=== PATIENT | female | born 1940 | race Caucasian/White ===

== ENCOUNTER 2016-11-04 14:47 | Inpatient (IN) | payer MEDICARE, OTHER ==
--- NOTE | 2016-11-04 15:13 | ER Document Report ---
ED Medical Screen (RME) - General Stated Complaint: WEAKNESS Time seen by provider: 15:08 Notes: 76-year-old female with chronic kidney disease, stage IV, COPD, left ventricular dysfunction, encephalopathy, hydrocephalic's, started being more weak to the point where she could not walk, sit up or heat last week. She has hospice at home. She refuses dialysis. She has an indwelling Moura catheter. Hands are extra swollen today initially the left. She has DO NOT RESUSCITATE orders but the daughter did not bring them they are at home on the wall. Dr. Anderson her PCP wants her evaluated in the emergency room because she has had such a drastic downturn and physicality, inability to do things. Her daughter is her caregiver and is unsure how to take care of her at home at this point. No fever I have greeted and performed a rapid initial assessment of this patient. A comprehensive ED assessment, evaluation of the patient, analysis of test results , and completion of the medical decision making process will be contacted by additional ED providers. TRAVEL OUTSIDE OF THE [place] IN LAST 30 DAYS: No - Related Data Allergies/Adverse Reactions: No Known Allergies Allergy (Verified 08/09/15 12:15) Past Medical History - Past Medical History Cardiac Medical History: Reports: Hx Hypercholesterolemia Pulmonary Medical History: Reports: Hx COPD Psychiatric Medical History: Reports: Hx Depression Past Surgical History: Reports: Hx Urinary Tract Surgery Physical Exam - Vital signs Vitals: Temp Pulse Resp BP Pulse Ox 97.8 F 95 22 H 104/57 L 96 11/04/16 15:04 11/04/16 15:04 11/04/16 15:04 11/04/16 15:04 11/04/16 15:04 Course - Vital Signs Vital signs: Temp Pulse Resp BP Pulse Ox 97.8 F 95 22 H 104/57 L 96 11/04/16 15:04 11/04/16 15:04 11/04/16 15:04 11/04/16 15:04 11/04/16 15:04
[2016-11-04 15:50] LABS: ABSOLUTE BASOPHILS # (AUTO) 0.1 10^3/uL (0.0-0.2); ABSOLUTE EOSINOPHILS # (AUTO) 0.4 10^3/uL (0.0-0.6); ABSOLUTE LYMPHOCYTES (AUTO) 1.5 10^3/uL (0.5-4.7); ABSOLUTE MONOCYTES (AUTO) 1.1 10^3/uL (0.1-1.4); ABSOLUTE NEUT (AUTO) 7.2 10^3/uL (1.7-8.2); BASOPHILS % (AUTO) 1.1 % (0-2); EOSINOPHILS % (AUTO) 3.8 % (0-6); HEMATOCRIT 31.8 % (36.0-47.0); HEMOGLOBIN 10.1 g/dL (12.0-15.5); HGB HCT DIFFERENCE -1.5; LYMPHOCYTES % (AUTO) 14.4 % (13-45); MEAN CORPUSCULAR HEMOGLOBIN 25.2 pg (27.0-33.4); MEAN CORPUSCULAR HGB CONC 31.9 g/dL (32.0-36.0); MEAN CORPUSCULAR VOLUME 79 fl (80-97); RED BLOOD COUNT 4.03 10^6/uL (3.72-5.28); RED CELL DISTRIBUTION WIDTH 15.7 % (11.5-14.0); SEGMENTED NEUTROPHILS % (AUTO) 69.7 % (42-78); WHITE BLOOD COUNT 10.3 10^3/uL (4.0-10.5)
[2016-11-04 16:10] LABS: ALANINE AMINOTRANSFERASE 27 U/L (9-52); ALBUMIN 3.6 g/dL (3.5-5.0); ALKALINE PHOSPHATASE 82 U/L (38-126); ANION GAP 14 (5-19); ASPARTATE AMINO TRANSFERASE 39 U/L (14-36); BILIRUBIN,TOTAL 0.6 mg/dL (0.2-1.3); BLOOD UREA NITROGEN 38 mg/dL (7-20); CALCIUM 9.3 mg/dL (8.4-10.2); CARBON DIOXIDE 24 mmol/L (22-30); CHLORIDE 98 mmol/L (98-107); CREATINE KINASE 1123 U/L (30-135); CREATININE RESULT 2.78 mg/dL (0.52-1.25); GLUCOSE 125 mg/dL (75-110); LIPASE 101.6 U/L (23-300); POTASSIUM 3.7 mmol/L (3.6-5.0); SODIUM 135.6 mmol/L (137-145); TOTAL PROTEIN 7.4 g/dL (6.3-8.2)
[2016-11-04 16:20] LABS: CREATINE KINASE MB 6.6 ng/mL (<4.55)
--- NOTE | 2016-11-04 16:22 | ER Document Report ---
ED General - General Chief Complaint: Weakness Stated Complaint: WEAKNESS Notes: Patient is being evaluated for progressive weakness over the last 9-10 days. Patient has a history of renal failure but is refused to go on dialysis. She is supposed to be under hospice care at this time, but the daughter says that hospice, as well as her primary care physician, advised her to be brought to the emergency department for assessment. Patient also has a history of COPD. She is not experiencing any significant shortness of breath or chest congestion or cough. Daughter says that the patient was her usual self about 10 days ago, but the next day she seemed to lose strength quickly and was unable to walk, even with assistance. Daughter says she is only eating about half of what she normally eats. Has been drinking fluids. They noted today that both of her hands were swollen, the left more so than the right. Patient has an indwelling Moura catheter that's been in for a couple of years. Other significant medical history is that of encephalopathy and hydrocephalus. Hypothyroid. Distant stroke. High cholesterol. Patient reportedly is a DO NOT RESUSCITATE, but we do not have those orders with us. Family did not bring these papers with them. TRAVEL OUTSIDE OF THE [place] IN LAST 30 DAYS: No - Related Data Allergies/Adverse Reactions: No Known Allergies Allergy (Verified 11/04/16 15:13) Past Medical History - Social History Smoking Status: Former Smoker Chew tobacco use (# tins/day): No Frequency of alcohol use: None Drug Abuse: None Family History: Reviewed & Not Pertinent Patient has suicidal ideation: No Patient has homicidal ideation: No - Past Medical History Cardiac Medical History: Reports: Hx Hypercholesterolemia Pulmonary Medical History: Reports: Hx COPD Neurological Medical History: Reports: Other - History of encephalopathy. History of hydrocephalus. Endocrine Medical History: Reports: Hx Hypothyroidism Psychiatric Medical History: Reports: Hx Depression Past Surgical History: Reports: Hx Urinary Tract Surgery Review of Systems - Review of Systems Notes: REVIEW OF SYSTEMS: CONSTITUTIONAL : Denies fever. Has generalized weakness. EENT: Denies eye, ear, nose or mouth or throat pain or other symptoms. CARDIOVASCULAR: Denies chest pain. RESPIRATORY: Denies cough, chest congestion, or shortness of breath. GASTROINTESTINAL: Denies abdominal pain or nausea, vomiting, or diarrhea. GENITOURINARY: Denies difficulty or painful urinating, urinary frequency, blood in urine. Has an indwelling Moura. MUSCULOSKELETAL: Denies back or neck pain. Denies joint pain or swelling. Swelling of both hands today, left worse than right. SKIN: Denies rash or skin lesions. NEUROLOGICAL: Denies LOC or altered mental status. Occasional confusion. Denies headache. Denies sensory loss or motor deficits. PSYCHIATRIC: Denies anxiety or stress. Denies depression. ALL OTHER SYSTEMS REVIEWED AND NEGATIVE. Physical Exam - Vital signs Vitals: Temp Pulse Resp BP Pulse Ox 97.8 F 95 22 H 104/57 L 96 11/04/16 15:04 11/04/16 15:04 11/04/16 15:04 11/04/16 15:04 11/04/16 15:04 Interpretation: Normal - Notes Notes: PHYSICAL EXAMINATION: GENERAL: Well-appearing, in no acute distress. HEAD: Atraumatic, normocephalic. EYES: Pupils equal round and reactive to light, extraocular movements intact. No scleral icterus. ENT: oropharynx clear without exudates. Moist mucous membranes. NECK: Normal range of motion, supple. LUNGS: Breath sounds clear and equal bilaterally. HEART: Regular rate and rhythm grade 3/6 systolic murmur. ABDOMEN: Soft, nontender. No guarding or rebound. BACK: No tenderness throughout entire back. EXTREMITIES: Normal range of motion without pain. Both hands are slightly swollen with some erythema, and family says the swelling has subsided somewhat from earlier today. NEUROLOGICAL: Normal speech, unable to walk. Limited examination because of patient's inability to cooperate. Awake, alert, and oriented x3. PSYCH: Normal mood, normal affect. SKIN: Warm, dry, no rashes. Course - Re-evaluation Re-evalutation: 11/04/16 17:[address] Oro, hospitalist communications superintendent, who will admit the patient - Vital Signs Vital signs: Temp Pulse Resp BP Pulse Ox 97.7 F 74 15 110/61 98 11/04/16 18:49 11/04/16 18:49 11/04/16 18:49 11/04/16 18:49 11/04/16 18:49 11/04/16 17:26 - Laboratory Result Diagrams: 11/04/16 15:15 11/04/16 15:15 Laboratory results interpreted by me: 11/04/16 11/04/16 11/04/16 15:15 15:15 15:15 Hgb 10.1 L Hct 31.8 L MCV 79 L MCH 25.2 L MCHC 31.9 L RDW 15.7 H Sodium 135.6 L BUN 38 H Creatinine 2.78 H Est GFR ( Amer) 20 L Est GFR (Non-Af Amer) 17 L Glucose 125 H AST 39 H Creatine Kinase 1123 H CK-MB (CK-2) 6.60 H TSH Urine Blood Urine Nitrite Ur Leukocyte Esterase 11/04/16 11/04/16 15:15 15:58 Hgb Hct MCV MCH MCHC RDW Sodium BUN Creatinine Est GFR ( Amer) Est GFR (Non-Af Amer) Glucose AST Creatine Kinase CK-MB (CK-2) TSH 7.71 H Urine Blood MODERATE H Urine Nitrite POSITIVE H Ur Leukocyte Esterase LARGE H 11/04/16 17:19 11/04/16 17:19 Labs look like a urinary tract infection. 11/04/16 17:27 - Diagnostic Test Radiology results interpreted by me: 11/04/16 17:25 Chest x-ray shows no acute changes. Normal size heart. No pneumonia. - EKG Interpretation by Wy EKG shows normal: Sinus rhythm Rate: Normal Rhythm: NSR - At 86 Voltage: Consistant with LVH Additional EKG results interpreted by in: 11/04/16 16:44 EKG without any acute changes. Discharge - Discharge Clinical Impression: Urinary tract infection, Renal insufficiency Condition: Fair Disposition: ADMITTED INPATIENT Admitting Provider: Hospitalist Unit Admitted: Medical Floor
[2016-11-04 16:28] LABS: TROPONIN I 0.272 ng/mL
[2016-11-04 16:46] LABS: APPEARANCE,URINE SLIGHTLY-CLOUDY; BILIRUBIN,URINE NEGATIVE (NEGATIVE); GLUCOSE, URINE NEGATIVE (NEGATIVE); KETONES,URINE NEGATIVE (NEGATIVE); LEUKOCYTE ESTERASE,URINE LARGE (NEGATIVE); NITRITE,URINE POSITIVE (NEGATIVE); PROTEIN,URINE NEGATIVE (NEGATIVE); URINE SPECIFIC GRAVITY 1.005; UROBILINOGEN,URINE NEGATIVE mg/dL (<2.0)
[2016-11-04 16:55] LABS: URINE BARBITURATES SCREEN NEGATIVE; URINE METHADONE SCREEN NEGATIVE; URINE OPIATES LOW NEGATIVE; URINE PHENCYCLIDINE SCREEN NEGATIVE
[2016-11-04 17:28] LABS: THYROID STIMULATING HORMONE 7.71 uIU/mL (0.47-4.68)
[2016-11-04] MEDS ORDERED: CEFTRIAXONE 1 GM/D5W RTU 50 ML IV ONE (17:32)
[2016-11-04] MEDS ORDERED: NORMAL SALINE 1000 ML 1,000 ML IV PRN (18:04)
[2016-11-04] MEDS ORDERED: IPRATROPIUM/ALBUTEROL 0.5-2.5 MG/3 ML AMPUL NEB PRN (18:04)
[2016-11-04] MEDS ORDERED: ACETAMINOPHEN 325 MG TABLET PO PRN (18:11)
--- NOTE | 2016-11-04 18:39 | PDOC H&P ---
History of Present Illness Admission Date/PCP: 11/04/16 18:05 TREVON ANDERSON Patient complains of: Weakness History of Present Illness: PADMINI MISHRA is a 76 year old female patient of Dr. Anderson PCP and Dr. velarde urology presents from home to the emergency department with 10 day history of progressive weakness, flank pain and worsening back pain, change in the character color and content of her urine with an indwelling Moura catheter. She denies fevers chills, chest pain, palpitations, shortness of breath, dizziness, numbness tingling, hematuria, melena, hematochezia, syncope or presyncope. She has a chronically fractured left humerus that occurred in 2013 and is dislocated permanently but notes the arm seems more swollen and erythematous over the last week or so. 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 She is usually maintained on Cipro suppressive therapy but ran out 10 days ago, ironically at the same time her symptoms began. The patient is enrolled in hospice and carries a community DO NOT RESUSCITATE but has suddenly become bedbound over the course of the last 10 days, previously walking with a walker and the family can no longer take care of her at home without additional assistance. They are requesting evaluation for correct causes in the hopes that she can return to independent living at home perhaps after a short course of rehabilitation at [facility]. Evaluation in the emergency department shows urinary tract infection with her signs and symptoms point toward a probable pyelonephritis and we were asked to admit the patient for IV antibiotics and further treatment. Past Medical History Cardiac Medical History: Reports: Hyperlipidema Pulmonary Medical History: Reports: Chronic Obstructive Pulmonary Disease (COPD) Neurological Medical History: Reports: Other - History of encephalopathy. History of hydrocephalus. Endocrine Medical History: Reports: Hypothyroidism Psychiatric Medical History: Reports: Depression Hematology: Reports: Anemia Social History Information Source: Patient Lives with: Family Smoking Status: Former Smoker Frequency of Alcohol Use: None Hx Recreational Drug Use: No Hx Prescription Drug Abuse: No - Advance Directive Resuscitation Status: Do Not Resuscitate Family History Family History: Reviewed & Not Pertinent Parental Family History Reviewed: Yes Children Family History Reviewed: Yes Sibling(s) Family History Reviewed.: Yes Medication/Allergy Home Medications: Atorvastatin Calcium 20 mg PO 08/05/15 Cholecalciferol (Vitamin D3) [Vitamin D3] 2,000 unit PO DAILY 08/05/15 Cyclobenzaprine HCl [Flexeril 5 mg Tablet] 10 mg PO QID 08/05/15 Folic Acid 1 mg PO DAILY 08/05/15 Hydroxyzine HCl 50 mg PO 08/05/15 Pantoprazole Sodium [Protonix] 40 mg PO 08/05/15 Promethazine HCl 25 mg PO 08/05/15 Sodium Bicarbonate [Sodium Bicarbonate 650 mg Tablet] 650 mg PO 08/05/15 Albuterol Sulfate [Ventolin HFA MDI 18 GM] 2 puff PO Q4 PRN 08/06/15 Cetirizine HCl [All Day Allergy] 10 mg PO DAILY 08/06/15 Duloxetine HCl [Cymbalta] 60 mg PO DAILY 08/06/15 Esomeprazole Magnesium [Nexium] 40 mg PO ACBRKFST 08/06/15 Gabapentin [Neurontin 300 mg Capsule] 300 mg PO QHS 08/06/15 Hydroxyzine HCl [Atarax 25 mg Tablet] 25 mg PO QHS 08/06/15 Levothyroxine Sodium [Synthroid] 100 mcg PO ACBRKFST 08/06/15 Lorazepam [Ativan 0.5 mg Tablet] 0.5 mg PO TID 08/06/15 Omeprazole 20 mg PO ACBRKFST 08/06/15 Oxycodone HCl/Acetaminophen [Percocet 5-325 mg Tablet] 2 tab PO Q4 PRN 08/06/15 Sennosides [Senna] 8.6 mg PO QHS 08/06/15 Tramadol HCl [Ultram 50 mg Tablet] 50 mg PO Q4HP PRN 08/06/15 Zolpidem Tartrate [Ambien 5 mg Tablet] 5 mg PO QHS 08/06/15 Ciprofloxacin HCl [Cipro] 250 mg PO BID #10 tablet 08/07/15 Allergies/Adverse Reactions: No Known Allergies Allergy (Verified 11/04/16 15:13) Review of Systems Constitutional: PRESENT: chills. ABSENT: fever(s), headache(s), weight gain, weight loss Eyes: ABSENT: visual disturbances Ears: ABSENT: hearing changes Cardiovascular: PRESENT: edema. ABSENT: chest pain, dyspnea on exertion, orthropnea, palpitations Respiratory: ABSENT: cough, hemoptysis Gastrointestinal: ABSENT: abdominal pain, constipation, diarrhea, hematemesis, hematochezia, nausea, vomiting Genitourinary: PRESENT: dysuria, other. ABSENT: hematuria Musculoskeletal: PRESENT: joint swelling - Worsening swelling of the left upper extremity Integumentary: ABSENT: rash, wounds Neurological: ABSENT: abnormal gait, abnormal speech, confusion, dizziness, focal weakness, syncope Psychiatric: ABSENT: anxiety, depression Endocrine: ABSENT: cold intolerance, heat intolerance, polydipsia, polyuria Hematologic/Lymphatic: ABSENT: easy bleeding, easy bruising Physical Exam Vital Signs: Temp Pulse Resp BP Pulse Ox 97.8 F 95 22 H 104/57 L 96 11/04/16 15:04 11/04/16 15:04 11/04/16 15:04 11/04/16 15:04 11/04/16 15:04 PHYSICAL EXAM GENERAL: NAD; small stature, well nourished; no obese; alert and oriented to person, place, time, situation HEENT: normocephalic, atraumatic; EOMI, PERRLA, no conjunctival injection, no scleral icterus; oral mucosa dry, normal dentition; neck supple, no LAD, normal ROM RESPIRATORY: no accessory muscle use, no increased WOB, good air entry bilaterally; no wheezes, rales, rhonchi; no inspiratory crackles CARDIO: no JVD; RRR; no systolic murmur; no tachycardia VASCULAR: no carotid bruit; no abdominal bruit; bilateral feet cool to the touch; 2+ radial, 2+ DP pulse on the right, 1+ on the left; normal capillary refill GI: soft; nondistended; normal bowel sounds; no hepato spleno megaly; no rebound, rigidity, guarding; nontender NEURO: normal patella reflexes; normal sensation; normal motor function; no gait abnls; no dysarthria; no nystagmus; tongue protrudes midline; MSK: 4/5 strength; normal ROM hips; left upper extremity has a step-off deformity and a 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 and extensive ecchymosis that appears to be several days old encompassing the entire left upper arm EXTREMITIES: no calf tender; no palpable cords in calf; no clubbing, cyanosis , pedal edema PSYCH: normal affect, normal mood SKIN: warm otherwise; moist; no petechiae; no telengectasias; no jaundice; no rash Results Impressions: Chest X-Ray 11/04/16 15:15 IMPRESSION: Stable, chronic changes. Assessment & Plan - Diagnosis (1) Pyelonephritis due to Escherichia coli Is this a current diagnosis for this admission?: YesPlan: Admit to medical floor for empiric IV Rocephin and IV fluids. She has a history of Escherichia coli in her urine that was pansensitive in 2014. She has an indwelling Moura catheter with a history of bladder insufficiency and hydroureter and is at risk for pyelonephritis. We'll check a noncontrasted CT scan of the abdomen and pelvis to evaluate further. (2) UTI (urinary tract infection) Qualifiers: Urinary tract infection type: catheter-associated UTI Indwelling urinary catheter type: indwelling urethral catheter Encounter type: subsequent encounter Qualified Code(s): T83.511D - Infection and inflammatory reaction due to indwelling urethral catheter, subsequent encounter ; N39.0 - Urinary tract infection, site not specified Is this a current diagnosis for this admission?: YesPlan: Complex urinary tract infection due to chronic indwelling Moura catheter with a history of pansensitive Escherichia coli. Start empiric Rocephin, treated as above. (3) Chronic kidney disease, stage IV (severe) Is this a current diagnosis for this admission?: YesPlan: IV fluids and monitor renal function. (4) Closed left humeral fracture Qualifiers: Encounter type: sequela Humerus Location: proximal Fracture morphology: unspecified fracture morphology Qualified Code(s): S42.202S - Unspecified fracture of upper end of left humerus, sequela Is this a current diagnosis for this admission?: YesPlan: Given the degree of edema and ecchymosis concerning for possible DVT. Will check Doppler ultrasound as patient can tolerate. (5) Gait instability Is this a current diagnosis for this admission?: YesPlan: Start physical therapy. (6) Peripheral arterial disease Is this a current diagnosis for this admission?: YesPlan: Given the cool extremities and diminished pulse on the left, we'll check arterial Dopplers of bilateral lower extremities. Possibly accounting for her loss of ambulatory function. We'll check thoracic and lumbar spine films as well. (7) Anemia of chronic disease Is this a current diagnosis for this admission?: YesPlan: Hemoglobin is stable. No evidence of acute blood loss. We'll continue to trend her H&H. (8) COPD (chronic obstructive pulmonary disease) Qualifiers: COPD type: chronic bronchitis Is this a current diagnosis for this admission?: YesPlan: Quiescent (9) Normal pressure hydrocephalus Is this a current diagnosis for this admission?: YesPlan: Chronic. And possibly progressive accounting for many of her symptoms. If she doesn't improve with treatment of the underlying infection will move toward an MRI of the brain to better characterize. (10) Hypothyroidism Is this a current diagnosis for this admission?: YesPlan: Stable. Continue home regimen (11) CVA (cerebral vascular accident) Is this a current diagnosis for this admission?: YesPlan: Prior CVA with history of difficulty swallowing, now complaining of drooling will ask speech therapy to evaluate. Placed on a dysphagia diet. (12) Scoliosis Is this a current diagnosis for this admission?: YesPlan: Check plain films of the back. - Time Time Spent: Greater than 70 Minutes - Inpatient Certification Based on my medical assessment, after consideration of the patient's comorbidities, presenting symptoms, or acuity I expect that the services needed warrant INPATIENT care.: Yes I certify that my determination is in accordance with my understanding of Medicare's requirements for reasonable and necessary INPATIENT services [42 CFR 412.3e].: Yes Medical Necessity: Failure to Improve With Outpatient Therapy, Need For IV Fluids, Need for IV Antibiotics
[2016-11-04 19:03] LABS: PROTHROMBIN TIME 12.6 SEC (11.4-15.4)
[2016-11-04 19:19] LABS: MAGNESIUM 2.1 mg/dL (1.6-2.3); PHOSPHORUS 4.3 mg/dL (2.5-4.5)
--- NOTE | 2016-11-04 20:04 | EKG REPORT ---
SEVERITY:- ABNORMAL ECG - SINUS RHYTHM ATRIAL PREMATURE COMPLEX PROBABLE LVH WITH SECONDARY REPOL ABNRM : Confirmed by: Lynn Green MD 04-Nov-2016 20:04:07
[2016-11-04] MEDS ORDERED: CEFTRIAXONE 1 GM/D5W RTU 1 GM/50 ML RTUPB IV ONE (21:00)
[2016-11-04] MEDS: HEPARIN SOD (PORCINE) 5,000 UNIT/ML 1 ML SYRINGE SUBCUT SCH (21:19)
[2016-11-04] MEDS: FAMOTIDINE 20 MG TABLET PO SCH (21:19)
[2016-11-05] MEDS: HEPARIN SOD (PORCINE) 5,000 UNIT/ML 1 ML SYRINGE SUBCUT SCH ×3 (05:49→21:33)
[2016-11-05 06:34] LABS: ABSOLUTE BASOPHILS # (AUTO) 0.1 10^3/uL (0.0-0.2); ABSOLUTE EOSINOPHILS # (AUTO) 0.8 10^3/uL (0.0-0.6); ABSOLUTE LYMPHOCYTES (AUTO) 1.2 10^3/uL (0.5-4.7); ABSOLUTE MONOCYTES (AUTO) 0.9 10^3/uL (0.1-1.4); ABSOLUTE NEUT (AUTO) 4.9 10^3/uL (1.7-8.2); BASOPHILS % (AUTO) 1.6 % (0-2); EOSINOPHILS % (AUTO) 10.4 % (0-6); HEMOGLOBIN 8.9 g/dL (12.0-15.5); HGB HCT DIFFERENCE -1.3; LYMPHOCYTES % (AUTO) 14.7 % (13-45); MEAN CORPUSCULAR HEMOGLOBIN 25.3 pg (27.0-33.4); MEAN CORPUSCULAR HGB CONC 31.9 g/dL (32.0-36.0); MEAN CORPUSCULAR VOLUME 79 fl (80-97); MONOCYTES % (AUTO) 11.5 % (3-13); RED BLOOD COUNT 3.53 10^6/uL (3.72-5.28); RED CELL DISTRIBUTION WIDTH 15.9 % (11.5-14.0); SEGMENTED NEUTROPHILS % (AUTO) 61.8 % (42-78)
[2016-11-05 06:53] LABS: ALANINE AMINOTRANSFERASE 25 U/L (9-52); ALBUMIN 3.1 g/dL (3.5-5.0); ALKALINE PHOSPHATASE 75 U/L (38-126); ANION GAP 11 (5-19); ASPARTATE AMINO TRANSFERASE 35 U/L (14-36); BILIRUBIN,TOTAL 0.5 mg/dL (0.2-1.3); BLOOD UREA NITROGEN 39 mg/dL (7-20); CALCIUM 8.5 mg/dL (8.4-10.2); CARBON DIOXIDE 27 mmol/L (22-30); CHLORIDE 100 mmol/L (98-107); CREATINE KINASE 689 U/L (30-135); CREATININE RESULT 2.68 mg/dL (0.52-1.25); GLUCOSE 101 mg/dL (75-110); PHOSPHORUS 4.7 mg/dL (2.5-4.5); POTASSIUM 4.2 mmol/L (3.6-5.0); SODIUM 137.9 mmol/L (137-145); TOTAL PROTEIN 6.6 g/dL (6.3-8.2)
--- NOTE | 2016-11-05 07:32 | Progress Note ---
Provider Note Provider Note: 11/04/2016, 10:53 PM: I discussed the CT of the abdomen and pelvis results with the interpreting radiologist, Dr. Patten, related to the findings of a "tiny bubble" in the left kidney. He stated this was not consistent with emphysematous pyelonephritis.
[2016-11-05] MEDS ORDERED: LACTULOSE SYRUP 20 GM/30 ML UDCUP PO PRN (10:03)
[2016-11-05] MEDS: OXYCODONE HCL IR 5 MG TABLET PO PRN (10:16)
[2016-11-05] MEDS: FAMOTIDINE 20 MG TABLET PO SCH ×2 (10:16→21:33)
--- NOTE | 2016-11-05 11:38 | PDOC PROGRESS REPORT ---
Subjective Progress Note for:: 11/05/16 Subjective:: Hospital summary: PADMINI MISHRA is a 76 year old female patient of Dr. Anderson PCP and Dr. velarde urology presents from home to the emergency department with 10 day history of progressive weakness, flank pain and worsening back pain , change in the character color and content of her urine with an indwelling Moura catheter. She denies fevers chills, chest pain, palpitations, shortness of breath, dizziness, numbness tingling, hematuria, melena, hematochezia, syncope or presyncope. She has a chronically fractured left humerus that occurred in 2013 and is dislocated permanently but notes the arm seems more swollen and erythematous over the last week or so. 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 She is usually maintained on Cipro suppressive therapy but ran out 10 days ago, ironically at the same time her symptoms began. The patient is enrolled in hospice and carries a community DO NOT RESUSCITATE but has suddenly become bedbound over the course of the last 10 days, previously walking with a walker and the family can no longer take care of her at home without additional assistance. They are requesting evaluation for correct causes in the hopes that she can return to independent living at home perhaps after a short course of rehabilitation at [facility]. Evaluation in the emergency department shows urinary tract infection with her signs and symptoms point toward a probable pyelonephritis and we were asked to admit the patient for IV antibiotics and further treatment. CT scan of the abdomen and pelvis in fact showed evidence of pyelonephritis on the left. This morning, 11/05/2016, she is improved and began working with physical therapy taking 2 steps with moderate assist. She denies fevers chills, chest pain and palpitations, abdominal pain or nausea and vomiting, no diarrhea, no shortness of breath. ROS: per HPI plus a total of 10 systems reviewed, pertinent positives and negatives noted above, remaining systems negative. Physical Exam Vital Signs: Temp Pulse Resp BP Pulse Ox 97.5 F 88 18 106/41 L 98 11/05/16 08:27 11/05/16 08:27 11/05/16 08:27 11/05/16 08:27 11/05/16 08:27 Intake & Output 0111/05/16 11/06/16 06:59 06:59 06:59 Intake Total 1400 Output Total 1620 Balance -220 Weight 50.2 kg EXAM GENERAL: NAD; small stature, well nourished; no obese; alert and oriented to person, place, time, situation HEENT: normocephalic, atraumatic; no conjunctival injection, no scleral icterus ; oral mucosa dry; RESPIRATORY: no accessory muscle use, no increased WOB, good air entry bilaterally; no wheezes, rales, rhonchi; no inspiratory crackles CARDIO: no JVD; RRR; no tachycardia GI: soft; nondistended; normal bowel sounds; no hepato spleno megaly; no rebound, rigidity, guarding; nontender VASCULAR: no carotid bruit; no abdominal bruit; no pallor; 2+ radial, 2+ on the right DP pulse but only 1+ on the left; normal capillary refill EXTREMITIES: no calf tender; no palpable cords in calf; no clubbing, cyanosis , pedal edema PSYCH: normal affect, normal mood 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 but feet and ankles remain very cool to the touch; moist ; no petechiae; no telengectasias; no jaundice; no rash MSK:MSK: 4/5 strength; normal ROM hips; left upper extremity has a step-off deformity and a 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 and extensive ecchymosis that appears to be several days old encompassing the entire left upper arm Results Laboratory Results: 11/05/16 06:15 11/05/16 06:15 11/04/16 11/05/16 11/05/16 18:40 06:15 06:15 WBC 8.0 RBC 3.53 L Hgb 8.9 L Hct 28.0 L MCV 79 L MCH 25.3 L MCHC 31.9 L RDW 15.9 H Plt Count 263 Seg Neutrophils % 61.8 Lymphocytes % 14.7 Monocytes % 11.5 Eosinophils % 10.4 H Basophils % 1.6 Absolute Neutrophils 4.9 Absolute Lymphocytes 1.2 Absolute Monocytes 0.9 Absolute Eosinophils 0.8 H Absolute Basophils 0.1 Sodium 137.9 Potassium 4.2 Chloride 100 Carbon Dioxide 27 Anion Gap 11 BUN 39 H Creatinine 2.68 H Est GFR ( Amer) 21 L Est GFR (Non-Af Amer) 17 L Glucose 101 Calcium 8.5 Phosphorus 4.3 4.7 H Magnesium 2.1 2.0 Total Bilirubin 0.5 AST 35 ALT 25 Alkaline Phosphatase 75 Total Protein 6.6 Albumin 3.1 L Vitamin B12 448.0 11/04/16 11/05/16 18:40 06:15 Creatine Kinase 689 H NT-Pro-B Natriuret Pep 27982 H Impressions: Abdomen/Pelvis CT 11/04/16 00:00 IMPRESSION: Inflammation and tiny left intrarenal gas bubble consistent with clinical history. No organized gas fluid collection. Lumbar Spine X-Ray 11/04/16 00:00 IMPRESSION: 1. Suspected occult left sacral fracture. Clinical correlation is needed. This could be confirmed with noncontrast MRI of the sacrum. 2. Chronic compression fractures L2 and L3. Thoracic Spine X-Ray 11/04/16 00:00 IMPRESSION: Compression fractures T6 and T7 most likely chronic. Chest X-Ray 11/04/16 15:15 IMPRESSION: Stable, chronic changes. Assessment & Plan - Diagnosis (1) Pyelonephritis due to Escherichia coli Is this a current diagnosis for this admission?: YesPlan: Admit to medical floor for empiric IV Rocephin and IV fluids. She has a history of Escherichia coli in her urine that was pansensitive in 2014. She has an indwelling Moura catheter with a history of bladder insufficiency and hydroureter and is at risk for pyelonephritis. Continue empiric Rocephin while we await final culture results (2) UTI (urinary tract infection) Qualifiers: Urinary tract infection type: catheter-associated UTI Indwelling urinary catheter type: indwelling urethral catheter Encounter type: subsequent encounter Qualified Code(s): T83.511D - Infection and inflammatory reaction due to indwelling urethral catheter, subsequent encounter ; N39.0 - Urinary tract infection, site not specified Is this a current diagnosis for this admission?: YesPlan: Complex urinary tract infection due to chronic indwelling Moura catheter with a history of pansensitive Escherichia coli. Start empiric Rocephin, treated as above. (3) Chronic kidney disease, stage IV (severe) Is this a current diagnosis for this admission?: YesPlan: Stable renal function. IV fluids and monitor renal function. (4) Closed left humeral fracture Qualifiers: Encounter type: sequela Humerus Location: proximal Fracture morphology: unspecified fracture morphology Qualified Code(s): S42.202S - Unspecified fracture of upper end of left humerus, sequela Is this a current diagnosis for this admission?: YesPlan: Given the degree of edema and ecchymosis concerning for possible DVT. Will check Doppler ultrasound as patient can tolerate. (5) Gait instability Is this a current diagnosis for this admission?: YesPlan: Continue physical therapy. (6) Peripheral arterial disease Is this a current diagnosis for this admission?: YesPlan: Given the cool extremities and diminished pulse on the left, we'll check arterial Dopplers of bilateral lower extremities. Possibly accounting for her loss of ambulatory function. (7) Anemia of chronic disease Is this a current diagnosis for this admission?: YesPlan: Hemoglobin dropped due to dilutional effect of the IV fluids. No evidence of acute blood loss. We'll continue to trend her H&H. (8) COPD (chronic obstructive pulmonary disease) Qualifiers: COPD type: chronic bronchitis Is this a current diagnosis for this admission?: YesPlan: Quiescent. No evidence for bronchospasm on today's exam. (9) Normal pressure hydrocephalus Is this a current diagnosis for this admission?: YesPlan: Chronic. And possibly progressive accounting for many of her symptoms. If she doesn't improve with treatment of the underlying infection will move toward an MRI of the brain to better characterize. (10) Hypothyroidism Is this a current diagnosis for this admission?: YesPlan: Stable. Continue home regimen (11) CVA (cerebral vascular accident) Is this a current diagnosis for this admission?: YesPlan: Prior CVA with history of difficulty swallowing, now complaining of drooling will ask speech therapy to evaluate. Placed on a dysphagia diet. (12) Scoliosis Is this a current diagnosis for this admission?: YesPlan: thoracic and lumbar spine films showed T6, T7, L2, L3 compression fractures of undetermined age, scoliosis, lordosis and extensive arthritic changes. - Time Time Spent with patient: 35 or more minutes - Plan Summary Plan Summary: Already showing signs of improvement so we'll continue current care while we await the results of the above ordered tests, some of which are not available until Sunday.
[2016-11-05] MEDS: CEFTRIAXONE 1 GM/D5W RTU 50 ML IV SCH (17:54)
[2016-11-05] MEDS: SENNOSIDES/DOCUSATE 8.6-50 MG 1 EACH TABLET PO SCH (17:54)
[2016-11-05] MEDS: LORAZEPAM 0.5 MG TABLET PO PRN (21:33)
[2016-11-06] MEDS: OXYCODONE HCL IR 5 MG TABLET PO PRN ×2 (05:35→20:51)
[2016-11-06] MEDS: HEPARIN SOD (PORCINE) 5,000 UNIT/ML 1 ML SYRINGE SUBCUT SCH ×3 (05:35→22:05)
[2016-11-06 06:34] LABS: ABSOLUTE BASOPHILS # (AUTO) 0.1 10^3/uL (0.0-0.2); ABSOLUTE EOSINOPHILS # (AUTO) 0.6 10^3/uL (0.0-0.6); ABSOLUTE MONOCYTES (AUTO) 0.8 10^3/uL (0.1-1.4); ABSOLUTE NEUT (AUTO) 5.3 10^3/uL (1.7-8.2); BASOPHILS % (AUTO) 1.1 % (0-2); EOSINOPHILS % (AUTO) 7.2 % (0-6); HEMATOCRIT 25.8 % (36.0-47.0); HGB HCT DIFFERENCE -1.8; LYMPHOCYTES % (AUTO) 12.8 % (13-45); MEAN CORPUSCULAR HEMOGLOBIN 24.7 pg (27.0-33.4); MEAN CORPUSCULAR VOLUME 80 fl (80-97); MONOCYTES % (AUTO) 10.4 % (3-13); RED BLOOD COUNT 3.25 10^6/uL (3.72-5.28); RED CELL DISTRIBUTION WIDTH 15.7 % (11.5-14.0); SEGMENTED NEUTROPHILS % (AUTO) 68.5 % (42-78); WHITE BLOOD COUNT 7.8 10^3/uL (4.0-10.5)
[2016-11-06 06:41] LABS: ANION GAP 12 (5-19); BLOOD UREA NITROGEN 34 mg/dL (7-20); CALCIUM 8.5 mg/dL (8.4-10.2); CARBON DIOXIDE 25 mmol/L (22-30); CHLORIDE 103 mmol/L (98-107); CREATINE KINASE 623 U/L (30-135); CREATININE RESULT 2.51 mg/dL (0.52-1.25); GLUCOSE 96 mg/dL (75-110); POTASSIUM 4.3 mmol/L (3.6-5.0); SODIUM 139.9 mmol/L (137-145)
[2016-11-06] MEDS ORDERED: MORPHINE SULFATE 10 MG/ML INJ IV PRN (09:27)
[2016-11-06] MEDS: FAMOTIDINE 20 MG TABLET PO SCH ×2 (11:27→22:05)
[2016-11-06] MEDS: SENNOSIDES/DOCUSATE 8.6-50 MG 1 EACH TABLET PO SCH ×2 (11:27→17:45)
--- NOTE | 2016-11-06 15:52 | XCELERA REPORT ---
[address] [address] Lower Extremity Arterial Evaluation Name: PADMINI MISHRA Age: 76 yrs Gender: Female : 1940 Patient Status: Inpatient Patient Location: 5\S\534\S\A Study Date: 11/06/2016 10:09 AM Procedure: A color flow and duplex scan of the lower extremity arteries was performed bilaterally with velocity and waveform anaylsis. 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 Biphaisc, otherwise normal to the infrageniculate vessels. The ankle-brachial index was not done. 0-19 % stenosis is noted at the Femoral artery. Left Side Arterial Evaluation Normal velocity, waveform and triphasic flow are present, in the Common Femoral artery. Biphaisc, otherwise normal to the infrageniculate vessels. The ankle-brachial index was not done. 0-19 % stenosis is noted at the Femoral artery. Interpretation Summary Mild hemodynamically significant lesions in the bilateral lower extremities, on duplex imaging, at rest. : GARY ROMAN > Sreekanth Hart
--- NOTE | 2016-11-06 15:53 | XCELERA REPORT ---
[address] [address] Upper Extremity Venous Evaluation Name: PADMINI MISHRA Age: 76 yrs Gender: Female : 1940 Patient Status: Inpatient Patient Location: 5\S\534\S\A Study Date: 11/06/2016 09:36 AM Procedure: Unilateral duplex scan of the left upper extremity veins was performed, including responses to compression and other maneuvers. Reason For Study: left upper ext, possible DVT Ordering Physician: GARY ROMAN Performed By: Luna Medrano Left Sided Venous Evaluation Normal vessel filling wall to wall, compression and augmentation as well as Colour flow down to the forearm veins. Interpretation Summary Normal compression, patency, spontaneous and phasic flow of the left upper extremity veins. : GARY ROMAN > Sreekanth Hart
[2016-11-06] MEDS: CEFTRIAXONE 1 GM/D5W RTU 50 ML IV SCH (17:44)
--- NOTE | 2016-11-06 18:03 | XCELERA REPORT ---
[address] [address] Transthoracic Echocardiogram Report Name: PADMINI MISHRA Age: 76 yrs Gender: Female : 1940 Patient Status: Inpatient Patient Location: 5\S\534\S\A Study Date: 11/06/2016 09:47 AM Height: 62 in Weight: 113 lb BSA: 1.5 m2 Procedure: A complete two-dimensional transthoracic echocardiogram was performed (2D, M-mode, spectral and color flow Doppler). The study was technically difficult with many images being suboptimal in quality. Reason For Study: weakness Ordering Physician: GARY ROMAN Performed By: Luna Medrano Interpretation Summary The study was technically difficult with many images being suboptimal in quality. The left ventricular ejection fraction is normal. Doppler measurements suggest pseudonormalized left ventricular relaxation, which is associated with grade II/IV or mild to moderate diastolic dysfunction There is borderline concentric left ventricular hypertrophy. The left ventricle is grossly normal size. The right ventricular systolic function is normal. The left atrium is moderately dilated. The right atrium is normal in size There is mild mitral stenosis There is a moderate to severe amount of mitral regurgitation There is systolic anterior motion of the mitral valve. There is mild LVOT obstruction. There is mild to moderate aortic stenosis There is a trace amount of aortic regurgitation There is a mild amount of tricuspid regurgitation There is moderate pulmonary hypertension by echo Right ventricular systolic pressure is estimated to be elevated at 50- 60mmHg. Minimal pericardial effusion. MMode/2D Measurements \T\ Calculations RVDd: 2.1 cm LVIDd: 3.8 cm FS: 39.8 % Ao root diam: IVSd: 0.86 cm LVIDs: 2.3 cm EDV(Teich): 2.6 cm LVPWd: 0.75 cm 60.0 ml Ao root area: ESV(Teich): 17.3 ml 5.4 cm2 EF(Teich): LA dimension: 71.2 % 4.7 cm LVOT diam: 2.2 cm LA A2Cs: LA A4Cs: LA length: 6.0 cm LVOT area: 3.9 cm2 21.7 cm2 25.2 cm2 LA Vol Index (BP): LA Volume: 77.9 ml 51.9 ml/m2 Doppler Measurements \T\ Calculations MV E max janie: MV V2 max: MV P1/2t max janie: Ao V2 max: 223.0 cm/sec 278.7 cm/sec 252.2 cm/sec 332.5 cm/sec MV A max janie: MV max PG: MV P1/2t: 47.1 msec Ao max P.1 cm/sec 31.1 mmHg MVA(P1/2t): 4.7 cm2 44.2 mmHg MV E/A: 0.94 MV V2 mean: MV dec slope: Ao V2 mean: 201.1 cm/sec 188.8 cm/sec MV mean P cm/sec2 Ao mean P.2 mmHg MV dec time: 17.9 mmHg MV V2 VTI: 0.10 sec Ao V2 VTI: 55.6 cm 50.8 cm MVA(VTI): 2.1 cm2 TAMARA(I,D): 2.3 cm2 TAMARA(V,D): 2.7 cm2 LV V1 max PG: SV(LVOT): PA V2 max: TR max janie: 21.2 mmHg 116.9 ml 86.9 cm/sec 345.8 cm/sec LV V1 mean PG: PA max P.0 mmHg TR max P.1 mmHg 47.8 mmHg LV V1 max: 230.1 cm/sec LV V1 mean: 157.6 cm/sec LV V1 VTI: 30.0 cm LV dP/dt: 3029 mmHg/s Left Ventricle The left ventricle is grossly normal size. There is borderline concentric left ventricular hypertrophy. The left ventricular ejection fraction is normal. Doppler measurements suggest pseudonormalized left ventricular relaxation, which is associated with grade II/IV or mild to moderate diastolic dysfunction. Wall motion cannot be accurately commented on, but no definite regional wall motion abnormalities noted. Right Ventricle The right ventricle is grossly normal size. There is normal right ventricular wall thickness. The right ventricular systolic function is normal. Atria The right atrium is normal in size. The left atrium is moderately dilated. Interarterial septum not well visualized and not well dopplered. Cannot comment on ASD/PFO presence. Mitral Valve There is moderate mitral annular calcification. There is systolic anterior motion of the mitral valve. There is mild mitral stenosis. There is a moderate to severe amount of mitral regurgitation. Aortic Valve The aortic valve is mildly calcified. There is mild to moderate aortic stenosis. There is mild LVOT obstruction. There is a trace amount of aortic regurgitation. Tricuspid Valve The tricuspid valve is not well visualized secondary to technical limitations. There is no tricuspid stenosis. There is a mild amount of tricuspid regurgitation. There is moderate pulmonary hypertension by echo. Right ventricular systolic pressure is estimated to be elevated at 50- 60mmHg. Pulmonic Valve The pulmonic valve is not well visualized. Great Vessels The aortic root is not well visualized. The inferior vena cava was not well visualized. Effusions Minimal pericardial effusion. : GARY ROMAN > Onel Lennon
--- NOTE | 2016-11-06 19:08 | PDOC PROGRESS REPORT ---
Subjective Progress Note for:: 11/06/16 Subjective:: Hospital summary: PADMINI MISHRA is a 76 year old female patient of Dr. Anderson PCP and Dr. velarde urology presents from home to the emergency department with 10 day history of progressive weakness, flank pain and worsening back pain , change in the character color and content of her urine with an indwelling Moura catheter. She denies fevers chills, chest pain, palpitations, shortness of breath, dizziness, numbness tingling, hematuria, melena, hematochezia, syncope or presyncope. She has a chronically fractured left humerus that occurred in 2013 and is dislocated permanently but notes the arm seems more swollen and erythematous over the last week or so. 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 She is usually maintained on Cipro suppressive therapy but ran out 10 days ago, ironically at the same time her symptoms began. The patient is enrolled in hospice and carries a community DO NOT RESUSCITATE but has suddenly become bedbound over the course of the last 10 days, previously walking with a walker and the family can no longer take care of her at home without additional assistance. They are requesting evaluation for correct causes in the hopes that she can return to independent living at home perhaps after a short course of rehabilitation at [facility]. Evaluation in the emergency department shows urinary tract infection with her signs and symptoms point toward a probable pyelonephritis and we were asked to admit the patient for IV antibiotics and further treatment. CT scan of the abdomen and pelvis in fact showed evidence of pyelonephritis on the left. Imaging of the thoracic and lumbar spine showed indeterminate age compression fractures likely contributing some of her immobility. Her urine culture is still pending one out of 2 blood cultures turned up positive for possible bacteremia and repeat cultures are also pending. wafer line worker is indicated at [facility] made a bed offer when she is ready for discharge. ROS: per HPI plus a total of 10 systems reviewed, pertinent positives and negatives noted above, remaining systems negative. Physical Exam Vital Signs: Temp Pulse Resp BP Pulse Ox 98.2 F 91 16 140/58 H 96 11/06/16 15:35 11/06/16 15:35 11/06/16 15:35 11/06/16 15:35 11/06/16 15:35 Intake & Output 11/05/16 11/06/16 11/07/16 06:59 06:59 06:59 Intake Total 1400 2195 1290 Output Total 1620 3600 1200 Balance -220 -1405 90 Weight 50.2 kg 50.2 kg EXAM GENERAL: NAD; small stature, well nourished; no obese; alert and oriented to person and place, but not time or situation, ironically she does remember me. HEENT: normocephalic, atraumatic; no conjunctival injection, no scleral icterus ; oral mucosa dry; RESPIRATORY: no accessory muscle use, no increased WOB, good air entry bilaterally; no wheezes, rales, rhonchi; no inspiratory crackles CARDIO: no JVD; RRR; no tachycardia GI: soft; nondistended; normal bowel sounds; no hepato spleno megaly; no rebound, rigidity, guarding; nontender VASCULAR: no carotid bruit; no abdominal bruit; no pallor; 2+ radial, 2+ on the right DP pulse but only 1+ on the left; normal capillary refill EXTREMITIES: no calf tender; no palpable cords in calf; no clubbing, cyanosis , pedal edema PSYCH: normal affect, normal mood SKIN: legal coordinator general but feet and ankles remain very cool to the touch; moist ; no petechiae; no telengectasias; no jaundice; no rash MSK:MSK: 4/5 strength; normal ROM hips; left upper extremity has a step-off deformity and a 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 and extensive ecchymosis that appears to be several days old encompassing the entire left upper arm Results Laboratory Results: 11/06/16 05:49 11/06/16 05:49 11/06/16 11/06/16 05:49 05:49 WBC 7.8 RBC 3.25 L Hgb 8.0 L Hct 25.8 L MCV 80 MCH 24.7 L MCHC 31.0 L RDW 15.7 H Plt Count 249 Seg Neutrophils % 68.5 Lymphocytes % 12.8 L Monocytes % 10.4 Eosinophils % 7.2 H Basophils % 1.1 Absolute Neutrophils 5.3 Absolute Lymphocytes 1.0 Absolute Monocytes 0.8 Absolute Eosinophils 0.6 Absolute Basophils 0.1 Sodium 139.9 Potassium 4.3 Chloride 103 Carbon Dioxide 25 Anion Gap 12 BUN 34 H Creatinine 2.51 H Est GFR ( Amer) 23 L Est GFR (Non-Af Amer) 19 L Glucose 96 Calcium 8.5 Magnesium 2.0 11/04/16 11/05/16 11/06/16 18:40 06:15 05:49 Creatine Kinase 689 H 623 H NT-Pro-B Natriuret Pep [id number] H Impressions: Abdomen/Pelvis CT 11/04/16 00:00 IMPRESSION: Inflammation and tiny left intrarenal gas bubble consistent with clinical history. No organized gas fluid collection. Lumbar Spine X-Ray 11/04/16 00:00 IMPRESSION: 1. Suspected occult left sacral fracture. Clinical correlation is needed. This could be confirmed with noncontrast MRI of the sacrum. 2. Chronic compression fractures L2 and L3. Thoracic Spine X-Ray 11/04/16 00:00 IMPRESSION: Compression fractures T6 and T7 most likely chronic. Chest X-Ray 11/04/16 15:15 IMPRESSION: Stable, chronic changes. Assessment & Plan - Diagnosis (1) Pyelonephritis due to Escherichia coli Is this a current diagnosis for this admission?: YesPlan: Final culture still pending. Admit to medical floor for empiric IV Rocephin and IV fluids. She has a history of Escherichia coli in her urine that was pansensitive in 2014. She has an indwelling Moura catheter with a history of bladder insufficiency and hydroureter and is at risk for pyelonephritis. Continue empiric Rocephin while we await final culture results and will need a prolonged course due to the need for the indwelling Moura catheter. (2) UTI (urinary tract infection) Qualifiers: Urinary tract infection type: catheter-associated UTI Indwelling urinary catheter type: indwelling urethral catheter Encounter type: subsequent encounter Qualified Code(s): T83.511D - Infection and inflammatory reaction due to indwelling urethral catheter, subsequent encounter ; N39.0 - Urinary tract infection, site not specified Is this a current diagnosis for this admission?: YesPlan: Complex urinary tract infection due to chronic indwelling Moura catheter with a history of pansensitive Escherichia coli. Start empiric Rocephin, treated as above. (3) Chronic kidney disease, stage IV (severe) Is this a current diagnosis for this admission?: YesPlan: Stable renal function. IV fluids and monitor renal function. (4) Closed left humeral fracture Qualifiers: Encounter type: sequela Humerus Location: proximal Fracture morphology: unspecified fracture morphology Qualified Code(s): S42.202S - Unspecified fracture of upper end of left humerus, sequela Is this a current diagnosis for this admission?: YesPlan: Given the degree of edema and ecchymosis concerning for possible DVT. Will check Doppler ultrasound as patient can tolerate. (5) Gait instability Is this a current diagnosis for this admission?: YesPlan: Multifactorial. Continue physical therapy and family has [facility] placement [facility], [facility]. (6) Peripheral arterial disease Is this a current diagnosis for this admission?: YesPlan: Given the cool extremities and diminished pulse on the left, follow-up check arterial Dopplers of bilateral lower extremities. Possibly accounting for her loss of ambulatory function. It's unlikely that the family would want to pursue invasive or aggressive interventions but they are looking for answers as to her decline so that they can plan appropriately for continued treatment. (7) Anemia of chronic disease Is this a current diagnosis for this admission?: YesPlan: Hemoglobin dropped due to dilutional effect of the IV fluids. No evidence of acute blood loss. We'll continue to trend her H&H. (8) COPD (chronic obstructive pulmonary disease) Qualifiers: COPD type: chronic bronchitis Is this a current diagnosis for this admission?: YesPlan: Quiescent. No evidence for bronchospasm on today's exam. (9) Normal pressure hydrocephalus Is this a current diagnosis for this admission?: YesPlan: Chronic. And possibly progressive accounting for many of her symptoms. (10) Hypothyroidism Is this a current diagnosis for this admission?: YesPlan: Stable. Continue home regimen (11) CVA (cerebral vascular accident) Is this a current diagnosis for this admission?: YesPlan: Prior CVA with history of difficulty swallowing, now complaining of drooling will ask speech therapy to evaluate. Placed on a dysphagia diet. (12) Scoliosis Is this a current diagnosis for this admission?: YesPlan: thoracic and lumbar spine films showed T6, T7, L2, L3 compression fractures of undetermined age, scoliosis, lordosis and extensive arthritic changes. - Time Time Spent with patient: 25-34 minutes Anticipated discharge: SNF Within: within 24 hours - Plan Summary Plan Summary: It looks like the only correctable cause for her progressive weakness is the pyelonephritis, we are still awaiting final urine culture results to decide on type and course of antibiotics. The family remains interested in continuing hospice therapy but due to her gait abnormality requesting placement [facility].
[2016-11-06] MEDS: LORAZEPAM 0.5 MG TABLET PO PRN (20:50)
[2016-11-07] MEDS: LORAZEPAM 0.5 MG TABLET PO PRN (05:53)
[2016-11-07] MEDS: OXYCODONE HCL IR 5 MG TABLET PO PRN (05:53)
[2016-11-07] MEDS: HEPARIN SOD (PORCINE) 5,000 UNIT/ML 1 ML SYRINGE SUBCUT SCH ×3 (05:53→21:19)
[2016-11-07 06:59] LABS: ABSOLUTE BASOPHILS # (AUTO) 0.1 10^3/uL (0.0-0.2); ABSOLUTE EOSINOPHILS # (AUTO) 0.7 10^3/uL (0.0-0.6); ABSOLUTE LYMPHOCYTES (AUTO) 1.1 10^3/uL (0.5-4.7); ABSOLUTE MONOCYTES (AUTO) 0.8 10^3/uL (0.1-1.4); ABSOLUTE NEUT (AUTO) 5.6 10^3/uL (1.7-8.2); BASOPHILS % (AUTO) 1.2 % (0-2); HEMATOCRIT 25.1 % (36.0-47.0); HEMOGLOBIN 8.1 g/dL (12.0-15.5); HGB HCT DIFFERENCE -0.8; LYMPHOCYTES % (AUTO) 13.6 % (13-45); MEAN CORPUSCULAR HEMOGLOBIN 25.2 pg (27.0-33.4); MEAN CORPUSCULAR HGB CONC 32.2 g/dL (32.0-36.0); MEAN CORPUSCULAR VOLUME 79 fl (80-97); MONOCYTES % (AUTO) 9.9 % (3-13); RED CELL DISTRIBUTION WIDTH 15.4 % (11.5-14.0); SEGMENTED NEUTROPHILS % (AUTO) 67.3 % (42-78); WHITE BLOOD COUNT 8.4 10^3/uL (4.0-10.5)
[2016-11-07 07:20] LABS: ANION GAP 10 (5-19); BLOOD UREA NITROGEN 26 mg/dL (7-20); CALCIUM 8.9 mg/dL (8.4-10.2); CARBON DIOXIDE 25 mmol/L (22-30); CHLORIDE 104 mmol/L (98-107); CREATININE RESULT 2.27 mg/dL (0.52-1.25); GLUCOSE 94 mg/dL (75-110); POTASSIUM 3.9 mmol/L (3.6-5.0); SODIUM 139.3 mmol/L (137-145)
[2016-11-07] MEDS: FAMOTIDINE 20 MG TABLET PO SCH ×2 (09:59→21:20)
[2016-11-07] MEDS: SENNOSIDES/DOCUSATE 8.6-50 MG 1 EACH TABLET PO SCH ×2 (09:59→17:48)
[2016-11-07] MEDS: CEFTRIAXONE 1 GM/D5W RTU 50 ML IV SCH (17:48)
--- NOTE | 2016-11-07 19:48 | PDOC PROGRESS REPORT ---
Subjective Progress Note for:: 11/07/16 Subjective:: Patient quite confused and no family present at bedside during examination. Patient complains of shoulder pain. Patient denies chest pain, shortness of breath, abdominal pain, nausea, vomiting, fevers, chills, diarrhea, constipation , headache, new onset weakness. Physical Exam Vital Signs: Temp Pulse Resp BP Pulse Ox 98.1 F 84 17 130/55 H 97 11/06/16 20:19 11/06/16 20:19 11/06/16 20:19 11/06/16 20:19 11/06/16 20:19 Intake & Output 11/06/16 11/07/16 11/08/16 06:59 06:59 06:59 Intake Total 2195 1410 Output Total 3600 2500 Balance -1405 -1090 Weight 50.2 kg 48.3 kg Exam: General: Awake alert and oriented x1, no acute respiratory distress HEENT: AT/NC, PERRL, EOMI, oropharynx is moist, pink, no scleral icterus, no conjunctival injection Neck: No JVD, trachea midline Chest: Clear to auscultation bilaterally, no wheezes rhonchi or rales CV: Regular rate and rhythm, normal S1 and S2, no murmur, rub, or gallop Abdomen: Soft, nontender to palpation, nondistended, active bowel sounds; no rebound, rigidity, or guarding Extremities: No cyanosis, clubbing or edema; deformity of left upper extremity with ecchymosis Neuro: Cranial nerves II through XII are grossly intact without focal deficits; awake alert and oriented x1 Psych: Normal mood and affect Results Laboratory Results: 11/07/16 06:25 11/07/16 06:25 11/07/16 11/07/16 06:25 06:25 WBC 8.4 RBC 3.20 L Hgb 8.1 L Hct 25.1 L MCV 79 L MCH 25.2 L MCHC 32.2 RDW 15.4 H Plt Count 268 Seg Neutrophils % 67.3 Lymphocytes % 13.6 Monocytes % 9.9 Eosinophils % 8.0 H Basophils % 1.2 Absolute Neutrophils 5.6 Absolute Lymphocytes 1.1 Absolute Monocytes 0.8 Absolute Eosinophils 0.7 H Absolute Basophils 0.1 Sodium 139.3 Potassium 3.9 Chloride 104 Carbon Dioxide 25 Anion Gap 10 BUN 26 H Creatinine 2.27 H Est GFR ( Amer) 25 L Est GFR (Non-Af Amer) 21 L Glucose 94 Calcium 8.9 11/04/16 11/05/16 11/06/16 18:40 06:15 05:49 Creatine Kinase 689 H 623 H NT-Pro-B Natriuret Pep 16170 H Impressions: Abdomen/Pelvis CT 11/04/16 00:00 IMPRESSION: Inflammation and tiny left intrarenal gas bubble consistent with clinical history. No organized gas fluid collection. Lumbar Spine X-Ray 11/04/16 00:00 IMPRESSION: 1. Suspected occult left sacral fracture. Clinical correlation is needed. This could be confirmed with noncontrast MRI of the sacrum. 2. Chronic compression fractures L2 and L3. Thoracic Spine X-Ray 11/04/16 00:00 IMPRESSION: Compression fractures T6 and T7 most likely chronic. Chest X-Ray 11/04/16 15:15 IMPRESSION: Stable, chronic changes. Assessment & Plan - Diagnosis (1) Pyelonephritis due to Escherichia coli Is this a current diagnosis for this admission?: YesPlan: Patient currently with pyelonephritis secondary to pansensitive Escherichia coli. On day #3 of Rocephin. Continue IV antibiotics. Patient previously on hospice at home. Will attempt to place patient in care facility or in a hospice prior to discharge. (2) COPD (chronic obstructive pulmonary disease) Qualifiers: COPD type: chronic bronchitis Chronic bronchitis type: unspecified Qualified Code(s): J42 - Unspecified chronic bronchitis Is this a current diagnosis for this admission?: YesPlan: Continue when necessary nebulized treatments (3) Chronic kidney disease, stage IV (severe) Is this a current diagnosis for this admission?: Yes (4) Closed left humeral fracture Qualifiers: Encounter type: sequela Humerus Location: proximal Fracture morphology: unspecified fracture morphology Qualified Code(s): S42.202S - Unspecified fracture of upper end of left humerus, sequela Is this a current diagnosis for this admission?: Yes (5) Gait instability Is this a current diagnosis for this admission?: YesPlan: Patient will need at minimum rehabilitation if not placement or hospice (6) Hypothyroidism Is this a current diagnosis for this admission?: Yes (7) Normal pressure hydrocephalus Is this a current diagnosis for this admission?: Yes (8) Peripheral arterial disease Is this a current diagnosis for this admission?: Yes (9) Scoliosis Qualifiers: Scoliosis type: unspecified scoliosis Spinal region: unspecified Qualified Code(s): M41.9 - Scoliosis, unspecified Is this a current diagnosis for this admission?: YesPlan: Continue pain medication when necessary (10) Iron deficiency anemia Qualifiers: Iron deficiency anemia type: chronic blood loss Qualified Code(s): D50.0 - Iron deficiency anemia secondary to blood loss (chronic) Is this a current diagnosis for this admission?: YesPlan: Continue iron twice a day (11) Anemia of chronic disease Is this a current diagnosis for this admission?: Yes - Time Time Spent with patient: 25-34 minutes Medications reviewed and adjusted accordingly: Yes Anticipated discharge: Acute Rehab, Hospice
--- NOTE | 2016-11-07 19:52 | Progress Note ---
Provider Note Provider Note: 11/07/2016 at 1951 No family patient present at patient bedside today. Attempted to reach listed family. Left HIPPA compliant message.
[2016-11-07] MEDS: TRAMADOL HCL 50 MG TABLET PO PRN (20:22)
[2016-11-07] MEDS: GABAPENTIN 300 MG CAPSULE PO SCH (21:19)
[2016-11-07] MEDS: ATORVASTATIN CALCIUM 20 MG TABLET PO SCH (21:19)
[2016-11-07] MEDS: TRAZODONE HCL 50 MG TABLET PO SCH (21:20)
[2016-11-07] MEDS: DIAZEPAM 5 MG TABLET PO SCH (21:20)
[2016-11-07] MEDS ORDERED: SENNOSIDES/DOCUSATE 8.6-50 MG 1 EACH TABLET PO SCH (22:00)
[2016-11-07] MEDS ORDERED: (PENDING PHARMACY ID) (Sennosides [Senna] 2 TAB) PO SCH (22:00)
[2016-11-08] MEDS: HEPARIN SOD (PORCINE) 5,000 UNIT/ML 1 ML SYRINGE SUBCUT SCH ×3 (05:56→21:40)
[2016-11-08] MEDS ORDERED: HYDROXYZINE PAMOATE 50 MG CAPSULE PO PRN (08:32)
[2016-11-08] MEDS ORDERED: LEVOTHYROXINE SODIUM 0.1 MG TABLET PO SCH (10:00)
[2016-11-08] MEDS ORDERED: LEVOTHYROXINE SODIUM 0.1 MG TABLET PO ONE (10:45)
[2016-11-08] MEDS: LANSOPRAZOLE 30 MG TAB.RAP.DR PO SCH (10:49)
[2016-11-08] MEDS: HALOPERIDOL 2 MG TABLET PO SCH ×2 (10:50→17:02)
[2016-11-08] MEDS: FAMOTIDINE 20 MG TABLET PO SCH ×2 (10:50→21:40)
[2016-11-08] MEDS: DULOXETINE HCL 30 MG CAPSULE.DR PO SCH (10:50)
[2016-11-08] MEDS: CETIRIZINE 10 MG TABLET PO SCH (10:51)
[2016-11-08] MEDS: SENNOSIDES/DOCUSATE 8.6-50 MG 1 EACH TABLET PO SCH ×2 (10:51→17:02)
[2016-11-08] MEDS ORDERED: PHARMACY COMMUNICATION ORDER MC NR (14:15)
[2016-11-08] MEDS ORDERED: AMOXICILLIN TR/POT CLAVULANATE 500-125 MG TAB PO ONE (15:00)
[2016-11-08 15:06] LABS: ANION GAP 11 (5-19); BLOOD UREA NITROGEN 25 mg/dL (7-20); CALCIUM 9.1 mg/dL (8.4-10.2); CARBON DIOXIDE 24 mmol/L (22-30); CHLORIDE 104 mmol/L (98-107); CREATININE RESULT 2.34 mg/dL (0.52-1.25); GLUCOSE 126 mg/dL (75-110); POTASSIUM 4.2 mmol/L (3.6-5.0); SODIUM 139.2 mmol/L (137-145)
[2016-11-08] MEDS: OXYCODONE HCL IR 5 MG TABLET PO PRN (17:03)
[2016-11-08] MEDS: ONDANSETRON HCL INJ/PF 4 MG/2 ML SDV IV PRN (18:47)
[2016-11-08] MEDS: TRAMADOL HCL 50 MG TABLET PO PRN (18:47)
--- NOTE | 2016-11-08 18:59 | PDOC PROGRESS REPORT ---
Subjective Progress Note for:: 11/08/16 Subjective:: Patient reports she's feeling better. She reports her pain is well-controlled. Patient has been able to get out of bed to chair with 1 person assist. Patient denies chest pain, shortness of breath, abdominal pain, nausea, vomiting , fevers, chills, diarrhea, headache, new onset weakness. Patient reports that she hasn't had a good bowel movement in a couple of days but is having small bowel movements. Physical Exam Vital Signs: Temp Pulse Resp BP Pulse Ox 98.5 F 103 H 16 132/57 H 98 11/08/16 15:07 11/08/16 15:07 11/08/16 15:07 11/08/16 15:07 11/08/16 15:07 Intake & Output 11/07/16 11/08/16 11/09/16 06:59 06:59 06:59 Intake Total 1410 360 650 Output Total 2500 1250 700 Balance -1090 -890 -50 Weight 48.3 kg 49.2 kg Exam: General: Awake alert and oriented x2, no acute respiratory distress HEENT: AT/NC, PERRL, EOMI, mild exophthalmus, oropharynx is moist, pink, no scleral icterus, no conjunctival injection Neck: No JVD, trachea midline Chest: Clear to auscultation bilaterally, no wheezes rhonchi or rales CV: Regular rate and rhythm, normal S1 and S2, no murmur, rub, or gallop Abdomen: Soft, nontender to palpation, nondistended, active bowel sounds; no rebound, rigidity, or guarding Extremities: No cyanosis, clubbing or edema; deformity of left upper extremity with ecchymosis Neuro: Cranial nerves II through XII are grossly intact without focal deficits; awake alert and oriented x2 Psych: Normal mood and affect Results Laboratory Results: 11/07/16 06:25 11/08/16 14:30 11/08/16 14:30 Sodium 139.2 Potassium 4.2 Chloride 104 Carbon Dioxide 24 Anion Gap 11 BUN 25 H Creatinine 2.34 H Est GFR ( Amer) 25 L Est GFR (Non-Af Amer) 20 L Glucose 126 H Calcium 9.1 11/04/16 11/05/16 11/06/16 18:40 06:15 05:49 Creatine Kinase 689 H 623 H NT-Pro-B Natriuret Pep 61548 H Impressions: Abdomen/Pelvis CT 11/04/16 00:00 IMPRESSION: Inflammation and tiny left intrarenal gas bubble consistent with clinical history. No organized gas fluid collection. Lumbar Spine X-Ray 11/04/16 00:00 IMPRESSION: 1. Suspected occult left sacral fracture. Clinical correlation is needed. This could be confirmed with noncontrast MRI of the sacrum. 2. Chronic compression fractures L2 and L3. Thoracic Spine X-Ray 11/04/16 00:00 IMPRESSION: Compression fractures T6 and T7 most likely chronic. Chest X-Ray 11/04/16 15:15 IMPRESSION: Stable, chronic changes. Assessment & Plan - Diagnosis (1) Pyelonephritis, acute Is this a current diagnosis for this admission?: YesPlan: Patient was found on presentation to clinically have palliative nephritis due to back pain. Currently patient is not having any back pain, but grew out achromobacter xlosoxidans which is sensitive to Augmentin. Will place patient on Augmentin. Will discuss with ID. (2) COPD (chronic obstructive pulmonary disease) Qualifiers: COPD type: chronic bronchitis Chronic bronchitis type: unspecified Qualified Code(s): J42 - Unspecified chronic bronchitis Is this a current diagnosis for this admission?: YesPlan: Continue when necessary nebulized treatments. Patient has been is advised to stop smoking. (3) Chronic kidney disease, stage IV (severe) Is this a current diagnosis for this admission?: YesPlan: Agents daughter reports today in my discussion with her that her mother does not want hemodialysis. Due to patient's underlying renal disease we are unable to treat her NPH. (4) Closed left humeral fracture Qualifiers: Encounter type: sequela Humerus Location: proximal Fracture morphology: unspecified fracture morphology Qualified Code(s): S42.202S - Unspecified fracture of upper end of left humerus, sequela Is this a current diagnosis for this admission?: YesPlan: Return mother reports that this is quite old. Physical therapy reports that she has some mild contracture associated with it with difficulty with movement, but is able to bear some weight on it. I have advised him to please work with this as able. (5) Gait instability Is this a current diagnosis for this admission?: YesPlan: Continue physical therapy. Patient will need minimum inpatient rehabilitation Patient's gait is unlikely return to normal due to her long-standing NPH which is been untreated for more than 3 years. Patient additionally has a leg length discrepancy. Patient currently is able to transfer to chair with a 1 person assist. And was able to sit up in bed by herself today. I have advised patient to utilize her rehabilitation time as appropriately as possible and she seems enthusiastic to do so. (6) Hypothyroidism Is this a current diagnosis for this admission?: YesPlan: Continue Synthroid. Patient has mild exophthalmos her TSH was 7.71 and free T4 was 1.6. No changes at this time. Thyroid studies Will need to be repeated in 4-6 weeks. (7) Normal pressure hydrocephalus Is this a current diagnosis for this admission?: YesPlan: Per patient's daughter, patient declined surgical intervention for this approximately 3 years ago. Due to patient's renal failure, unable to treat medically with Diamox. Patient's daughter does not wish for surgical intervention at this time. Have discussed hospice appropriateness with daughter again. (8) Peripheral arterial disease Is this a current diagnosis for this admission?: Yes (9) Scoliosis Qualifiers: Scoliosis type: unspecified scoliosis Spinal region: unspecified Qualified Code(s): M41.9 - Scoliosis, unspecified Is this a current diagnosis for this admission?: Yes (10) Iron deficiency anemia Qualifiers: Iron deficiency anemia type: chronic blood loss Qualified Code(s): D50.0 - Iron deficiency anemia secondary to blood loss (chronic) Is this a current diagnosis for this admission?: Yes (11) Anemia of chronic disease Is this a current diagnosis for this admission?: Yes - Time Time Spent with patient: 35 or more minutes Medications reviewed and adjusted accordingly: Yes Anticipated discharge: Acute Rehab
[2016-11-08] MEDS: AMOXICILLIN TR/POT CLAVULANATE 500-125 MG TAB PO SCH (21:40)
[2016-11-08] MEDS: TRAZODONE HCL 50 MG TABLET PO SCH (21:40)
[2016-11-08] MEDS: GABAPENTIN 300 MG CAPSULE PO SCH (21:40)
[2016-11-08] MEDS: ATORVASTATIN CALCIUM 20 MG TABLET PO SCH (21:40)
[2016-11-08] MEDS: DIAZEPAM 5 MG TABLET PO SCH (21:40)
[2016-11-09 00:22] VITALS: BP 111/49
[2016-11-09] MEDS: HEPARIN SOD (PORCINE) 5,000 UNIT/ML 1 ML SYRINGE SUBCUT SCH (06:17)
[2016-11-09] MEDS: AMOXICILLIN TR/POT CLAVULANATE 500-125 MG TAB PO SCH (06:17)
[2016-11-09] MEDS ORDERED: LEVOTHYROXINE SODIUM 0.1 MG TABLET PO SCH (08:00)
[2016-11-09] MEDS: CETIRIZINE 10 MG TABLET PO SCH (09:44)
[2016-11-09] MEDS: FAMOTIDINE 20 MG TABLET PO SCH (09:44)
[2016-11-09] MEDS: DULOXETINE HCL 30 MG CAPSULE.DR PO SCH (09:44)
[2016-11-09] MEDS: SENNOSIDES/DOCUSATE 8.6-50 MG 1 EACH TABLET PO SCH (09:45)
[2016-11-09] MEDS: LANSOPRAZOLE 30 MG TAB.RAP.DR PO SCH (09:45)
[2016-11-09] MEDS: HALOPERIDOL 2 MG TABLET PO SCH (09:45)
--- NOTE | 2016-11-09 10:33 | PDOC DISCHARGE SUMMARY ---
General - Admit/Disc Date/PCP Admission Date/Primary Care Provider: 11/04/16 18:04 TREVON ANDERSON Discharge Date: 11/09/16 - Discharge Diagnosis (1) Pyelonephritis, acute Is this a current diagnosis for this admission?: YesSummary: Patient was found on presentation to clinically have palliative nephritis due to back pain. Currently patient is not having any back pain, but grew out achromobacter xlosoxidans which is sensitive to Augmentin. Will place patient on Augmentin for 10 days due to catheter related infection. (2) COPD (chronic obstructive pulmonary disease) Is this a current diagnosis for this admission?: Yes (3) Chronic kidney disease, stage IV (severe) Is this a current diagnosis for this admission?: YesSummary: Daughter reports her mother does not want hemodialysis. Due to patient's underlying renal disease we are unable to treat her NPH. (4) Closed left humeral fracture Is this a current diagnosis for this admission?: Yes (5) Gait instability Is this a current diagnosis for this admission?: Yes (6) Hypothyroidism Is this a current diagnosis for this admission?: Yes (7) Normal pressure hydrocephalus Is this a current diagnosis for this admission?: YesSummary: Per patient's daughter, patient declined surgical intervention for this approximately 3 years ago. Due to patient's renal failure, unable to treat medically with Diamox. Patient's daughter does not wish for surgical intervention at this time. (8) Peripheral arterial disease Is this a current diagnosis for this admission?: Yes (9) Scoliosis Is this a current diagnosis for this admission?: Yes (10) Iron deficiency anemia Is this a current diagnosis for this admission?: Yes (11) Anemia of chronic disease Is this a current diagnosis for this admission?: Yes - Additional Information Resuscitation Status: Do Not Resuscitate Discharge Diet: Regular Discharge Activity: Activity As Tolerated, Slowly Increase Activity Home Medications: Atorvastatin Calcium [Lipitor 20 mg Tablet] 20 mg PO QHS 11/06/16 Cetirizine HCl [Zyrtec 10 mg Tablet] 10 mg PO DAILY 11/06/16 Gabapentin [Neurontin 300 mg Capsule] 300 mg PO QHS 11/06/16 Hydroxyzine HCl [Atarax 50 mg Tablet] 50 mg PO TID PRN 11/06/16 Levothyroxine Sodium [Synthroid] 100 mg PO DAILY 11/06/16 Pantoprazole Sodium [Protonix] 40 mg PO DAILY 11/06/16 Trazodone HCl [Desyrel 50 mg Tablet] 50 mg PO QHS 11/06/16 Amox Tr/Potassium Clavulanate [Augmentin "500" Tablet] 1 tab PO Q12 #20 tablet 11/09/16 Diazepam [Valium 5 mg Tablet] 5 mg PO QHS #14 tablet 11/09/16 Duloxetine HCl [Cymbalta] 60 mg PO DAILY #30 capsule. 11/09/16 Famotidine [Pepcid 20 mg Tablet] 20 mg PO Q12 tablet 11/09/16 Haloperidol [Haldol 2 mg Tablet] 2 mg PO BID #60 tablet 11/09/16 Lorazepam [Ativan 0.5 mg Tablet] 0.5 mg PO Q6HP PRN #10 tablet 11/09/16 Lorazepam [Ativan 0.5 mg Tablet] 0.5 mg PO TID PRN #30 tablet 11/09/16 Sennosides/Docusate 8.6-50 mg [Senna Plus Tablet] 2 each PO BID tablet Tramadol HCl [Ultram 50 mg Tablet] 50 mg PO QID #40 tablet 11/09/16 History of Present Illness History of Present Illness: PADMINI MISHRA is a 76 year old femalepatient of Dr. Anderson PCP and Dr. velarde urology presents from home to the emergency department with 10 day history of progressive weakness, flank pain and worsening back pain, change in the character color and content of her urine with an indwelling Moura catheter. She denies fevers chills, chest pain, palpitations, shortness of breath, dizziness, numbness tingling, hematuria, melena, hematochezia, syncope or presyncope. She has a chronically fractured left humerus that occurred in 2013 and is dislocated permanently but notes the arm seems more swollen and erythematous over the last week or so. 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 She is usually maintained on Cipro suppressive therapy but ran out 10 days ago, ironically at the same time her symptoms began. The patient is enrolled in hospice and carries a community DO NOT RESUSCITATE but has suddenly become bedbound over the course of the last 10 days, previously walking with a walker and the family can no longer take care of her at home without additional assistance. They are requesting evaluation for correct causes in the hopes that she can return to independent living at home perhaps after a short course of rehabilitation at [facility]. Evaluation in the emergency department shows urinary tract infection with her signs and symptoms point toward a probable pyelonephritis and we were asked to admit the patient for IV antibiotics and further treatment. Hospital Course Hospital Course: Patient was initially treated on Rocephin with some improvement, but culture revealed achromobacter xlosoxidans, which was sensitive to Augmentin. Patient was seen by physical therapy patient was able to sit in chair 3 times a day and take some small shuffling steps with walker. Due to patient's gait instability and generalized debility and desire to not be on hospice any longer patient should go to rehabilitation in order to recover some strength and attempts to be able to return to her home environment. Patient will need to follow with her urologist. She will need to have her Moura catheter changed every month and as needed. Encourage oral intake of food. Patient is stable for discharge to rehabilitation today. Physical Exam Vital Signs: Temp Pulse Resp BP Pulse Ox 97.5 F 74 11 L 111/49 L 96 11/08/16 23:19 11/08/16 23:19 11/08/16 23:19 11/08/16 23:19 11/08/16 23:19 Intake & Output 11/08/16 11/09/16 11/10/16 06:59 06:59 06:59 Intake Total 360 885 Output Total 1250 1100 Balance -890 -215 Weight 49.2 kg 49.2 kg Exam: General: Awake alert and oriented x2, no acute respiratory distress HEENT: AT/NC, PERRL, EOMI, mild exophthalmus, oropharynx is moist, pink, no scleral icterus, no conjunctival injection Neck: No JVD, trachea midline Chest: Clear to auscultation bilaterally, no wheezes rhonchi or rales CV: Regular rate and rhythm, normal S1 and S2, no murmur, rub, or gallop Abdomen: Soft, nontender to palpation, nondistended, active bowel sounds; no rebound, rigidity, or guarding Extremities: No cyanosis, clubbing or edema; deformity of left upper extremity with ecchymosis Neuro: Cranial nerves II through XII are grossly intact without focal deficits; awake alert and oriented x2 Psych: Normal mood and affect Results Laboratory Results: 11/07/16 06:25 11/08/16 14:30 11/08/16 14:30 Sodium 139.2 Potassium 4.2 Chloride 104 Carbon Dioxide 24 Anion Gap 11 BUN 25 H Creatinine 2.34 H Est GFR ( Amer) 25 L Est GFR (Non-Af Amer) 20 L Glucose 126 H Calcium 9.1 11/04/16 11/05/16 11/06/16 18:40 06:15 05:49 Creatine Kinase 689 H 623 H NT-Pro-B Natriuret Pep 65282 H Impressions: Abdomen/Pelvis CT 11/04/16 00:00 IMPRESSION: Inflammation and tiny left intrarenal gas bubble consistent with clinical history. No organized gas fluid collection. Lumbar Spine X-Ray 11/04/16 00:00 IMPRESSION: 1. Suspected occult left sacral fracture. Clinical correlation is needed. This could be confirmed with noncontrast MRI of the sacrum. 2. Chronic compression fractures L2 and L3. Thoracic Spine X-Ray 11/04/16 00:00 IMPRESSION: Compression fractures T6 and T7 most likely chronic. Chest X-Ray 11/04/16 15:15 IMPRESSION: Stable, chronic changes. Qualifiers PATEINT BEING DISCHARGED WITH ANY OF THE FOLLOWING DIAGNOSIS?: No Plan Time Spent: Greater than 30 Minutes
[2016-11-09] MEDS: ONDANSETRON HCL INJ/PF 4 MG/2 ML SDV IV PRN (12:30)
== END 2016-11-09 14:45 | DRG 949 ==
LOC: ER 14:47 → EH 18:04 → UNDOADMIN 18:05 → EH 18:05 → 5 19:24
PROVIDERS: ADMIT Internal Medicine; ATTEND Internal Medicine
DX: T83.511D Infection and inflammatory reaction due to indwelling urethral catheter, subsequent encounter (principal); G93.40 Encephalopathy, unspecified; N10 Acute pyelonephritis; N18.4 Chronic kidney disease, stage 4 (severe); G91.2 (Idiopathic) normal pressure hydrocephalus; Z66 Do not resuscitate; J44.9 Chronic obstructive pulmonary disease, unspecified; E78.5 Hyperlipidemia, unspecified; E03.9 Hypothyroidism, unspecified; D63.8 Anemia in other chronic diseases classified elsewhere; D50.0 Iron deficiency anemia secondary to blood loss (chronic); I73.9 Peripheral vascular disease, unspecified; R13.10 Dysphagia, unspecified; N13.70 Vesicoureteral-reflux, unspecified; B96.20 Unspecified Escherichia coli [E. coli] as the cause of diseases classified elsewhere; M84.422S Pathological fracture, left humerus, sequela; M48.54XD Collapsed vertebra, not elsewhere classified, thoracic region, subsequent encounter for fracture with routine healing; M41.9 Scoliosis, unspecified; R26.9 Unspecified abnormalities of gait and mobility; F32.9 Major depressive disorder, single episode, unspecified; Z87.891 Personal history of nicotine dependence
CPT/HCPCS: 36415; 71010; 72070; 72110; 74176; 80048; 80053; 80307; 81001; 82550; 82553; 82607; 83036; 83690; 83735; 83880; 84100; 84439; 84443; 84484; 85025; 85610; 85730; 87040; 87077; 87086; 87088; 87186; 93005; 93010; 93306; 93925; 93971; 99285; G8978-GP; G8979-GP; G8996-GN; G8997-GN; G8998-GN; J0696; J1644; J2405; J3490; J7030

== ENCOUNTER 2016-12-06 18:50 | Inpatient (IN) | payer MEDICARE, OTHER ==
[2016-12-06] MEDS ORDERED: NORMAL SALINE 1000 ML 2,000 ML IV ONE (20:13)
[2016-12-06] MEDS ORDERED: CEFEPIME 2 GM/D5W RTU 50 ML IV ONE (20:14)
--- NOTE | 2016-12-06 20:32 | ER Document Report ---
ED General - General Chief Complaint: Fever Stated Complaint: WEAKNESS Cannot obtain history due to: Dementia, Unstable vital signs Notes: Patient is a 76-year-old patient with past history of prior CVA, CK D stage IV, anemia, dementia, currently resides in a nursing facility who presents with fever to 104 rectal changes prior to arrival. Staff apparently to the temperatures patient was acting more confused than her baseline. At time of arrival, patient herself is unable to provide any meaningful history. EMS states only that they found patient be febrile and somewhat confused. TRAVEL OUTSIDE OF THE [place] IN LAST 30 DAYS: No - Related Data Allergies/Adverse Reactions: No Known Allergies Allergy (Verified 11/04/16 15:13) Past Medical History - General Information source: Patient, Emergency Med Personnel - Social History Smoking Status: Never Smoker Frequency of alcohol use: None Drug Abuse: None Lives with: [facility] Family History: Reviewed & Not Pertinent - Past Medical History Cardiac Medical History: Reports: Hx Hypercholesterolemia Pulmonary Medical History: Reports: Hx COPD Endocrine Medical History: Reports: Hx Hypothyroidism Renal/ Medical History: Denies: Hx Peritoneal Dialysis Psychiatric Medical History: Reports: Hx Depression Past Surgical History: Reports: Hx Urinary Tract Surgery - Immunizations Hx Diphtheria, Pertussis, Tetanus Vaccination: Yes Review of Systems - Review of Systems Notes: Constitutional: Positive for fever. HENT: Negative for sore throat. Eyes: Negative for visual changes. Cardiovascular: Negative for chest pain. Respiratory: Negative for shortness of breath. Gastrointestinal: Negative for abdominal pain, vomiting or diarrhea. Genitourinary: Positive for bilateral flank pain Musculoskeletal: Negative for back pain. Skin: Negative for rash. Neurological: Negative for headaches, weakness or numbness. 10 point ROS negative except as marked above and in HPI. Physical Exam - Vital signs Vitals: Resp Pulse Ox 20 84 L 12/06/16 18:59 12/06/16 18:59 Interpretation: Tachycardic, Tachypneic, Febrile Notes: PHYSICAL EXAMINATION: GENERAL: Critically ill in appearance, appears confused HEAD: Atraumatic, normocephalic. EYES: Pupils equal round and reactive to light, extraocular movements intact, sclera anicteric, conjunctiva are normal. ENT: nares patent, oropharynx clear without exudates. dry mucous membranes. NECK: Normal range of motion, supple without lymphadenopathy LUNGS: Breath sounds clear to auscultation bilaterally and equal. No wheezes rales or rhonchi. HEART: Regular tachycardia without murmurs ABDOMEN: Soft, nontender, normoactive bowel sounds. No guarding, no rebound. No masses appreciated. EXTREMITIES: no pitting or edema. No cyanosis. NEUROLOGICAL: Right sided facial droop. Moves all extremities spontaneously and on command. PSYCH: Oriented to person. SKIN: Warm, Dry, normal turgor, no rashes or lesions noted. Course - Re-evaluation Re-evalutation: 12/06/16 20:30 Patient presents with severe sepsis in the setting of hypotension, tachycardia, fever rectally to 104 Fahrenheit, and she is lethargic at arrival. She is protecting her airway and will tell me her name but is otherwise altered. It is unclear if this is her baseline. She has an indwelling urinary line and is unclear when this was last changed. However, there is no urine in the bag concerning for lack of urine output in the setting of sepsis. Immediately upon my assessment, patient was started on 2 L of IV fluid, stat portable chest x- ray has been obtained. A Moura catheter will be changed out for appropriate urine sample. Cefepime and vancomycin will be started empirically. Patient's EKG shows ST depressions in the 3 through C6 slightly worse than her baseline which regularly shows these ST depressions. Do not suspect ACS as patient is here with fever, tachycardia, and a urinary source. Although troponin assay could be obtained, I believe will likely be elevated secondary to demand mediated ischemia rather than a true MA. 12/06/16 21:52 Reassessment shows blood pressure has responded to IV fluids and is now normalized. Her lactate is 1.7. Moderate leukocytosis. Anemia baseline. Her chronic kidney function appears slightly worse today than baseline. Awaiting urinalysis. Chest x-ray is clear 12/06/16 22:38 Patient's blood pressure has again declined into the 80s on 60s. A third liter has been started. Patient continues to have minimal to no urine output. I have discussed the patient's care with the patient's daughter who is her power of sports attorney and point of contact. She confirms the patient is a DO NOT RESUSCITATE and DO NOT INTUBATE. She states that she would leave it up to the providers whether or not a central line would be in the long-term interest of the patient. I have informed her that should patient's blood pressures continued to climb can try peripheral pressors given her wishes for minimally invasive care at this time. She is agreeable to this. Likewise, we have discussed EKG changes and clarified that even should patient be having a myocardial infarction aggressive cardiac interventions would not be acceptable to the patient. 12/06/16 23:45 Patient's map remains around 65 at this time. Manual BP just done shows 100/55. Will continue to hold off on norepi at this time. I have discussed with who has agreed to admission at this time. 0050- patient's blood pressure has again down trended now into the 60s systolic. Norepinephrine has been started with improvement of patient's blood pressure. - Vital Signs Vital signs: Temp Pulse Resp BP Pulse Ox 17 84/53 L 96 12/06/16 22:30 12/06/16 22:30 12/06/16 22:30 - Laboratory Result Diagrams: 12/06/16 19:15 12/06/16 19:15 Laboratory results interpreted by me: 12/06/16 12/06/16 12/06/16 19:15 19:15 21:15 WBC 12.4 H RBC 3.48 L Hgb 8.6 L Hct 27.5 L MCV 79 L MCH 24.6 L MCHC 31.2 L RDW 17.7 H Seg Neuts % (Manual) 90 H Band Neutrophils % 6 H Lymphocytes % (Manual) 1 L Monocytes % (Manual) 2 L Abs Neuts (Manual) 11.9 H Abs Lymphs (Manual) 0.1 L VBG pH 7.26 L VBG HCO3 16.6 L Carbon Dioxide 19 L BUN 29 H Creatinine 2.58 H Est GFR ( Amer) 22 L Est GFR (Non-Af Amer) 18 L Ur Leukocyte Esterase 12/06/16 22:29 WBC RBC Hgb Hct MCV MCH MCHC RDW Seg Neuts % (Manual) Band Neutrophils % Lymphocytes % (Manual) Monocytes % (Manual) Abs Neuts (Manual) Abs Lymphs (Manual) VBG pH VBG HCO3 Carbon Dioxide BUN Creatinine Est GFR ( Amer) Est GFR (Non-Af Amer) Ur Leukocyte Esterase LARGE H - Diagnostic Test Radiology reviewed: Image reviewed, Reports reviewed Radiology results interpreted by me: 12/06/16 22:40 Chest x-ray: No acute infiltrate - EKG Interpretation by Me Additional EKG results interpreted by me: 12/06/16 23:49 ST depressions in V36 suggestive of likely demand mediated ischemia although patient does see depressions at baseline in these leads. Rate tachycardic at 126. Critical Care Note - Critical Care Note Total time excluding time spent on procedures (mins): 40 Comments: Critical care time spent obtaining history from patient or surrogate, discussions with consultants, development of treatment plan with patient or surrogate, evaluation of patient's response to treatment, examination of patient , ordering and performing treatments and interventions, ordering and review of laboratory studies, re-evaluation of patient's condition, ordering and review of radiographic studies and review of old charts Discharge - Discharge Clinical Impression: Septic shock, Pyelonephritis, acute, Chronic kidney disease, stage IV (severe) Condition: Critical Disposition: ADMITTED INPATIENT Admitting Provider: Traceyist [facility] Admitted: ICU
[2016-12-06 21:02] LABS: HEMATOCRIT 27.5 % (36.0-47.0); HEMOGLOBIN 8.6 g/dL (12.0-15.5); HGB HCT DIFFERENCE -1.7; MEAN CORPUSCULAR HEMOGLOBIN 24.6 pg (27.0-33.4); MEAN CORPUSCULAR HGB CONC 31.2 g/dL (32.0-36.0); MEAN CORPUSCULAR VOLUME 79 fl (80-97); RED BLOOD COUNT 3.48 10^6/uL (3.72-5.28); RED CELL DISTRIBUTION WIDTH 17.7 % (11.5-14.0); WHITE BLOOD COUNT 12.4 10^3/uL (4.0-10.5)
[2016-12-06 21:12] LABS: ANION GAP 12 (5-19); BLOOD UREA NITROGEN 29 mg/dL (7-20); CALCIUM 8.4 mg/dL (8.4-10.2); CARBON DIOXIDE 19 mmol/L (22-30); CHLORIDE 107 mmol/L (98-107); CREATININE RESULT 2.58 mg/dL (0.52-1.25); GLUCOSE 102 mg/dL (75-110); POTASSIUM 4.3 mmol/L (3.6-5.0)
[2016-12-06 21:24] LABS: BAND NEUTROPHILS % (MANUAL) 6 % (3-5); BASOPHILS % (MANUAL) 0 % (0-2); EOSINOPHILS % (MANUAL) 1 % (0-6); LYMPHOCYTES % (MANUAL) 1 % (13-45); TOTAL CELLS COUNTED 100
[2016-12-06 21:24] LABS: VENOUS BLOOD BASE EXCESS -9.6 mmol/L; VENOUS BLOOD HCO3 16.6 mmol/L (20-32); VENOUS BLOOD PCO2 37.6 mmHg (35-63); VENOUS BLOOD PH 7.26 (7.30-7.42)
[2016-12-06 21:26] LABS: ANISOCYTOSIS 1+; HYPOCHROMASIA 1+; MICROCYTOSIS SLIGHT; OVALOCYTES 1+; POIKILOCYTOSIS SLIGHT; POLYCHROMASIA SLIGHT
[2016-12-06] MEDS ORDERED: VANCOMYCIN HCL INJ 1000 MG VIAL IV ONE (22:27)
[2016-12-06] MEDS ORDERED: NORMAL SALINE 1000 ML 1,000 ML IV ONE (22:27)
[2016-12-06 22:59] LABS: APPEARANCE,URINE SLIGHTLY-CLOUDY; BILIRUBIN,URINE NEGATIVE (NEGATIVE); GLUCOSE, URINE NEGATIVE (NEGATIVE); KETONES,URINE NEGATIVE (NEGATIVE); URINE SPECIFIC GRAVITY 1.015
[2016-12-06 23:00] LABS: LEUKOCYTE ESTERASE,URINE LARGE (NEGATIVE); NITRITE,URINE NEGATIVE (NEGATIVE); PROTEIN,URINE NEGATIVE (NEGATIVE); UROBILINOGEN,URINE NEGATIVE mg/dL (<2.0)
[2016-12-06 23:02] LABS: RBC,URINE 50-100 /HPF; WBC,URINE 20-30 /HPF
[2016-12-06 23:04] LABS: BACTERIA,URINE 2+ /HPF
[2016-12-06] MEDS ORDERED: DEXTROSE 5%-WATER 250 ML with NOREPINEPHRINE BITARTRATE 4 MG IV PRN ×2 (23:41)
[2016-12-06] MEDS ORDERED: FENTANYL CITRATE INJ/PF 100 MCG/2 ML AMPUL IV ONE (23:56)
[2016-12-07] MEDS ORDERED: NOREPINEPHRINE BITARTRATE INJ/PF 4 MG/4 ML SDV IV ONE (00:20)
[2016-12-07] MEDS ORDERED: ACETAMINOPHEN 650 MG SUPP.RECT PR PRN (00:37)
[2016-12-07] MEDS ORDERED: ONDANSETRON HCL INJ/PF 4 MG/2 ML SDV IV PRN (00:37)
[2016-12-07] MEDS ORDERED: NORMAL SALINE 1000 ML 1,000 ML IV SCH (00:45)
[2016-12-07] MEDS ORDERED: IPRATROPIUM/ALBUTEROL 0.5-2.5 MG/3 ML AMPUL NEB ONE (01:37)
[2016-12-07] MEDS ORDERED: VANCOMYCIN HCL 0 MG in DEXTROSE 5%-WATER 250 ML IV NR (01:45)
--- NOTE | 2016-12-07 02:07 | PDOC H&P ---
History of Present Illness Admission Date/PCP: CAROLE CUADRA Patient complains of: Altered mental status History of Present Illness: PADMINI MISHRA is a 76 year old female who is a patient of Dr. Anderson and Dr. Lara urologist, who has a history of chronic indwelling Moura catheter secondary to uterine prolapse, recurrent UTI and pyelonephritis November 2016 cultures grew achromobacter sensitive to Augmentin, patient was discharged and subsequently done well until approximately 3 days ago with poor appetite and excessive sleep until today to be febrile with a temperature of 104 and altered mental status. In the emergency room she's found to be hypotensive tachycardic with leukocytosis she receives 4 L of normal saline for which her blood pressure is responsive and referred to the hospitalist for admission. Patient' s CODE STATUS is verified to be DO NOT RESUSCITATE and formally on hospice. Past medical history also includes COPD stage IV chronic kidney disease, chronic left humeral fracture, gait instability, hypothyroidism, normal pressure hydrocephalus, peripheral artery disease, scoliosis, chronic anemia and dementia requiring Valium, Ativan and Haldol on a scheduled basis. Past Medical History Cardiac Medical History: Reports: Hyperlipidema Pulmonary Medical History: Reports: Chronic Obstructive Pulmonary Disease (COPD) Endocrine Medical History: Reports: Hypothyroidism Psychiatric Medical History: Reports: Dementia, Depression Hematology: Reports: Anemia Social History Information Source: [facility], [facility] Records Lives with: [facility] Smoking Status: Never Smoker Frequency of Alcohol Use: None Hx Recreational Drug Use: No Hx Prescription Drug Abuse: No - Advance Directive Resuscitation Status: Do Not Resuscitate Family History Family History: Reviewed & Not Pertinent, Other Parental Family History Reviewed: Yes - unobtainable Children Family History Reviewed: Yes Sibling(s) Family History Reviewed.: Yes Medication/Allergy Home Medications: Atorvastatin Calcium [Lipitor 20 mg Tablet] 20 mg PO QHS 11/06/16 Cetirizine HCl [Zyrtec 10 mg Tablet] 10 mg PO DAILY 11/06/16 Gabapentin [Neurontin 300 mg Capsule] 300 mg PO QHS 11/06/16 Hydroxyzine HCl [Atarax 50 mg Tablet] 50 mg PO TID PRN 11/06/16 Levothyroxine Sodium [Synthroid] 100 mg PO DAILY 11/06/16 Pantoprazole Sodium [Protonix] 40 mg PO DAILY 11/06/16 Trazodone HCl [Desyrel 50 mg Tablet] 50 mg PO QHS 11/06/16 Amox Tr/Potassium Clavulanate [Augmentin "500" Tablet] 1 tab PO Q12 #20 tablet 11/09/16 Diazepam [Valium 5 mg Tablet] 5 mg PO QHS #14 tablet 11/09/16 Duloxetine HCl [Cymbalta] 60 mg PO DAILY #30 capsule. 11/09/16 Famotidine [Pepcid 20 mg Tablet] 20 mg PO Q12 tablet 11/09/16 Haloperidol [Haldol 2 mg Tablet] 2 mg PO BID #60 tablet 11/09/16 Lorazepam [Ativan 0.5 mg Tablet] 0.5 mg PO Q6HP PRN #10 tablet 11/09/16 Lorazepam [Ativan 0.5 mg Tablet] 0.5 mg PO TID PRN #30 tablet 11/09/16 Sennosides/Docusate 8.6-50 mg [Senna Plus Tablet] 2 each PO BID tablet Tramadol HCl [Ultram 50 mg Tablet] 50 mg PO QID #40 tablet 11/09/16 Allergies/Adverse Reactions: No Known Allergies Allergy (Verified 11/04/16 15:13) Review of Systems ROS unobtainable: Due to mental status Physical Exam Vital Signs: Temp Pulse Resp BP Pulse Ox 17 84/53 L 96 12/06/16 22:30 12/06/16 22:30 12/06/16 22:30 Intake & Output 12/05/16 12/06/16 12/07/16 11:59 11:59 11:59 Intake Total 4000 Balance 4000 Weight 50 kg General appearance: PRESENT: disheveled, mild distress, obese Head exam: PRESENT: atraumatic, normocephalic Eye exam: PRESENT: conjunctiva pink, EOMI, PERRLA. ABSENT: scleral icterus Ear exam: PRESENT: normal external ear exam Mouth exam: PRESENT: dry mucosa Neck exam: ABSENT: carotid bruit, JVD, lymphadenopathy, thyromegaly Respiratory exam: PRESENT: accessory muscle use, clear to auscultation gertrude, decreased breath sounds, tachypnea. ABSENT: rales, rhonchi, wheezes Cardiovascular exam: PRESENT: RRR. ABSENT: diastolic murmur, rubs, systolic murmur Pulses: PRESENT: normal dorsalis pedis pul Vascular exam: PRESENT: normal capillary refill GI/Abdominal exam: PRESENT: normal bowel sounds, soft. ABSENT: distended, guarding, mass, organolmegaly, rebound, tenderness Rectal exam: PRESENT: deferred Extremities exam: PRESENT: full ROM. ABSENT: calf tenderness, clubbing, pedal edema Neurological exam: PRESENT: altered, CN II-XII grossly intact. ABSENT: motor sensory deficit Skin exam: PRESENT: dry, intact, warm. ABSENT: cyanosis, rash Results Laboratory Results: 12/06/16 19:15 12/06/16 19:15 12/06/16 12/06/16 12/06/16 19:15 19:15 19:15 WBC 12.4 H RBC 3.48 L Hgb 8.6 L Hct 27.5 L MCV 79 L MCH 24.6 L MCHC 31.2 L RDW 17.7 H Plt Count 167 Seg Neutrophils % Not Reportable Lymphocytes % Not Reportable Monocytes % Not Reportable Eosinophils % Not Reportable Basophils % Not Reportable Absolute Neutrophils Not Reportable Absolute Lymphocytes Not Reportable Absolute Monocytes Not Reportable Absolute Eosinophils Not Reportable Absolute Basophils Not Reportable VBG pH VBG pCO2 VBG HCO3 VBG Base Excess Sodium 138.0 Potassium 4.3 Chloride 107 Carbon Dioxide 19 L Anion Gap 12 BUN 29 H Creatinine 2.58 H Est GFR ( Amer) 22 L Est GFR (Non-Af Amer) 18 L Glucose 102 Lactic Acid 1.7 Calcium 8.4 Urine Color Urine Appearance Urine pH Ur Specific [place] Urine Protein Urine Glucose (UA) Urine Ketones Urine Blood Urine Nitrite Ur Leukocyte Esterase Urine WBC (Auto) Urine RBC (Auto) Ur Squamous Epith Cells 12/06/16 12/06/16 12/06/16 20:50 21:15 22:29 WBC RBC Hgb Hct MCV MCH MCHC RDW Plt Count Seg Neutrophils % Lymphocytes % Monocytes % Eosinophils % Basophils % Absolute Neutrophils Absolute Lymphocytes Absolute Monocytes Absolute Eosinophils Absolute Basophils VBG pH 7.26 L VBG pCO2 37.6 VBG HCO3 16.6 L VBG Base Excess -9.6 Sodium Potassium Chloride Carbon Dioxide Anion Gap BUN Creatinine Est GFR ( Amer) Est GFR (Non-Af Amer) Glucose Lactic Acid Calcium Urine Color Cancelled YELLOW Urine Appearance Cancelled SLIGHTLY-CLOUDY Urine pH Cancelled 5.0 Ur Specific [place] Cancelled 1.015 Urine Protein Cancelled NEGATIVE Urine Glucose (UA) Cancelled NEGATIVE Urine Ketones Cancelled NEGATIVE Urine Blood Cancelled NEGATIVE Urine Nitrite Cancelled NEGATIVE Ur Leukocyte Esterase Cancelled LARGE H Urine WBC (Auto) Cancelled Urine RBC (Auto) Cancelled Ur Squamous Epith Cells MODERATE Impressions: Chest X-Ray 12/06/16 20:13 IMPRESSION: No acute finding. Assessment & Plan - Diagnosis (1) Pyelonephritis, acute Is this a current diagnosis for this admission?: YesPlan: Recurrent UTI and pyelonephritis secondary to chronic urinary incontinence and uterine prolapse. She is receiving an IV fluid challenge, I'll reevaluate recent microbiology and consideration of antibiotic options she is currently on vancomycin and cefepime awaiting repeat blood culture and CBC (2) Chronic kidney disease, stage IV (severe) Is this a current diagnosis for this admission?: YesPlan: Chronic kidney disease exacerbated by hypotension and sepsis I'll avoid nephrotoxic meds and doses and reevaluate chemistry (3) Septic shock Is this a current diagnosis for this admission?: YesPlan: Secondary to #1 (4) Anemia of chronic disease Is this a current diagnosis for this admission?: YesPlan: Secondary to chronic kidney disease and recurrent infection I'll evaluate anemia workup and consider transfusion when necessary (5) COPD (chronic obstructive pulmonary disease) Qualifiers: COPD type: chronic bronchitis Chronic bronchitis type: unspecified Qualified Code(s): J42 - Unspecified chronic bronchitis Is this a current diagnosis for this admission?: YesPlan: Resume scheduled albuterol Atrovent encourage incentive spirometry - Time Time Spent: 50 to 70 Minutes
[2016-12-07 02:08] LABS: CREATINE KINASE MB 3.32 ng/mL (<4.55)
[2016-12-07 02:34] LABS: TROPONIN I 0.097 ng/mL
[2016-12-07] MEDS: HEPARIN SOD (PORCINE) 5,000 UNIT/ML 1 ML SYRINGE SUBCUT SCH ×3 (06:00→22:41)
[2016-12-07] MEDS ORDERED: LORAZEPAM 0.5 MG TABLET PO PRN ×2 (07:59→13:01)
[2016-12-07 08:07] LABS: HEMATOCRIT 24.6 % (36.0-47.0); HGB HCT DIFFERENCE -1.2; MEAN CORPUSCULAR HEMOGLOBIN 25.3 pg (27.0-33.4); MEAN CORPUSCULAR HGB CONC 31.7 g/dL (32.0-36.0); MEAN CORPUSCULAR VOLUME 80 fl (80-97); RED BLOOD COUNT 3.08 10^6/uL (3.72-5.28); RED CELL DISTRIBUTION WIDTH 17.4 % (11.5-14.0); WHITE BLOOD COUNT 24.5 10^3/uL (4.0-10.5)
[2016-12-07 08:20] LABS: ALANINE AMINOTRANSFERASE 18 U/L (9-52); ALBUMIN 3.3 g/dL (3.5-5.0); ALKALINE PHOSPHATASE 73 U/L (38-126); ANION GAP 11 (5-19); ASPARTATE AMINO TRANSFERASE 22 U/L (14-36); BILIRUBIN,TOTAL 0.5 mg/dL (0.2-1.3); BLOOD UREA NITROGEN 27 mg/dL (7-20); CALCIUM 7.8 mg/dL (8.4-10.2); CARBON DIOXIDE 17 mmol/L (22-30); CHLORIDE 112 mmol/L (98-107); CREATINE KINASE 186 U/L (30-135); CREATININE RESULT 2.47 mg/dL (0.52-1.25); GLUCOSE 101 mg/dL (75-110); POTASSIUM 4.3 mmol/L (3.6-5.0); SODIUM 140.2 mmol/L (137-145); TOTAL PROTEIN 6.4 g/dL (6.3-8.2)
[2016-12-07 08:26] LABS: BAND NEUTROPHILS % (MANUAL) 5 % (3-5); BASOPHILS % (MANUAL) 0 % (0-2); EOSINOPHILS % (MANUAL) 0 % (0-6); LYMPHOCYTES % (MANUAL) 7 % (13-45); TOTAL CELLS COUNTED 100
--- NOTE | 2016-12-07 08:27 | EKG REPORT ---
SEVERITY:- ABNORMAL ECG - SINUS TACHYCARDIA REPOL ABNRM SUGGESTS ISCHEMIA, DIFFUSE LEADS NEED TO R/O L MAIN DISEASE. : Confirmed by: Mingo Enrique MD 07-Dec-2016 08:27:21
[2016-12-07 08:28] LABS: TOXIC GRANULATION SLIGHT
[2016-12-07 08:29] LABS: ANISOCYTOSIS 1+; HEMOGLOBIN 7.8 g/dL (12.0-15.5); HYPOCHROMASIA SLIGHT; MICROCYTOSIS SLIGHT; OVALOCYTES 1+; POIKILOCYTOSIS 1+
[2016-12-07 08:35] LABS: CREATINE KINASE MB 8.48 ng/mL (<4.55)
[2016-12-07 08:44] LABS: TROPONIN I 1.56 ng/mL
[2016-12-07] MEDS ORDERED: HYDROXYZINE PAMOATE 50 MG CAPSULE PO PRN (08:46)
[2016-12-07] MEDS: IPRATROPIUM/ALBUTEROL 0.5-2.5 MG/3 ML AMPUL NEB PRN ×2 (09:03→12:01)
[2016-12-07] MEDS ORDERED: FAMOTIDINE 20 MG TABLET PO SCH (10:00)
[2016-12-07] MEDS ORDERED: LEVOTHYROXINE SODIUM 0.1 MG TABLET PO ONE (10:00)
[2016-12-07] MEDS ORDERED: CEFEPIME HCL 2 GM in DEXTROSE 5%-WATER 50 ML IV SCH (10:00)
[2016-12-07] MEDS ORDERED: CEFEPIME 1 GM/D5W RTU 50 ML IV SCH (10:00)
[2016-12-07] MEDS ORDERED: DULOXETINE HCL 30 MG CAPSULE.DR PO SCH (10:00)
[2016-12-07] MEDS: HALOPERIDOL 2 MG TABLET PO SCH ×2 (10:06→17:25)
[2016-12-07] MEDS: CETIRIZINE 10 MG TABLET PO SCH (10:06)
--- NOTE | 2016-12-07 10:11 | Physician Advisory Note ---
Physician Advisor ProgressNote .: Pursuant to the plan for [facility], I have reviewed the medical record for this patient. Physician Advisor Statement: Please document 1. "sepsis, present on admission, due to gram negative pyelonephritis, with septic shock". [& specify which GNR when known.] Apparently, in cases of septic shock, the coders still have to have dx of "sepsis" documented front & center as well, regardless of how obvious this seems to clinicians. We certainly don't want to have be interrupted with a query after the fact for that.... Thanks! CK
[2016-12-07] MEDS: PIPERACILLIN SODIUM/TAZOBACTAM 2.25 GM in NORMAL SALINE 50 ML IV SCH ×2 (11:30→17:23)
[2016-12-07] MEDS ORDERED: IPRATROPIUM/ALBUTEROL 0.5-2.5 MG/3 ML AMPUL NEB PRN (12:28)
[2016-12-07] MEDS ORDERED: MORPHINE SULFATE 10 MG/ML INJ IV ONE (13:00)
[2016-12-07] MEDS: IPRATROPIUM/ALBUTEROL 0.5-2.5 MG/3 ML AMPUL NEB SCH ×2 (14:01→20:24)
[2016-12-07 14:40] LABS: CREATINE KINASE MB 10.7 ng/mL (<4.55)
[2016-12-07] MEDS: NORMAL SALINE 1000 ML 1,000 ML IV SCH (14:40)
[2016-12-07] MEDS: LORAZEPAM INJ 2 MG/1 ML VIAL IV PRN (14:43)
[2016-12-07 14:51] LABS: TROPONIN I 1.72 ng/mL
--- NOTE | 2016-12-07 15:38 | PDOC PROGRESS REPORT ---
Subjective Progress Note for:: 12/07/16 Subjective:: Patient seen on morning rounds. She is laying presently on stretcher in the emergency department. She sees complaining of mild epigastric discomfort. She denies nausea, vomiting or diarrhea. She has periods of confusion and agitation , followed by periods of where she is oriented. Presently knows she is in the hospital, and the name of the hospital. She denies any cough, shortness breath or chest pain. She states she has chronic pain in her left upper arm from humeral fracture. She denies any other complaints at the present time.Blood pressure is presently improving after fluid resuscitation. She is off levophed drip. Physical Exam Vital Signs: Temp Pulse Resp BP Pulse Ox 98.1 F 96 20 115/54 L 96 12/07/16 10:50 12/07/16 10:50 12/07/16 10:50 12/07/16 10:50 12/07/16 10:50 Intake & Output 12/06/16 12/07/16 12/08/16 06:59 06:59 06:59 Intake Total 4000 Balance 4000 Weight 57 kg General appearance: PRESENT: no acute distress, thin, well-developed, well- nourished Head exam: PRESENT: atraumatic, normocephalic Eye exam: PRESENT: conjunctival injection Ear exam: PRESENT: normal external ear exam Mouth exam: PRESENT: moist, tongue midline Neck exam: ABSENT: carotid bruit, JVD, lymphadenopathy, thyromegaly Respiratory exam: PRESENT: clear to auscultation gertrude. ABSENT: rales, rhonchi, wheezes Cardiovascular exam: PRESENT: RRR. ABSENT: diastolic murmur, rubs, systolic murmur Pulses: PRESENT: normal dorsalis pedis pul Vascular exam: PRESENT: normal capillary refill GI/Abdominal exam: PRESENT: normal bowel sounds, soft. ABSENT: distended, guarding, mass, organolmegaly, rebound, tenderness Rectal exam: PRESENT: deferred Extremities exam: PRESENT: full ROM. ABSENT: calf tenderness, clubbing, pedal edema Musculoskeletal exam: PRESENT: tenderness Neurological exam: PRESENT: alert, awake, oriented to person, oriented to place , oriented to time, oriented to situation, CN II-XII grossly intact. ABSENT: motor sensory deficit Psychiatric exam: PRESENT: appropriate affect, normal mood. ABSENT: homicidal ideation, suicidal ideation Skin exam: PRESENT: dry, intact, warm. ABSENT: cyanosis, rash Results Laboratory Results: 12/07/16 07:40 12/07/16 07:40 12/07/16 12/07/16 07:40 07:40 WBC 24.5 H RBC 3.08 L Hgb 7.8 L Hct 24.6 L MCV 80 MCH 25.3 L MCHC 31.7 L RDW 17.4 H Plt Count 176 Seg Neutrophils % Not Reportable Lymphocytes % Not Reportable Monocytes % Not Reportable Eosinophils % Not Reportable Basophils % Not Reportable Absolute Neutrophils Not Reportable Absolute Lymphocytes Not Reportable Absolute Monocytes Not Reportable Absolute Eosinophils Not Reportable Absolute Basophils Not Reportable Sodium 140.2 Potassium 4.3 Chloride 112 H Carbon Dioxide 17 L Anion Gap 11 BUN 27 H Creatinine 2.47 H Est GFR ( Amer) 23 L Est GFR (Non-Af Amer) 19 L Glucose 101 Calcium 7.8 L Total Bilirubin 0.5 AST 22 ALT 18 Alkaline Phosphatase 73 Total Protein 6.4 Albumin 3.3 L 12/07/16 12/07/16 12/07/16 01:22 01:22 07:40 Creatine Kinase 120 186 H CK-MB (CK-2) 3.32 Troponin I 0.097 12/07/16 07:40 Creatine Kinase CK-MB (CK-2) 8.48 H Troponin I 1.560 Impressions: Chest X-Ray 12/06/16 20:13 IMPRESSION: No acute finding. Assessment & Plan - Diagnosis (1) Sepsis Is this a current diagnosis for this admission?: YesPlan: Patient presented with fever of 104, tachycardia with HR 120-130's, blood pressure of 70-80 systolic, and leucocytosis. She has a history of recurrent UTIs and bacteremia, secondary to urinary retention. She has a long history of chronic indwelling catheter that has been removed recently. Patient was started on broad spectrum antibiotics after blood cultures x 2 were drawn (2) Pyelonephritis, acute Is this a current diagnosis for this admission?: YesPlan: Patient with positive urinalysi, culture pending left flank pain, fever, leucocytosis (3) Septic shock Is this a current diagnosis for this admission?: YesPlan: Blood pressure now normotensive after agrressive fluid resuscitation. (4) Chronic kidney disease, stage IV (severe) Is this a current diagnosis for this admission?: YesPlan: Avoid nephrotoxic dosages and drugs (5) Anemia of chronic disease Is this a current diagnosis for this admission?: YesPlan: Will continue to monitor (6) COPD (chronic obstructive pulmonary disease) Qualifiers: COPD type: chronic bronchitis Chronic bronchitis type: unspecified Qualified Code(s): J42 - Unspecified chronic bronchitis Is this a current diagnosis for this admission?: YesPlan: On home oxygen (7) Troponin level elevated Is this a current diagnosis for this admission?: YesPlan: Secondary to sepsis. Family not interested in aggressive interventions (8) Hypothyroidism Qualifiers: Hypothyroidism type: acquired Qualified Code(s): E03.9 - Hypothyroidism, unspecified Is this a current diagnosis for this admission?: YesPlan: Continue synthroid - Time Time Spent with patient: 25-34 minutes Critical Time spent with patient: 25-34 minutes Medications reviewed and adjusted accordingly: Yes Anticipated discharge: SNF
[2016-12-07] MEDS ORDERED: FUROSEMIDE INJ/PF 40 MG/4 ML SDV ONE (16:20)
[2016-12-07] MEDS ORDERED: FUROSEMIDE INJ/PF 40 MG/4 ML SDV IV ONE (17:00)
[2016-12-07] MEDS ORDERED: CEFEPIME 2 GM/D5W RTU 2 GM/50 ML RTUPB IV SCH (18:00)
[2016-12-07] MEDS ORDERED: GUAIFENESIN 600 MG TABLET.SA PO SCH (18:00)
[2016-12-07] MEDS: BUDESONIDE NEB 0.5 MG/2 ML AMPUL NEB SCH (20:24)
[2016-12-07] MEDS ORDERED: GABAPENTIN 300 MG CAPSULE PO SCH (22:00)
[2016-12-07] MEDS: FAMOTIDINE 20 MG TABLET PO SCH (22:41)
[2016-12-07] MEDS: GUAIFENESIN 600 MG TABLET.SA PO SCH (22:41)
[2016-12-07] MEDS: GABAPENTIN 300 MG CAPSULE PO SCH (22:41)
[2016-12-07] MEDS: TRAZODONE HCL 50 MG TABLET PO SCH (22:41)
[2016-12-07] MEDS: ATORVASTATIN CALCIUM 20 MG TABLET PO SCH (22:41)
[2016-12-08] MEDS: NORMAL SALINE 1000 ML 1,000 ML IV SCH ×2 (02:41→22:05)
[2016-12-08] MEDS: PIPERACILLIN SODIUM/TAZOBACTAM 2.25 GM in NORMAL SALINE 50 ML IV SCH ×3 (02:42→18:37)
[2016-12-08] MEDS: LEVOTHYROXINE SODIUM 0.1 MG TABLET PO SCH (05:59)
[2016-12-08] MEDS: HEPARIN SOD (PORCINE) 5,000 UNIT/ML 1 ML SYRINGE SUBCUT SCH ×3 (06:00→21:37)
[2016-12-08 06:38] LABS: ABSOLUTE BASOPHILS # (AUTO) 0.1 10^3/uL (0.0-0.2); ABSOLUTE EOSINOPHILS # (AUTO) 0.3 10^3/uL (0.0-0.6); ABSOLUTE NEUT (AUTO) 13.2 10^3/uL (1.7-8.2); BASOPHILS % (AUTO) 0.4 % (0-2); EOSINOPHILS % (AUTO) 1.8 % (0-6); HEMATOCRIT 23.2 % (36.0-47.0); HGB HCT DIFFERENCE -1.6; LYMPHOCYTES % (AUTO) 6.7 % (13-45); MEAN CORPUSCULAR HEMOGLOBIN 24.6 pg (27.0-33.4); MEAN CORPUSCULAR HGB CONC 31.3 g/dL (32.0-36.0); MEAN CORPUSCULAR VOLUME 79 fl (80-97); MONOCYTES % (AUTO) 6.4 % (3-13); RED BLOOD COUNT 2.94 10^6/uL (3.72-5.28); RED CELL DISTRIBUTION WIDTH 17.9 % (11.5-14.0); SEGMENTED NEUTROPHILS % (AUTO) 84.7 % (42-78); WHITE BLOOD COUNT 15.5 10^3/uL (4.0-10.5)
[2016-12-08 06:48] LABS: HEMOGLOBIN 7.2 g/dL (12.0-15.5)
[2016-12-08 06:54] LABS: ALANINE AMINOTRANSFERASE 16 U/L (9-52); ALBUMIN 3.2 g/dL (3.5-5.0); ALKALINE PHOSPHATASE 71 U/L (38-126); ANION GAP 12 (5-19); ASPARTATE AMINO TRANSFERASE 23 U/L (14-36); BILIRUBIN,TOTAL 0.6 mg/dL (0.2-1.3); BLOOD UREA NITROGEN 32 mg/dL (7-20); CALCIUM 8.4 mg/dL (8.4-10.2); CARBON DIOXIDE 19 mmol/L (22-30); CHLORIDE 112 mmol/L (98-107); CREATININE RESULT 2.71 mg/dL (0.52-1.25); GLUCOSE 88 mg/dL (75-110); POTASSIUM 3.9 mmol/L (3.6-5.0); SODIUM 142.5 mmol/L (137-145); TOTAL PROTEIN 6.6 g/dL (6.3-8.2)
[2016-12-08] MEDS: IPRATROPIUM/ALBUTEROL 0.5-2.5 MG/3 ML AMPUL NEB SCH ×3 (07:51→20:39)
[2016-12-08] MEDS: BUDESONIDE NEB 0.5 MG/2 ML AMPUL NEB SCH ×2 (07:51→20:39)
[2016-12-08] MEDS ORDERED: NORMAL SALINE 250 ML IV PRN ×2 (07:57)
[2016-12-08] MEDS ORDERED: FUROSEMIDE INJ/PF 40 MG/4 ML SDV IV PRN (07:57)
[2016-12-08] MEDS: FAMOTIDINE 20 MG TABLET PO SCH ×2 (10:02→21:37)
[2016-12-08] MEDS: GUAIFENESIN 600 MG TABLET.SA PO SCH ×2 (10:02→21:37)
[2016-12-08] MEDS: CETIRIZINE 10 MG TABLET PO SCH (10:02)
[2016-12-08] MEDS: FLUTICASONE NASAL SPRAY 50 MCG/SPRY 120 SPRAY/16 GM NAREB SCH (10:03)
[2016-12-08] MEDS: HALOPERIDOL 2 MG TABLET PO SCH ×3 (10:03→21:37)
--- NOTE | 2016-12-08 12:01 | PDOC PROGRESS REPORT ---
Subjective Progress Note for:: 12/08/16 Subjective:: Patient seen on morning rounds. She she is resting quietly in bed on BiPAP. She does not arouse to tactile stimuli or verbal stimuli present time. Nursing states she had a fairly quiet night overnight she was on and off BiPAP at her request. Tachycardia has resolved. She is no longer having any respiratory distress. Review of systems cannot be done due to patient's mentation. Physical Exam Vital Signs: Temp Pulse Resp BP Pulse Ox 98.4 F 76 14 94/42 L 100 12/08/16 07:48 12/08/16 07:51 12/08/16 07:51 12/08/16 07:48 12/08/16 07:48 Intake & Output 12/07/16 12/08/16 12/09/16 06:59 06:59 06:59 Intake Total 4000 2915 Balance 4000 2915 Weight 55.8 kg General appearance: PRESENT: no acute distress, thin - on BIPAP, well-developed , well-nourished Head exam: PRESENT: atraumatic, normocephalic Eye exam: PRESENT: conjunctiva pink, EOMI, PERRLA. ABSENT: scleral icterus Ear exam: PRESENT: normal external ear exam Mouth exam: PRESENT: moist, tongue midline Neck exam: ABSENT: carotid bruit, JVD, lymphadenopathy, thyromegaly Respiratory exam: PRESENT: clear to auscultation gertrude, decreased breath sounds, symmetrical, unlabored Cardiovascular exam: PRESENT: RRR. ABSENT: diastolic murmur, rubs, systolic murmur Pulses: PRESENT: normal dorsalis pedis pul Vascular exam: PRESENT: normal capillary refill GI/Abdominal exam: PRESENT: normal bowel sounds, soft. ABSENT: distended, guarding, mass, organolmegaly, rebound, tenderness Rectal exam: PRESENT: deferred Extremities exam: PRESENT: full ROM. ABSENT: calf tenderness, clubbing, pedal edema Neurological exam: PRESENT: alert, awake, oriented to person, oriented to place , oriented to time, oriented to situation, CN II-XII grossly intact. ABSENT: motor sensory deficit Psychiatric exam: PRESENT: appropriate affect, normal mood. ABSENT: homicidal ideation, suicidal ideation Skin exam: PRESENT: dry, intact, warm. ABSENT: cyanosis, rash Results Laboratory Results: 12/08/16 05:32 12/08/16 05:32 12/08/16 12/08/16 12/08/16 05:32 05:32 08:26 WBC 15.5 H RBC 2.94 L Hgb 7.2 L Hct 23.2 L MCV 79 L MCH 24.6 L MCHC 31.3 L RDW 17.9 H Plt Count 156 Seg Neutrophils % 84.7 H Lymphocytes % 6.7 L Monocytes % 6.4 Eosinophils % 1.8 Basophils % 0.4 Absolute Neutrophils 13.2 H Absolute Lymphocytes 1.0 Absolute Monocytes 1.0 Absolute Eosinophils 0.3 Absolute Basophils 0.1 Sodium 142.5 Potassium 3.9 Chloride 112 H Carbon Dioxide 19 L Anion Gap 12 BUN 32 H Creatinine 2.71 H Est GFR ( Amer) 21 L Est GFR (Non-Af Amer) 17 L Glucose 88 Calcium 8.4 Total Bilirubin 0.6 AST 23 ALT 16 Alkaline Phosphatase 71 Total Protein 6.6 Albumin 3.2 L Blood Type A POSITIVE Antibody Screen NEGATIVE 12/07/16 12/07/16 12/07/16 01:22 01:22 07:40 Creatine Kinase 120 186 H CK-MB (CK-2) 3.32 Troponin I 0.097 12/07/16 12/07/16 12/07/16 07:40 13:36 13:36 Creatine Kinase 181 H CK-MB (CK-2) 8.48 H 10.70 H Troponin I 1.560 1.720 12/08/16 05:32 Creatine Kinase CK-MB (CK-2) Troponin I 1.220 Impressions: Chest X-Ray 12/06/16 20:13 IMPRESSION: No acute finding. Assessment & Plan - Diagnosis (1) Sepsis Qualifiers: Sepsis type: sepsis due to unspecified organism Qualified Code(s): A41.9 - Sepsis, unspecified organism Is this a current diagnosis for this admission?: YesPlan: Patient has had no further tachycardia, fever or hypotension overnight. Her leucocytosis is improving. Blood culture and urine culture are positive for gram negative rods.Will continue current antibiotics awaiting sensitivity. Decrease IV fluid (2) Pyelonephritis, acute Is this a current diagnosis for this admission?: YesPlan: Patient with positive urinalysis, culture pending left flank pain, fever, leucocytosis. Continue antibiotics. Flank pain and fever have resolved. (3) Septic shock Is this a current diagnosis for this admission?: YesPlan: Blood pressure now normotensive with no further tachycardia after agrressive fluid resuscitation. (4) Chronic kidney disease, stage IV (severe) Is this a current diagnosis for this admission?: YesPlan: Avoid nephrotoxic dosages and drugs. Slight bump in creatinine (5) Anemia of chronic disease Is this a current diagnosis for this admission?: YesPlan: Hgb 7.2 today, will transfuse one unit PRBCs' (6) COPD (chronic obstructive pulmonary disease) Qualifiers: COPD type: chronic bronchitis Chronic bronchitis type: unspecified Qualified Code(s): J42 - Unspecified chronic bronchitis Is this a current diagnosis for this admission?: YesPlan: Continue nebulizer treatments BIPAP prn. She does wear oxygen continuously (7) Troponin level elevated Is this a current diagnosis for this admission?: YesPlan: Secondary to sepsis. Family not interested in aggressive interventions (8) Hypothyroidism Qualifiers: Hypothyroidism type: acquired Qualified Code(s): E03.9 - Hypothyroidism, unspecified Is this a current diagnosis for this admission?: YesPlan: Continue synthroid (9) Counseling regarding goals of care Is this a current diagnosis for this admission?: YesPlan: Daughter Clare, is her MPOA. She has been updated on patient's status - Time Time Spent with patient: 25-34 minutes Critical Time spent with patient: 15-24 minutes Medications reviewed and adjusted accordingly: Yes
[2016-12-08] MEDS: LORAZEPAM INJ 2 MG/1 ML VIAL IV PRN ×2 (12:07→17:14)
[2016-12-08] MEDS ORDERED: DIGOXIN INJ 0.5 MG/2 ML AMPULE IV ONE (13:00)
[2016-12-08] MEDS ORDERED: NORTRIPTYLINE HCL 25 MG CAPSULE PO PRN (16:45)
[2016-12-08] MEDS ORDERED: LORAZEPAM INJ 2 MG/1 ML VIAL IV ONE (16:59)
[2016-12-08 19:13] LABS: ABSOLUTE EOSINOPHILS # (AUTO) 0.5 10^3/uL (0.0-0.6); ABSOLUTE LYMPHOCYTES (AUTO) 1.1 10^3/uL (0.5-4.7); ABSOLUTE NEUT (AUTO) 12.4 10^3/uL (1.7-8.2); BASOPHILS % (AUTO) 0.3 % (0-2); EOSINOPHILS % (AUTO) 3.7 % (0-6); HEMATOCRIT 27.7 % (36.0-47.0); HEMOGLOBIN 8.9 g/dL (12.0-15.5); MEAN CORPUSCULAR HEMOGLOBIN 25.7 pg (27.0-33.4); MEAN CORPUSCULAR VOLUME 80 fl (80-97); MONOCYTES % (AUTO) 6.5 % (3-13); RED BLOOD COUNT 3.45 10^6/uL (3.72-5.28); RED CELL DISTRIBUTION WIDTH 18.3 % (11.5-14.0); SEGMENTED NEUTROPHILS % (AUTO) 82.5 % (42-78)
[2016-12-08] MEDS: TRAZODONE HCL 50 MG TABLET PO SCH (21:37)
[2016-12-08] MEDS: GABAPENTIN 300 MG CAPSULE PO SCH (21:37)
[2016-12-08] MEDS: ATORVASTATIN CALCIUM 20 MG TABLET PO SCH (21:37)
[2016-12-08] MEDS ORDERED: VANCOMYCIN HCL 750 MG in DEXTROSE 5%-WATER 250 ML IV SCH (22:00)
[2016-12-09] MEDS: LORAZEPAM INJ 2 MG/1 ML VIAL IV PRN (02:04)
[2016-12-09] MEDS: PIPERACILLIN SODIUM/TAZOBACTAM 2.25 GM in NORMAL SALINE 50 ML IV SCH ×3 (02:05→17:31)
[2016-12-09] MEDS: HEPARIN SOD (PORCINE) 5,000 UNIT/ML 1 ML SYRINGE SUBCUT SCH ×3 (05:45→22:14)
[2016-12-09] MEDS: LEVOTHYROXINE SODIUM 0.1 MG TABLET PO SCH (05:45)
[2016-12-09 08:15] LABS: ABSOLUTE EOSINOPHILS # (AUTO) 0.4 10^3/uL (0.0-0.6); ABSOLUTE MONOCYTES (AUTO) 0.9 10^3/uL (0.1-1.4); ABSOLUTE NEUT (AUTO) 8.9 10^3/uL (1.7-8.2); BASOPHILS % (AUTO) 0.3 % (0-2); HEMATOCRIT 27.2 % (36.0-47.0); HEMOGLOBIN 8.8 g/dL (12.0-15.5); HGB HCT DIFFERENCE -0.8; LYMPHOCYTES % (AUTO) 8.6 % (13-45); MEAN CORPUSCULAR HEMOGLOBIN 25.6 pg (27.0-33.4); MEAN CORPUSCULAR HGB CONC 32.4 g/dL (32.0-36.0); MEAN CORPUSCULAR VOLUME 79 fl (80-97); MONOCYTES % (AUTO) 7.7 % (3-13); RED BLOOD COUNT 3.44 10^6/uL (3.72-5.28); SEGMENTED NEUTROPHILS % (AUTO) 79.4 % (42-78); WHITE BLOOD COUNT 11.1 10^3/uL (4.0-10.5)
[2016-12-09] MEDS: BUDESONIDE NEB 0.5 MG/2 ML AMPUL NEB SCH ×2 (09:18→20:01)
[2016-12-09] MEDS: IPRATROPIUM/ALBUTEROL 0.5-2.5 MG/3 ML AMPUL NEB SCH ×3 (09:19→20:01)
[2016-12-09] MEDS: NORMAL SALINE 1000 ML 1,000 ML IV SCH (09:21)
[2016-12-09] MEDS: GUAIFENESIN 600 MG TABLET.SA PO SCH ×2 (09:25→22:14)
[2016-12-09] MEDS: HALOPERIDOL 2 MG TABLET PO SCH ×2 (09:25→22:13)
[2016-12-09] MEDS: CETIRIZINE 10 MG TABLET PO SCH (09:25)
[2016-12-09] MEDS: FLUTICASONE NASAL SPRAY 50 MCG/SPRY 120 SPRAY/16 GM NAREB SCH (09:25)
[2016-12-09] MEDS: FAMOTIDINE 20 MG TABLET PO SCH ×2 (09:25→22:14)
[2016-12-09] MEDS: METOPROLOL TARTRATE 25 MG TABLET PO SCH (09:26)
[2016-12-09] MEDS: MORPHINE SULFATE 10 MG/ML INJ IV PRN (18:58)
[2016-12-09] MEDS: GABAPENTIN 300 MG CAPSULE PO SCH (22:13)
[2016-12-09] MEDS: TRAZODONE HCL 50 MG TABLET PO SCH (22:14)
[2016-12-09] MEDS: ATORVASTATIN CALCIUM 20 MG TABLET PO SCH (22:14)
[2016-12-10] MEDS: PIPERACILLIN SODIUM/TAZOBACTAM 2.25 GM in NORMAL SALINE 50 ML IV SCH (01:52)
[2016-12-10] MEDS: NORMAL SALINE 1000 ML 1,000 ML IV SCH (01:53)
[2016-12-10 04:42] LABS: ABSOLUTE BASOPHILS # (AUTO) 0.1 10^3/uL (0.0-0.2); ABSOLUTE EOSINOPHILS # (AUTO) 0.6 10^3/uL (0.0-0.6); ABSOLUTE LYMPHOCYTES (AUTO) 1.4 10^3/uL (0.5-4.7); ABSOLUTE MONOCYTES (AUTO) 0.8 10^3/uL (0.1-1.4); BASOPHILS % (AUTO) 0.8 % (0-2); EOSINOPHILS % (AUTO) 8.2 % (0-6); HEMATOCRIT 27.7 % (36.0-47.0); HGB HCT DIFFERENCE -0.7; LYMPHOCYTES % (AUTO) 17.7 % (13-45); MEAN CORPUSCULAR HEMOGLOBIN 26.1 pg (27.0-33.4); MEAN CORPUSCULAR HGB CONC 32.5 g/dL (32.0-36.0); MEAN CORPUSCULAR VOLUME 80 fl (80-97); MONOCYTES % (AUTO) 9.8 % (3-13); RED BLOOD COUNT 3.45 10^6/uL (3.72-5.28); RED CELL DISTRIBUTION WIDTH 18.4 % (11.5-14.0); SEGMENTED NEUTROPHILS % (AUTO) 63.5 % (42-78); WHITE BLOOD COUNT 7.9 10^3/uL (4.0-10.5)
[2016-12-10 05:00] LABS: ANION GAP 15 (5-19); BLOOD UREA NITROGEN 29 mg/dL (7-20); CALCIUM 8.6 mg/dL (8.4-10.2); CARBON DIOXIDE 20 mmol/L (22-30); CHLORIDE 112 mmol/L (98-107); CREATININE RESULT 2.54 mg/dL (0.52-1.25); GLUCOSE 94 mg/dL (75-110); MAGNESIUM 1.8 mg/dL (1.6-2.3); POTASSIUM 4.2 mmol/L (3.6-5.0)
[2016-12-10] MEDS: LEVOTHYROXINE SODIUM 0.1 MG TABLET PO SCH (05:55)
[2016-12-10] MEDS: HEPARIN SOD (PORCINE) 5,000 UNIT/ML 1 ML SYRINGE SUBCUT SCH ×3 (05:55→21:36)
[2016-12-10] MEDS ORDERED: ERTAPENEM SODIUM INJ 1 GM VIAL IV ONE (08:26)
[2016-12-10] MEDS: IPRATROPIUM/ALBUTEROL 0.5-2.5 MG/3 ML AMPUL NEB SCH ×3 (09:02→19:48)
[2016-12-10] MEDS: BUDESONIDE NEB 0.5 MG/2 ML AMPUL NEB SCH ×2 (09:03→19:48)
--- NOTE | 2016-12-10 09:27 | PDOC PROGRESS REPORT ---
Subjective Progress Note for:: 12/09/16 Subjective:: Patient seen on morning rounds. She is resting in bed. She is presently on nasal cannula and saturating well. She has intermittent periods of confusion, agitation and then reorients. Nursing states she had a fairly quiet night overnight she was on and off BiPAP at her request. Tachycardia has resolved. She is no longer having any respiratory distress. Review of systems cannot be done due to patient's mentation. Physical Exam Vital Signs: Temp Pulse Resp BP Pulse Ox 97.5 F 96 18 143/83 H 96 12/09/16 07:38 12/09/16 09:21 12/09/16 09:21 12/09/16 07:38 12/09/16 09:21 Intake & Output 12/08/16 12/09/16 12/10/16 06:59 06:59 06:59 Intake Total 2915 2520 Balance 2915 2520 Weight 55.8 kg 55.9 kg General appearance: PRESENT: no acute distress, thin, well-developed, well- nourished Head exam: PRESENT: atraumatic, normocephalic Eye exam: PRESENT: conjunctiva pink, EOMI, PERRLA. ABSENT: scleral icterus Ear exam: PRESENT: normal external ear exam Mouth exam: PRESENT: moist, tongue midline Neck exam: ABSENT: carotid bruit, JVD, lymphadenopathy, thyromegaly Respiratory exam: PRESENT: clear to auscultation gertrude, decreased breath sounds, symmetrical. ABSENT: rales, rhonchi, wheezes Cardiovascular exam: PRESENT: RRR. ABSENT: diastolic murmur, rubs, systolic murmur Vascular exam: PRESENT: normal capillary refill GI/Abdominal exam: PRESENT: normal bowel sounds, soft. ABSENT: distended, guarding, mass, organolmegaly, rebound, tenderness Rectal exam: PRESENT: deferred Extremities exam: PRESENT: full ROM. ABSENT: calf tenderness, clubbing, pedal edema Neurological exam: PRESENT: alert, awake, oriented to person, oriented to place , oriented to time, oriented to situation, CN II-XII grossly intact. ABSENT: motor sensory deficit Psychiatric exam: PRESENT: appropriate affect, normal mood. ABSENT: homicidal ideation, suicidal ideation Skin exam: PRESENT: dry, intact, warm. ABSENT: cyanosis, rash Results Laboratory Results: 12/09/16 08:07 12/08/16 05:32 12/08/16 12/08/16 12/09/16 08:26 18:45 08:07 WBC 15.0 H 11.1 H RBC 3.45 L 3.44 L Hgb 8.9 L 8.8 L Hct 27.7 L 27.2 L MCV 80 79 L MCH 25.7 L 25.6 L MCHC 32.0 32.4 RDW 18.3 H 18.0 H Plt Count 159 184 Seg Neutrophils % 82.5 H 79.4 H Lymphocytes % 7.0 L 8.6 L Monocytes % 6.5 7.7 Eosinophils % 3.7 4.0 Basophils % 0.3 0.3 Absolute Neutrophils 12.4 H 8.9 H Absolute Lymphocytes 1.1 1.0 Absolute Monocytes 1.0 0.9 Absolute Eosinophils 0.5 0.4 Absolute Basophils 0.0 0.0 Blood Type A POSITIVE Antibody Screen NEGATIVE 12/07/16 12/07/16 12/07/16 01:22 01:22 07:40 Creatine Kinase 120 186 H CK-MB (CK-2) 3.32 Troponin I 0.097 12/07/16 12/07/16 12/07/16 07:40 13:36 13:36 Creatine Kinase 181 H CK-MB (CK-2) 8.48 H 10.70 H Troponin I 1.560 1.720 12/08/16 05:32 Creatine Kinase CK-MB (CK-2) Troponin I 1.220 Impressions: Chest X-Ray 12/06/16 20:13 IMPRESSION: No acute finding. Assessment & Plan - Diagnosis (1) Sepsis Qualifiers: Sepsis type: sepsis due to unspecified organism Qualified Code(s): A41.9 - Sepsis, unspecified organism Is this a current diagnosis for this admission?: YesPlan: Patient has had no further tachycardia, fever or hypotension overnight. Her leucocytosis is improving. Blood culture and urine culture are positive for gram negative rods.Will continue current antibiotics awaiting sensitivity. Decrease IV fluid (2) Pyelonephritis, acute Is this a current diagnosis for this admission?: YesPlan: Patient with positive urinalysis, culture pending left flank pain, fever, leucocytosis. Continue antibiotics. Flank pain and fever have resolved. (3) Septic shock Is this a current diagnosis for this admission?: YesPlan: Blood pressure now normotensive with no further tachycardia after agrressive fluid resuscitation. (4) Chronic kidney disease, stage IV (severe) Is this a current diagnosis for this admission?: YesPlan: Avoid nephrotoxic dosages and drugs. Slight bump in creatinine (5) Anemia of chronic disease Is this a current diagnosis for this admission?: YesPlan: Hgb 8.9 today. No overt bleeding. Will continue to monitor (6) COPD (chronic obstructive pulmonary disease) Qualifiers: COPD type: chronic bronchitis Chronic bronchitis type: unspecified Qualified Code(s): J42 - Unspecified chronic bronchitis Is this a current diagnosis for this admission?: YesPlan: Continue nebulizer treatments BIPAP prn. She does wear oxygen continuously (7) Troponin level elevated Is this a current diagnosis for this admission?: YesPlan: Secondary to sepsis. Family not interested in aggressive interventions (8) Hypothyroidism Qualifiers: Hypothyroidism type: acquired Qualified Code(s): E03.9 - Hypothyroidism, unspecified Is this a current diagnosis for this admission?: YesPlan: Continue synthroid (9) Counseling regarding goals of care Is this a current diagnosis for this admission?: YesPlan: Daughter Claer, is her MPOA. She has been updated on patient's status - Time Time Spent with patient: 25-34 minutes Critical Time spent with patient: 15-24 minutes Medications reviewed and adjusted accordingly: Yes - Inpatient Certification Based on my medical assessment, after consideration of the patient's comorbidities, presenting symptoms, or acuity I expect that the services needed warrant INPATIENT care.: Yes
--- NOTE | 2016-12-10 09:42 | PDOC PROGRESS REPORT ---
Subjective Progress Note for:: 12/10/16 Subjective:: Patient seen on morning rounds. She is resting in bed. She is presently on nasal cannula and saturating well. She has intermittent periods of confusion, agitation and then reorients. Nursing states she had a fairly quiet night overnight. Tachycardia has resolved. She is no longer having any respiratory distress. She is awake and alert this morning. She denies any shortness of breath, dyspnea or cough. Physical Exam Vital Signs: Temp Pulse Resp BP Pulse Ox 97.5 F 80 18 164/87 H 96 12/10/16 08:38 12/10/16 09:08 12/10/16 09:08 12/10/16 08:38 12/10/16 09:08 Intake & Output 12/09/16 12/10/16 12/11/16 06:59 06:59 06:59 Intake Total 2520 2190 Output Total 0 Balance 2520 2190 Weight 55.9 kg 58.3 kg General appearance: PRESENT: no acute distress, thin, well-developed, well- nourished Head exam: PRESENT: atraumatic, normocephalic Eye exam: PRESENT: conjunctiva pink, EOMI, PERRLA. ABSENT: scleral icterus Ear exam: PRESENT: normal external ear exam Mouth exam: PRESENT: moist, tongue midline Neck exam: ABSENT: carotid bruit, JVD, lymphadenopathy, thyromegaly Respiratory exam: PRESENT: clear to auscultation gertrude. ABSENT: rales, rhonchi, wheezes Cardiovascular exam: PRESENT: RRR. ABSENT: diastolic murmur, rubs, systolic murmur Pulses: PRESENT: normal dorsalis pedis pul Vascular exam: PRESENT: normal capillary refill GI/Abdominal exam: PRESENT: normal bowel sounds, soft. ABSENT: distended, guarding, mass, organolmegaly, rebound, tenderness Rectal exam: PRESENT: deferred Extremities exam: PRESENT: full ROM. ABSENT: calf tenderness, clubbing, pedal edema Neurological exam: PRESENT: alert, awake, oriented to person, oriented to place , oriented to situation, CN II-XII grossly intact. ABSENT: motor sensory deficit Psychiatric exam: PRESENT: appropriate affect, normal mood. ABSENT: homicidal ideation, suicidal ideation Skin exam: PRESENT: dry, intact, warm. ABSENT: cyanosis, rash Results Laboratory Results: 12/10/16 04:10 12/10/16 04:10 12/10/16 12/10/16 04:10 04:10 WBC 7.9 RBC 3.45 L Hgb 9.0 L Hct 27.7 L MCV 80 MCH 26.1 L MCHC 32.5 RDW 18.4 H Plt Count 222 Seg Neutrophils % 63.5 Lymphocytes % 17.7 Monocytes % 9.8 Eosinophils % 8.2 H Basophils % 0.8 Absolute Neutrophils 5.0 Absolute Lymphocytes 1.4 Absolute Monocytes 0.8 Absolute Eosinophils 0.6 Absolute Basophils 0.1 Sodium 147.0 H Potassium 4.2 Chloride 112 H Carbon Dioxide 20 L Anion Gap 15 BUN 29 H Creatinine 2.54 H Est GFR ( Amer) 22 L Est GFR (Non-Af Amer) 18 L Glucose 94 Calcium 8.6 Magnesium 1.8 12/07/16 12/07/16 12/07/16 01:22 01:22 07:40 Creatine Kinase 120 186 H CK-MB (CK-2) 3.32 Troponin I 0.097 12/07/16 12/07/16 12/07/16 07:40 13:36 13:36 Creatine Kinase 181 H CK-MB (CK-2) 8.48 H 10.70 H Troponin I 1.560 1.720 12/08/16 05:32 Creatine Kinase CK-MB (CK-2) Troponin I 1.220 Impressions: Chest X-Ray 12/06/16 20:13 IMPRESSION: No acute finding. Assessment & Plan - Diagnosis (1) Sepsis Qualifiers: Sepsis type: sepsis due to unspecified organism Qualified Code(s): A41.9 - Sepsis, unspecified organism Is this a current diagnosis for this admission?: YesPlan: Resolved. Patient has had no further tachycardia, fever or hypotension overnight. Her leucocytosis has resolved/ Blood culture and urine culture are positive for ESBL. Will switch antibiotic to Invanz. Decrease IV fluid (2) Pyelonephritis, acute Is this a current diagnosis for this admission?: YesPlan: Patient with positive urinalysis, culture shows ESBL. Her left flank pain, fever , leucocytosis has resolved. Continue antibiotics (3) Septic shock Is this a current diagnosis for this admission?: YesPlan: Blood pressure now normotensive with no further tachycardia after agrressive fluid resuscitation. (4) Chronic kidney disease, stage IV (severe) Is this a current diagnosis for this admission?: YesPlan: Avoid nephrotoxic dosages and drugs. Creatinine back to baseline (5) Anemia of chronic disease Is this a current diagnosis for this admission?: YesPlan: Hgb 9.0 today. No overt bleeding. Will continue to monitor (6) COPD (chronic obstructive pulmonary disease) Qualifiers: COPD type: chronic bronchitis Chronic bronchitis type: unspecified Qualified Code(s): J42 - Unspecified chronic bronchitis Is this a current diagnosis for this admission?: YesPlan: Continue nebulizer treatments BIPAP prn. She does wear oxygen continuously (7) Troponin level elevated Is this a current diagnosis for this admission?: YesPlan: Secondary to sepsis. Family not interested in aggressive interventions (8) Hypothyroidism Qualifiers: Hypothyroidism type: acquired Qualified Code(s): E03.9 - Hypothyroidism, unspecified Is this a current diagnosis for this admission?: YesPlan: Continue synthroid (9) Counseling regarding goals of care Is this a current diagnosis for this admission?: YesPlan: Daughter Clare, is her MPOA. She has been updated on patient's status - Time Time Spent with patient: 25-34 minutes Critical Time spent with patient: 15-24 minutes Anticipated discharge: SNF - Inpatient Certification Based on my medical assessment, after consideration of the patient's comorbidities, presenting symptoms, or acuity I expect that the services needed warrant INPATIENT care.: Yes I certify that my determination is in accordance with my understanding of Medicare's requirements for reasonable and necessary INPATIENT services [42 CFR 412.3e].: Yes
[2016-12-10] MEDS: ERTAPENEM SODIUM 0.5 GM in NORMAL SALINE 50 ML IV SCH (10:07)
[2016-12-10] MEDS: METOPROLOL TARTRATE 25 MG TABLET PO SCH (10:09)
[2016-12-10] MEDS: GUAIFENESIN 600 MG TABLET.SA PO SCH ×2 (10:10→21:36)
[2016-12-10] MEDS: HALOPERIDOL 2 MG TABLET PO SCH ×2 (10:10→21:36)
[2016-12-10] MEDS: FAMOTIDINE 20 MG TABLET PO SCH ×2 (10:10→21:37)
[2016-12-10] MEDS: FLUTICASONE NASAL SPRAY 50 MCG/SPRY 120 SPRAY/16 GM NAREB SCH (10:10)
[2016-12-10] MEDS: CETIRIZINE 10 MG TABLET PO SCH (10:10)
[2016-12-10] MEDS: 1/2 NORMAL SALINE 1,000 ML IV PRN (10:11)
[2016-12-10] MEDS: MORPHINE SULFATE 10 MG/ML INJ IV PRN (16:27)
[2016-12-10] MEDS: LORAZEPAM INJ 2 MG/1 ML VIAL IV PRN (19:43)
[2016-12-10] MEDS: TRAZODONE HCL 50 MG TABLET PO SCH (21:36)
[2016-12-10] MEDS: ATORVASTATIN CALCIUM 20 MG TABLET PO SCH (21:36)
[2016-12-10] MEDS: GABAPENTIN 300 MG CAPSULE PO SCH (21:36)
[2016-12-11] MEDS: HEPARIN SOD (PORCINE) 5,000 UNIT/ML 1 ML SYRINGE SUBCUT SCH ×3 (05:17→23:21)
[2016-12-11] MEDS: LEVOTHYROXINE SODIUM 0.1 MG TABLET PO SCH (05:18)
[2016-12-11] MEDS: IPRATROPIUM/ALBUTEROL 0.5-2.5 MG/3 ML AMPUL NEB SCH ×3 (08:44→20:26)
[2016-12-11] MEDS: BUDESONIDE NEB 0.5 MG/2 ML AMPUL NEB SCH ×2 (08:45→20:27)
[2016-12-11] MEDS: HALOPERIDOL 2 MG TABLET PO SCH ×2 (09:04→23:20)
[2016-12-11] MEDS: METOPROLOL TARTRATE 25 MG TABLET PO SCH (09:05)
[2016-12-11] MEDS: FAMOTIDINE 20 MG TABLET PO SCH ×2 (09:05→23:20)
[2016-12-11] MEDS: GUAIFENESIN 600 MG TABLET.SA PO SCH ×2 (09:05→23:19)
[2016-12-11] MEDS: CETIRIZINE 10 MG TABLET PO SCH (09:05)
[2016-12-11] MEDS: FLUTICASONE NASAL SPRAY 50 MCG/SPRY 120 SPRAY/16 GM NAREB SCH (09:06)
[2016-12-11] MEDS: ERTAPENEM SODIUM 0.5 GM in NORMAL SALINE 50 ML IV SCH (09:10)
[2016-12-11] MEDS: 1/2 NORMAL SALINE 1,000 ML IV PRN (09:10)
--- NOTE | 2016-12-11 09:14 | PDOC PROGRESS REPORT ---
Subjective Progress Note for:: 12/11/16 Subjective:: Patient seen on morning rounds. She is resting in bed eating breakfast . She is presently alert and oriented. She is presently on nasal cannula and saturating well. She has intermittent periods of confusion, agitation and then reorients. Nursing states she had a fairly quiet night overnight. Tachycardia has resolved. She is no longer having any respiratory distress. She denies any shortness of breath, dyspnea or cough. Physical Exam Vital Signs: Temp Pulse Resp BP Pulse Ox 97.5 F 83 16 146/65 H 100 12/11/16 07:54 12/11/16 07:54 12/11/16 07:54 12/11/16 07:54 12/11/16 07:54 Intake & Output 12/10/16 12/11/16 12/12/16 06:59 06:59 06:59 Intake Total 2190 3640 Output Total 0 Balance 2190 3640 Weight 58.3 kg 57.5 kg General appearance: PRESENT: no acute distress, thin, well-developed, well- nourished Head exam: PRESENT: atraumatic, normocephalic Eye exam: PRESENT: conjunctiva pink, EOMI, PERRLA. ABSENT: scleral icterus Ear exam: PRESENT: normal external ear exam Neck exam: ABSENT: carotid bruit, JVD, lymphadenopathy, thyromegaly Respiratory exam: PRESENT: clear to auscultation gertrude. ABSENT: rales, rhonchi, wheezes Cardiovascular exam: PRESENT: RRR. ABSENT: diastolic murmur, rubs, systolic murmur Pulses: PRESENT: normal dorsalis pedis pul Vascular exam: PRESENT: normal capillary refill GI/Abdominal exam: PRESENT: normal bowel sounds, soft. ABSENT: distended, guarding, mass, organolmegaly, rebound, tenderness Rectal exam: PRESENT: deferred Extremities exam: PRESENT: full ROM. ABSENT: calf tenderness, clubbing, pedal edema Neurological exam: PRESENT: alert, awake, oriented to person, oriented to place , oriented to time, oriented to situation, CN II-XII grossly intact. ABSENT: motor sensory deficit Skin exam: PRESENT: dry, intact, warm. ABSENT: cyanosis, rash Results Laboratory Results: 12/10/16 04:10 12/10/16 04:10 12/07/16 12/07/16 12/07/16 01:22 01:22 07:40 Creatine Kinase 120 186 H CK-MB (CK-2) 3.32 Troponin I 0.097 12/07/16 12/07/16 12/07/16 07:40 13:36 13:36 Creatine Kinase 181 H CK-MB (CK-2) 8.48 H 10.70 H Troponin I 1.560 1.720 12/08/16 05:32 Creatine Kinase CK-MB (CK-2) Troponin I 1.220 Impressions: Chest X-Ray 12/06/16 20:13 IMPRESSION: No acute finding. Assessment & Plan - Diagnosis (1) Sepsis Qualifiers: Sepsis type: sepsis due to unspecified organism Qualified Code(s): A41.9 - Sepsis, unspecified organism Is this a current diagnosis for this admission?: YesPlan: Resolved. Patient has had no further tachycardia, fever or hypotension overnight. Her leucocytosis has resolved/ Blood culture and urine culture are positive for ESBL. Will switch antibiotic to Invanz. Decrease IV fluid (2) Pyelonephritis, acute Is this a current diagnosis for this admission?: YesPlan: Patient with positive urinalysis, culture shows ESBL. Her left flank pain, fever , leucocytosis has resolved. Continue antibiotics (3) Septic shock Is this a current diagnosis for this admission?: YesPlan: Blood pressure now normotensive with no further tachycardia after agrressive fluid resuscitation. (4) Chronic kidney disease, stage IV (severe) Is this a current diagnosis for this admission?: YesPlan: Avoid nephrotoxic dosages and drugs. Creatinine back to baseline (5) Anemia of chronic disease Is this a current diagnosis for this admission?: YesPlan: Hgb 9.0 today. No overt bleeding. Will continue to monitor (6) COPD (chronic obstructive pulmonary disease) Qualifiers: COPD type: chronic bronchitis Chronic bronchitis type: unspecified Qualified Code(s): J42 - Unspecified chronic bronchitis Is this a current diagnosis for this admission?: YesPlan: Continue nebulizer treatments BIPAP prn. She does wear oxygen continuously (7) Troponin level elevated Is this a current diagnosis for this admission?: YesPlan: Secondary to sepsis. Family not interested in aggressive interventions (8) Hypothyroidism Qualifiers: Hypothyroidism type: acquired Qualified Code(s): E03.9 - Hypothyroidism, unspecified Is this a current diagnosis for this admission?: YesPlan: Continue synthroid (9) Counseling regarding goals of care Is this a current diagnosis for this admission?: YesPlan: Daughter Clare, is her MPOA. She has been updated on patient's status - Time Time Spent with patient: 25-34 minutes Critical Time spent with patient: 15-24 minutes Medications reviewed and adjusted accordingly: Yes Anticipated discharge: Home
[2016-12-11] MEDS: MORPHINE SULFATE 10 MG/ML INJ IV PRN ×2 (13:19→18:16)
[2016-12-11] MEDS: TRAZODONE HCL 50 MG TABLET PO SCH (23:20)
[2016-12-11] MEDS: ATORVASTATIN CALCIUM 20 MG TABLET PO SCH (23:20)
[2016-12-11] MEDS: GABAPENTIN 300 MG CAPSULE PO SCH (23:20)
[2016-12-12] MEDS: MORPHINE SULFATE 10 MG/ML INJ IV PRN ×2 (01:31→10:17)
[2016-12-12] MEDS: LORAZEPAM INJ 2 MG/1 ML VIAL IV PRN (03:01)
[2016-12-12] MEDS: 1/2 NORMAL SALINE 1,000 ML IV PRN ×2 (06:52→18:09)
[2016-12-12] MEDS: LEVOTHYROXINE SODIUM 0.1 MG TABLET PO SCH (06:52)
[2016-12-12] MEDS: HEPARIN SOD (PORCINE) 5,000 UNIT/ML 1 ML SYRINGE SUBCUT SCH ×3 (06:53→22:03)
[2016-12-12] MEDS: IPRATROPIUM/ALBUTEROL 0.5-2.5 MG/3 ML AMPUL NEB SCH ×3 (08:26→20:18)
[2016-12-12] MEDS: BUDESONIDE NEB 0.5 MG/2 ML AMPUL NEB SCH ×2 (08:26→20:18)
[2016-12-12] MEDS: GUAIFENESIN 600 MG TABLET.SA PO SCH ×2 (10:01→22:03)
[2016-12-12] MEDS: FAMOTIDINE 20 MG TABLET PO SCH ×2 (10:02→22:02)
[2016-12-12] MEDS: METOPROLOL TARTRATE 25 MG TABLET PO SCH (10:02)
[2016-12-12] MEDS: CETIRIZINE 10 MG TABLET PO SCH (10:02)
[2016-12-12] MEDS: HALOPERIDOL 2 MG TABLET PO SCH ×2 (10:12→22:09)
[2016-12-12] MEDS: FLUTICASONE NASAL SPRAY 50 MCG/SPRY 120 SPRAY/16 GM NAREB SCH (10:13)
[2016-12-12] MEDS: ERTAPENEM SODIUM 0.5 GM in NORMAL SALINE 50 ML IV SCH (10:17)
--- NOTE | 2016-12-12 14:40 | PDOC PROGRESS REPORT ---
Subjective Progress Note for:: 12/12/16 Subjective:: The patient was seen earlier today on rounds. The patient denies any nausea, vomiting, diarrhea, shortness of breath, dizziness, chest pain, heart palpitations, fevers, or chills. The patient has remained afebrile. Blood pressures have been in a good range. When prompted the patient voices no other concerns at this time. Review of systems: The rest of the review of systems is negative. Physical Exam Vital Signs: Temp Pulse Resp BP Pulse Ox 98.1 F 78 22 H 148/82 H 98 12/12/16 11:29 12/12/16 11:29 12/12/16 11:29 12/12/16 11:29 12/12/16 11:29 Intake & Output 12/10/16 12/11/16 12/12/16 23:59 23:59 23:59 Intake Total 3282 3546 1807 Balance 3282 3546 1807 Weight 58.3 kg 57.5 kg 58.2 kg General appearance: PRESENT: no acute distress, cooperative, thin, well- developed Head exam: PRESENT: atraumatic, normocephalic Eye exam: PRESENT: conjunctiva pink, EOMI, PERRLA. ABSENT: scleral icterus Ear exam: PRESENT: normal external ear exam Mouth exam: PRESENT: moist, tongue midline Neck exam: ABSENT: carotid bruit, JVD, lymphadenopathy, thyromegaly Respiratory exam: PRESENT: clear to auscultation gertrude. ABSENT: rales, rhonchi, wheezes Cardiovascular exam: PRESENT: RRR. ABSENT: diastolic murmur, rubs, systolic murmur Pulses: PRESENT: normal dorsalis pedis pul Vascular exam: PRESENT: normal capillary refill GI/Abdominal exam: PRESENT: normal bowel sounds, soft. ABSENT: distended, guarding, mass, organolmegaly, rebound, tenderness Rectal exam: PRESENT: deferred Extremities exam: PRESENT: full ROM. ABSENT: calf tenderness, clubbing, pedal edema Neurological exam: PRESENT: alert, awake, oriented to person, oriented to place , oriented to time, oriented to situation, CN II-XII grossly intact, other - Just a little delayed. ABSENT: motor sensory deficit Psychiatric exam: PRESENT: appropriate affect, normal mood. ABSENT: homicidal ideation, suicidal ideation Skin exam: PRESENT: dry, intact, warm. ABSENT: cyanosis, rash Results Laboratory Results: 12/10/16 04:10 12/10/16 04:10 12/07/16 12/07/16 12/07/16 01:22 01:22 07:40 Creatine Kinase 120 186 H CK-MB (CK-2) 3.32 Troponin I 0.097 12/07/16 12/07/16 12/07/16 07:40 13:36 13:36 Creatine Kinase 181 H CK-MB (CK-2) 8.48 H 10.70 H Troponin I 1.560 1.720 12/08/16 05:32 Creatine Kinase CK-MB (CK-2) Troponin I 1.220 Impressions: Chest X-Ray 12/06/16 20:13 IMPRESSION: No acute finding. Assessment & Plan - Diagnosis (1) Infection due to ESBL-producing Escherichia coli Is this a current diagnosis for this admission?: YesPlan: This is sensitive to ertapenem (2) Pyelonephritis, acute Is this a current diagnosis for this admission?: YesPlan: Will continue IV antibiotic coverage. Will repeat urine culture and follow. (3) Septic shock Is this a current diagnosis for this admission?: Yes (4) Chronic kidney disease, stage IV (severe) Is this a current diagnosis for this admission?: Yes (5) Troponin level elevated Is this a current diagnosis for this admission?: Yes (6) Anemia of chronic disease Is this a current diagnosis for this admission?: Yes (7) COPD (chronic obstructive pulmonary disease) Qualifiers: COPD type: chronic bronchitis Chronic bronchitis type: unspecified Qualified Code(s): J42 - Unspecified chronic bronchitis Is this a current diagnosis for this admission?: Yes (8) Hypothyroidism Qualifiers: Hypothyroidism type: acquired Qualified Code(s): E03.9 - Hypothyroidism, unspecified Is this a current diagnosis for this admission?: Yes (9) Normal pressure hydrocephalus Is this a current diagnosis for this admission?: Yes (10) Peripheral arterial disease Is this a current diagnosis for this admission?: Yes (11) Scoliosis Qualifiers: Scoliosis type: unspecified scoliosis Spinal region: unspecified Qualified Code(s): M41.9 - Scoliosis, unspecified Is this a current diagnosis for this admission?: Yes - Time Time Spent with patient: 25-34 minutes Medications reviewed and adjusted accordingly: Yes Anticipated discharge: SNF Within: within 24 hours
[2016-12-12] MEDS: TRAMADOL HCL 50 MG TABLET PO PRN ×2 (16:11→22:11)
[2016-12-12] MEDS: SENNOSIDES/DOCUSATE 8.6-50 MG 1 EACH TABLET PO SCH (17:40)
[2016-12-12] MEDS ORDERED: ATORVASTATIN CALCIUM 20 MG TABLET PO SCH (22:00)
[2016-12-12] MEDS ORDERED: TRAZODONE HCL 50 MG TABLET PO SCH (22:00)
[2016-12-12] MEDS: GABAPENTIN 300 MG CAPSULE PO SCH (22:03)
[2016-12-13] MEDS: HEPARIN SOD (PORCINE) 5,000 UNIT/ML 1 ML SYRINGE SUBCUT SCH ×2 (05:52→15:03)
[2016-12-13] MEDS: 1/2 NORMAL SALINE 1,000 ML IV PRN (05:53)
[2016-12-13] MEDS: BUDESONIDE NEB 0.5 MG/2 ML AMPUL NEB SCH (08:00)
[2016-12-13] MEDS: IPRATROPIUM/ALBUTEROL 0.5-2.5 MG/3 ML AMPUL NEB SCH (08:00)
[2016-12-13] MEDS: GUAIFENESIN 600 MG TABLET.SA PO SCH (09:35)
[2016-12-13] MEDS: TRAMADOL HCL 50 MG TABLET PO PRN ×2 (09:36→19:47)
[2016-12-13] MEDS: HALOPERIDOL 2 MG TABLET PO SCH (09:37)
[2016-12-13] MEDS: METOPROLOL TARTRATE 25 MG TABLET PO SCH (09:37)
[2016-12-13] MEDS: SENNOSIDES/DOCUSATE 8.6-50 MG 1 EACH TABLET PO SCH ×2 (09:37→17:16)
[2016-12-13] MEDS: ERTAPENEM SODIUM 0.5 GM in NORMAL SALINE 50 ML IV SCH (09:38)
[2016-12-13] MEDS: FLUTICASONE NASAL SPRAY 50 MCG/SPRY 120 SPRAY/16 GM NAREB SCH (09:38)
[2016-12-13] MEDS: FAMOTIDINE 20 MG TABLET PO SCH (09:46)
[2016-12-13] MEDS ORDERED: DULOXETINE HCL 30 MG CAPSULE.DR PO SCH (10:00)
[2016-12-13] MEDS ORDERED: LEVOTHYROXINE SODIUM 0.1 MG TABLET PO SCH (10:00)
[2016-12-13] MEDS ORDERED: LANSOPRAZOLE 30 MG TAB.RAP.DR PO SCH (10:00)
[2016-12-13] MEDS ORDERED: CETIRIZINE 10 MG TABLET PO SCH ×2 (10:00)
[2016-12-13 11:47] LABS: ABSOLUTE BASOPHILS # (AUTO) 0.1 10^3/uL (0.0-0.2); ABSOLUTE EOSINOPHILS # (AUTO) 0.9 10^3/uL (0.0-0.6); ABSOLUTE LYMPHOCYTES (AUTO) 1.4 10^3/uL (0.5-4.7); ABSOLUTE MONOCYTES (AUTO) 0.8 10^3/uL (0.1-1.4); ABSOLUTE NEUT (AUTO) 6.2 10^3/uL (1.7-8.2); BASOPHILS % (AUTO) 0.7 % (0-2); EOSINOPHILS % (AUTO) 9.2 % (0-6); HEMATOCRIT 31.7 % (36.0-47.0); HEMOGLOBIN 10.3 g/dL (12.0-15.5); HGB HCT DIFFERENCE -0.8; LYMPHOCYTES % (AUTO) 14.8 % (13-45); MEAN CORPUSCULAR HEMOGLOBIN 25.9 pg (27.0-33.4); MEAN CORPUSCULAR HGB CONC 32.5 g/dL (32.0-36.0); MEAN CORPUSCULAR VOLUME 80 fl (80-97); MONOCYTES % (AUTO) 8.7 % (3-13); RED BLOOD COUNT 3.97 10^6/uL (3.72-5.28); RED CELL DISTRIBUTION WIDTH 18.6 % (11.5-14.0); SEGMENTED NEUTROPHILS % (AUTO) 66.6 % (42-78); WHITE BLOOD COUNT 9.3 10^3/uL (4.0-10.5)
[2016-12-13 11:51] LABS: PROTHROMBIN TIME 12.4 SEC (11.4-15.4)
[2016-12-13 12:10] LABS: ANION GAP 11 (5-19); BLOOD UREA NITROGEN 20 mg/dL (7-20); CALCIUM 9.1 mg/dL (8.4-10.2); CARBON DIOXIDE 25 mmol/L (22-30); CHLORIDE 106 mmol/L (98-107); CREATININE RESULT 2.11 mg/dL (0.52-1.25); GLUCOSE 143 mg/dL (75-110); POTASSIUM 3.9 mmol/L (3.6-5.0); SODIUM 142.2 mmol/L (137-145)
[2016-12-13] MEDS ORDERED: PHENAZOPYRIDINE HCL 100 MG TABLET PO SCH (14:00)
--- NOTE | 2016-12-13 14:47 | PDOC TRANSFER SUMMARY ---
General - Admit/Disc Date/PCP Admission Date/Primary Care Provider: 12/07/16 00:37 CAROLE CUADRA Discharge Date: 12/13/16 - Discharge Diagnosis (1) Infection due to ESBL-producing Escherichia coli Is this a current diagnosis for this admission?: Yes (2) Pyelonephritis, acute Is this a current diagnosis for this admission?: Yes (3) Septic shock Is this a current diagnosis for this admission?: Yes (4) Chronic kidney disease, stage IV (severe) Is this a current diagnosis for this admission?: Yes (5) Troponin level elevated Is this a current diagnosis for this admission?: Yes (6) Anemia of chronic disease Is this a current diagnosis for this admission?: Yes (7) COPD (chronic obstructive pulmonary disease) Is this a current diagnosis for this admission?: Yes (8) Hypothyroidism Is this a current diagnosis for this admission?: Yes (9) Normal pressure hydrocephalus Is this a current diagnosis for this admission?: Yes (10) Peripheral arterial disease Is this a current diagnosis for this admission?: Yes (11) Scoliosis Is this a current diagnosis for this admission?: Yes - Additional Information Resuscitation Status: Do Not Resuscitate Discharge Diet: As Tolerated Discharge Activity: Slowly Increase Activity Home Medications: Atorvastatin Calcium [Lipitor 20 mg Tablet] 20 mg PO QHS 12/07/16 Cetirizine HCl [Zyrtec 10 mg Tablet] 1 tab PO DAILY 12/07/16 Duloxetine HCl [Cymbalta] 60 mg PO DAILY 12/07/16 Famotidine [Pepcid 20 mg Tablet] 20 mg PO Q12 12/07/16 Fluticasone Propionate [Flonase Nasal Howell 50 Mcg/Howell 16 gm] 2 spray NAREB DAILY 12/07/16 Gabapentin [Neurontin 300 mg Capsule] 300 mg PO QHS 12/07/16 Guaifenesin [Mucinex Sr 600 mg Tablet.sa] 600 mg PO BID 12/07/16 Haloperidol [Haldol 2 mg Tablet] 2 mg PO Q12 12/07/16 Hydroxyzine HCl [Atarax 50 mg Tablet] 50 mg PO TIDP PRN 12/07/16 Levothyroxine Sodium [Synthroid] 100 mcg PO DAILY 12/07/16 Omeprazole Magnesium [Prilosec Otc] 20 mg PO DAILY 12/07/16 Sennosides/Docusate 8.6-50 mg [Senna Plus Tablet] 2 tab PO BID 12/07/16 Trazodone HCl [Desyrel 50 mg Tablet] 50 mg PO QHS 12/07/16 Ertapenem Sodium [Invanz Inj 1 gm Vial] 0.5 gm IV DAILY #10 vial 12/13/16 Metoprolol Tartrate [Lopressor 25 mg Tablet] 25 mg PO DAILY #60 tablet 12/13/16 Phenazopyridine HCl [Pyridium 100 mg Tablet] 100 mg PO Q8HP PRN #0 tablet Tramadol HCl [Ultram 50 mg Tablet] 50 mg PO QIDP PRN #10 tablet 12/13/16 History of Present Illness Admission Date/PCP: 12/07/16 00:37 CAROLE CUADRA Patient complains of: Altered mental status History of Present Illness: PADMINI MISHRA is a 76 year old female who is a patient of Dr. Anderson and Dr. Lara urologist, who has a history of chronic indwelling Moura catheter secondary to uterine prolapse, recurrent UTI and pyelonephritis November 2016 cultures grew achromobacter sensitive to Augmentin, patient was discharged and subsequently done well until approximately 3 days ago with poor appetite and excessive sleep until today to be febrile with a temperature of 104 and altered mental status. In the emergency room she's found to be hypotensive tachycardic with leukocytosis she receives 4 L of normal saline for which her blood pressure is responsive and referred to the hospitalist for admission. Patient' s CODE STATUS is verified to be DO NOT RESUSCITATE and formally on hospice. Past medical history also includes COPD stage IV chronic kidney disease, chronic left humeral fracture, gait instability, hypothyroidism, normal pressure hydrocephalus, peripheral artery disease, scoliosis, chronic anemia and dementia requiring Valium, Ativan and Haldol on a scheduled basis. Hospital Course Hospital Course: The patient was admitted to [facility]. Urine analysis and culture was obtained. The patient was noted to be septic however with hydration and antibiotics the patient symptoms improved and the patient is now at baseline. The patient was hydrated and her creatinine did return to baseline. The patient had findings suggestive of a urinary tract infection. Patient was started on broad-spectrum antibiotic coverage however Patient's urine culture revealed ESBL Escherichia coli which was sensitive to ertapenem and the patient received 4 days of appropriate antibiotic coverage. Patient did have a set of blood cultures that were positive for ESBL as well. With pharmacy consultation will continue ertapenem for a total of 14 days. PICC line was placed for this. Repeat blood cultures were negative. The patient's symptoms completely resolved. The patient still notes intermittent urethral pain has been started on Pyridium. The patient's mentation did improve with holding her benzodiazepines. These can be reevaluated upon discharge about resuming but the patient has not received any since admission. Physical Exam Vital Signs: Temp Pulse Resp BP Pulse Ox 98.3 F 69 18 131/70 H 98 12/13/16 13:09 12/13/16 13:09 12/13/16 13:09 12/13/16 13:09 12/13/16 13:09 Intake & Output 12/11/16 12/12/16 12/13/16 23:59 23:59 23:59 Intake Total 3546 3382 1458 Balance 3546 3382 1458 Weight 57.5 kg 58.2 kg General appearance: PRESENT: no acute distress, cooperative, thin, well- developed Head exam: PRESENT: atraumatic, normocephalic Eye exam: PRESENT: conjunctiva pink, EOMI, PERRLA. ABSENT: scleral icterus Ear exam: PRESENT: normal external ear exam Mouth exam: PRESENT: moist, tongue midline Neck exam: ABSENT: carotid bruit, JVD, lymphadenopathy, thyromegaly Respiratory exam: PRESENT: clear to auscultation gertrude. ABSENT: rales, rhonchi, wheezes Cardiovascular exam: PRESENT: RRR. ABSENT: diastolic murmur, rubs, systolic murmur Pulses: PRESENT: normal dorsalis pedis pul Vascular exam: PRESENT: normal capillary refill GI/Abdominal exam: PRESENT: normal bowel sounds, soft. ABSENT: distended, guarding, mass, organolmegaly, rebound, tenderness Rectal exam: PRESENT: deferred Extremities exam: PRESENT: full ROM. ABSENT: calf tenderness, clubbing, pedal edema Neurological exam: PRESENT: alert, awake, oriented to person, oriented to place , oriented to time, oriented to situation, CN II-XII grossly intact, other - Just a little delayed. ABSENT: motor sensory deficit Psychiatric exam: PRESENT: appropriate affect, normal mood. ABSENT: homicidal ideation, suicidal ideation Skin exam: PRESENT: dry, intact, warm. ABSENT: cyanosis, rash Results Laboratory Results: Labs- Last Values WBC 9.3 10^3/uL (4.0-10.5) 12/13/16 11:29 RBC 3.97 10^6/uL (3.72-5.28) 12/13/16 11:29 Hgb 10.3 g/dL (12.0-15.5) L 12/13/16 11:29 Hct 31.7 % (36.0-47.0) L 12/13/16 11:29 MCV 80 fl (80-97) 12/13/16 11:29 MCH 25.9 pg (27.0-33.4) L 12/13/16 11:29 MCHC 32.5 g/dL (32.0-36.0) 12/13/16 11:29 RDW 18.6 % (11.5-14.0) H 12/13/16 11:29 Plt Count 326 10^3/uL (150-450) 12/13/16 11:29 Total Counted 100 12/07/16 07:40 Seg Neutrophils % 66.6 % (42-78) 12/13/16 11:29 Seg Neuts % (Manual) 86 % (42-78) H 12/07/16 07:40 Band Neutrophils % 5 % (3-5) 12/07/16 07:40 Lymphocytes % 14.8 % (13-45) 12/13/16 11:29 Lymphocytes % (Manual) 7 % (13-45) L 12/07/16 07:40 Monocytes % 8.7 % (3-13) 12/13/16 11:29 Monocytes % (Manual) 2 % (3-13) L 12/07/16 07:40 Eosinophils % 9.2 % (0-6) H 12/13/16 11:29 Eosinophils % (Manual) 0 % (0-6) 12/07/16 07:40 Basophils % 0.7 % (0-2) 12/13/16 11:29 Basophils % (Manual) 0 % (0-2) 12/07/16 07:40 Absolute Neutrophils 6.2 10^3/uL (1.7-8.2) 12/13/16 11:29 Abs Neuts (Manual) 22.3 10^3/uL (1.7-8.2) H 12/07/16 07:40 Absolute Lymphocytes 1.4 10^3/uL (0.5-4.7) 12/13/16 11:29 Abs Lymphs (Manual) 1.7 10^3/uL (0.5-4.7) 12/07/16 07:40 Absolute Monocytes 0.8 10^3/uL (0.1-1.4) 12/13/16 11:29 Abs Monocytes (Manual) 0.5 10^3/uL (0.1-1.4) 12/07/16 07:40 Absolute Eosinophils 0.9 10^3/uL (0.0-0.6) H 12/13/16 11:29 Absolute Eos (Manual) 0.0 10^3/uL (0.0-0.6) 12/07/16 07:40 Absolute Basophils 0.1 10^3/uL (0.0-0.2) 12/13/16 11:29 Abs Basophils (Manual) 0.0 10^3/uL (0.0-0.2) 12/07/16 07:40 Toxic Granulation SLIGHT 12/07/16 07:40 Large Platelets PRESENT 12/06/16 19:15 Platelet Comment ADEQUATE 12/07/16 07:40 Polychromasia SLIGHT 12/06/16 19:15 Hypochromasia SLIGHT 12/07/16 07:40 Poikilocytosis 1+ 12/07/16 07:40 Anisocytosis 1+ 12/07/16 07:40 Microcytosis SLIGHT 12/07/16 07:40 Ovalocytes 1+ 12/07/16 07:40 PT 12.4 SEC (11.4-15.4) 12/13/16 11:29 INR 0.90 12/13/16 11:29 VBG pH 7.26 (7.30-7.42) L 12/06/16 21:15 VBG pCO2 37.6 mmHg (35-63) 12/06/16 21:15 VBG HCO3 16.6 mmol/L (20-32) L 12/06/16 21:15 VBG Base Excess -9.6 mmol/L 12/06/16 21:15 Sodium 142.2 mmol/L (137-145) 12/13/16 11:29 Potassium 3.9 mmol/L (3.6-5.0) 12/13/16 11:29 Chloride 106 mmol/L (98-107) 12/13/16 11:29 Carbon Dioxide 25 mmol/L (22-30) 12/13/16 11:29 Anion Gap 11 (5-19) 12/13/16 11:29 BUN 20 mg/dL (7-20) 12/13/16 11:29 Creatinine 2.11 mg/dL (0.52-1.25) H 12/13/16 11:29 Est GFR ( Amer) 28 (>60) L 12/13/16 11:29 Est GFR (Non-Af Amer) 23 (>60) L 12/13/16 11:29 Glucose 143 mg/dL (75-110) H 12/13/16 11:29 Lactic Acid 1.7 mmol/L (0.7-2.1) 12/06/16 19:15 Calcium 9.1 mg/dL (8.4-10.2) 12/13/16 11:29 Magnesium 1.8 mg/dL (1.6-2.3) 12/10/16 04:10 Total Bilirubin 0.6 mg/dL (0.2-1.3) 12/08/16 05:32 Direct Bilirubin 0.0 mg/dL (0.0-0.3) 12/08/16 05:32 AST 23 U/L (14-36) 12/08/16 05:32 ALT 16 U/L (9-52) 12/08/16 05:32 Alkaline Phosphatase 71 U/L (38-126) 12/08/16 05:32 Creatine Kinase 181 U/L (30-135) H 12/07/16 13:36 CK-MB (CK-2) 10.70 ng/mL (<4.55) H 12/07/16 13:36 Troponin I 1.220 ng/mL 12/08/16 05:32 Total Protein 6.6 g/dL (6.3-8.2) 12/08/16 05:32 Albumin 3.2 g/dL (3.5-5.0) L 12/08/16 05:32 Urine Color YELLOW 12/06/16 22:29 Urine Appearance SLIGHTLY-CLOUDY 12/06/16 22:29 Urine pH 5.0 (5.0-9.0) 12/06/16 22:29 Ur Specific Mccleary 1.015 12/06/16 22:29 Urine Protein NEGATIVE mg/dL (NEGATIVE) 12/06/16 22:29 Urine Glucose (UA) NEGATIVE mg/dL (NEGATIVE) 12/06/16 22:29 Urine Ketones NEGATIVE mg/dL (NEGATIVE) 12/06/16 22:29 Urine Blood NEGATIVE (NEGATIVE) 12/06/16 22:29 Urine Nitrite NEGATIVE (NEGATIVE) 12/06/16 22:29 Urine Bilirubin NEGATIVE (NEGATIVE) 12/06/16 22:29 Urine Urobilinogen NEGATIVE mg/dL (<2.0) 12/06/16 22:29 Ur Leukocyte Esterase LARGE (NEGATIVE) H 12/06/16 22:29 Urine WBC (Auto) Cancelled 12/06/16 20:50 Urine RBC (Auto) Cancelled 12/06/16 20:50 U Hyaline Cast (Auto) Cancelled 12/06/16 20:50 Urine Bacteria (Auto) Cancelled 12/06/16 20:50 Urine RBC 50-100 /HPF 12/06/16 22:29 Urine Red Cell Clumps Cancelled 12/06/16 20:50 Urine WBC 20-30 /HPF 12/06/16 22:29 Urine WBC Clumps Cancelled 12/06/16 20:50 Ur Squamous Epith Cells MODERATE /HPF 12/06/16 22:29 Squamous Epi Cells Auto Cancelled 12/06/16 20:50 U Non-Squamous Epis Auto Cancelled 12/06/16 20:50 Calcium Carbonate Cryst Cancelled 12/06/16 20:50 Calcium Phosphate Cryst Cancelled 12/06/16 20:50 Calcium Oxalate Cr Auto Cancelled 12/06/16 20:50 Leucine Crystals Cancelled 12/06/16 20:50 Cystine Crystals Cancelled 12/06/16 20:50 Uric Acid Cryst (Auto) Cancelled 12/06/16 20:50 Triple Phos Cryst (Auto) Cancelled 12/06/16 20:50 Tyrosine Crystals Cancelled 12/06/16 20:50 Amorphous Sediment 2+ 12/06/16 22:29 Amorphous Sediment Auto Cancelled 12/06/16 20:50 Urine Bacteria 2+ /HPF 12/06/16 22:29 Cellular Casts Cancelled 12/06/16 20:50 Epithelial Casts (Auto) Cancelled 12/06/16 20:50 Fatty Casts Cancelled 12/06/16 20:50 Granular Casts (Auto) Cancelled 12/06/16 20:50 Waxy Casts (Auto) Cancelled 12/06/16 20:50 Broad Casts Cancelled 12/06/16 20:50 RBC Casts (Auto) Cancelled 12/06/16 20:50 WBC Casts (Auto) Cancelled 12/06/16 20:50 Urine Mucus TRACE 12/06/16 22:29 Urine Mucus (Auto) Cancelled 12/06/16 20:50 U Trichomonas (Auto) Cancelled 12/06/16 20:50 Ur Yeast w Hyphae Cancelled 12/06/16 20:50 Urine Yeast (Budding) Cancelled 12/06/16 20:50 Urine Ascorbic Acid NEGATIVE (NEGATIVE) 12/06/16 22:29 Blood Type A POSITIVE 12/08/16 08:26 Antibody Screen NEGATIVE 12/08/16 08:26 Crossmatch See Detail 12/08/16 08:26 12/12/16 12:47 Blood Culture - Preliminary Blood NO GROWTH IN 24 HOURS 12/12/16 11:45 Blood Culture - Preliminary Blood NO GROWTH IN 24 HOURS 12/06/16 22:40 Blood Culture - Final Blood NO GROWTH IN 5 DAYS 12/06/16 20:50 Urine Culture - Final Moura Catheter Klebsiella Pneumoniae-Esbl 12/06/16 19:15 Blood Culture - Final Blood Klebsiella Pneumoniae-Esbl Impressions: Chest X-Ray 12/06/16 20:13 IMPRESSION: No acute finding. Transfer Plan - Disposition Transfer Plan: The patient will return to rehabilitation. - Time Spent with Patient Time spent with patient: Greater than 30 Minutes Qualifiers PATEINT BEING DISCHARGED WITH ANY OF THE FOLLOWING DIAGNOSIS?: No
[2016-12-13] MEDS ORDERED: NORMAL SALINE 10 ML SDV (AFTER EACH USE) IV PRN (15:11)
[2016-12-13 15:20] VITALS: BP 150/91
[2016-12-13] MEDS ORDERED: NORMAL SALINE 10 ML SDV (SCHEDULED) IV SCH (22:00)
== END 2016-12-13 22:11 | DRG 871 ==
LOC: ER 18:50 → EH 12-07 00:37 → UNDOADMIN 12-07 01:06 → 3S 12-07 10:49
PROVIDERS: ADMIT Internal Medicine; ATTEND Internal Medicine
PROC: 02HV33Z Insertion of Infusion Device into Superior Vena Cava, Percutaneous Approach (ICD-10-PCS; principal; 2016-12-13)
PROC: B518ZZA Fluoroscopy of Superior Vena Cava, Guidance (ICD-10-PCS; 2016-12-13)
PROC: B548ZZA Ultrasonography of Superior Vena Cava, Guidance (ICD-10-PCS; 2016-12-13)
DX: A41.9 Sepsis, unspecified organism (principal); R65.21 Severe sepsis with septic shock; N18.4 Chronic kidney disease, stage 4 (severe); N10 Acute pyelonephritis; G91.2 (Idiopathic) normal pressure hydrocephalus; D63.1 Anemia in chronic kidney disease; B96.20 Unspecified Escherichia coli [E. coli] as the cause of diseases classified elsewhere; J44.9 Chronic obstructive pulmonary disease, unspecified; E03.9 Hypothyroidism, unspecified; M41.9 Scoliosis, unspecified; I73.9 Peripheral vascular disease, unspecified; F03.90 Unspecified dementia, unspecified severity, without behavioral disturbance, psychotic disturbance, mood disturbance, and anxiety; R26.9 Unspecified abnormalities of gait and mobility; E78.5 Hyperlipidemia, unspecified; F32.9 Major depressive disorder, single episode, unspecified; E78.00 Pure hypercholesterolemia, unspecified; R29.810 Facial weakness; Z66 Do not resuscitate; Z79.899 Other long term (current) drug therapy; Z86.73 Personal history of transient ischemic attack (TIA), and cerebral infarction without residual deficits
CPT/HCPCS: 36415; 36430; 36569; 71010; 76937; 77001; 80048; 80053; 81001; 82550; 82553; 82803; 83605; 83735; 84484; 85025; 85610; 86850; 86900; 86901; 86920; 87040; 87077; 87086; 87088; 87186; 93005; 93010; 94640; 94660; C1769; J0692; J1160; J1335; J1642; J1644; J1940; J2060; J2270; J2405; J2543; J3010; J3370; J3490; J7030; J7620; P9016

== ENCOUNTER 2017-02-26 12:47 | Emergency (ER) | payer MEDICARE, OTHER ==
[2017-02-26] MEDS ORDERED: HALOPERIDOL 2 MG TABLET PO ONE (13:15)
[2017-02-26] MEDS ORDERED: HYDROCODONE/ACETAMINOPHEN 5-325 MG TABLET PO ONE (13:15)
--- NOTE | 2017-02-26 13:26 | ER Document Report ---
ED Extremity Problem, Upper - General Mode of Arrival: Medic Information source: Patient TRAVEL OUTSIDE OF THE [place] IN LAST 30 DAYS: No - HPI Patient complains to provider of: Pain, Left, Shoulder Onset: This morning Recent injury: No Where: Group Home Associated symptoms: None <RENAN DRISCOLL - Last Filed: 02/26/17 13:18> <PAULINE GILBERT - Last Filed: 02/26/17 15:20> - General Chief Complaint: Shoulder Injury Stated Complaint: SHOULDER INJURY Time Seen by Provider: 02/26/17 12:50 Notes: Patient is a 76-year-old female, with extensive medical history including Dementia, NPH, COPD, and stroke, [facility] concerned of acute left shoulder pain onset this morning after bathing. Patient states that she was "participating in drying off, " then she sat down and plugged in her repairer hairspring. At that moment, patient heard a pop. Moments later the pain began and has been excrutiating ever since. Patient denies any recent falls, but states that she did significantly injur her left shoulder a couple of years ago. According to the patient, the surgeon said the damage was too extensive to perform surgery. (RENAN DRISCOLL) This 76-year-old female patient comes emergency room complaining of severe pain in her left upper arm near the shoulder. Splint today she participated in helping to dry herself off after her shower. She states she uses the arm much more today than she normally does. Known to be missing about a third of the proximal humerus secondary to old fracture and bone resorption. No particular injury. Patient does moan and groan and yell out frequently about her discomfort. She is easily distracted and talks at length in great detail about all the events before during and after the onset of her pain. (PAULINE GILBERT) - Related Data Allergies/Adverse Reactions: No Known Allergies Allergy (Verified 02/26/17 13:02) Past Medical History - General Information source: Patient - Social History Smoking Status: Former Smoker Family History: Reviewed & Not Pertinent, Other - Past Medical History Cardiac Medical History: Reports: Hx Coronary Artery Disease, Hx Hypercholesterolemia Pulmonary Medical History: Reports: Hx COPD Neurological Medical History: Reports: Hx Cerebrovascular Accident, Other - Normal pressure hydrocephalus Endocrine Medical History: Reports: Hx Hypothyroidism Renal/ Medical History: Reports: Hx End Stage Renal Disease GI Medical History: Reports: Hx Gastroesophageal Reflux Disease Psychiatric Medical History: Reports: Hx Dementia, Hx Depression Past Surgical History: Reports: Hx Urinary Tract Surgery - Immunizations Hx Diphtheria, Pertussis, Tetanus Vaccination: Yes <RENAN DRISCOLL - Last Filed: 02/26/17 13:18> Review of Systems - Review of Systems Constitutional: No symptoms reported EENT: No symptoms reported Cardiovascular: No symptoms reported Respiratory: No symptoms reported Gastrointestinal: No symptoms reported Genitourinary: No symptoms reported Female Genitourinary: No symptoms reported Musculoskeletal: See HPI, Other - Left shoulder pain Skin: No symptoms reported Hematologic/Lymphatic: No symptoms reported Neurological/Psychological: No symptoms reported -: Yes All other systems reviewed and negative <RENAN DRISCOLL - Last Filed: 02/26/17 13:18> Physical Exam - General General appearance: Alert - Likes to talk a lot, Anxious - HEENT Head: Normocephalic, Atraumatic Eyes: Normal Pupils: PERRL - Respiratory Respiratory status: No respiratory distress Chest status: Nontender Breath sounds: Normal - Cardiovascular Rhythm: Regular Heart sounds: Normal auscultation Murmur: No - Abdominal Inspection: Normal Tenderness: Nontender - Back Back: Normal, Nontender - Extremities General lower extremity: Normal inspection, Nontender Arm: Deformity - L. prox arm bulging outward, consistent with x-ray. Skin discolored black and blue, patient states chronic, but she is demented so cannot be sure. - Neurological Neuro grossly intact: Yes Cognition: Other - Demented Orientation: AAOx4 Jayshree Coma Scale Eye Opening: Spontaneous Jayshree Coma Scale Verbal: Oriented Jayshree Coma Scale Motor: Obeys Commands Jayshree Coma Scale Total: 15 Speech: Normal - Psychological Associated symptoms: Normal affect, Anxious - Skin Skin Temperature: Warm Skin Moisture: Dry Skin Color: Other - Discoloration over left proximal arm <RENAN DRISCOLL - Last Filed: 02/26/17 13:18> - Extremities General upper extremity: Other. No: Normal inspection <PAULINE GILBERT - Last Filed: 02/26/17 15:20> - Vital signs Vitals: Temp Pulse Resp BP Pulse Ox 97.6 F 98 20 152/83 H 97 02/26/17 12:53 02/26/17 12:53 02/26/17 12:53 02/26/17 12:53 02/26/17 12:53 Discharge <RENAN DRISCOLL - Last Filed: 02/26/17 13:18> <PAULINE GILBERT - Last Filed: 02/26/17 15:20> - Discharge Clinical Impression: Left upper arm pain, Proximal humerus resorption Condition: Stable Disposition: HOME, SELF-CARE Additional Instructions: There were no new abnormalities on your x-ray. I think your pain was due to excessive use of your arm today trying to help with drying yourself. We will prescribe you with pain medication. Try to keep the arm supported at your side, and remaining still. Follow-up with Dr. Cuadra if not improving. RETURN TO THE EMERGENCY ROOM IF ANY NEW OR WORSENING SYMPTOMS. Prescriptions: Oxycodone HCl/Acetaminophen [Percocet 5-325 mg Tablet] 1 - 2 tab PO ASDIR PRN # 20 tablet PRN Reason: Referrals: CAROLE CUADRA MD [Primary Care Provider] - Follow up as needed Scribe Attestation: 02/26/17 15:20 I personally performed the services described in the documentation, reviewed and edited the documentation which was dictated to the scribe in my presence, and it accurately records my words and actions. (PAULINE GILBERT) Scribe Documentation - Scribe Written by Ramon:: Ramon Morales, 02/26/2017 1327 acting as scribe for :: Sander <RENAN DRISCOLL - Last Filed: 02/26/17 13:18>
--- NOTE | 2017-02-26 13:39 | RADIOLOGY REPORT (SQ) ---
EXAM DESCRIPTION: SHOULDER LEFT 2 OR MORE VIEWS COMPLETED DATE/TIME: 02/26/2017 1:21 pm REASON FOR STUDY: increased pain COMPARISON: None. NUMBER OF VIEWS: One view TECHNIQUE: AP upright images acquired of the left shoulder. LIMITATIONS: None. FINDINGS: MINERALIZATION: Bony structures are osteopenic BONES: There is a fracture of the proximal left humerus with diastasis of the fracture fragments. Th ere appears to be some bony resorption of the left humeral head. The appearance would suggest a filler spreader soha rather than acute fracture. Clinical correlation is recommended. There is some bony resorption of the distal left clavicle. There is an old ununited fracture of the left 4th rib posterolaterally. Carpal old healed left rib fractures are identified more inferiorly. JOINTS: There is some bony deformity of the glenohumeral joint. VISUALIZED LUNGS AND RIBS: No pneumothorax. No rib fracture. SOFT TISSUES: No radiopaque foreign body. OTHER: No other significant finding. IMPRESSION: Chronic appearing fracture of the proximal left humerus as noted above. Other findings as noted above. Clinical correlation is recommended. TECHNICAL DOCUMENTATION: JOB ID: [id number] [employer]- All Rights Reserved
[2017-02-26] MEDS ORDERED: OXYCODONE-ACETAMINOPHEN 5-325 MG TABLET PO ONE (15:05)
[2017-02-26 19:03] VITALS: BP 128/57
== END 2017-02-26 19:05 | disposition home or self-care (01) ==
LOC: ER 12:47
DX: M89.8X2 Other specified disorders of bone, upper arm (principal); S42.202S Unspecified fracture of upper end of left humerus, sequela; X58.XXXS Exposure to other specified factors, sequela; M79.622 Pain in left upper arm; M25.512 Pain in left shoulder; J44.9 Chronic obstructive pulmonary disease, unspecified; F03.90 Unspecified dementia, unspecified severity, without behavioral disturbance, psychotic disturbance, mood disturbance, and anxiety; I25.10 Atherosclerotic heart disease of native coronary artery without angina pectoris; I12.0 Hypertensive chronic kidney disease with stage 5 chronic kidney disease or end stage renal disease; N18.6 End stage renal disease; Z86.73 Personal history of transient ischemic attack (TIA), and cerebral infarction without residual deficits; Z87.891 Personal history of nicotine dependence; L81.9 Disorder of pigmentation, unspecified
CPT/HCPCS: 99283; 73030; A9270 ×3; J3490

== ENCOUNTER 2017-03-03 20:54 | Inpatient (IN) | payer MEDICARE, OTHER ==
[2017-03-03] MEDS ORDERED: ERTAPENEM SODIUM INJ 1 GM VIAL IV ONE (21:13)
--- NOTE | 2017-03-03 21:17 | ER Document Report ---
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 She was referred as the urinalysis culture seemed to demonstrate that she has a Klebsiella infection that is farfan resistant to oral antibiotics. Patient herself denies any constitutional symptoms or fever. States other than mild burning with urination suprapubic discomfort she has no additional symptoms. No history of similar infections in the past although she does have a history of CRE. TRAVEL OUTSIDE OF THE [place] IN LAST 30 DAYS: No - Related Data Allergies/Adverse Reactions: No Known Allergies Allergy (Verified 03/03/17 22:16) Past Medical History - General Information source: Patient - Social History Smoking Status: Never Smoker Frequency of alcohol use: None Drug Abuse: None Lives with: [facility] Family History: Reviewed & Not Pertinent, Other - Past Medical History Cardiac Medical History: Reports: Hx Coronary Artery Disease, Hx Hypercholesterolemia Pulmonary Medical History: Reports: Hx COPD Neurological Medical History: Reports: Hx Cerebrovascular Accident Endocrine Medical History: Reports: Hx Hypothyroidism Renal/ Medical History: Reports: Hx End Stage Renal Disease. Denies: Hx Peritoneal Dialysis GI Medical History: Reports: Hx Gastroesophageal Reflux Disease Psychiatric Medical History: Reports: Hx Dementia, Hx Depression Past Surgical History: Reports: Hx Urinary Tract Surgery - Immunizations Hx Diphtheria, Pertussis, Tetanus Vaccination: Yes Review of Systems - Review of Systems Notes: Constitutional: Negative for fever. HENT: Negative for sore throat. Eyes: Negative for visual changes. Cardiovascular: Negative for chest pain. Respiratory: Negative for shortness of breath. Gastrointestinal: Negative for abdominal pain, vomiting or diarrhea. Genitourinary: Positive for dysuria. Musculoskeletal: Negative for back pain. Skin: Negative for rash. Neurological: Negative for headaches, weakness or numbness. 10 point ROS negative except as marked above and in HPI. Physical Exam - Vital signs Vitals: Temp Resp 98 F 24 H 03/03/17 21:34 03/03/17 21:34 Interpretation: Normal Notes: PHYSICAL EXAMINATION: GENERAL: Well-appearing, well-nourished and in no acute distress. HEAD: Atraumatic, normocephalic. EYES: Pupils equal round and reactive to light, extraocular movements intact, sclera anicteric, conjunctiva are normal. ENT: nares patent, oropharynx clear without exudates. Moist mucous membranes. NECK: Normal range of motion, supple without lymphadenopathy LUNGS: Breath sounds clear to auscultation bilaterally and equal. No wheezes rales or rhonchi. HEART: Regular rate and rhythm without murmurs ABDOMEN: Soft, mild suprapubic tenderness on palpation, normoactive bowel sounds. No guarding, no rebound. No masses appreciated. EXTREMITIES: Normal range of motion, no pitting or edema. No cyanosis. NEUROLOGICAL: No focal neurological deficits. Moves all extremities spontaneously and on command. PSYCH: Normal mood, normal affect. SKIN: Warm, Dry, normal turgor, no rashes or lesions noted. Course - Re-evaluation Re-evalutation: 03/03/17 21:15 Patient presents with ongoing dysuria and a urine culture obtained 2 days ago at her nursing facility that demonstrates Klebsiella that is farfan resistant to oral antibiotics and will require IV antibiotics. There is otherwise extremely well in appearance, appropriate verbal content, very pleasant on contact. She will unfortunately require admission due to the inability of her nursing facility to provide IV antibiotics. - Vital Signs Vital signs: Temp Pulse Resp BP Pulse Ox 98 F 18 135/67 H 98 03/03/17 21:34 03/03/17 23:01 03/03/17 23:01 03/03/17 23:01 - Laboratory Result Diagrams: 03/03/17 21:34 03/03/17 21:34 Laboratory results interpreted by me: 03/03/17 03/03/17 03/03/17 21:34 21:34 21:34 RBC 3.50 L Hgb 9.1 L Hct 28.5 L MCH 26.0 L MCHC 31.9 L RDW 18.4 H Lymphocytes % 12.8 L Potassium 5.1 H Carbon Dioxide 20 L BUN 42 H Creatinine 2.88 H Est GFR ( Amer) 19 L Est GFR (Non-Af Amer) 16 L Ur Leukocyte Esterase MODERATE H Discharge - Discharge Clinical Impression: Chronic kidney disease, stage IV (severe) UTI (urinary tract infection) Qualifiers: Urinary tract infection type: acute cystitis Hematuria presence: without hematuria Qualified Code(s): N30.00 - Acute cystitis without hematuria Condition: Fair Disposition: ADMITTED OBSERVATION Admitting Provider: Johnnie Floyd Tae Unit Admitted: Medical Floor
[2017-03-03 22:07] LABS: ABSOLUTE BASOPHILS # (AUTO) 0.1 10^3/uL (0.0-0.2); ABSOLUTE EOSINOPHILS # (AUTO) 0.4 10^3/uL (0.0-0.6); ABSOLUTE LYMPHOCYTES (AUTO) 1.2 10^3/uL (0.5-4.7); ABSOLUTE MONOCYTES (AUTO) 0.8 10^3/uL (0.1-1.4); ABSOLUTE NEUT (AUTO) 7.3 10^3/uL (1.7-8.2); BASOPHILS % (AUTO) 0.8 % (0-2); HEMATOCRIT 28.5 % (36.0-47.0); HEMOGLOBIN 9.1 g/dL (12.0-15.5); HGB HCT DIFFERENCE -1.2; LYMPHOCYTES % (AUTO) 12.8 % (13-45); MEAN CORPUSCULAR HGB CONC 31.9 g/dL (32.0-36.0); MEAN CORPUSCULAR VOLUME 82 fl (80-97); MONOCYTES % (AUTO) 7.8 % (3-13); RED CELL DISTRIBUTION WIDTH 18.4 % (11.5-14.0); SEGMENTED NEUTROPHILS % (AUTO) 74.6 % (42-78); WHITE BLOOD COUNT 9.8 10^3/uL (4.0-10.5)
[2017-03-03 22:24] LABS: ANION GAP 14 (5-19); BLOOD UREA NITROGEN 42 mg/dL (7-20); CALCIUM 8.8 mg/dL (8.4-10.2); CARBON DIOXIDE 20 mmol/L (22-30); CHLORIDE 105 mmol/L (98-107); CREATININE RESULT 2.88 mg/dL (0.52-1.25); GLUCOSE 94 mg/dL (75-110); POTASSIUM 5.1 mmol/L (3.6-5.0); SODIUM 139.2 mmol/L (137-145)
[2017-03-03 22:28] LABS: APPEARANCE,URINE SLIGHTLY-CLOUDY; BILIRUBIN,URINE NEGATIVE (NEGATIVE); GLUCOSE, URINE NEGATIVE (NEGATIVE); KETONES,URINE NEGATIVE (NEGATIVE); LEUKOCYTE ESTERASE,URINE MODERATE (NEGATIVE); NITRITE,URINE NEGATIVE (NEGATIVE); PROTEIN,URINE NEGATIVE (NEGATIVE); URINE SPECIFIC GRAVITY 1.006; UROBILINOGEN,URINE NEGATIVE mg/dL (<2.0)
[2017-03-03] MEDS ORDERED: HYDROXYZINE HCL 10 MG TABLET PO PRN (22:52)
[2017-03-03] MEDS ORDERED: MAG HYDROX/AL HYDROX/SIMETH SUSP 30 ML UDCUP PO PRN (22:53)
[2017-03-03] MEDS ORDERED: IPRATROPIUM/ALBUTEROL 0.5-2.5 MG/3 ML AMPUL NEB PRN (22:53)
[2017-03-03] MEDS ORDERED: NORMAL SALINE 1000 ML 1,000 ML IV ONE (22:55)
[2017-03-03] MEDS ORDERED: HYDROXYZINE PAMOATE 50 MG CAPSULE PO PRN (23:33)
--- NOTE | 2017-03-03 23:54 | RADIOLOGY REPORT (SQ) ---
EXAM DESCRIPTION: CHEST PA/LAT COMPLETED DATE/TIME: 03/03/2017 11:45 pm REASON FOR STUDY: eval right lower rib pain, chronic COMPARISON: 11/04/2016 EXAM PARAMETERS: NUMBER OF VIEWS: two views TECHNIQUE: Digital Frontal and Lateral radiographic views of the chest acquired. RADIATION DOSE: NA LIMITATIONS: none FINDINGS: LUNGS AND PLEURA: No opacities, masses or pneumothorax. No pleural effusion. There is pro minence of the bronchovascular markings. MEDIASTINUM AND HILAR STRUCTURES: No masses or contour abnormalities. HEART AND VASCULAR STRUCTURES: Heart normal size. No evidence for failure. BONES: No acute findings. HARDWARE: None in the chest. OTHER: Large hiatal hernia is again identified. IMPRESSION: No acute consolidations or pleural effusions are identified. There is prominence of the bronchovascular markings. Large hiatal hernia is identified. Other findings as noted above TECHNICAL DOCUMENTATION: JOB ID: [id number] [employer]- All Rights Reserved
--- NOTE | 2017-03-04 01:02 | PDOC H&P ---
History of Present Illness Admission Date/PCP: 03/03/17 23:13 CAROLE CUADRA Patient complains of: Dysuria History of Present Illness: PADMINI MISHRA is a 76 year old female with a past medical history of chronic indwelling Moura catheter, uterine prolapse, recurrent pyelonephritis, stage IV chronic kidney disease, and bipolar with tardive dyskinesia. Urine cultures returned positive for ESBL klebsiella only sensitive to imipenem. She started on imipenem and referred to the hospitalist for admission. She denies nausea vomiting or abdominal pain. Past Medical History Cardiac Medical History: Reports: Coronary Artery Disease, Hyperlipidema Pulmonary Medical History: Reports: Chronic Obstructive Pulmonary Disease (COPD) Endocrine Medical History: Reports: Hypothyroidism Renal/ Medical History: Reports: End Stage Renal Disease GI Medical History: Reports: Gastroesophageal Reflux Disease Psychiatric Medical History: Reports: Dementia, Depression Hematology: Reports: Anemia Past Surgical History Past Surgical History: Reports: Orthopedic Surgery - bilateral hips, back Social History Information Source: Patient, [facility] Records Lives with: [facility] Smoking Status: Never Smoker Frequency of Alcohol Use: Occasional Hx Recreational Drug Use: No Drugs: None Hx Prescription Drug Abuse: No - Advance Directive Resuscitation Status: Full Code Family History Family History: Hypertension, Other Parental Family History Reviewed: Yes Children Family History Reviewed: Yes Sibling(s) Family History Reviewed.: Yes Medication/Allergy Home Medications: Atorvastatin Calcium [Lipitor 20 mg Tablet] 20 mg PO QHS 12/07/16 Cetirizine HCl [Zyrtec 10 mg Tablet] 1 tab PO DAILY 12/07/16 Duloxetine HCl [Cymbalta] 60 mg PO DAILY 12/07/16 Famotidine [Pepcid 20 mg Tablet] 20 mg PO Q12 12/07/16 Fluticasone Propionate [Flonase Nasal [place] 50 Mcg/[place] 16 gm] 2 spray NAREB DAILY 12/07/16 Gabapentin [Neurontin 300 mg Capsule] 300 mg PO QHS 12/07/16 Guaifenesin [Mucinex Sr 600 mg Tablet.sa] 600 mg PO BID 12/07/16 Haloperidol [Haldol 2 mg Tablet] 2 mg PO Q12 12/07/16 Hydroxyzine HCl [Atarax 50 mg Tablet] 50 mg PO TIDP PRN 12/07/16 Levothyroxine Sodium [Synthroid] 100 mcg PO DAILY 12/07/16 Omeprazole Magnesium [Prilosec Otc] 20 mg PO DAILY 12/07/16 Sennosides/Docusate 8.6-50 mg [Senna Plus Tablet] 2 tab PO BID 12/07/16 Trazodone HCl [Desyrel 50 mg Tablet] 50 mg PO QHS 12/07/16 Ertapenem Sodium [Invanz Inj 1 gm Vial] 0.5 gm IV DAILY #10 vial 12/13/16 Metoprolol Tartrate [Lopressor 25 mg Tablet] 25 mg PO DAILY #60 tablet 12/13/16 Phenazopyridine HCl [Pyridium 100 mg Tablet] 100 mg PO Q8HP PRN #0 tablet Tramadol HCl [Ultram 50 mg Tablet] 50 mg PO QIDP PRN #10 tablet 12/13/16 Oxycodone HCl/Acetaminophen [Percocet 5-325 mg Tablet] 1 - 2 tab PO ASDIR PRN # 20 tablet 02/26/17 Allergies/Adverse Reactions: No Known Allergies Allergy (Verified 03/03/17 22:16) Review of Systems Constitutional: ABSENT: chills, fever(s), headache(s), weight gain, weight loss Eyes: ABSENT: visual disturbances Ears: ABSENT: hearing changes Cardiovascular: ABSENT: chest pain, dyspnea on exertion, edema, orthropnea, palpitations Respiratory: ABSENT: cough, hemoptysis Gastrointestinal: ABSENT: abdominal pain, constipation, diarrhea, hematemesis, hematochezia, nausea, vomiting Genitourinary: ABSENT: dysuria, hematuria Musculoskeletal: ABSENT: joint swelling Integumentary: ABSENT: rash, wounds Neurological: ABSENT: abnormal gait, abnormal speech, confusion, dizziness, focal weakness, syncope Psychiatric: ABSENT: anxiety, depression, homidical ideation, suicidal ideation Endocrine: ABSENT: cold intolerance, heat intolerance, polydipsia, polyuria Hematologic/Lymphatic: ABSENT: easy bleeding, easy bruising Physical Exam Vital Signs: Temp Pulse Resp BP Pulse Ox 98 F 18 135/67 H 98 03/03/17 21:34 03/03/17 23:01 03/03/17 23:01 03/03/17 23:01 General appearance: PRESENT: no acute distress, cooperative, other - Marcated tardive dyskinesia Head exam: PRESENT: atraumatic, normocephalic Eye exam: PRESENT: conjunctiva pink, EOMI, PERRLA. ABSENT: scleral icterus Ear exam: PRESENT: normal external ear exam Mouth exam: PRESENT: moist, tongue midline Neck exam: ABSENT: carotid bruit, JVD, lymphadenopathy, thyromegaly Respiratory exam: PRESENT: clear to auscultation gertrude. ABSENT: rales, rhonchi, wheezes Cardiovascular exam: PRESENT: RRR. ABSENT: diastolic murmur, rubs, systolic murmur Pulses: PRESENT: normal dorsalis pedis pul Vascular exam: PRESENT: normal capillary refill GI/Abdominal exam: PRESENT: normal bowel sounds, soft, other - Suprapubic tenderness. ABSENT: distended, guarding, mass, organolmegaly, rebound, tenderness Rectal exam: PRESENT: deferred Extremities exam: PRESENT: full ROM. ABSENT: calf tenderness, clubbing, pedal edema Neurological exam: PRESENT: alert, awake, oriented to person, oriented to place , oriented to time, oriented to situation, CN II-XII grossly intact. ABSENT: motor sensory deficit Psychiatric exam: PRESENT: appropriate affect, normal mood. ABSENT: homicidal ideation, suicidal ideation Skin exam: PRESENT: dry, intact, warm. ABSENT: cyanosis, rash Results Impressions: Chest X-Ray 03/03/17 22:53 IMPRESSION: No acute consolidations or pleural effusions are identified. There is prominence of the bronchovascular markings. Large hiatal hernia is identified. Other findings as noted above Assessment & Plan - Diagnosis (1) Urinary tract infection due to ESBL Klebsiella Is this a current diagnosis for this admission?: YesPlan: Recurrent pyelonephritis secondary to ESBL Klebsiella requiring IV imipenem. Follow-up CBC and chemistry, consider PICC line placement (2) Chronic kidney disease, stage IV (severe) Is this a current diagnosis for this admission?: YesPlan: Avoidance of nephrotoxic meds and doses reevaluate chemistry - Time Time Spent: 30 to 50 Minutes - Inpatient Certification Medical Necessity: Need Close Monitoring Due to Risk of Patient Decompensation
[2017-03-04] MEDS: TRAMADOL HCL 50 MG TABLET PO PRN ×3 (01:42→23:19)
[2017-03-04] MEDS: ACETAMINOPHEN 325 MG TABLET PO PRN ×2 (01:47→23:18)
[2017-03-04 02:56] LABS: FOLATE 8.36 ng/mL (>2.76)
[2017-03-04 05:16] LABS: ABSOLUTE BASOPHILS # (AUTO) 0.1 10^3/uL (0.0-0.2); ABSOLUTE EOSINOPHILS # (AUTO) 0.3 10^3/uL (0.0-0.6); ABSOLUTE LYMPHOCYTES (AUTO) 1.1 10^3/uL (0.5-4.7); ABSOLUTE MONOCYTES (AUTO) 0.9 10^3/uL (0.1-1.4); ABSOLUTE NEUT (AUTO) 6.7 10^3/uL (1.7-8.2); BASOPHILS % (AUTO) 0.7 % (0-2); EOSINOPHILS % (AUTO) 3.6 % (0-6); HEMATOCRIT 26.2 % (36.0-47.0); HEMOGLOBIN 8.4 g/dL (12.0-15.5); LYMPHOCYTES % (AUTO) 12.5 % (13-45); MEAN CORPUSCULAR HEMOGLOBIN 25.7 pg (27.0-33.4); MEAN CORPUSCULAR HGB CONC 32.1 g/dL (32.0-36.0); MEAN CORPUSCULAR VOLUME 80 fl (80-97); MONOCYTES % (AUTO) 9.7 % (3-13); RED BLOOD COUNT 3.28 10^6/uL (3.72-5.28); RED CELL DISTRIBUTION WIDTH 18.1 % (11.5-14.0); SEGMENTED NEUTROPHILS % (AUTO) 73.5 % (42-78); WHITE BLOOD COUNT 9.2 10^3/uL (4.0-10.5)
[2017-03-04 05:31] LABS: ANION GAP 12 (5-19); BLOOD UREA NITROGEN 39 mg/dL (7-20); CALCIUM 8.8 mg/dL (8.4-10.2); CARBON DIOXIDE 22 mmol/L (22-30); CHLORIDE 107 mmol/L (98-107); GLUCOSE 100 mg/dL (75-110); POTASSIUM 4.7 mmol/L (3.6-5.0); SODIUM 140.5 mmol/L (137-145)
[2017-03-04] MEDS: HEPARIN SOD (PORCINE) 5,000 UNIT/ML 1 ML SYRINGE SUBCUT SCH ×3 (06:41→23:03)
[2017-03-04] MEDS ORDERED: HALOPERIDOL 2 MG TABLET PO SCH (10:00)
[2017-03-04] MEDS: LEVOTHYROXINE SODIUM 0.1 MG TABLET PO SCH (10:58)
[2017-03-04] MEDS: FLUTICASONE NASAL SPRAY 50 MCG/SPRY 120 SPRAY/16 GM NAREB SCH (10:58)
[2017-03-04] MEDS: DULOXETINE HCL 30 MG CAPSULE.DR PO SCH (10:59)
[2017-03-04] MEDS: FAMOTIDINE 20 MG TABLET PO SCH ×2 (10:59→23:04)
[2017-03-04] MEDS: METOPROLOL TARTRATE 25 MG TABLET PO SCH (10:59)
[2017-03-04] MEDS: CETIRIZINE 10 MG TABLET PO SCH (11:00)
[2017-03-04] MEDS: DOCUSATE SODIUM 100 MG CAPSULE PO SCH ×2 (11:00→17:23)
--- NOTE | 2017-03-04 11:24 | PDOC PROGRESS REPORT ---
Subjective Progress Note for:: 03/04/17 Subjective:: PADMINI MISHRA is a 76 year old female with a past medical history of chronic indwelling Moura catheter, uterine prolapse, recurrent pyelonephritis, stage IV chronic kidney disease, and bipolar with tardive dyskinesia. Urine cultures returned positive for ESBL klebsiella only sensitive to imipenem. She started on imipenem and referred to the hospitalist for admission. She denies nausea vomiting or abdominal pain. 03/04 - She is tolerating the imipenem so far. Her previously severe dysuria has almost entirely resolved. She denies fever sweats or chills. Physical Exam Vital Signs: Temp Pulse Resp BP Pulse Ox 98.3 F 79 18 118/58 L 94 03/04/17 08:06 03/04/17 08:59 03/04/17 08:59 03/04/17 08:06 03/04/17 08:59 Intake & Output 03/03/17 03/04/17 03/05/17 06:59 06:59 06:59 Intake Total 807 Balance 807 Weight 53.2 kg General appearance: PRESENT: no acute distress, well-developed, well-nourished Head exam: PRESENT: atraumatic, normocephalic Eye exam: PRESENT: conjunctiva pink, EOMI, PERRLA. ABSENT: scleral icterus Ear exam: PRESENT: normal external ear exam Mouth exam: PRESENT: moist, tongue midline Neck exam: ABSENT: carotid bruit, JVD, lymphadenopathy, thyromegaly Respiratory exam: PRESENT: clear to auscultation gertrude. ABSENT: rales, rhonchi, wheezes Cardiovascular exam: PRESENT: RRR. ABSENT: diastolic murmur, rubs, systolic murmur Pulses: PRESENT: normal dorsalis pedis pul Vascular exam: PRESENT: normal capillary refill GI/Abdominal exam: PRESENT: normal bowel sounds, soft. ABSENT: distended, guarding, mass, organolmegaly, rebound, tenderness Rectal exam: PRESENT: deferred Extremities exam: PRESENT: full ROM. ABSENT: calf tenderness, clubbing, pedal edema Neurological exam: PRESENT: alert, awake, oriented to person, oriented to place , oriented to time, oriented to situation, CN II-XII grossly intact. ABSENT: motor sensory deficit Psychiatric exam: PRESENT: appropriate affect, normal mood. ABSENT: homicidal ideation, suicidal ideation Skin exam: PRESENT: dry, intact, warm. ABSENT: cyanosis, rash Results Laboratory Results: 03/04/17 04:12 03/04/17 04:12 03/04/17 03/04/17 04:12 04:12 WBC 9.2 RBC 3.28 L Hgb 8.4 L Hct 26.2 L MCV 80 MCH 25.7 L MCHC 32.1 RDW 18.1 H Plt Count 231 Seg Neutrophils % 73.5 Lymphocytes % 12.5 L Monocytes % 9.7 Eosinophils % 3.6 Basophils % 0.7 Absolute Neutrophils 6.7 Absolute Lymphocytes 1.1 Absolute Monocytes 0.9 Absolute Eosinophils 0.3 Absolute Basophils 0.1 Sodium 140.5 Potassium 4.7 Chloride 107 Carbon Dioxide 22 Anion Gap 12 BUN 39 H Creatinine 2.70 H Est GFR ( Amer) 21 L Est GFR (Non-Af Amer) 17 L Glucose 100 Calcium 8.8 Impressions: Chest X-Ray 03/03/17 22:53 IMPRESSION: No acute consolidations or pleural effusions are identified. There is prominence of the bronchovascular markings. Large hiatal hernia is identified. Other findings as noted above Assessment & Plan - Diagnosis (1) Urinary tract infection due to ESBL Klebsiella Is this a current diagnosis for this admission?: YesPlan: Continue IV imipenem which is the only option on the sensitivities list. (2) Chronic kidney disease, stage IV (severe) Is this a current diagnosis for this admission?: YesPlan: Monitor.
[2017-03-04] MEDS ORDERED: CARBOXYMETHYLCELLULOSE SOD 0.5% 0.4 ML DROPERETTE OU PRN (11:26)
[2017-03-04] MEDS: IMIPENEM/CILASTATIN SODIUM 500 MG in NORMAL SALINE 100 ML IV SCH ×3 (11:32→23:19)
[2017-03-04 12:55] LABS: ANION GAP 12 (5-19); BLOOD UREA NITROGEN 36 mg/dL (7-20); CALCIUM 8.9 mg/dL (8.4-10.2); CARBON DIOXIDE 23 mmol/L (22-30); CHLORIDE 108 mmol/L (98-107); CREATININE RESULT 2.43 mg/dL (0.52-1.25); GLUCOSE 82 mg/dL (75-110); POTASSIUM 4.9 mmol/L (3.6-5.0); SODIUM 142.9 mmol/L (137-145)
[2017-03-04] MEDS: GABAPENTIN 300 MG CAPSULE PO SCH (23:03)
[2017-03-04] MEDS: ATORVASTATIN CALCIUM 20 MG TABLET PO SCH (23:03)
[2017-03-04] MEDS: TRAZODONE HCL 50 MG TABLET PO SCH (23:04)
[2017-03-05] MEDS: HEPARIN SOD (PORCINE) 5,000 UNIT/ML 1 ML SYRINGE SUBCUT SCH ×3 (06:40→21:55)
[2017-03-05] MEDS: IMIPENEM/CILASTATIN SODIUM 500 MG in NORMAL SALINE 100 ML IV SCH ×4 (06:40→23:18)
[2017-03-05] MEDS: CETIRIZINE 10 MG TABLET PO SCH (11:40)
[2017-03-05] MEDS: DULOXETINE HCL 30 MG CAPSULE.DR PO SCH (11:40)
[2017-03-05] MEDS: LEVOTHYROXINE SODIUM 0.1 MG TABLET PO SCH (11:40)
[2017-03-05] MEDS: METOPROLOL TARTRATE 25 MG TABLET PO SCH (11:41)
[2017-03-05] MEDS: DOCUSATE SODIUM 100 MG CAPSULE PO SCH ×2 (11:41→18:15)
[2017-03-05] MEDS: FLUTICASONE NASAL SPRAY 50 MCG/SPRY 120 SPRAY/16 GM NAREB SCH (11:41)
[2017-03-05] MEDS: FAMOTIDINE 20 MG TABLET PO SCH ×2 (11:41→21:46)
[2017-03-05] MEDS ORDERED: MAG HYDROX/AL HYDROX/SIMETH SUSP 30 ML UDCUP PO PRN (12:21)
--- NOTE | 2017-03-05 12:29 | PDOC PROGRESS REPORT ---
Subjective Progress Note for:: 03/05/17 Subjective:: PADMINI MISHRA is a 76 year old female with a past medical history of chronic indwelling Moura catheter, uterine prolapse, recurrent pyelonephritis, stage IV chronic kidney disease, and bipolar with tardive dyskinesia. Urine cultures returned positive for ESBL klebsiella only sensitive to imipenem. She was started on imipenem and referred to the hospitalist for admission. She denies nausea vomiting or abdominal pain. 03/04 - She is tolerating the imipenem so far. Her previously severe dysuria has almost entirely resolved. She denies fever sweats or chills. 03/05 - Asymptomatic now. Day two of imipenem. Of note, the sensitivities on the urine Klebsiella show intermediate sensitivity to Augmentin. Physical Exam Vital Signs: Temp Pulse Resp BP Pulse Ox 98.2 F 95 20 111/66 95 03/05/17 10:00 03/05/17 10:00 03/05/17 10:00 03/05/17 10:00 03/05/17 10:00 Intake & Output 03/04/17 03/05/17 03/06/17 06:59 06:59 06:59 Intake Total 807 2367 Balance 807 2367 Weight 53.2 kg 54.2 kg Additional comments: General appearance: PRESENT: no acute distress, well-developed, well-nourished Head exam: PRESENT: atraumatic, normocephalic Eye exam: PRESENT: conjunctiva pink, EOMI, PERRLA. ABSENT: scleral icterus Ear exam: PRESENT: normal external ear exam Mouth exam: PRESENT: moist, tongue midline Neck exam: ABSENT: carotid bruit, JVD, lymphadenopathy, thyromegaly Respiratory exam: PRESENT: clear to auscultation gertrude. ABSENT: rales, rhonchi, wheezes Cardiovascular exam: PRESENT: RRR. ABSENT: diastolic murmur, rubs, systolic murmur Pulses: PRESENT: normal dorsalis pedis pul Vascular exam: PRESENT: normal capillary refill GI/Abdominal exam: PRESENT: normal bowel sounds, soft. ABSENT: distended, guarding, mass, organolmegaly, rebound, tenderness Rectal exam: PRESENT: deferred Extremities exam: PRESENT: full ROM. ABSENT: calf tenderness, clubbing, pedal edema Neurological exam: PRESENT: alert, awake, oriented to person, oriented to place , oriented to time, oriented to situation, CN II-XII grossly intact. ABSENT: motor sensory deficit Psychiatric exam: PRESENT: appropriate affect, normal mood. ABSENT: homicidal ideation, suicidal ideation Skin exam: PRESENT: dry, intact, warm. ABSENT: cyanosis, rash Results Laboratory Results: 03/04/17 04:12 03/04/17 12:30 03/04/17 12:30 Sodium 142.9 Potassium 4.9 Chloride 108 H Carbon Dioxide 23 Anion Gap 12 BUN 36 H Creatinine 2.43 H Est GFR ( Amer) 23 L Est GFR (Non-Af Amer) 19 L Glucose 82 Calcium 8.9 Impressions: Chest X-Ray 03/03/17 22:53 IMPRESSION: No acute consolidations or pleural effusions are identified. There is prominence of the bronchovascular markings. Large hiatal hernia is identified. Other findings as noted above Assessment & Plan - Diagnosis (1) Urinary tract infection due to ESBL Klebsiella Is this a current diagnosis for this admission?: YesPlan: Continue IV imipenem. Comsider Rx for 3-5 days and then switching to Augmentin to which the urinary Klebsiella shows intermediate sensitivity. (2) Chronic kidney disease, stage IV (severe) Is this a current diagnosis for this admission?: YesPlan: Monitor.
[2017-03-05 14:19] LABS: ANION GAP 12 (5-19); BLOOD UREA NITROGEN 34 mg/dL (7-20); CALCIUM 9.4 mg/dL (8.4-10.2); CARBON DIOXIDE 21 mmol/L (22-30); CHLORIDE 108 mmol/L (98-107); CREATININE RESULT 2.26 mg/dL (0.52-1.25); GLUCOSE 136 mg/dL (75-110); POTASSIUM 4.9 mmol/L (3.6-5.0)
[2017-03-05] MEDS: ACETAMINOPHEN 325 MG TABLET PO PRN (18:13)
[2017-03-05] MEDS: TRAMADOL HCL 50 MG TABLET PO PRN (18:14)
[2017-03-05] MEDS: TRAZODONE HCL 50 MG TABLET PO SCH (21:46)
[2017-03-05] MEDS: GABAPENTIN 300 MG CAPSULE PO SCH (21:46)
[2017-03-05] MEDS: ATORVASTATIN CALCIUM 20 MG TABLET PO SCH (21:46)
[2017-03-06] MEDS: HEPARIN SOD (PORCINE) 5,000 UNIT/ML 1 ML SYRINGE SUBCUT SCH ×3 (05:20→22:10)
[2017-03-06] MEDS: IMIPENEM/CILASTATIN SODIUM 500 MG in NORMAL SALINE 100 ML IV SCH ×3 (05:20→23:25)
[2017-03-06 10:17] LABS: PROTHROMBIN TIME 13.4 SEC (11.4-15.4)
[2017-03-06 10:51] LABS: ANION GAP 13 (5-19); BLOOD UREA NITROGEN 30 mg/dL (7-20); CALCIUM 9.2 mg/dL (8.4-10.2); CARBON DIOXIDE 21 mmol/L (22-30); CHLORIDE 108 mmol/L (98-107); CREATININE RESULT 2.22 mg/dL (0.52-1.25); GLUCOSE 115 mg/dL (75-110); POTASSIUM 4.5 mmol/L (3.6-5.0)
[2017-03-06] MEDS: CETIRIZINE 10 MG TABLET PO SCH (10:56)
[2017-03-06] MEDS: LEVOTHYROXINE SODIUM 0.1 MG TABLET PO SCH (10:57)
[2017-03-06] MEDS: DULOXETINE HCL 30 MG CAPSULE.DR PO SCH (10:57)
[2017-03-06] MEDS: FAMOTIDINE 20 MG TABLET PO SCH ×2 (10:57→22:11)
[2017-03-06] MEDS: METOPROLOL TARTRATE 25 MG TABLET PO SCH (10:57)
[2017-03-06] MEDS: DOCUSATE SODIUM 100 MG CAPSULE PO SCH ×2 (10:57→18:10)
[2017-03-06] MEDS: FLUTICASONE NASAL SPRAY 50 MCG/SPRY 120 SPRAY/16 GM NAREB SCH (10:58)
--- NOTE | 2017-03-06 15:41 | PDOC PROGRESS REPORT ---
Subjective Progress Note for:: 03/06/17 Subjective:: reason for visit: f/u ESBL UTI hospital course: per other's notes - "PADMINI MISHRA is a 76 year old female with a past medical history of chronic indwelling Moura catheter, uterine prolapse, recurrent pyelonephritis, stage IV chronic kidney disease, and bipolar with tardive dyskinesia. Urine cultures returned positive for ESBL klebsiella only sensitive to imipenem. She was started on imipenem and referred to the hospitalist for admission. She denies nausea vomiting or abdominal pain. 03/04 - She is tolerating the imipenem so far. Her previously severe dysuria has almost entirely resolved. She denies fever sweats or chills. 03/05 - Asymptomatic now. Day two of imipenem. Of note, the sensitivities on the urine Klebsiella show intermediate sensitivity to Augmentin." I inherited her care Sunday and am not as confident we can eradicate this ESBL infection with oral augmentin and after discussion with pt she has agreed to PICC line placement for total 10d of IV carbepenem. ROS: denies fever/chills, chest pain, palpitations, fever/chills, N/V/D, total 10 systems reviewed, remaining systems negative. Physical Exam Vital Signs: Temp Pulse Resp BP Pulse Ox 97.6 F 73 18 128/67 H 99 03/06/17 13:31 03/06/17 13:31 03/06/17 13:31 03/06/17 13:31 03/06/17 13:31 Intake & Output 03/05/17 03/06/17 03/07/17 06:59 06:59 06:59 Intake Total 2367 1160 Balance 2367 1160 Weight 54.2 kg General appearance: PRESENT: no acute distress, cooperative, well-developed, well-nourished Head exam: PRESENT: atraumatic, normocephalic Eye exam: PRESENT: EOMI. ABSENT: scleral icterus Mouth exam: PRESENT: tongue midline Neck exam: PRESENT: full ROM. ABSENT: tenderness Respiratory exam: PRESENT: clear to auscultation gertrude. ABSENT: accessory muscle use Cardiovascular exam: PRESENT: RRR. ABSENT: systolic murmur Pulses: PRESENT: normal radial pulses, normal dorsalis pedis pul GI/Abdominal exam: PRESENT: normal bowel sounds, soft. ABSENT: tenderness Extremities exam: ABSENT: calf tenderness, pedal edema Musculoskeletal exam: PRESENT: full ROM. ABSENT: tenderness Neurological exam: PRESENT: alert, awake, oriented to person, oriented to place , oriented to situation Psychiatric exam: PRESENT: appropriate affect, normal mood Skin exam: PRESENT: warm. ABSENT: dry Results Laboratory Results: 03/04/17 04:12 03/06/17 09:57 03/06/17 09:57 Sodium 142.0 Potassium 4.5 Chloride 108 H Carbon Dioxide 21 L Anion Gap 13 BUN 30 H Creatinine 2.22 H Est GFR ( Amer) 26 L Est GFR (Non-Af Amer) 22 L Glucose 115 H Calcium 9.2 Impressions: Chest X-Ray 03/03/17 22:53 IMPRESSION: No acute consolidations or pleural effusions are identified. There is prominence of the bronchovascular markings. Large hiatal hernia is identified. Other findings as noted above Assessment & Plan - Diagnosis (1) Urinary tract infection due to ESBL Klebsiella Is this a current diagnosis for this admission?: YesPlan: improved but not back to baseline. place PICC line, consult acute care physician for home abx with ertapenem 500mg/d for another 7d (2) Chronic kidney disease, stage IV (severe) Is this a current diagnosis for this admission?: YesPlan: at baseline, renal dose adjust meds (3) COPD (chronic obstructive pulmonary disease) Qualifiers: COPD type: chronic bronchitis Chronic bronchitis type: unspecified Qualified Code(s): J42 - Unspecified chronic bronchitis Plan: stable. continue home meds (4) Hypothyroidism Qualifiers: Hypothyroidism type: acquired Qualified Code(s): E03.9 - Hypothyroidism, unspecified Plan: stable. continue home meds - Time Time Spent with patient: 25-34 minutes Anticipated discharge: Home with Homehealth Within: within 24 hours
--- NOTE | 2017-03-06 15:42 | RADIOLOGY REPORT (SQ) ---
EXAM DESCRIPTION: PICC INSERTION; FLUORO/CV PLACEMENT; U/S GUIDE FOR VASCULAR ACCESS COMPLETED DATE/TIME: 03/06/2017 3:04 pm REASON FOR STUDY: NEEDS 7D OF IV ABX FOR ESBL UTI; 7DAYS OF IV ABX; IV ACCESS COMPARISON: None. FLUOROSCOPY TIME: 38 seconds 2 digital radiographic chest images and 1 ultrasound images saved to PACS. TECHNIQUE: Fluoroscopic and ultrasound guided PICC placement. LIMITATIONS: None. PROCEDURE: After written consent and assessment were obtained, the patient was brought into the fluo roscopy room and place supine on the table. Ultrasound was used on the patient's right arm for PICC access. The right arm was prepped and draped in a sterile fashion along with the ultrasound probe. Th e entry site was anesthetized with 2.5 mL of 1% lidocaine. A 21 gauge 7 cm needle was advanced throug h the skin and into the right basilic vein under live ultrasound guidance. An ultrasound image was s aved to PACS confirming access site. A .018 guide wire was then inserted through the needle and into the venous system. The needle was the removed and an 11 blade scalpel was used to make a 1cm skin in cision. A 5 fr peel-away sheath was advanced over the wire and into the venous system. A measurement was then made using the existing wire and live fluoroscopic guidance. The wire was then removed and the trimmed. The PICC was advanced through the peel-away sheath and into the venous system. The peel- away sheath was removed and the catheter was adhered to the patients arm with a stat lock. The cathet er was then aspirated and flushed and a sterile bandage was placed over the access site. A fluorosco pic spot image was saved to PACS confirming the catheter tip within the superior vena cava. IMPRESSION: SUCCESSFUL PLACEMENT OF A 5 FR DUAL LUMEN 32 CM PICC IN THE right basilic VEIN. COMMENT: Patient medication list reviewed: Yes- Quality ID# 130:Eligible professional attests to doc umenting in the medical record they obtained, updated, or reviewed the patient's current medications. . Quality ID 145: Final reports for procedures using fluoroscopy that document radiation exposure giovanna avery, or exposure time and number of fluorographic images (if radiation exposure indices are not avail able) Quality ID #76: The patient was prepped and draped using maximum sterile barrier technique including cap, mask, sterile gown, sterile gloves, a large sterile sheet, hand hygiene, and 2% Chlorhexidine fo r cutaneous antisepsis. When ultrasound is used, sterile ultrasound techniques are followed requiring sterile gel and sterile probes. TECHNICAL DOCUMENTATION: JOB ID: [id number] [employer]- All Rights Reserved
[2017-03-06] MEDS: TRAMADOL HCL 50 MG TABLET PO PRN ×2 (16:03→22:11)
[2017-03-06] MEDS: ACETAMINOPHEN 325 MG TABLET PO PRN ×2 (16:04→22:11)
[2017-03-06] MEDS ORDERED: NORMAL SALINE 10 ML SDV (AFTER EACH USE) IV PRN (19:21)
[2017-03-06] MEDS: ATORVASTATIN CALCIUM 20 MG TABLET PO SCH (22:10)
[2017-03-06] MEDS: GABAPENTIN 300 MG CAPSULE PO SCH (22:11)
[2017-03-06] MEDS: NORMAL SALINE 10 ML SDV (SCHEDULED) IV SCH (22:11)
[2017-03-06] MEDS: TRAZODONE HCL 50 MG TABLET PO SCH (22:11)
[2017-03-07] MEDS: HEPARIN SOD (PORCINE) 5,000 UNIT/ML 1 ML SYRINGE SUBCUT SCH ×2 (05:41→14:21)
[2017-03-07] MEDS ORDERED: DOCUSATE SODIUM 100 MG CAPSULE PO PRN (09:09)
[2017-03-07] MEDS: LEVOTHYROXINE SODIUM 0.1 MG TABLET PO SCH (09:15)
[2017-03-07] MEDS: FAMOTIDINE 20 MG TABLET PO SCH (09:15)
[2017-03-07] MEDS: CETIRIZINE 10 MG TABLET PO SCH (09:17)
[2017-03-07] MEDS: DULOXETINE HCL 30 MG CAPSULE.DR PO SCH (09:17)
[2017-03-07] MEDS: METOPROLOL TARTRATE 25 MG TABLET PO SCH (09:17)
[2017-03-07] MEDS: NORMAL SALINE 10 ML SDV (SCHEDULED) IV SCH (09:18)
[2017-03-07] MEDS: FLUTICASONE NASAL SPRAY 50 MCG/SPRY 120 SPRAY/16 GM NAREB SCH (09:19)
--- NOTE | 2017-03-07 11:20 | PDOC TRANSFER SUMMARY ---
General - Admit/Disc Date/PCP Admission Date/Primary Care Provider: 03/03/17 22:53 CAROLE CUADRA Discharge Date: 03/07/17 - Discharge Diagnosis (1) Urinary tract infection due to ESBL Klebsiella Is this a current diagnosis for this admission?: YesSummary: needs another 7d carbepenem Tx via PICC line (2) Chronic kidney disease, stage IV (severe) Is this a current diagnosis for this admission?: YesSummary: stable, at baseline, renally dose all meds going forward (3) COPD (chronic obstructive pulmonary disease) Summary: stable, not requiring supplemental O2 at this time (4) Hypothyroidism Summary: stable continue current regimen - Additional Information Resuscitation Status: Full Code Discharge Diet: As Tolerated Discharge Activity: Activity As Tolerated Home Medications: Atorvastatin Calcium [Lipitor 20 mg Tablet] 20 mg PO QHS 03/04/17 Cetirizine HCl [Zyrtec 10 mg Tablet] 10 mg PO DAILY 03/04/17 Duloxetine HCl [Cymbalta] 60 mg PO DAILY 03/04/17 Fluticasone Propionate [Flonase Nasal [place] 50 Mcg/[place] 16 gm] 2 spray NASL DAILY 03/04/17 Gabapentin [Neurontin 300 mg Capsule] 300 mg PO QHS 03/04/17 Guaifenesin [Mucinex] 600 mg PO BID 03/04/17 Levothyroxine Sodium [Synthroid] 100 mcg PO DAILY 03/04/17 Metoprolol Tartrate [Lopressor 25 mg Tablet] 25 mg PO DAILY 03/04/17 Omeprazole 20 mg PO DAILY 03/04/17 Phenazopyridine HCl [Pyridium 100 mg Tablet] 100 mg PO Q8HP PRN 03/04/17 Sennosides/Docusate Sodium [Senna-S Tablet] 2 tab PO DAILYP PRN 03/04/17 Acetaminophen [Tylenol 325 mg Tablet] 650 mg PO Q4HP PRN tablet 03/07/17 Ertapenem Sodium [Invanz Inj 1 gm Vial] 500 mg IVPB DAILY #7 vial 03/07/17 Heparin Sodium,Porcine [Heparin Flush 10 Unit/ml 5 ml Disp.syrg] 30 unit IV .AFTER EACH USE PRN disp.syrin 03/07/17 Heparin Sodium,Porcine [Heparin Flush 10 Unit/ml 5 ml Disp.syrg] 30 unit IV Q12 disp.syrin 03/07/17 Hydroxyzine HCl [Atarax 50 mg Tablet] 50 mg PO TIDP PRN #10 tablet 03/07/17 Tramadol HCl [Ultram 50 mg Tablet] 50 mg PO Q6HP PRN #10 tablet 03/07/17 Trazodone HCl [Desyrel 50 mg Tablet] 50 mg PO QHS #7 tablet 03/07/17 History of Present Illness Admission Date/PCP: 03/03/17 22:53 CAROLE CUADRA Patient complains of: positive urine culture requiring IV abx History of Present Illness: PADMINI MISHRA is a 76 year old female with a past medical history of chronic indwelling Moura catheter, uterine prolapse, recurrent pyelonephritis, stage IV chronic kidney disease, and bipolar with tardive dyskinesia. Urine cultures returned positive for ESBL klebsiella only sensitive to imipenem. She was started on imipenem and referred to the hospitalist for admission. She denies nausea vomiting or abdominal pain. Hospital Course Hospital Course: 03/04 - She is tolerating the imipenem so far. Her previously severe dysuria has almost entirely resolved. She denies fever sweats or chills. 03/05 - Asymptomatic now. Day two of imipenem. Of note, the sensitivities on the urine Klebsiella show intermediate sensitivity to Augmentin." I inherited her care Sunday and am not as confident we can eradicate this ESBL infection with oral augmentin and after discussion with pt she has agreed to PICC line placement for total 10d of IV carbepenem. she underwent successful PICC line placement without complication and is stable for transfer back to [facility] for ongoing care and rehab per family's request. she will need another 7d of Invanz to complete a 10d course before removal of the PICC line. Physical Exam Vital Signs: Temp Pulse Resp BP Pulse Ox 98.5 F 97 16 123/88 H 97 03/07/17 07:50 03/07/17 07:50 03/07/17 07:50 03/07/17 07:50 03/07/17 07:50 Intake & Output 03/06/17 03/07/17 03/08/17 06:59 06:59 06:59 Intake Total 1160 1337 Balance 1160 1337 Weight 54 kg General appearance: PRESENT: no acute distress, well-developed, well-nourished Head exam: PRESENT: atraumatic, normocephalic Eye exam: PRESENT: EOMI. ABSENT: scleral icterus Teeth exam: PRESENT: edentulous Neck exam: ABSENT: tracheal deviation Respiratory exam: PRESENT: clear to auscultation gertrude, unlabored Cardiovascular exam: PRESENT: RRR. ABSENT: systolic murmur Pulses: PRESENT: normal radial pulses GI/Abdominal exam: PRESENT: normal bowel sounds, soft. ABSENT: tenderness Extremities exam: ABSENT: calf tenderness, pedal edema Neurological exam: PRESENT: alert, awake, oriented to person, oriented to place , oriented to situation Psychiatric exam: PRESENT: appropriate affect, normal mood Skin exam: PRESENT: dry, warm Results Laboratory Results: 03/04/17 04:12 03/06/17 09:57 Impressions: Chest X-Ray 03/03/17 22:53 IMPRESSION: No acute consolidations or pleural effusions are identified. There is prominence of the bronchovascular markings. Large hiatal hernia is identified. Other findings as noted above Guidance Fluoroscopy 03/06/17 00:00 IMPRESSION: SUCCESSFUL PLACEMENT OF A 5 FR DUAL LUMEN 32 CM PICC IN THE right basilic VEIN. Interventional Vascular Procedure 03/06/17 00:00 IMPRESSION: SUCCESSFUL PLACEMENT OF A 5 FR DUAL LUMEN 32 CM PICC IN THE right basilic VEIN. PICC Line Insertion 03/06/17 00:00 IMPRESSION: SUCCESSFUL PLACEMENT OF A 5 FR DUAL LUMEN 32 CM PICC IN THE right basilic VEIN. Transfer Plan - Disposition Transfer Plan: return to [facility] at family's request - Time Spent with Patient Time spent with patient: Greater than 30 Minutes Qualifiers PATEINT BEING DISCHARGED WITH ANY OF THE FOLLOWING DIAGNOSIS?: No VTE patient discharged on overlapping Therapy?: No Reason(s) for not prescribing Overlap Therapy:: Not indicated
[2017-03-07] MEDS: IMIPENEM/CILASTATIN SODIUM 500 MG in NORMAL SALINE 100 ML IV SCH (14:20)
[2017-03-07 14:25] VITALS: BP 114/77
== END 2017-03-07 16:00 | DRG 690 ==
LOC: ER 20:54 → EH 22:53 → UNDOADMIN 23:13 → EH 23:13 → 4N 03-04 01:18
PROVIDERS: ADMIT Internal Medicine; ATTEND Internal Medicine
PROC: 02HV33Z Insertion of Infusion Device into Superior Vena Cava, Percutaneous Approach (ICD-10-PCS; principal; 2017-03-06)
PROC: B5181ZA Fluoroscopy of Superior Vena Cava using Low Osmolar Contrast, Guidance (ICD-10-PCS; 2017-03-06)
PROC: B548ZZA Ultrasonography of Superior Vena Cava, Guidance (ICD-10-PCS; 2017-03-06)
DX: N39.0 Urinary tract infection, site not specified (principal); N18.4 Chronic kidney disease, stage 4 (severe); B96.1 Klebsiella pneumoniae [K. pneumoniae] as the cause of diseases classified elsewhere; Z16.12 Extended spectrum beta lactamase (ESBL) resistance; J44.9 Chronic obstructive pulmonary disease, unspecified; F31.9 Bipolar disorder, unspecified; G24.01 Drug induced subacute dyskinesia; I25.10 Atherosclerotic heart disease of native coronary artery without angina pectoris; D64.9 Anemia, unspecified; E03.9 Hypothyroidism, unspecified; E78.5 Hyperlipidemia, unspecified; K21.9 Gastro-esophageal reflux disease without esophagitis; F03.90 Unspecified dementia, unspecified severity, without behavioral disturbance, psychotic disturbance, mood disturbance, and anxiety; Z79.899 Other long term (current) drug therapy; Z66 Do not resuscitate
CPT/HCPCS: 36415; 36569; 71020; 76937; 77001; 80048; 81001; 82607; 82728; 82746; 83540; 83550; 85025; 85045; 85610; 87086; 87088; 87186; 94799; 99285; J0743; J1642; J1644; J3490; J7030

== ENCOUNTER 2017-10-18 23:33 | Emergency (ER) | payer MEDICARE, OTHER, MEDICAID ==
--- NOTE | 2017-10-19 | ER Document Report ---
ED General - General Chief Complaint: Anxiety Stated Complaint: POSSIBLE RENAL FAILURE Time Seen by Provider: 10/18/17 23:58 Mode of Arrival: Medic Information source: Patient Notes: 77-year-old female history of anxiety who has been off her trazodone resents with complaints of feeling anxious and short of breath. Patient notes that her a year ago and her anxiety has worsened since. She denies any productive cough denies any nausea vomiting. She notes that normally she is on 2 L nasal cannula and she normally sats 85%. 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 IN LAST 30 DAYS: No - HPI Onset: Other Onset/Duration: Intermittent Quality of pain: No pain Severity: Mild Pain Level: Denies Associated symptoms: Shortness of breath, Other - anxious Exacerbated by: Denies Relieved by: Denies Similar symptoms previously: Yes Recently seen / treated by doctor: Yes - Related Data Allergies/Adverse Reactions: No Known Allergies Allergy (Verified 03/03/17 22:16) Past Medical History - Social History Smoking Status: Former Smoker Cigarette use (# per day): No Chew tobacco use (# tins/day): No Smoking Education Provided: No Family History: Reviewed & Not Pertinent, Other Patient has suicidal ideation: No Patient has homicidal ideation: No - Past Medical History Cardiac Medical History: Reports: Hx Coronary Artery Disease, Hx Hypercholesterolemia Pulmonary Medical History: Reports: Hx COPD Neurological Medical History: Reports: Hx Cerebrovascular Accident Endocrine Medical History: Reports: Hx Hypothyroidism Renal/ Medical History: Reports: Hx End Stage Renal Disease. Denies: Hx Peritoneal Dialysis GI Medical History: Reports: Hx Gastroesophageal Reflux Disease Psychiatric Medical History: Reports: Hx Dementia, Hx Depression Past Surgical History: Reports: Hx Orthopedic Surgery - bilateral hips, back, Hx Urinary Tract Surgery - Immunizations Hx Diphtheria, Pertussis, Tetanus Vaccination: Yes Review of Systems - Review of Systems Notes: REVIEW OF SYSTEMS: CONSTITUTIONAL : Denies fever, chills, or sweats. Denies recent illness. EENT: Denies eye, ear, throat, or mouth pain or symptoms. Denies nasal or sinus congestion or discharge. Denies throat, tongue, or mouth swelling or difficulty swallowing. CARDIOVASCULAR: Denies chest pain. Denies palpitations or racing or irregular heart beat. Denies ankle edema. RESPIRATORY: admits to sob . GASTROINTESTINAL: Denies abdominal pain or distention. Denies nausea, vomiting , or diarrhea. Denies blood in vomitus, stools, or per rectum. Denies black, tarry stools. Denies constipation. GENITOURINARY: Denies difficulty urinating, painful urination, burning, frequency, blood in urine, or discharge. FEMALE GENITOURINARY: Denies vaginal bleeding, heavy or abnormal periods, irregular periods. Denies vaginal discharge or odor. MUSCULOSKELETAL: Denies back or neck pain or stiffness. Denies joint pain or swelling. SKIN: Denies rash, lesions or sores. HEMATOLOGIC : Denies easy bruising or bleeding. LYMPHATIC: Denies swollen, enlarged glands. NEUROLOGICAL: Denies confusion or altered mental status. Denies passing out or loss of consciousness. Denies dizziness or lightheadedness. Denies headache. Denies weakness or paralysis or loss of use of either side. Denies problems with gait or speech. Denies sensory loss, numbness, or tingling. Denies seizures. PSYCHIATRIC: Denies anxiety or stress. Denies depression, suicidal ideation, or homicidal ideation. ALL OTHER SYSTEMS REVIEWED AND NEGATIVE. PHYSICAL EXAMINATION: GENERAL: Well-appearing, well-nourished and in no acute distress. HEAD: Atraumatic, normocephalic. EYES: Pupils equal round and reactive to light, extraocular movements intact, conjunctiva are normal. ENT: Nares patent, oropharynx clear without exudates. Moist mucous membranes. NECK: Normal range of motion, supple without lymphadenopathy LUNGS: Breath sounds clear to auscultation bilaterally and equal. No wheezes rales or rhonchi. HEART: Regular rate and rhythm without murmurs ABDOMEN: Soft, nontender, nondistended abdomen. No guarding, no rebound. No masses appreciated. Female : deferred Musculoskeletal: Normal range of motion, no pitting or edema. No cyanosis. NEUROLOGICAL: Cranial nerves grossly intact. Normal speech, normal gait. Normal sensory, motor exams rhythmic motion of face PSYCH: Normal mood, normal affect. SKIN: Warm, Dry, normal turgor, no rashes or lesions noted. Dictation was performed using [employer] voice recognition software Physical Exam - Vital signs Vitals: Resp BP Pulse Ox 23 H 113/71 94 10/18/17 23:40 10/18/17 23:40 10/18/17 23:40 Course - Re-evaluation Re-evalutation: 10/18/17 23:59 Patient notes she is normally on 2 L nasal cannula home at usually 85-90%, at breast patient notes that she is normally on 2 L of nasal cannula at home, here she has no oxygen on and is satting 96%. Pt notes that she is extremely anxious because she does not like to be home alone. Pt notes that her son in law left today and the alarm went off on the machine whihc made her even more anxious. Pt notes she has been off her trazadone and cant sleep at night time 10/19/17 00:00 10/19/17 01:03 Patient sleeping here comfortably in no distress, when awoken she becomes tachycardic and anxious. But when she is resting heart rate drops to the 70s. Patient overall looks well is in no distress will be discharged home given that she is having no other specific complaints After performing a Medical Screening Examination, I estimate there is LOW risk for ACUTE CORONARY SYNDROME, PULMONARY EMBOLI, RESPIRATORY FAILURE, SEPSIS OR MENINGITIS, thus I consider the discharge disposition reasonable. I have reevaluated this patient multiple times and no significant life threatening changes are noted. The patient and I have discussed the diagnosis and risks, and we agree with discharging home with close follow-up. We also discussed returning to the Emergency Department immediately if new or worsening symptoms occur. We have discussed the symptoms which are most concerning (e.g., changing or worsening pain, trouble swallowing or breathing, neck stiffness, fever) that necessitate immediate return. - Vital Signs Vital signs: Temp Pulse Resp BP Pulse Ox 98.5 F 21 H 131/67 H 96 10/18/17 23:41 10/19/17 00:31 10/19/17 00:31 10/19/17 00:31 - Diagnostic Test Radiology reviewed: Image reviewed, Reports reviewed - No acute abnormality Discharge - Discharge Clinical Impression: Anxiety Condition: Stable Disposition: HOME, SELF-CARE Instructions: Anxiety ([facility]) Additional Instructions: Follow up with your physician tomorrow for further care or return to the ED IMMEDIATELY if symptoms worsen or new concerns occur. If you cannot afford to follow up with your primary care physician a list of low cost clinics have been provided at the end of your discharge papers as well. Prescriptions: Trazodone HCl [Desyrel 50 mg Tablet] 50 mg PO QHS #14 tablet
[2017-10-19] MEDS ORDERED: TRAZODONE HCL 50 MG TABLET PO ONE (00:30)
--- NOTE | 2017-10-19 00:51 | RADIOLOGY REPORT (SQ) ---
EXAM DESCRIPTION: CHEST SINGLE VIEW CLINICAL HISTORY: sob COMPARISON: 03/03/2017 FINDINGS: Single frontal view of the chest. Large retrocardiac air-filled opacity is unchanged and likely represents a hiatal hernia. Atherosclerotic calcification aortic arch. Heart is not enlarged. No consolidation, pneumothorax, or pleural effusion. No displaced rib fractures identified. Upper abdominal soft tissues are unremarkable. IMPRESSION: 1. No acute pulmonary process identified.
[2017-10-19] MEDS ORDERED: ONDANSETRON 4 MG TAB.RAPDIS PO ONE (00:59)
[2017-10-19 01:39] VITALS: BP 108/47
== END 2017-10-19 01:30 | disposition home or self-care (01) ==
LOC: ER 23:33
DX: F41.9 Anxiety disorder, unspecified (principal); J44.9 Chronic obstructive pulmonary disease, unspecified; R06.02 Shortness of breath; Z99.81 Dependence on supplemental oxygen; I25.10 Atherosclerotic heart disease of native coronary artery without angina pectoris; Z87.891 Personal history of nicotine dependence
CPT/HCPCS: 99284; 71045; A9270 ×2; S0119

== ENCOUNTER 2017-11-12 21:51 | Emergency (ER) | payer MEDICARE, OTHER ==
[2017-11-12] MEDS ORDERED: IPRATROPIUM/ALBUTEROL 0.5-2.5 MG/3 ML AMPUL NEB ONE (22:35)
[2017-11-12] MEDS ORDERED: METHYLPREDNISOLONE INJ 125 MG/2 ML SDV IV ONE (22:35)
--- NOTE | 2017-11-12 22:49 | RADIOLOGY REPORT (SQ) ---
EXAM DESCRIPTION: CHEST SINGLE VIEW COMPLETED DATE/TIME: 11/12/2017 10:34 pm REASON FOR STUDY: diff breathing, rm 18 COMPARISON: 10/19/2017 EXAM PARAMETERS: NUMBER OF VIEWS: One view. TECHNIQUE: Single frontal radiographic view of the chest acquired. RADIATION DOSE: NA LIMITATIONS: None. FINDINGS: LUNGS AND PLEURA: No acute opacities, masses or pneumothorax. Similar chronic interstitia l markings. No pleural effusion. MEDIASTINUM AND HILAR STRUCTURES: Stable appearance. HEART AND VASCULAR STRUCTURES: Stable. BONES: No acute findings. Multiple old bilateral healed rib fractures. Similar posttraumatic change s in the left shoulder. HARDWARE: None in the chest. OTHER: No other significant finding. IMPRESSION: NO ACUTE RADIOGRAPHIC FINDING IN THE CHEST. TECHNICAL DOCUMENTATION: JOB ID: [id number] [id number] 2010 [employer]- All Rights Reserved
[2017-11-12 22:52] LABS: ABSOLUTE BASOPHILS # (AUTO) 0.1 10^3/uL (0.0-0.2); ABSOLUTE EOSINOPHILS # (AUTO) 0.4 10^3/uL (0.0-0.6); ABSOLUTE LYMPHOCYTES (AUTO) 1.1 10^3/uL (0.5-4.7); ABSOLUTE MONOCYTES (AUTO) 0.8 10^3/uL (0.1-1.4); ABSOLUTE NEUT (AUTO) 8.3 10^3/uL (1.7-8.2); BASOPHILS % (AUTO) 0.6 % (0-2); EOSINOPHILS % (AUTO) 3.9 % (0-6); HEMATOCRIT 30.6 % (36.0-47.0); HEMOGLOBIN 10.2 g/dL (12.0-15.5); LYMPHOCYTES % (AUTO) 9.9 % (13-45); MEAN CORPUSCULAR HEMOGLOBIN 28.9 pg (27.0-33.4); MEAN CORPUSCULAR HGB CONC 33.2 g/dL (32.0-36.0); MEAN CORPUSCULAR VOLUME 87 fl (80-97); MONOCYTES % (AUTO) 7.9 % (3-13); PLATELET COUNT 230 10^3/uL (150-450); RED BLOOD COUNT 3.52 10^6/uL (3.72-5.28); RED CELL DISTRIBUTION WIDTH 17.8 % (11.5-14.0); SEGMENTED NEUTROPHILS % (AUTO) 77.7 % (42-78); TOTAL CELLS COUNTED % (AUTO) 100 %; WHITE BLOOD COUNT 10.7 10^3/uL (4.0-10.5)
[2017-11-12 23:13] LABS: ALANINE AMINOTRANSFERASE 23 U/L (9-52); ALBUMIN 4.2 g/dL (3.5-5.0); ALKALINE PHOSPHATASE 67 U/L (38-126); ANION GAP 12 (5-19); ASPARTATE AMINO TRANSFERASE 25 U/L (14-36); BILIRUBIN,DIRECT 0.3 mg/dL (0.0-0.4); BILIRUBIN,TOTAL 0.4 mg/dL (0.2-1.3); BLOOD UREA NITROGEN 53 mg/dL (7-20); CALCIUM 9.1 mg/dL (8.4-10.2); CARBON DIOXIDE 23 mmol/L (22-30); CHLORIDE 108 mmol/L (98-107); GLUCOSE 104 mg/dL (75-110); POTASSIUM 3.7 mmol/L (3.6-5.0); SODIUM 142.7 mmol/L (137-145); TOTAL PROTEIN 6.9 g/dL (6.3-8.2)
[2017-11-12 23:51] LABS: A TYPE INFLUENZA AG NEGATIVE (NEGATIVE); B INFLUENZA AG NEGATIVE (NEGATIVE)
[2017-11-13] MEDS ORDERED: NORMAL SALINE 500 ML IV ONE (00:34)
--- NOTE | 2017-11-13 00:34 | ER Document Report ---
ED General - General Chief Complaint: Breathing Difficulty Stated Complaint: SHORTNESS OF BREATH Time Seen by Provider: 11/12/17 22:34 Mode of Arrival: Medic Information source: Patient, Transfer Record, [facility] Records TRAVEL OUTSIDE OF THE [place] IN LAST 30 DAYS: No - HPI Patient complains to provider of: sob Onset: This morning Onset/Duration: Gradual Quality of pain: No pain Associated symptoms: Nonproductive cough Exacerbated by: Denies Relieved by: Denies Similar symptoms previously: Yes Recently seen / treated by doctor: Yes Notes: 7-year-old female states that she has had trouble breathing all day. Her initial pulse ox when EMS arrived was 95%. Patient states she quit smoking approximately 2 months ago. She is on oxygen at home 2 L. - Related Data Allergies/Adverse Reactions: No Known Allergies Allergy (Verified 03/03/17 22:16) Past Medical History - General Information source: Patient, [facility] Records - Social History Smoking Status: Former Smoker Cigarette use (# per day): No Chew tobacco use (# tins/day): No Smoking Education Provided: No Frequency of alcohol use: None Drug Abuse: None Lives with: Family Family History: Reviewed & Not Pertinent, Other Patient has suicidal ideation: No Patient has homicidal ideation: No - Past Medical History Cardiac Medical History: Reports: Hx Coronary Artery Disease, Hx Hypercholesterolemia Pulmonary Medical History: Reports: Hx COPD Neurological Medical History: Reports: Hx Cerebrovascular Accident Endocrine Medical History: Reports: Hx Hypothyroidism Renal/ Medical History: Reports: Hx Renal Insufficiency. Denies: Hx Peritoneal Dialysis GI Medical History: Reports: Hx Gastroesophageal Reflux Disease Musculoskeltal Medical History: Reports None Psychiatric Medical History: Reports: Hx Dementia, Hx Depression Past Surgical History: Reports: Hx Orthopedic Surgery - bilateral hips, back, Hx Urinary Tract Surgery - Immunizations Hx Diphtheria, Pertussis, Tetanus Vaccination: Yes Review of Systems - Review of Systems Constitutional: No symptoms reported EENT: No symptoms reported Cardiovascular: No symptoms reported Respiratory: See HPI Gastrointestinal: No symptoms reported Genitourinary: No symptoms reported Female Genitourinary: No symptoms reported Musculoskeletal: No symptoms reported Skin: No symptoms reported Hematologic/Lymphatic: No symptoms reported Neurological/Psychological: No symptoms reported Physical Exam - Vital signs Vitals: Resp BP 36 H 119/63 11/12/17 22:03 11/12/17 22:03 - Notes Notes: PHYSICAL EXAMINATION: GENERAL: Chronically ill-appearing well-nourished and in no acute distress. HEAD: Atraumatic, normocephalic. EYES: Pupils equal round and reactive to light, extraocular movements intact, conjunctiva are normal. ENT: Nares patent, oropharynx clear without exudates. Moist mucous membranes. NECK: Normal range of motion, supple without lymphadenopathy LUNGS: Breath sounds clear to auscultation bilaterally and equal. No wheezes rales or rhonchi. HEART:Tachy with regular rhythm without murmurs ABDOMEN: Soft, nontender, nondistended abdomen. No guarding, no rebound. No masses appreciated. Female : deferred Musculoskeletal: Normal range of motion, no pitting or edema. No cyanosis. NEUROLOGICAL: Cranial nerves grossly intact. Normal speech. Normal sensory, motor exams. PSYCH: anxious SKIN: Warm, Dry, normal turgor, no rashes or lesions noted. Course - Re-evaluation Re-evalutation: 11/13/17 00:44 She is refusing IV fluids. She is tachycardic at 120 however we did give her DuoNeb. Pt. wants to go home at this time. Transport called for. 11/13/17 00:45 Abnormal - 24 hr 11/12/17 11/12/17 22:40 22:40 WBC 10.7 H RBC 3.52 L Hgb 10.2 L Hct 30.6 L RDW 17.8 H Lymphocytes % 9.9 L Absolute Neutrophils 8.3 H Chloride 108 H BUN 53 H Creatinine 2.79 H Est GFR ( Amer) 20 L Est GFR (Non-Af Amer) 16 L Chest X-Ray 11/12/17 00:00 IMPRESSION: NO ACUTE RADIOGRAPHIC FINDING IN THE CHEST. - Vital Signs Vital signs: Temp Pulse Resp BP Pulse Ox 98.2 F 27 H 119/63 100 11/12/17 22:05 11/12/17 22:04 11/12/17 22:03 11/12/17 22:04 - Laboratory Result Diagrams: 11/12/17 22:40 11/12/17 22:40 Laboratory results interpreted by me: 11/12/17 11/12/17 22:40 22:40 WBC 10.7 H RBC 3.52 L Hgb 10.2 L Hct 30.6 L RDW 17.8 H Lymphocytes % 9.9 L Absolute Neutrophils 8.3 H Chloride 108 H BUN 53 H Creatinine 2.79 H Est GFR ( Amer) 20 L Est GFR (Non-Af Amer) 16 L - EKG Interpretation by Me EKG shows normal: Sinus rhythm Rate: Tachycardia - 129 When compared to previous EKG there are: No significant change Additional EKG results interpreted by me: 11/13/17 00:41 ST depression inferior lateral leads no change compared with EKG December 06, 2016 Discharge - Discharge Clinical Impression: COPD (chronic obstructive pulmonary disease), Chronic kidney disease, stage IV (severe), Anemia of chronic disease Condition: Stable Disposition: HOME, SELF-CARE Instructions: Chronic Obstructive Lung Disease ([facility]) Additional Instructions: Follow up with your physician tomorrow for further care or return to the ED IMMEDIATELY if symptoms worsen or new concerns occur. If you cannot afford to follow up with your primary care physician a list of low cost clinics have been provided at the end of your discharge papers as well. Prescriptions: Prednisone [Deltasone 20 mg Tablet] 3 tab PO DAILY 5 Days #15 tablet
[2017-11-13 01:30] VITALS: BP 89/74
--- NOTE | 2017-11-13 08:32 | EKG REPORT ---
SEVERITY:- ABNORMAL ECG - SINUS TACHYCARDIA VENTRICULAR PREMATURE COMPLEX ABNORMAL T, CONSIDER ISCHEMIA, LATERAL LEADS : Confirmed by: Onel Lennon 13-Nov-2017 08:32:01
== END 2017-11-13 01:30 | disposition home or self-care (01) ==
LOC: ER 21:51
DX: J44.9 Chronic obstructive pulmonary disease, unspecified (principal); N18.5 Chronic kidney disease, stage 5; D63.1 Anemia in chronic kidney disease; Z99.81 Dependence on supplemental oxygen; Z86.73 Personal history of transient ischemic attack (TIA), and cerebral infarction without residual deficits
CPT/HCPCS: 93005; 94640; 99285; 96374; 36415; 87040; 85025; 80053; 84484; 87804; 71045; 93010; J2930; A9270; J7620

== ENCOUNTER 2018-06-14 18:29 | Inpatient (IN) | payer MEDICARE, OTHER ==
--- NOTE | 2018-06-14 19:39 | RADIOLOGY REPORT (SQ) ---
EXAM DESCRIPTION: CHEST SINGLE VIEW COMPLETED DATE/TIME: 06/14/2018 7:06 pm REASON FOR STUDY: shortness of breath COMPARISON: 11/22/2017 EXAM PARAMETERS: NUMBER OF VIEWS: One view. TECHNIQUE: Single frontal radiographic view of the chest acquired. RADIATION DOSE: NA LIMITATIONS: None. FINDINGS: LUNGS AND PLEURA: No opacities, masses or pneumothorax. No pleural effusion. MEDIASTINUM AND HILAR STRUCTURES: Large hiatal hernia. No infiltrate or effusion. HEART AND VASCULAR STRUCTURES: Heart normal in size. Normal vasculature. BONES: No acute findings. HARDWARE: None in the chest. OTHER: No other significant finding. IMPRESSION: Large hiatal hernia. No acute cardiopulmonary findings. TECHNICAL DOCUMENTATION: JOB ID: [id number] [employer]- All Rights Reserved Reading location - IP/workstation name: [email or web address]
[2018-06-14] MEDS ORDERED: IPRATROPIUM/ALBUTEROL 0.5-2.5 MG/3 ML AMPUL NEB ONE ×3 (19:41→23:50)
[2018-06-14] MEDS ORDERED: METHYLPREDNISOLONE INJ 125 MG/2 ML SDV IV ONE (19:42)
--- NOTE | 2018-06-14 19:51 | ER Document Report ---
ED Respiratory Problem - General Chief Complaint: Shortness Of Breath Stated Complaint: SHORTNESS OF BREATH Time Seen by Provider: 06/14/18 19:21 Mode of Arrival: Medic Information source: Patient Notes: Patient is a 78-year-old female presenting to the emergency department complaining of shortness of breath. Patient states about 2 weeks ago she was discharged from the custodial after being there for rehab after urinary sepsis. Patient states in the custodial she was on 3 L of oxygen as needed, states she is "more often than not". Patient states that she has been home they did not give her oxygen and she has been increasingly short of breath. Patient stated today she was having chest tightness, and could not catch her breath so 911 was called. Per EMS patient's room air sat was 77%. TRAVEL OUTSIDE OF THE [place] IN LAST 30 DAYS: No - Related Data Allergies/Adverse Reactions: No Known Allergies Allergy (Verified 03/03/17 22:16) Past Medical History - Social History Smoking Status: Former Smoker Family History: Reviewed & Not Pertinent, Other Patient has suicidal ideation: No Patient has homicidal ideation: No - Past Medical History Cardiac Medical History: Reports: Hx Coronary Artery Disease, Hx Hypercholesterolemia Pulmonary Medical History: Reports: Hx COPD Neurological Medical History: Reports: Hx Cerebrovascular Accident Endocrine Medical History: Reports: Hx Hypothyroidism Renal/ Medical History: Reports: Hx End Stage Renal Disease, Hx Renal Insufficiency. Denies: Hx Peritoneal Dialysis GI Medical History: Reports: Hx Gastroesophageal Reflux Disease Psychiatric Medical History: Reports: Hx Dementia, Hx Depression Past Surgical History: Reports: Hx Orthopedic Surgery - bilateral hips, back, Hx Urinary Tract Surgery - Immunizations Hx Diphtheria, Pertussis, Tetanus Vaccination: Yes Review of Systems - Review of Systems Constitutional: See HPI EENT: No symptoms reported Cardiovascular: See HPI Respiratory: See HPI Gastrointestinal: No symptoms reported Genitourinary: See HPI Female Genitourinary: No symptoms reported Musculoskeletal: No symptoms reported Skin: No symptoms reported Hematologic/Lymphatic: No symptoms reported Neurological/Psychological: No symptoms reported Physical Exam - Vital signs Vitals: Pulse Ox 88 L 06/14/18 19:00 - Notes Notes: GENERAL: Alert, interacts well. Patient tachypneic although able to speak in full sentences. Maintaining her oxygen saturation on 3 L/min HEAD: Normocephalic, atraumatic. EYES: Pupils equal, round, and reactive to light. Extraocular movements intact. ENT: Oral mucosa moist, tongue midline. NECK: Full range of motion. Supple. Trachea midline. LUNGS: Wheezes noted inspiratory and expiratory all lung shannon. HEART: Regular rate and rhythm. No murmur ABDOMEN: Soft, non-tender. Non-distended. Bowel sounds present in all 4 quadrants. EXTREMITIES: Moves all 4 extremities spontaneously. No edema, normal radial and dorsalis pedis pulses bilaterally. No cyanosis. BACK: no cervical, thoracic, lumbar midline tenderness. No saddle anesthesia, normal distal neurovascular exam. NEUROLOGICAL: Alert and oriented x3. Normal speech. . PSYCH: Normal affect, normal mood. SKIN: Warm, dry, normal turgor. No rashes or lesions noted. Course - Re-evaluation Re-evalutation: Pts lung sounds improved significantly, minor end expiratory wheeze cleared by a cough. Pt requesting something to eat. While talking to the Pt, took her off her 02 (*which was at 3lpm) 02 sat stayed between 92-95% but Pt then became tachypenic and stated she was feeling short of breath again. Pt then relayed that she had some dysuria over the last 24 hours. 02 placed on 3lpm, will reassess 02 sats and respiratory status. 06/14/18 22:[address] Sanchez about admit, she agrees and will see pt in ED. Pt. is maining 02 sat around 95% on 3lpm. No ambulation was preformed due to Pt. stating she was more short of breath upon talking. When sitting still she stated she feels a lot better. LS CTA. Awaiting urine, will send CX. 06/15/2018 23:45 RN came to me stating that the Pt. was "doing a lot worse." Upon re-exam the pt was tachypneic with slight increased respiratory distress. Lung sounds revealed scant wheezes throughout all shannon expiratory, maintaining oxygen saturation of 95%. Breathing treatments will be ordered. Attempted to call Dr. Sanchez, no answer. 06/15/2018 01:15 upon reassessment patient very anxious, increased respiratory distress, expiratory and inspiratory wheeze in all shannon at this time. Patient desating to 86% on 4 L nasal cannula. BiPAP initiated. Patient initially very anxious stating the mask was smothering her asking for Xanax. Ativan IV was given patient calm down was able to tolerate BiPAP mask was now up to 96%. Dr. Sanchez again contacted, no answer. 06/15/18 02:[address] Sanchez about Pt. she stated she wants Pt. admit [facility]. Pt. currently sleeping on BiPAP maintaining 02 sat. - Vital Signs Vital signs: Temp Pulse Resp BP Pulse Ox 98 F 109 H 21 H 121/73 100 06/15/18 04:47 06/15/18 04:47 06/15/18 04:47 06/15/18 04:47 06/15/18 04:47 - Laboratory Result Diagrams: 06/14/18 20:00 06/14/18 20:00 Laboratory results interpreted by me: 06/14/18 06/14/18 06/14/18 20:00 20:00 20:00 RBC 3.25 L Hgb 10.2 L Hct 30.4 L RDW 15.6 H Plt Count 137 L Lymphocytes % 9.2 L VBG pH 7.19 L* Carbon Dioxide 21 L BUN 59 H Creatinine 3.15 H Est GFR ( Amer) 17 L Est GFR (Non-Af Amer) 14 L Calcium 8.2 L Urine Protein Urine Blood Ur Leukocyte Esterase 06/14/18 23:00 RBC Hgb Hct RDW Plt Count Lymphocytes % VBG pH Carbon Dioxide BUN Creatinine Est GFR ( Amer) Est GFR (Non-Af Amer) Calcium Urine Protein 30 H Urine Blood SMALL H Ur Leukocyte Esterase LARGE H Critical Care Note - Critical Care Note Total time excluding time spent on procedures (mins): 40 - hypoxia, BiPAP, admit Comments: Please allow 40 minutes of critical care time for evaluation and management of patient with respiratory distress, COPD exacerbation, treatment with DuoNeb's, magnesium, steroid. Decompensation requiring BiPAP therapy. Consultation and admission to the hospital. Multiple reevaluations. Discharge - Discharge Clinical Impression: COPD exacerbation, Hypoxia Condition: Stable Disposition: ADMITTED INPATIENT Admitting Provider: Hospitalist Unit Admitted: [facility]
[2018-06-14] MEDS: MAGNESIUM SULFATE/D5W 1 GM/100 ML RTUPB IV SCH ×2 (20:04→20:32)
[2018-06-14 20:09] LABS: VENOUS BLOOD BASE EXCESS -5.5 mmol/L
[2018-06-14 20:11] LABS: ABSOLUTE EOSINOPHILS # (AUTO) 0.3 10^3/uL (0.0-0.6); ABSOLUTE LYMPHOCYTES (AUTO) 0.5 10^3/uL (0.5-4.7); ABSOLUTE MONOCYTES (AUTO) 0.6 10^3/uL (0.1-1.4); ABSOLUTE NEUT (AUTO) 4.3 10^3/uL (1.7-8.2); BASOPHILS % (AUTO) 0.7 % (0-2); EOSINOPHILS % (AUTO) 5.3 % (0-6); HEMATOCRIT 30.4 % (36.0-47.0); HEMOGLOBIN 10.2 g/dL (12.0-15.5); LYMPHOCYTES % (AUTO) 9.2 % (13-45); MEAN CORPUSCULAR HEMOGLOBIN 31.5 pg (27.0-33.4); MEAN CORPUSCULAR HGB CONC 33.7 g/dL (32.0-36.0); MEAN CORPUSCULAR VOLUME 94 fl (80-97); MONOCYTES % (AUTO) 10.2 % (3-13); PLATELET COUNT 137 10^3/uL (150-450); RED BLOOD COUNT 3.25 10^6/uL (3.72-5.28); RED CELL DISTRIBUTION WIDTH 15.6 % (11.5-14.0); SEGMENTED NEUTROPHILS % (AUTO) 74.6 % (42-78); TOTAL CELLS COUNTED % (AUTO) 100 %; WHITE BLOOD COUNT 5.8 10^3/uL (4.0-10.5)
[2018-06-14 20:12] LABS: VENOUS BLOOD PH 7.19 (7.30-7.42)
[2018-06-14 20:21] LABS: ALANINE AMINOTRANSFERASE 21 U/L (9-52); ALKALINE PHOSPHATASE 61 U/L (38-126); ANION GAP 13 (5-19); ASPARTATE AMINO TRANSFERASE 30 U/L (14-36); BILIRUBIN,DIRECT 0.3 mg/dL (0.0-0.4); BILIRUBIN,TOTAL 0.3 mg/dL (0.2-1.3); BLOOD UREA NITROGEN 59 mg/dL (7-20); CALCIUM 8.2 mg/dL (8.4-10.2); CARBON DIOXIDE 21 mmol/L (22-30); CHLORIDE 106 mmol/L (98-107); GLUCOSE 103 mg/dL (75-110); POTASSIUM 4.5 mmol/L (3.6-5.0); SODIUM 139.5 mmol/L (137-145); TOTAL PROTEIN 7.1 g/dL (6.3-8.2)
[2018-06-14] MEDS ORDERED: NORMAL SALINE 1000 ML 500 ML IV ONE (20:58)
[2018-06-15] MEDS ORDERED: IPRATROPIUM/ALBUTEROL 0.5-2.5 MG/3 ML AMPUL NEB ONE ×2 (00:05→01:24)
[2018-06-15] MEDS ORDERED: LORAZEPAM INJ 2 MG/1 ML VIAL ONE (01:19)
[2018-06-15] MEDS ORDERED: LORAZEPAM INJ 2 MG/1 ML VIAL IV ONE ×2 (01:23→03:45)
[2018-06-15] MEDS ORDERED: PROMETHAZINE HCL INJ 25 MG/1 ML VIAL IV PRN (04:04)
[2018-06-15] MEDS ORDERED: PROMETHAZINE HCL 25 MG TABLET PO PRN (04:04)
[2018-06-15] MEDS ORDERED: MAG HYDROX/AL HYDROX/SIMETH SUSP 30 ML UDCUP PO PRN (04:04)
[2018-06-15] MEDS ORDERED: ACETAMINOPHEN 325 MG TABLET PO PRN (04:04)
[2018-06-15] MEDS ORDERED: LORAZEPAM INJ 2 MG/1 ML VIAL IV PRN (04:11)
[2018-06-15] MEDS ORDERED: NORMAL SALINE 1000 ML 1,000 ML IV PRN (04:12)
[2018-06-15] MEDS ORDERED: SENNOSIDES/DOCUSATE 8.6-50 MG 1 EACH TABLET PO PRN (04:13)
[2018-06-15] MEDS ORDERED: TRAMADOL HCL 50 MG TABLET PO PRN (04:13)
[2018-06-15 04:15] LABS: AMORPHOUS SEDIMENT,URINE TRACE /HPF; APPEARANCE,URINE CLOUDY; BILIRUBIN,URINE NEGATIVE (NEGATIVE); COLOR,URINE YELLOW; GLUCOSE, URINE NEGATIVE (NEGATIVE); KETONES,URINE NEGATIVE (NEGATIVE); LEUKOCYTE ESTERASE,URINE LARGE (NEGATIVE); NITRITE,URINE NEGATIVE (NEGATIVE); PROTEIN,URINE 30 mg/dL (NEGATIVE); URINE SPECIFIC GRAVITY 1.011; UROBILINOGEN,URINE NEGATIVE mg/dL (<2.0)
[2018-06-15] MEDS ORDERED: AZITHROMYCIN INJ 500 MG VIAL IV PRN (04:29)
[2018-06-15] MEDS ORDERED: HYDROXYZINE PAMOATE 50 MG CAPSULE PO PRN (04:30)
[2018-06-15] MEDS: IPRATROPIUM/ALBUTEROL 0.5-2.5 MG/3 ML AMPUL NEB PRN (04:44)
[2018-06-15] MEDS ORDERED: AZITHROMYCIN 500 MG in DEXTROSE 5%-WATER 250 ML IV SCH (05:00)
[2018-06-15 05:13] LABS: ARTERIAL BLOOD BASE EXCESS -11.9 mmol/L; ARTERIAL BLOOD H2CO3 1.35 mmol/L (1.05-1.35); ARTERIAL BLOOD HCO3 16.2 mmol/L (20-24); ARTERIAL BLOOD PO2 134.2 mmHg (80-100); ARTERIAL BLOOD TOTAL CO2 17.5 mmol/L (21-25)
[2018-06-15 05:15] LABS: ARTERIAL BLOOD FIO2 50%; ARTERIAL BLOOD PH 7.17 (7.35-7.45)
--- NOTE | 2018-06-15 05:36 | PDOC H&P ---
History of Present Illness Admission Date/PCP: 06/15/18 03:00 TREVON DEL CID MD Patient complains of: Shortness of breath History of Present Illness: PADMINI MISHRA is a 78 year old female presenting to the emergency department complaining of shortness of breath. Patient states about 2 weeks ago she was discharged from the retirement after being there for rehab after urinary sepsis. Patient states in the retirement she was on 3 L of oxygen as needed, states she is "more often than not". Patient states that she has been home they did not give her oxygen and she has been increasingly short of breath. Patient stated today she was having chest tightness, and could not catch her breath so 911 was called. Per EMS patient's room air sat was 77%. . In the emergency department she was desaturating low 90s, tachypneic, on 3 L oxygen via nasal cannula, worsen to the saturating 86% on 4 L nasal cannula, and she was a started on BiPAP. VBG, 7. chest x-ray negative. Requesting Xanax. Given a couple of doses of IV Ativan. Past Medical History Cardiac Medical History: Reports: Coronary Artery Disease, Hyperlipidema Pulmonary Medical History: Reports: Chronic Obstructive Pulmonary Disease (COPD) Endocrine Medical History: Reports: Hypothyroidism Renal/ Medical History: Reports: End Stage Renal Disease GI Medical History: Reports: Gastroesophageal Reflux Disease Psychiatric Medical History: Reports: Dementia, Depression Hematology: Reports: Anemia Past Surgical History Past Surgical History: Reports: Orthopedic Surgery - bilateral hips, back Social History Smoking Status: Former Smoker Frequency of Alcohol Use: Occasional Hx Recreational Drug Use: No Drugs: None Hx Prescription Drug Abuse: No Family History Family History: Reviewed & Not Pertinent, Other Parental Family History Reviewed: No Children Family History Reviewed: NA Sibling(s) Family History Reviewed.: NA Medication/Allergy Home Medications: Atorvastatin Calcium [Lipitor 20 mg Tablet] 20 mg PO QHS 03/04/17 Cetirizine HCl [Zyrtec 10 mg Tablet] 10 mg PO DAILY 03/04/17 Duloxetine HCl [Cymbalta] 60 mg PO DAILY 03/04/17 Fluticasone Propionate [Flonase Nasal [place] 50 Mcg/[place] 16 gm] 2 spray NASL DAILY 03/04/17 Gabapentin [Neurontin 300 mg Capsule] 300 mg PO QHS 03/04/17 Levothyroxine Sodium [Synthroid] 100 mcg PO DAILY 03/04/17 Metoprolol Tartrate [Lopressor 25 mg Tablet] 25 mg PO DAILY 03/04/17 Omeprazole 20 mg PO DAILY 03/04/17 Sennosides/Docusate Sodium [Senna-S Tablet] 2 tab PO DAILYP PRN 03/04/17 Acetaminophen [Tylenol 325 mg Tablet] 650 mg PO Q4HP PRN tablet 03/07/17 Hydroxyzine HCl [Atarax 50 mg Tablet] 50 mg PO TIDP PRN #10 tablet 03/07/17 Tramadol HCl [Ultram 50 mg Tablet] 50 mg PO Q6HP PRN #10 tablet 03/07/17 Trazodone HCl [Desyrel 50 mg Tablet] 50 mg PO QHS #14 tablet 10/19/17 Allergies/Adverse Reactions: No Known Allergies Allergy (Verified 03/03/17 22:16) Review of Systems Review of Systems: As outlined the HPI, others negative Physical Exam Vital Signs: Temp Pulse Resp BP Pulse Ox 98 F 109 H 21 H 121/73 100 06/15/18 04:47 06/15/18 04:47 06/15/18 04:47 06/15/18 04:47 06/15/18 04:47 Intake & Output 06/13/18 06/14/18 06/15/18 06:59 06:59 06:59 Weight 54.9 kg Additional comments: General appearance: Elderly, on BiPAP, and appears to be in acute distress secondary to dyspnea Head: Normocephalic Eyes: PEERL, EOMI, vision is grossly intact. Ears: External auditory canal and tympanic membranes clear, hearing grossly intact. Nose: No nasal discharge. Throat: Oral cavity and pharynx dry l. No inflammation, swelling, exudate or lesions. Neck: Neck supple, nontender without lymphadenopathy, masses or thyromegaly. Cardiac: Normal S1 and S2. No S3, S4 or murmurs. Rhythm is regular tachycardic. There is no peripheral edema, cyanosis or pallor. Extremities are warm and well perfused. Capillary refill is less than 2 seconds. No carotid bruits. Lungs: Lateral decreased breath sounds, diffused rhonchi, wheezing, crackles. Mild use of supraclavicular accessory muscles. Abdomen: Positive bowel sounds. Soft. Nondistended, nontender. No guarding or rebound. No masses. No hepatosplenomegaly Extremities: No significant deformity or joint abnormality. No edema. Peripheral pulses intact. Neurological: Cranial nerves II through XII grossly intact. Strength and sensation symmetric and intact throughout. Reflexes 2+ throughout. Skin: Skin normal color, texture and turgor with no lesions or eruptions, warm and dry. Psychiatric: The mental examination revealed the patient was oriented to person , place, difficult evaluation. Results Laboratory Results: 06/14/18 06/14/18 06/14/18 20:00 20:00 20:00 WBC 5.8 RBC 3.25 L Hgb 10.2 L Hct 30.4 L MCV 94 MCH 31.5 MCHC 33.7 RDW 15.6 H Plt Count 137 L Seg Neutrophils % 74.6 Lymphocytes % 9.2 L Monocytes % 10.2 Eosinophils % 5.3 Basophils % 0.7 Absolute Neutrophils 4.3 Absolute Lymphocytes 0.5 Absolute Monocytes 0.6 Absolute Eosinophils 0.3 Absolute Basophils 0.0 VBG pH VBG pCO2 VBG HCO3 Sodium 139.5 Potassium 4.5 Chloride 106 Carbon Dioxide 21 L Anion Gap 13 BUN 59 H Creatinine 3.15 H Est GFR ( Amer) 17 L Est GFR (Non-Af Amer) 14 L Glucose 103 Calcium 8.2 L Total Bilirubin 0.3 Direct Bilirubin 0.3 AST 30 ALT 21 Alkaline Phosphatase 61 Troponin I 0.014 Total Protein 7.1 Albumin 4.0 Urine Color Urine Appearance Urine pH Ur Specific [place] Urine Glucose (UA) Urine Ketones Urine Blood Urine Bilirubin Urine Urobilinogen Ur Leukocyte Esterase Urine WBC (Auto) Urine RBC (Auto) Urine Bacteria (Auto) Urine WBC Clumps Squamous Epi Cells Auto Amorphous Sediment Auto Urine Mucus (Auto) Urine Ascorbic Acid 06/14/18 06/14/18 06/14/18 20:00 23:00 23:40 WBC RBC Hgb Hct MCV MCH MCHC RDW Plt Count Seg Neutrophils % Lymphocytes % Monocytes % Eosinophils % Basophils % Absolute Neutrophils Absolute Lymphocytes Absolute Monocytes Absolute Eosinophils Absolute Basophils VBG pH 7.19 L* VBG pCO2 61.0 VBG HCO3 23.0 Sodium Potassium Chloride Carbon Dioxide Anion Gap BUN Creatinine Est GFR ( Amer) Est GFR (Non-Af Amer) Glucose Calcium Total Bilirubin Direct Bilirubin AST ALT Alkaline Phosphatase Troponin I 0.015 Total Protein Albumin Urine Color YELLOW Urine Appearance CLOUDY Urine pH 5.0 Ur Specific [place] 1.011 Urine Glucose (UA) NEGATIVE Urine Ketones NEGATIVE Urine Blood SMALL H Urine Bilirubin NEGATIVE Urine Urobilinogen NEGATIVE Ur Leukocyte Esterase LARGE H Urine WBC (Auto) 147 Urine RBC (Auto) 4 Urine Bacteria (Auto) TRACE Urine WBC Clumps MANY Squamous Epi Cells Auto <1 Amorphous Sediment Auto TRACE Urine Mucus (Auto) RARE Urine Ascorbic Acid NEGATIVE Impressions: Chest X-Ray 06/14/18 18:48 IMPRESSION: Large hiatal hernia. No acute cardiopulmonary findings. Assessment & Plan - Diagnosis (1) COPD exacerbation Is this a current diagnosis for this admission?: Yes Plan: Comes with acute respiratory symptoms, worsening in the ED, currently on BiPAP. VBG shows hypercapnia, patient was hypoxic with a high 80s on 4 L via nasal cannula. Likely secondary to COPD exacerbation. Will place order for ABG. IMCU. Limits monitoring. Solu-Medrol 60 mg every 6 hours. IV imipenem as we are going to cover for UTI as well. Incentive spirometry and pulmonary toilet. RT evaluation. (2) Acute respiratory failure with hypoxia and hypercapnia Is this a current diagnosis for this admission?: Yes Plan: As per above (3) Acute renal failure superimposed on stage 4 chronic kidney disease Is this a current diagnosis for this admission?: Yes Plan: BUN 59 and creatinine 2.15, on November BUN was 53 and creatinine 2.79, probably prerenal secondary to dehydration. She has a chronic indwelling catheter. Will give some IV fluids and repeat renal panel in the morning. (4) UTI (urinary tract infection) Qualifiers: Urinary tract infection type: acute cystitis Hematuria presence: without hematuria Qualified Code(s): N30.00 - Acute cystitis without hematuria Is this a current diagnosis for this admission?: Yes Plan: She has a chronic indwelling catheter with multiple urinary tract infections. Please follow blood cultures and urine cultures. Urinalysis seems to be positive and I will place the patient on IV Primaxin. - Time Time Spent: 50 to 70 Minutes - Inpatient Certification Based on my medical assessment, after consideration of the patient's comorbidities, presenting symptoms, or acuity I expect that the services needed warrant INPATIENT care.: Yes I certify that my determination is in accordance with my understanding of Medicare's requirements for reasonable and necessary INPATIENT services [42 CFR 412.3e].: Yes Medical Necessity: Risk of Diagnosis Which Will Require Inpatient Eval/Care/ Monitoring
[2018-06-15] MEDS ORDERED: IMIPENEM/CILASTATIN SODIUM INJ 500 MG VIAL IV PRN (05:43)
[2018-06-15] MEDS ORDERED: SODIUM BICARBONATE 8.4% INJ 50 MEQ/50 ML DISP.SYRIN ONE ×2 (05:56→09:12)
[2018-06-15] MEDS ORDERED: SODIUM BICARBONATE 8.4% INJ 50 MEQ/50 ML DISP.SYRIN IV ONE ×2 (06:15→08:53)
[2018-06-15] MEDS ORDERED: IMIPENEM/CILASTATIN SODIUM INJ 500 MG VIAL IV ONE (06:17)
[2018-06-15] MEDS: HEPARIN SOD (PORCINE) 5,000 UNIT/ML 1 ML SYRINGE SUBCUT SCH ×3 (06:55→21:57)
[2018-06-15] MEDS: METHYLPREDNISOLONE INJ 125 MG/2 ML SDV IV SCH ×3 (06:55→22:20)
[2018-06-15 06:56] LABS: HEMATOCRIT 30.3 % (36.0-47.0); HEMOGLOBIN 10.3 g/dL (12.0-15.5); MEAN CORPUSCULAR HEMOGLOBIN 31.8 pg (27.0-33.4); MEAN CORPUSCULAR HGB CONC 34.1 g/dL (32.0-36.0); MEAN CORPUSCULAR VOLUME 93 fl (80-97); PLATELET COUNT 136 10^3/uL (150-450); RED BLOOD COUNT 3.25 10^6/uL (3.72-5.28); RED CELL DISTRIBUTION WIDTH 15.4 % (11.5-14.0); WHITE BLOOD COUNT 6.6 10^3/uL (4.0-10.5)
[2018-06-15] MEDS: LANSOPRAZOLE 15 MG TAB.RAP.DR PO SCH (06:56)
[2018-06-15] MEDS: IMIPENEM/CILASTATIN SODIUM 500 MG in NORMAL SALINE 100 ML IV SCH ×3 (06:56→17:36)
[2018-06-15 07:04] LABS: ANION GAP 14 (5-19); BLOOD UREA NITROGEN 60 mg/dL (7-20); CALCIUM 8.2 mg/dL (8.4-10.2); CARBON DIOXIDE 19 mmol/L (22-30); CHLORIDE 106 mmol/L (98-107); GLUCOSE 176 mg/dL (75-110); PHOSPHORUS 7.1 mg/dL (2.5-4.5); POTASSIUM 4.1 mmol/L (3.6-5.0); SODIUM 139.4 mmol/L (137-145)
[2018-06-15 08:18] LABS: ABSOLUTE LYMPHOCYTES# (MANUAL) 0.4 10^3/uL (0.5-4.7); ABSOLUTE MONOCYTES # (MANUAL) 0.1 10^3/uL (0.1-1.4); ABSOLUTE NEUTROPHILS# (MANUAL) 6.1 10^3/uL (1.7-8.2); BASOPHILS % (MANUAL) 0 % (0-2); EOSINOPHILS % (MANUAL) 0 % (0-6); LYMPHOCYTES % (MANUAL) 6 % (13-45); MONOCYTES % (MANUAL) 1 % (3-13); SEGMENTED NEUTROPHILS % (MAN) 93 % (42-78); TOTAL CELLS COUNTED 100
[2018-06-15 08:20] LABS: ANISOCYTOSIS SLIGHT; OVALOCYTES SLIGHT; PLATELET COMMENT DECREASED; POIKILOCYTOSIS SLIGHT; TOXIC GRANULATION 1+
[2018-06-15 09:02] LABS: ARTERIAL BLOOD BASE EXCESS -7.8 mmol/L; ARTERIAL BLOOD H2CO3 1.34 mmol/L (1.05-1.35); ARTERIAL BLOOD HCO3 19.1 mmol/L (20-24); ARTERIAL BLOOD O2 SATURATION 97.4 % (94-98); ARTERIAL BLOOD PCO2 44.4 mmHg (35-45); ARTERIAL BLOOD PH 7.25 (7.35-7.45); ARTERIAL BLOOD PO2 111.2 mmHg (80-100); ARTERIAL BLOOD TOTAL CO2 20.4 mmol/L (21-25)
[2018-06-15 09:03] LABS: ARTERIAL BLOOD FIO2 50%
[2018-06-15] MEDS: DULOXETINE HCL 30 MG CAPSULE.DR PO SCH (09:13)
[2018-06-15] MEDS: CETIRIZINE 10 MG TABLET PO SCH (09:14)
[2018-06-15] MEDS: LEVOTHYROXINE SODIUM 0.1 MG TABLET PO SCH (09:14)
[2018-06-15] MEDS: METOPROLOL TARTRATE 25 MG TABLET PO SCH (09:14)
--- NOTE | 2018-06-15 09:59 | EKG REPORT ---
SEVERITY:- ABNORMAL ECG - SINUS TACHYCARDIA REPOL ABNRM SUGGESTS ISCHEMIA, DIFFUSE LEADS : Confirmed by: Mingo Enrique MD 15-Jun-2018 09:58:14
--- NOTE | 2018-06-15 09:59 | EKG REPORT ---
SEVERITY:- ABNORMAL ECG - SINUS RHYTHM CONSIDER ANTEROSEPTAL INFARCT BORDERLINE T ABNORMALITIES, LATERAL LEADS : Confirmed by: Mingo Enrique MD 15-Jun-2018 09:59:12
[2018-06-15] MEDS: DEXTROSE 5%-WATER 1000 ML 1,000 ML with SODIUM BICARBONATE 150 MEQ IV PRN ×4 (10:21→19:21)
[2018-06-15] MEDS: FLUTICASONE NASAL SPRAY 50 MCG/SPRY 120 SPRAY/16 GM NASL SCH (13:23)
[2018-06-15] MEDS: ALPRAZOLAM 0.5 MG TABLET PO PRN ×2 (13:23→22:21)
[2018-06-15] MEDS: SALMETEROL XINAFOATE DISKUS 50 MCG/1 DOSE 28 DOSE IH SCH ×2 (13:24→22:21)
[2018-06-15] MEDS: TIOTROPIUM BROMIDE DPI 5 CAP/KIT (18 MCG/CAP) IH SCH (13:25)
--- NOTE | 2018-06-15 15:15 | RADIOLOGY REPORT (SQ) ---
EXAM DESCRIPTION: CT CHEST WITHOUT COMPLETED DATE/TIME: 06/15/2018 11:45 am REASON FOR STUDY: shortness of breath COMPARISON: Chest x-ray dated 06/14/2018. TECHNIQUE: CT scan performed of the chest without intravenous contrast. Images reviewed with lung, soft tissue and bone windows. Reconstructed coronal and sagittal MPR images reviewed. All images st ored on PACS. All CT scanners at this facility use dose modulation, iterative reconstruction, and/or weight based d osing when appropriate to reduce radiation dose to as low as reasonably achievable (ALARA). [facility]: Dose Right [facility]: CareDose [facility]: Dose Right [facility]: Teradose 4D [facility]: Smart Coupz RADIATION DOSE: CT Rad equipment meets quality standard of care and radiation dose reduction techniq ues were employed. CTDIvol: 6.8 - 7.0 mGy. DLP: 518 mGy-cm. mGy. LIMITATIONS: No technical limitations. FINDINGS: LUNGS AND PLEURA: Emphysematous changes primarily in the upper lobes. Large right hiatal hernia. Basilar atelectasis/ scarring. Bilateral pleural effusions, right greater than left. HILAR AND MEDIASTINAL STRUCTURES: No identified masses or abnormal nodes. No obvious aneurysm. HEART AND VASCULAR STRUCTURES: No aneurysm. No pericardial effusion. UPPER ABDOMEN: Limited exam. Possible pelvocaliectasis/ hydronephrosis of the left kidney, not fully imaged. THYROID AND OTHER SOFT TISSUES: No masses. No adenopathy. BONES: Compression deformity of a midthoracic vertebra, unchanged since prior x-ray of the thoracic s pine (11/04/2016). There is large heterogenous soft tissue density replacing the left humeral head, m easuring 8.5 cm. HARDWARE: None in the chest. OTHER: Lipoma in the soft tissues of the right axilla. No other significant findings. IMPRESSION: 1. EMPHYSEMATOUS CHANGES. CHRONIC ELEVATION OF THE RIGHT HEMIDIAPHRAGM WITH LARGE HIATAL HERNIA. BA SILAR ATELECTASIS/SCARRING AND BILATERAL PLEURAL EFFUSIONS, RIGHT GREATER THAN LEFT. 2. HETEROGENOUS SOFT TISSUE DENSITY REPLACING THE LEFT HUMERAL HEAD. NO PRIOR STUDIES OF THE SHOULDE R OR HUMERUS BUT BASED ON PRIOR CHEST X-RAYS DATING BACK TO 2013, THIS DOES APPEAR TO BE A CHRONIC FI NDING RELATED TO PREVIOUS DISPLACED FRACTURE. RECOMMEND CORRELATION WITH CLINICAL HISTORY. 3. POSSIBLE PELVICALIECTASIS/HYDRONEPHROSIS OF THE LEFT KIDNEY, NOT FULLY IMAGED. RECOMMEND ULTRASOU ND OF THE KIDNEYS AND MAY CONSIDER CT OF THE ABDOMEN AND PELVIS FOR MORE COMPLETE EVALUATION. 4. OLD WEDGE COMPRESSION DEFORMITY OF A MIDTHORACIC VERTEBRA. TECHNICAL DOCUMENTATION: JOB ID: [id number] Quality ID # [id number]: Final reports with documentation of one or more dose reduction techniques (e.g., Au tomated exposure control, adjustment of the mA and/or kV according to patient size, use of iterative reconstruction technique) 2010 [employer]- All Rights Reserved Reading location - IP/workstation name: [email or web address]
--- NOTE | 2018-06-15 17:21 | Progress Note ---
<FARZAD SCHMID - Last Filed: 06/15/18 17:18> Provider Note Provider Note: 78 Y.O. F admitted for COPD exacerbation and UTI. 1. COPD EXACERBATION: Initially placed on BIPAP now on nasal cannula. IV steroids. Spiriva and serevent. Scheduled and PRN nebulizers. 2. PLEURAL EFFUSIONS: Seen on CT chest. R>L. Since patient has poor renal function and diuresis will likely be unsuccessful, will attempt thoracentesis tomorrow or Sunday. 3. UTI: UA indicative of UTI. According to ED MD, patient was c/o dysuria. Hx of MDR organisms. Recently hospitalized for UTI. Started on Imipenem. 4. ACIDOSIS: Initially mixed metabolic and respiratory. Following BIPAP administration, acidosis is strictly metabolic. pH 7.17 on ABG. Administered 1 amp BICARB and started BICARB gtt. Recheck revealed improved acidosis but pH remained low (7.24). Will recheck ABG in AM. <TAMARA JARAMILLO - Last Filed: 07/02/18 17:05> Assessment/Plan - Assessment/Plan Plan: I have discussed the patient in detail with JANETTE Schmid. I am in agreement with her evaluation and plan.
[2018-06-15] MEDS: GABAPENTIN 300 MG CAPSULE PO SCH (22:21)
[2018-06-15] MEDS: TRAZODONE HCL 50 MG TABLET PO SCH (22:21)
[2018-06-15] MEDS: ATORVASTATIN CALCIUM 20 MG TABLET PO SCH (22:22)
[2018-06-16] MEDS: IMIPENEM/CILASTATIN SODIUM 500 MG in NORMAL SALINE 100 ML IV SCH ×4 (00:53→18:45)
[2018-06-16] MEDS: DEXTROSE 5%-WATER 1000 ML 1,000 ML with SODIUM BICARBONATE 150 MEQ IV PRN ×2 (02:45)
[2018-06-16] MEDS: IPRATROPIUM/ALBUTEROL 0.5-2.5 MG/3 ML AMPUL NEB PRN (03:03)
[2018-06-16 05:06] LABS: ARTERIAL BLOOD BASE EXCESS 5.9 mmol/L; ARTERIAL BLOOD H2CO3 1.67 mmol/L (1.05-1.35); ARTERIAL BLOOD HCO3 32.2 mmol/L (20-24); ARTERIAL BLOOD O2 SATURATION 89.4 % (94-98); ARTERIAL BLOOD PCO2 55.6 mmHg (35-45); ARTERIAL BLOOD PH 7.38 (7.35-7.45); ARTERIAL BLOOD PO2 58.6 mmHg (80-100); ARTERIAL BLOOD TOTAL CO2 33.9 mmol/L (21-25)
[2018-06-16 05:09] LABS: ARTERIAL BLOOD FIO2 40%
[2018-06-16] MEDS: HEPARIN SOD (PORCINE) 5,000 UNIT/ML 1 ML SYRINGE SUBCUT SCH ×3 (05:42→21:17)
[2018-06-16] MEDS: METHYLPREDNISOLONE INJ 125 MG/2 ML SDV IV SCH ×3 (05:45→21:16)
[2018-06-16] MEDS: LANSOPRAZOLE 15 MG TAB.RAP.DR PO SCH (05:45)
[2018-06-16 07:48] LABS: HEMATOCRIT 26.7 % (36.0-47.0); HEMOGLOBIN 9.3 g/dL (12.0-15.5); MEAN CORPUSCULAR HEMOGLOBIN 31.4 pg (27.0-33.4); MEAN CORPUSCULAR HGB CONC 34.6 g/dL (32.0-36.0); MEAN CORPUSCULAR VOLUME 91 fl (80-97); PLATELET COUNT 143 10^3/uL (150-450); RED BLOOD COUNT 2.95 10^6/uL (3.72-5.28); RED CELL DISTRIBUTION WIDTH 15.5 % (11.5-14.0); WHITE BLOOD COUNT 10.8 10^3/uL (4.0-10.5)
[2018-06-16 08:00] LABS: ANION GAP 12 (5-19); BLOOD UREA NITROGEN 62 mg/dL (7-20); CALCIUM 7.7 mg/dL (8.4-10.2); CARBON DIOXIDE 29 mmol/L (22-30); CHLORIDE 95 mmol/L (98-107); GLUCOSE 133 mg/dL (75-110); PHOSPHORUS 4.9 mg/dL (2.5-4.5); POTASSIUM 3.7 mmol/L (3.6-5.0); SODIUM 136.2 mmol/L (137-145)
[2018-06-16] MEDS ORDERED: FUROSEMIDE INJ/PF 40 MG/4 ML SDV IV ONE (08:05)
[2018-06-16 08:14] LABS: ABSOLUTE LYMPHOCYTES# (MANUAL) 0.8 10^3/uL (0.5-4.7); ABSOLUTE MONOCYTES # (MANUAL) 0.2 10^3/uL (0.1-1.4); ABSOLUTE NEUTROPHILS# (MANUAL) 9.8 10^3/uL (1.7-8.2); BASOPHILS % (MANUAL) 0 % (0-2); EOSINOPHILS % (MANUAL) 0 % (0-6); LYMPHOCYTES % (MANUAL) 7 % (13-45); MONOCYTES % (MANUAL) 2 % (3-13); SEGMENTED NEUTROPHILS % (MAN) 91 % (42-78); TOTAL CELLS COUNTED 100
[2018-06-16 08:15] LABS: ANISOCYTOSIS SLIGHT; OVALOCYTES SLIGHT; PLATELET COMMENT DECREASED; POIKILOCYTOSIS 1+; TEAR DROP CELLS SLIGHT
[2018-06-16] MEDS: LEVOTHYROXINE SODIUM 0.1 MG TABLET PO SCH (09:36)
[2018-06-16] MEDS: CETIRIZINE 10 MG TABLET PO SCH (09:36)
[2018-06-16] MEDS: METOPROLOL TARTRATE 25 MG TABLET PO SCH (09:36)
[2018-06-16] MEDS: SALMETEROL XINAFOATE DISKUS 50 MCG/1 DOSE 28 DOSE IH SCH ×2 (09:37→21:31)
[2018-06-16] MEDS: DULOXETINE HCL 30 MG CAPSULE.DR PO SCH (09:37)
[2018-06-16] MEDS: FLUTICASONE NASAL SPRAY 50 MCG/SPRY 120 SPRAY/16 GM NASL SCH (09:43)
[2018-06-16] MEDS: TIOTROPIUM BROMIDE DPI 5 CAP/KIT (18 MCG/CAP) IH SCH (09:43)
--- NOTE | 2018-06-16 14:20 | PDOC PROGRESS REPORT ---
<FARZAD SCHMID Cristy - Last Filed: 06/16/18 14:09> Subjective Progress Note for:: 06/16/18 Subjective:: 78 y.o. F with a PMH of CAD, HLD, COPD, hypothyroidism, ESRD, GERD, dementia and depression. She was admitted to [facility] on 06/15/2018 for acute hypoxic and hypercapnic respiratory failure stemming from COPD exacerbation. Additionally, the patient complained of dysuria and UA indicative of UTI. She was initially placed on BiPAP. Initial ABG demonstrated mixed metabolic and respiratory acidosis with a pH of 7.17. Patient was seen this morning on rounds, she is resting comfortably in bed on supplemental oxygen. The patient is alert and oriented 3, she is able to answer all questions appropriately. She frequently needs to pause in between sentences to catch her breath. Lung sounds are coarse upon auscultation, no evidence of wheezing (which is an improvement from yesterday). Bilateral pleural effusion seen on chest CT, R>L. The option of the thoracentesis was initially presented to the patient but she refused. The option of diuresis with IV Lasix was presented with the patient, however it was noted that the success of this therapy may be suboptimal due to the patient's poor renal function. 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 She does not want to go forward with a thoracentesis and would rather trial IV diuretics. Additionally, the patient has been noted to state numerous times during her hospitalization but she "does not want to live like this." She gets particularly upset when medical staff talks about BIPAP. Yesterday, I had a conversation with the patient about her code status and the patient stated "I am not ready to yet. I would want CPR and intubation." However, today, the patient has stated numerous times to multiple staff members that she "does not want to live like this." Requesting palliative care consult from [facility]. Plan to initiate daily IV lasix. Placed palliative care consult today via Discharge Planning. Reason For Visit: ACUTE HYPOXIC HYPERCAPNIC RESPIRATORY FAILURE/ Physical Exam Vital Signs: Temp Pulse Resp BP Pulse Ox 98.0 F 75 18 108/58 L 94 06/16/18 07:35 06/16/18 08:00 06/16/18 08:00 06/16/18 07:35 06/16/18 08:00 Intake & Output 06/15/18 06/16/18 06/17/18 06:59 06:59 06:59 Intake Total 0 3824 579 Output Total 0 Balance 0 3824 579 Weight 54.9 kg 56.5 kg General appearance: PRESENT: no acute distress, well-developed, well-nourished Head exam: PRESENT: atraumatic Eye exam: PRESENT: conjunctiva pink, PERRLA Mouth exam: PRESENT: moist, tongue midline Teeth exam: PRESENT: poor dentation Neck exam: PRESENT: full ROM. ABSENT: JVD Respiratory exam: PRESENT: clear to auscultation gertrude, symmetrical, other - COARSE LUNG SOUNDS. ABSENT: accessory muscle use, chest wall tenderness, crackles, rhonchi, wheezes Cardiovascular exam: PRESENT: +S1, +S2, systolic murmur - CHRONIC Pulses: PRESENT: normal radial pulses, normal dorsalis pedis pul Vascular exam: PRESENT: normal capillary refill GI/Abdominal exam: PRESENT: soft. ABSENT: distended, tenderness Rectal exam: PRESENT: deferred Extremities exam: PRESENT: full ROM. ABSENT: pedal edema Musculoskeletal exam: PRESENT: ambulatory, full ROM. ABSENT: normal inspection - KYPHOSIS Neurological exam: PRESENT: alert, awake, oriented to person, oriented to place , oriented to time, oriented to situation Psychiatric exam: PRESENT: appropriate affect Skin exam: PRESENT: dry, intact, pallor, warm Results Laboratory Results: 06/16/18 06:28 06/16/18 06:28 06/16/18 06/16/18 06/16/18 04:50 06:28 06:28 WBC 10.8 H RBC 2.95 L Hgb 9.3 L Hct 26.7 L MCV 91 MCH 31.4 MCHC 34.6 RDW 15.5 H Plt Count 143 L Seg Neutrophils % Not Reportable Lymphocytes % Not Reportable Monocytes % Not Reportable Eosinophils % Not Reportable Basophils % Not Reportable Absolute Neutrophils Not Reportable Absolute Lymphocytes Not Reportable Absolute Monocytes Not Reportable Absolute Eosinophils Not Reportable Absolute Basophils Not Reportable Carbonic Acid 1.67 H HCO3/H2CO3 Ratio 19:1 ABG pH 7.38 ABG pCO2 55.6 H ABG pO2 58.6 L ABG HCO3 32.2 H ABG O2 Saturation 89.4 L ABG Base Excess 5.9 FiO2 40% Sodium 136.2 L Potassium 3.7 Chloride 95 L Carbon Dioxide 29 Anion Gap 12 BUN 62 H Creatinine 2.47 H Est GFR ( Amer) 23 L Est GFR (Non-Af Amer) 19 L Glucose 133 H Calcium 7.7 L Phosphorus 4.9 H Magnesium 2.4 H Impressions: Chest X-Ray 06/14/18 18:48 IMPRESSION: Large hiatal hernia. No acute cardiopulmonary findings. Chest CT 06/15/18 00:00 IMPRESSION: 1. EMPHYSEMATOUS CHANGES. CHRONIC ELEVATION OF THE RIGHT HEMIDIAPHRAGM WITH LARGE HIATAL HERNIA. BASILAR ATELECTASIS/SCARRING AND BILATERAL PLEURAL EFFUSIONS, RIGHT GREATER THAN LEFT. 2. HETEROGENOUS SOFT TISSUE DENSITY REPLACING THE LEFT HUMERAL HEAD. NO PRIOR STUDIES OF THE SHOULDER OR HUMERUS BUT BASED ON PRIOR CHEST X-RAYS DATING BACK TO 2013, THIS DOES APPEAR TO BE A CHRONIC FINDING RELATED TO PREVIOUS DISPLACED FRACTURE. RECOMMEND CORRELATION WITH CLINICAL HISTORY. 3. POSSIBLE PELVICALIECTASIS/HYDRONEPHROSIS OF THE LEFT KIDNEY, NOT FULLY IMAGED. RECOMMEND ULTRASOUND OF THE KIDNEYS AND MAY CONSIDER CT OF THE ABDOMEN AND PELVIS FOR MORE COMPLETE EVALUATION. 4. OLD WEDGE COMPRESSION DEFORMITY OF A MIDTHORACIC VERTEBRA. Status: Imported from PACS Assessment & Plan - Diagnosis (1) Acute respiratory failure with hypoxia and hypercapnia Is this a current diagnosis for this admission?: Yes Plan: Improving Secondary to COPD exacerbation and bilateral pleural effusions R>L CXR demonstrated hiatal hernia CT Chest demonstrated hiatal hernia and moderate sized pleural effusions R>L Initially placed on BiPAP [id number], now weaned to BiPAP nightly Supplemental oxygen via nasal cannula to maintain SPO2>88% Initial ABG demonstrated mixed metabolic and respiratory acidosis, ABG has since normalized to stable hypercapnia (expected finding in patient with long- standing COPD), no longer trending Scheduled and as needed nebulizers IV Solu-Medrol Daily Spiriva and Serevent (2) COPD exacerbation Is this a current diagnosis for this admission?: Yes Plan: See plan above Patient does not wear home O2 Has been requiring continuous supplemental O2 since hospitalization (3) Pleural effusion Is this a current diagnosis for this admission?: Yes Plan: Unclear etiology Bilateral pleural effusions seen on CXR R>L Patient has a PMH of CKD with a baseline Cr 2.8-3.0 Recommending thoracentesis but patient is refusing Attempt diuresis with IV lasix (4) Acidosis Is this a current diagnosis for this admission?: Yes Plan: Mixed metabolic and respiratory acidosis with initial pH of 7.17 on ABG Following BiPAP administration, acidosis is strictly metabolic with a low pH and corrected CO2 Administered 1 amp of bicarb and started on bicarb drip Repeat ABG this AM reveals resolved acidosis and mild hypercapnea - expected finding in a patient with COPD (5) UTI (urinary tract infection) QualifierTitle: Urinary tract infection type: acute cystitis Hematuria presence: without hematuria Qualified Code(s): N30.00 - Acute cystitis without hematuria Is this a current diagnosis for this admission?: Yes (6) Anxiety Is this a current diagnosis for this admission?: Yes Plan: Patient endorses history of anxiety Continue home dose of Xanax (7) HTN (hypertension) QualifierTitle: Hypertension type: essential hypertension Qualified Code( s): I10 - Essential (primary) hypertension Is this a current diagnosis for this admission?: Yes Plan: Patient endorses history of HTN Continue home dose Lopressor Aspirin and statin therapy (8) Dementia QualifierTitle: Dementia type: unspecified type Is this a current diagnosis for this admission?: Yes Plan: Patient and family member endorse PMH of dementia Continue home dose Aricept (9) Code status needs review Is this a current diagnosis for this admission?: Yes Plan: During discussion about CODE STATUS with patient, she told me yesterday "I am not ready to yet. I want CPR and intubation if needed." Today, patient is verbalizing to multiple medical staff members that she "does not want to live like this anymore." I have reached out to discharge planning in order to arrange for a palliative care consult with [facility] The patient will remain a FULL CODE until she states otherwise - Time Time Spent with patient: 25-34 minutes Medications reviewed and adjusted accordingly: Yes Anticipated discharge: Home - Inpatient Certification Based on my medical assessment, after consideration of the patient's comorbidities, presenting symptoms, or acuity I expect that the services needed warrant INPATIENT care.: Yes I certify that my determination is in accordance with my understanding of Medicare's requirements for reasonable and necessary INPATIENT services [42 CFR 412.3e].: Yes Medical Necessity: Need for Nebulizer Therapy and Monitoring of Response, Risk of Complication if Not Cared For in Hospital - Plan Summary Plan Summary: DIURESIS FOR PLEURAL EFFUSIONS. IV ANTIBIOTICS FOR UTI. PALLIATIVE CARE CONSULT. <TAMARA JARAMILLO M - Last Filed: 07/02/18 17:09> Subjective Reason For Visit: ACUTE HYPOXIC HYPERCAPNIC RESPIRATORY FAILURE/ Physical Exam Vital Signs: Temp Pulse Resp BP Pulse Ox 99.0 F 75 22 H 138/71 H 95 06/18/18 15:26 06/18/18 15:26 06/18/18 15:26 06/18/18 15:26 06/18/18 15:26 Results Laboratory Results: 06/17/18 14:19 06/17/18 14:19 06/17/18 14:19 NT-Pro-B Natriuret Pep [id number] H Impressions: Chest X-Ray 06/14/18 18:48 IMPRESSION: Large hiatal hernia. No acute cardiopulmonary findings. Chest CT 06/15/18 00:00 IMPRESSION: 1. EMPHYSEMATOUS CHANGES. CHRONIC ELEVATION OF THE RIGHT HEMIDIAPHRAGM WITH LARGE HIATAL HERNIA. BASILAR ATELECTASIS/SCARRING AND BILATERAL PLEURAL EFFUSIONS, RIGHT GREATER THAN LEFT. 2. HETEROGENOUS SOFT TISSUE DENSITY REPLACING THE LEFT HUMERAL HEAD. NO PRIOR STUDIES OF THE SHOULDER OR HUMERUS BUT BASED ON PRIOR CHEST X-RAYS DATING BACK TO 2013, THIS DOES APPEAR TO BE A CHRONIC FINDING RELATED TO PREVIOUS DISPLACED FRACTURE. RECOMMEND CORRELATION WITH CLINICAL HISTORY. 3. POSSIBLE PELVICALIECTASIS/HYDRONEPHROSIS OF THE LEFT KIDNEY, NOT FULLY IMAGED. RECOMMEND ULTRASOUND OF THE KIDNEYS AND MAY CONSIDER CT OF THE ABDOMEN AND PELVIS FOR MORE COMPLETE EVALUATION. 4. OLD WEDGE COMPRESSION DEFORMITY OF A MIDTHORACIC VERTEBRA. Provider Note Provider Note: I have discussed this patient with JANETTE Schmid. I am in agreement with her evaluation and plan.
[2018-06-16] MEDS: ALPRAZOLAM 0.5 MG TABLET PO PRN ×2 (16:05→21:17)
[2018-06-16] MEDS: GABAPENTIN 300 MG CAPSULE PO SCH (21:16)
[2018-06-16] MEDS: TRAZODONE HCL 50 MG TABLET PO SCH (21:17)
[2018-06-16] MEDS: ATORVASTATIN CALCIUM 20 MG TABLET PO SCH (21:17)
[2018-06-17] MEDS: IMIPENEM/CILASTATIN SODIUM 500 MG in NORMAL SALINE 100 ML IV SCH ×4 (00:52→17:35)
[2018-06-17] MEDS: HEPARIN SOD (PORCINE) 5,000 UNIT/ML 1 ML SYRINGE SUBCUT SCH ×3 (05:09→21:03)
[2018-06-17] MEDS: METHYLPREDNISOLONE INJ 125 MG/2 ML SDV IV SCH ×3 (06:21→21:09)
[2018-06-17] MEDS: LANSOPRAZOLE 15 MG TAB.RAP.DR PO SCH (06:21)
[2018-06-17] MEDS: DULOXETINE HCL 30 MG CAPSULE.DR PO SCH (09:26)
[2018-06-17] MEDS: METOPROLOL TARTRATE 25 MG TABLET PO SCH (09:26)
[2018-06-17] MEDS: LEVOTHYROXINE SODIUM 0.1 MG TABLET PO SCH (09:26)
[2018-06-17] MEDS: CETIRIZINE 10 MG TABLET PO SCH (09:26)
[2018-06-17] MEDS: FLUTICASONE NASAL SPRAY 50 MCG/SPRY 120 SPRAY/16 GM NASL SCH (09:27)
[2018-06-17] MEDS: SALMETEROL XINAFOATE DISKUS 50 MCG/1 DOSE 28 DOSE IH SCH ×2 (09:27→21:06)
[2018-06-17] MEDS: TIOTROPIUM BROMIDE DPI 5 CAP/KIT (18 MCG/CAP) IH SCH (09:28)
[2018-06-17 14:33] LABS: HEMATOCRIT 27.6 % (36.0-47.0); HEMOGLOBIN 9.2 g/dL (12.0-15.5); MEAN CORPUSCULAR HGB CONC 33.5 g/dL (32.0-36.0); MEAN CORPUSCULAR VOLUME 93 fl (80-97); PLATELET COUNT 148 10^3/uL (150-450); RED BLOOD COUNT 2.98 10^6/uL (3.72-5.28); RED CELL DISTRIBUTION WIDTH 15.3 % (11.5-14.0); WHITE BLOOD COUNT 8.5 10^3/uL (4.0-10.5)
[2018-06-17 14:51] LABS: ANION GAP 12 (5-19); BLOOD UREA NITROGEN 63 mg/dL (7-20); CALCIUM 8.2 mg/dL (8.4-10.2); CARBON DIOXIDE 32 mmol/L (22-30); CHLORIDE 95 mmol/L (98-107); GLUCOSE 125 mg/dL (75-110); PHOSPHORUS 4.2 mg/dL (2.5-4.5); POTASSIUM 5.1 mmol/L (3.6-5.0); SODIUM 138.6 mmol/L (137-145)
[2018-06-17] MEDS: ALPRAZOLAM 0.5 MG TABLET PO PRN ×2 (14:55→21:02)
[2018-06-17] MEDS: ATORVASTATIN CALCIUM 20 MG TABLET PO SCH (21:01)
[2018-06-17] MEDS: TRAZODONE HCL 50 MG TABLET PO SCH (21:01)
[2018-06-17] MEDS: GABAPENTIN 300 MG CAPSULE PO SCH (21:01)
--- NOTE | 2018-06-17 22:18 | PDOC PROGRESS REPORT ---
<FARZAD SCHMID Cristy - Last Filed: 06/17/18 21:56> Subjective Progress Note for:: 06/17/18 Subjective:: 78 y.o. F with a PMH of CAD, HLD, COPD, hypothyroidism, ESRD, GERD, dementia and depression. She was admitted to [facility] on 06/15/2018 for acute hypoxic and hypercapnic respiratory failure stemming from COPD exacerbation. Additionally, the patient complained of dysuria and UA indicative of UTI. She was initially placed on BiPAP. Initial ABG demonstrated mixed metabolic and respiratory acidosis with a pH of 7.17. Patient was seen this morning on rounds, she is resting comfortably in bedside chair on supplemental oxygen. The patient is alert and oriented 3, she is able to answer all questions appropriately. She frequently needs to pause in between sentences to catch her breath. Lung sounds are clear upon auscultation. Continuing daily diuresis with IV Lasix since the patient refused thoracentesis. BNP this afternoon 51567. ECHOcardiogram ordered. 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 It was explained to the patient that she will likely need home O2, which she currently does not have. The patient agreed to remain inpatient while she waits to get home O2. Continue daily IV lasix. ECHOcardiogram pending. Awaiting palliative care consult via Discharge Planning. Reason For Visit: ACUTE HYPOXIC HYPERCAPNIC RESPIRATORY FAILURE/ Physical Exam Vital Signs: Temp Pulse Resp BP Pulse Ox 98.8 F 85 16 134/59 H 93 06/17/18 19:35 06/17/18 20:00 06/17/18 19:35 06/17/18 19:35 06/17/18 19:35 Intake & Output 06/16/18 06/17/18 06/18/18 06:59 06:59 06:59 Intake Total 4237 1359 1331 Balance 4237 1359 1331 Weight 56.5 kg 55.9 kg General appearance: PRESENT: no acute distress, thin, well-developed, well- nourished Head exam: PRESENT: atraumatic Eye exam: PRESENT: conjunctiva pink, PERRLA Mouth exam: PRESENT: moist, neck supple Teeth exam: PRESENT: poor dentation Throat exam: PRESENT: tonsillogmegaly Neck exam: PRESENT: full ROM Respiratory exam: PRESENT: clear to auscultation gertrude, symmetrical, tachypnea, unlabored Cardiovascular exam: PRESENT: +S1, +S2 Pulses: PRESENT: normal radial pulses, normal dorsalis pedis pul GI/Abdominal exam: PRESENT: normal bowel sounds, soft. ABSENT: tenderness Rectal exam: PRESENT: deferred Extremities exam: ABSENT: calf tenderness Musculoskeletal exam: PRESENT: ambulatory, full ROM Neurological exam: PRESENT: oriented to person, oriented to place, oriented to time. ABSENT: alert, awake Psychiatric exam: PRESENT: appropriate affect Skin exam: PRESENT: dry, intact, normal color Results Laboratory Results: 06/17/18 14:19 06/17/18 14:19 06/17/18 06/17/18 14:19 14:19 WBC 8.5 RBC 2.98 L Hgb 9.2 L Hct 27.6 L MCV 93 MCH 31.0 MCHC 33.5 RDW 15.3 H Plt Count 148 L Sodium 138.6 Potassium 5.1 H Chloride 95 L Carbon Dioxide 32 H Anion Gap 12 BUN 63 H Creatinine 2.11 H Est GFR ( Amer) 27 L Est GFR (Non-Af Amer) 23 L Glucose 125 H Calcium 8.2 L Phosphorus 4.2 Magnesium 2.3 06/17/18 14:19 NT-Pro-B Natriuret Pep [id number] H Impressions: Chest X-Ray 06/14/18 18:48 IMPRESSION: Large hiatal hernia. No acute cardiopulmonary findings. Chest CT 06/15/18 00:00 IMPRESSION: 1. EMPHYSEMATOUS CHANGES. CHRONIC ELEVATION OF THE RIGHT HEMIDIAPHRAGM WITH LARGE HIATAL HERNIA. BASILAR ATELECTASIS/SCARRING AND BILATERAL PLEURAL EFFUSIONS, RIGHT GREATER THAN LEFT. 2. HETEROGENOUS SOFT TISSUE DENSITY REPLACING THE LEFT HUMERAL HEAD. NO PRIOR STUDIES OF THE SHOULDER OR HUMERUS BUT BASED ON PRIOR CHEST X-RAYS DATING BACK TO 2013, THIS DOES APPEAR TO BE A CHRONIC FINDING RELATED TO PREVIOUS DISPLACED FRACTURE. RECOMMEND CORRELATION WITH CLINICAL HISTORY. 3. POSSIBLE PELVICALIECTASIS/HYDRONEPHROSIS OF THE LEFT KIDNEY, NOT FULLY IMAGED. RECOMMEND ULTRASOUND OF THE KIDNEYS AND MAY CONSIDER CT OF THE ABDOMEN AND PELVIS FOR MORE COMPLETE EVALUATION. 4. OLD WEDGE COMPRESSION DEFORMITY OF A MIDTHORACIC VERTEBRA. Status: Imported from PACS Assessment & Plan - Diagnosis (1) Acute respiratory failure with hypoxia and hypercapnia Is this a current diagnosis for this admission?: Yes Plan: Improving Secondary to COPD exacerbation and bilateral pleural effusions R>L CXR demonstrated hiatal hernia CT Chest demonstrated hiatal hernia and moderate sized pleural effusions R>L Initially placed on BiPAP [id number], now weaned to BiPAP nightly Supplemental oxygen via nasal cannula to maintain SPO2>88% Initial ABG demonstrated mixed metabolic and respiratory acidosis, ABG has since normalized to stable hypercapnia (expected finding in patient with long- standing COPD), no longer trending Scheduled and as needed nebulizers IV Solu-Medrol Daily Spiriva and Serevent (2) COPD exacerbation Is this a current diagnosis for this admission?: Yes Plan: See plan above Patient does not wear home O2 Has been requiring continuous supplemental O2 since hospitalization Will need to be evaluated by discharge planning/bedside RN regarding home O2 evaluation (3) Pleural effusion Is this a current diagnosis for this admission?: Yes Plan: Etiology could be seconary to CHF as evidence by elevated BNP Bilateral pleural effusions seen on CXR R>L Patient has a PMH of CTA with a baseline Cr 2.8-3.0 Recommending thoracentesis but patient is refusing Attempt diuresis with IV lasix (4) Acidosis Is this a current diagnosis for this admission?: Yes Plan: Resolved Mixed metabolic and respiratory acidosis with initial pH of 7.17 on ABG Following BiPAP administration, acidosis is strictly metabolic with a low pH and corrected CO2 Administered 1 amp of bicarb and started on bicarb drip Repeat ABG reveals resolved acidosis and mild hypercapnea - expected finding in a patient with COPD (5) UTI (urinary tract infection) QualifierTitle: Urinary tract infection type: acute cystitis Hematuria presence: without hematuria Qualified Code(s): N30.00 - Acute cystitis without hematuria Is this a current diagnosis for this admission?: Yes Plan: symptomatic dysuria patient has been hospitalized here for the same thing, multiple times Previous organizms were pseudomonas, e.coli (6) Anxiety Is this a current diagnosis for this admission?: Yes Plan: Patient endorses history of anxiety Continue home dose of Xanax (7) HTN (hypertension) QualifierTitle: Hypertension type: essential hypertension Qualified Code( s): I10 - Essential (primary) hypertension Is this a current diagnosis for this admission?: Yes Plan: Patient endorses history of HTN Continue home dose Lopressor Aspirin and statin therapy (8) Dementia QualifierTitle: Dementia type: unspecified type Is this a current diagnosis for this admission?: Yes Plan: Patient and family member endorse PMH of dementia Continue home dose Aricept (9) Code status needs review Is this a current diagnosis for this admission?: Yes Plan: During discussion about CODE STATUS with patient, she told me "I am not ready to yet. I want CPR and intubation if needed." Today, patient is verbalizing to multiple medical staff members that she "does not want to live like this anymore." I have reached out to discharge planning in order to arrange for a palliative care consult with [facility] The patient will remain a FULL CODE until she states otherwise - Time Time Spent with patient: 15-24 minutes Medications reviewed and adjusted accordingly: No Anticipated discharge: Home with Homehealth <TAMARA JARAMILLO M - Last Filed: 07/02/18 17:23> Subjective Reason For Visit: ACUTE HYPOXIC HYPERCAPNIC RESPIRATORY FAILURE/ Physical Exam Vital Signs: Temp Pulse Resp BP Pulse Ox 99.0 F 75 22 H 138/71 H 95 06/18/18 15:26 06/18/18 15:26 06/18/18 15:26 06/18/18 15:26 06/18/18 15:26 Results Laboratory Results: 06/17/18 14:19 06/17/18 14:19 06/17/18 14:19 NT-Pro-B Natriuret Pep [id number] H Impressions: Chest X-Ray 06/14/18 18:48 IMPRESSION: Large hiatal hernia. No acute cardiopulmonary findings. Chest CT 06/15/18 00:00 IMPRESSION: 1. EMPHYSEMATOUS CHANGES. CHRONIC ELEVATION OF THE RIGHT HEMIDIAPHRAGM WITH LARGE HIATAL HERNIA. BASILAR ATELECTASIS/SCARRING AND BILATERAL PLEURAL EFFUSIONS, RIGHT GREATER THAN LEFT. 2. HETEROGENOUS SOFT TISSUE DENSITY REPLACING THE LEFT HUMERAL HEAD. NO PRIOR STUDIES OF THE SHOULDER OR HUMERUS BUT BASED ON PRIOR CHEST X-RAYS DATING BACK TO 2013, THIS DOES APPEAR TO BE A CHRONIC FINDING RELATED TO PREVIOUS DISPLACED FRACTURE. RECOMMEND CORRELATION WITH CLINICAL HISTORY. 3. POSSIBLE PELVICALIECTASIS/HYDRONEPHROSIS OF THE LEFT KIDNEY, NOT FULLY IMAGED. RECOMMEND ULTRASOUND OF THE KIDNEYS AND MAY CONSIDER CT OF THE ABDOMEN AND PELVIS FOR MORE COMPLETE EVALUATION. 4. OLD WEDGE COMPRESSION DEFORMITY OF A MIDTHORACIC VERTEBRA. Provider Note Provider Note: I have discussed the patient in detail with JANETTE Schmid. I am in agreement with her evaluation and plan.
[2018-06-18] MEDS: IMIPENEM/CILASTATIN SODIUM 500 MG in NORMAL SALINE 100 ML IV SCH ×2 (00:27→06:10)
[2018-06-18] MEDS: HEPARIN SOD (PORCINE) 5,000 UNIT/ML 1 ML SYRINGE SUBCUT SCH ×2 (06:10→13:17)
[2018-06-18] MEDS: LANSOPRAZOLE 15 MG TAB.RAP.DR PO SCH (06:13)
[2018-06-18] MEDS: METHYLPREDNISOLONE INJ 125 MG/2 ML SDV IV SCH ×2 (06:14→13:16)
[2018-06-18] MEDS ORDERED: FUROSEMIDE INJ/PF 40 MG/4 ML SDV IV SCH (10:00)
[2018-06-18] MEDS: SALMETEROL XINAFOATE DISKUS 50 MCG/1 DOSE 28 DOSE IH SCH (10:00)
[2018-06-18] MEDS: FLUTICASONE NASAL SPRAY 50 MCG/SPRY 120 SPRAY/16 GM NASL SCH (10:00)
[2018-06-18] MEDS: TIOTROPIUM BROMIDE DPI 5 CAP/KIT (18 MCG/CAP) IH SCH (10:01)
[2018-06-18] MEDS: CETIRIZINE 10 MG TABLET PO SCH (10:02)
[2018-06-18] MEDS: DULOXETINE HCL 30 MG CAPSULE.DR PO SCH (10:02)
[2018-06-18] MEDS: METOPROLOL TARTRATE 25 MG TABLET PO SCH (10:02)
[2018-06-18] MEDS: LEVOTHYROXINE SODIUM 0.1 MG TABLET PO SCH (10:02)
[2018-06-18 15:47] VITALS: BP 138/71
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
== END 2018-06-18 16:05 | disposition hospice, home (50) | DRG 189 ==
LOC: ER 18:29 → EH 06-15 03:00 → 3S 06-15 04:23
PROVIDERS: ADMIT Internal Medicine; ATTEND Internal Medicine
DX: J96.01 Acute respiratory failure with hypoxia (principal); I13.0 Hypertensive heart and chronic kidney disease with heart failure and stage 1 through stage 4 chronic kidney disease, or unspecified chronic kidney disease; J90 Pleural effusion, not elsewhere classified; J44.1 Chronic obstructive pulmonary disease with (acute) exacerbation; Z66 Do not resuscitate; N39.0 Urinary tract infection, site not specified; E87.4 Mixed disorder of acid-base balance; N17.9 Acute kidney failure, unspecified; I50.32 Chronic diastolic (congestive) heart failure; N18.4 Chronic kidney disease, stage 4 (severe); J96.02 Acute respiratory failure with hypercapnia; I27.20 Pulmonary hypertension, unspecified; I25.10 Atherosclerotic heart disease of native coronary artery without angina pectoris; E78.00 Pure hypercholesterolemia, unspecified; E03.9 Hypothyroidism, unspecified; F41.9 Anxiety disorder, unspecified; K21.9 Gastro-esophageal reflux disease without esophagitis; Z79.899 Other long term (current) drug therapy; Z87.891 Personal history of nicotine dependence; Z86.73 Personal history of transient ischemic attack (TIA), and cerebral infarction without residual deficits
CPT/HCPCS: 36415; 36600; 71045; 71250; 80048; 80053; 81001; 82803; 83735; 83880; 84100; 84484; 85025; 85027; 87040; 87086; 87088; 87186; 93005; 93010; 94640; 94660; 96361; 96365; 96375; 99291; G8978-GP; G8979-GP; J0743; J1644; J1940; J2060; J2930; J3475; J3490; J7030; J7060; J7620

== ENCOUNTER 2018-06-24 09:18 | Emergency (ER) | payer MEDICARE, OTHER ==
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
[2018-06-24 15:16] VITALS: BP 108/68
== END 2018-06-24 15:20 | disposition home or self-care (01) ==
LOC: ER 09:18
DX: J44.9 Chronic obstructive pulmonary disease, unspecified (principal); Z99.81 Dependence on supplemental oxygen; Z65.5 Exposure to disaster, war and other hostilities; I25.10 Atherosclerotic heart disease of native coronary artery without angina pectoris; Z87.891 Personal history of nicotine dependence; R06.02 Shortness of breath
CPT/HCPCS: 99284

== ENCOUNTER 2018-07-11 07:15 | Inpatient (IN) | payer MEDICARE, OTHER ==
[2018-07-11] MEDS ORDERED: IPRATROPIUM/ALBUTEROL 0.5-2.5 MG/3 ML AMPUL NEB ONE (07:48)
[2018-07-11] MEDS ORDERED: NORMAL SALINE 1000 ML 500 ML IV PRN (07:48)
[2018-07-11] MEDS ORDERED: PREDNISONE 20 MG TABLET PO ONE (07:48)
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
--- NOTE | 2018-07-11 08:19 | RADIOLOGY REPORT (SQ) ---
EXAM DESCRIPTION: CHEST SINGLE VIEW COMPLETED DATE/TIME: 07/11/2018 7:58 am REASON FOR STUDY: sob COMPARISON: CT chest 06/15/2018 AP chest 06/14/2018, 11/12/2017, 10/19/2017 EXAM PARAMETERS: NUMBER OF VIEWS: One view. TECHNIQUE: Single frontal radiographic view of the chest acquired. RADIATION DOSE: NA LIMITATIONS: None. FINDINGS: LUNGS AND PLEURA: No opacities, masses or pneumothorax. No pleural effusion. MEDIASTINUM AND HILAR STRUCTURES: Large retrocardiac hiatal hernia containing the entire stomach, pro jected along the right heart border. HEART AND VASCULAR STRUCTURES: Mild cardiomegaly. Mild pulmonary vascular prominence BONES: Old healed bilateral rib fractures. Soft tissue mass over the left glenoid HARDWARE: None in the chest. OTHER: No other significant finding. IMPRESSION: Mild pulmonary vascular prominence. No acute findings TECHNICAL DOCUMENTATION: JOB ID: [id number] [employer]- All Rights Reserved Reading location - IP/workstation name: [email or web address]
--- NOTE | 2018-07-11 08:50 | EKG REPORT ---
SEVERITY:- BORDERLINE ECG - SINUS RHYTHM BORDERLINE PROLONGED QT INTERVAL : Confirmed by: Onel Lennon 11-Jul-2018 08:50:25
[2018-07-11 09:36] LABS: ABSOLUTE BASOPHILS # (AUTO) 0.1 10^3/uL (0.0-0.2); ABSOLUTE EOSINOPHILS # (AUTO) 0.4 10^3/uL (0.0-0.6); ABSOLUTE LYMPHOCYTES (AUTO) 0.9 10^3/uL (0.5-4.7); ABSOLUTE MONOCYTES (AUTO) 0.8 10^3/uL (0.1-1.4); ABSOLUTE NEUT (AUTO) 5.4 10^3/uL (1.7-8.2); BASOPHILS % (AUTO) 1.3 % (0-2); EOSINOPHILS % (AUTO) 4.9 % (0-6); HEMATOCRIT 28.8 % (36.0-47.0); HEMOGLOBIN 9.7 g/dL (12.0-15.5); LYMPHOCYTES % (AUTO) 11.6 % (13-45); MEAN CORPUSCULAR HEMOGLOBIN 30.4 pg (27.0-33.4); MEAN CORPUSCULAR HGB CONC 33.7 g/dL (32.0-36.0); MEAN CORPUSCULAR VOLUME 90 fl (80-97); MONOCYTES % (AUTO) 10.3 % (3-13); PLATELET COUNT 269 10^3/uL (150-450); RED CELL DISTRIBUTION WIDTH 14.5 % (11.5-14.0); SEGMENTED NEUTROPHILS % (AUTO) 71.9 % (42-78); TOTAL CELLS COUNTED % (AUTO) 100 %; WHITE BLOOD COUNT 7.5 10^3/uL (4.0-10.5)
[2018-07-11 09:45] LABS: ALANINE AMINOTRANSFERASE 8 U/L (9-52); ALKALINE PHOSPHATASE 61 U/L (38-126); ANION GAP 14 (5-19); ASPARTATE AMINO TRANSFERASE 33 U/L (14-36); BILIRUBIN,DIRECT 0.6 mg/dL (0.0-0.4); BILIRUBIN,TOTAL 0.9 mg/dL (0.2-1.3); BLOOD UREA NITROGEN 46 mg/dL (7-20); CALCIUM 9.3 mg/dL (8.4-10.2); CARBON DIOXIDE 20 mmol/L (22-30); CHLORIDE 107 mmol/L (98-107); CREATINE KINASE 60 U/L (30-135); GLUCOSE 100 mg/dL (75-110); POTASSIUM 4.6 mmol/L (3.6-5.0); SODIUM 140.6 mmol/L (137-145); TOTAL PROTEIN 7.9 g/dL (6.3-8.2)
[2018-07-11 09:57] LABS: CREATINE KINASE MB 1.46 ng/mL (<4.55); TROPONIN I 0.019 ng/mL
[2018-07-11] MEDS ORDERED: FUROSEMIDE INJ/PF 40 MG/4 ML SDV IV ONE (10:14)
[2018-07-11 10:26] LABS: APPEARANCE,URINE TURBID; BILIRUBIN,URINE NEGATIVE (NEGATIVE); GLUCOSE, URINE NEGATIVE (NEGATIVE); KETONES,URINE NEGATIVE (NEGATIVE); LEUKOCYTE ESTERASE,URINE MODERATE (NEGATIVE); NITRITE,URINE POSITIVE (NEGATIVE); PROTEIN,URINE 100 mg/dL (NEGATIVE); URINE SPECIFIC GRAVITY 1.012; UROBILINOGEN,URINE NEGATIVE mg/dL (<2.0)
[2018-07-11 10:31] LABS: COLOR,URINE GREEN
[2018-07-11] MEDS ORDERED: RINGERS SOLUTION,LACTATED 1,000 ML IV PRN (11:29)
--- NOTE | 2018-07-11 11:57 | PDOC H&P ---
History of Present Illness Admission Date/PCP: 07/11/18 10:24 TREVON DEL CID MD History of Present Illness: PADMINI MISHRA is a 78 year old female with a history of stage IV chronic kidney disease, dementia, pulmonary hypertension, and grade 2 diastolic dysfunction who was recently admitted in this hospital about a month ago and was diagnosed with diastolic heart failure and was put on some Lasix, and was sent home a few days later on home health; it says in the documentation that she was sent home on hospice but the patient's stepdaughter refutes this, saying that she just went home on home health. She comes back in today saying that she had been short of breath for about 2 days. She denies fever. She denies productive cough. She denies any sick contacts. She lives at home with her stepdaughter, who says she is not really noticed any substantial shortness of breath but she has noticed that her oral intake has been very poor for the last several days and that the patient looked like she had just not been feeling very well. It says in the ER note that she had increased confusion, but her stepdaughter says that her mental status is at its baseline. She denies orthopnea. She denies any leg swelling. She denies any feeling of chest congestion. In the ER her BNP was noted to be elevated at like on her chest x-ray she had some mild vascular congestion so I got a call saying that she was in heart failure. When I went down to the ER to see her, she was breathing very comfortably with a respiratory rate of around 12 and an SPO2 of 99% on 2 L nasal cannula. She had not received any medications or treatments at that time. She was lying down flat in the bed. She was speaking in complete sentences. Past Medical History Cardiac Medical History: Reports: Coronary Artery Disease, Hyperlipidema Pulmonary Medical History: Reports: Chronic Obstructive Pulmonary Disease (COPD) Endocrine Medical History: Reports: Hypothyroidism Renal/ Medical History: Reports: End Stage Renal Disease GI Medical History: Reports: Gastroesophageal Reflux Disease Psychiatric Medical History: Reports: Dementia, Depression Hematology: Reports: Anemia Past Surgical History Past Surgical History: Reports: Orthopedic Surgery - bilateral hips, back Social History Lives with: Family Smoking Status: Former Smoker Frequency of Alcohol Use: Occasional Hx Recreational Drug Use: No Drugs: None Hx Prescription Drug Abuse: No Family History Family History: Reviewed & Not Pertinent, Other Parental Family History Reviewed: No - Noncontributory Children Family History Reviewed: No - Noncontributory Sibling(s) Family History Reviewed.: No - Noncontributory Medication/Allergy Home Medications: Atorvastatin Calcium [Lipitor 20 mg Tablet] 20 mg PO QHS 07/11/18 Cyanocobalamin/Folic AC/Vit B6 [Folbic Tablet] 1 tab PO DAILY 07/11/18 Docusate Sodium [Colace 100 mg Capsule] 100 mg PO BID 07/11/18 Donepezil HCl [Aricept 5 mg Tablet] 5 mg PO DAILY 07/11/18 Duloxetine HCl [Cymbalta] 60 mg PO DAILY 07/11/18 Ergocalciferol (Vitamin D2) [Drisdol 50,000 unit (1.25MG) Capsule] 50,000 unit PO LOPEZ@1000 07/11/18 Gabapentin [Neurontin 300 mg Capsule] 300 mg PO QHS 07/11/18 Ipratropium/Albuterol Sulfate [Duoneb 3 ml Ampul] 1 vial NEB Q6HP PRN 07/11/18 Levothyroxine Sodium [Synthroid] 125 mcg PO Q6AM 07/11/18 Omeprazole 20 mg PO DAILY 07/11/18 Salmeterol Xinafoate [Serevent Diskus] 1 puff IH Q12 07/11/18 Tamsulosin HCl [Flomax 0.4 mg Cap.sr] 0.4 mg PO DAILY 07/11/18 Tiotropium [place] [Spiriva Handihaler 5 Cap/Kit (18 Mcg/Cap)] 1 cap IH DAILY Trazodone HCl [Desyrel 50 mg Tablet] 50 mg PO QHS 07/11/18 Allergies/Adverse Reactions: No Known Allergies Allergy (Verified 07/11/18 07:16) Review of Systems Review of Systems: A 10 point review of systems was conducted with the patient and her stepdaughter who is her primary caregiver at the bedside and was negative except as noted in the HPI Physical Exam Vital Signs: Temp Pulse Resp BP Pulse Ox 97.9 F 104 H 14 113/69 99 07/11/18 07:22 07/11/18 07:22 07/11/18 08:02 07/11/18 07:22 07/11/18 08:02 General appearance: PRESENT: no acute distress, disheveled, thin Head exam: PRESENT: atraumatic, normocephalic Eye exam: PRESENT: EOMI, PERRLA. ABSENT: conjunctival injection, scleral icterus Ear exam: PRESENT: normal external ear exam Mouth exam: PRESENT: dry mucosa, neck supple Teeth exam: PRESENT: poor dentation Throat exam: ABSENT: tonsillar erythema, tonsillar exudate Neck exam: PRESENT: full ROM. ABSENT: carotid bruit, JVD, lymphadenopathy, tenderness, thyromegaly Respiratory exam: PRESENT: clear to auscultation gertrude, symmetrical, unlabored. ABSENT: accessory muscle use, crackles, decreased breath sounds, prolonged expiratory phas, rhonchi, tachypnea, wheezes Cardiovascular exam: PRESENT: RRR, +S1, +S2, systolic murmur Pulses: PRESENT: normal radial pulses, normal dorsalis pedis pul Vascular exam: PRESENT: normal capillary refill GI/Abdominal exam: PRESENT: normal bowel sounds, soft. ABSENT: ascites, distended, guarding, rebound, tenderness Rectal exam: PRESENT: deferred Gentrourinary exam: PRESENT: other - She was wearing an adult diaper Extremities exam: PRESENT: full ROM. ABSENT: calf tenderness, clubbing, joint swelling, pedal edema, tenderness Musculoskeletal exam: PRESENT: full ROM, normal inspection. ABSENT: deformity Neurological exam: PRESENT: alert, awake, oriented to person, oriented to place , CN II-XII grossly intact Psychiatric exam: PRESENT: appropriate affect, normal mood Skin exam: PRESENT: dry, warm Results Impressions: Chest X-Ray 07/11/18 07:47 IMPRESSION: Mild pulmonary vascular prominence. No acute findings Assessment & Plan - Diagnosis (1) Acute renal failure superimposed on stage 4 chronic kidney disease Qualifiers: Acute renal failure type: unspecified Qualified Code(s): N17.9 - Acute kidney failure, unspecified; N18.4 - Chronic kidney disease, stage 4 (severe); N18.4 - Chronic kidney disease, stage 4 (severe); N18.4 - Chronic kidney disease , stage 4 (severe); N18.4 - Chronic kidney disease, stage 4 (severe) Is this a current diagnosis for this admission?: Yes Plan: I do not believe she is acutely in heart failure. On examination, the patient does not appear to have any signs of volume overload. She is not edematous. Her breath sounds are clear. She has no JVD. She is able to lay down flat and breathing very comfortably. To me, she actually looks a bit dry. She has had an acute worsening of her chronic kidney injury since her discharge a month ago. I am going to gently hydrate her and monitor her response. If she starts to show signs of acute cardiac decompensation, we will stop the fluids and give her some Lasix. She is on Flomax at home, and her stepdaughter said that a urologist had put her on at because her bladder had previously been holding a lot of urine. She had also apparently had a suprapubic catheter at one point that was discontinued because of "noncompliance." I will get a renal ultrasound to assess her kidneys for hydronephrosis. Apparently she always has a small degree of incontinence which is why she wears an adult diaper. (2) Dementia Qualifiers: Dementia type: unspecified type Dementia behavioral disturbance: without behavioral disturbance Qualified Code(s): F03.90 - Unspecified dementia without behavioral disturbance Is this a current diagnosis for this admission?: Yes Plan: Continue Aricept (3) Hypothyroidism Qualifiers: Hypothyroidism type: acquired Qualified Code(s): E03.9 - Hypothyroidism, unspecified Is this a current diagnosis for this admission?: Yes Plan: Continue Synthroid - Time Time Spent: 50 to 70 Minutes Medications reviewed and adjusted accordingly: Yes Anticipated discharge: Home with Homehealth - Inpatient Certification Based on my medical assessment, after consideration of the patient's comorbidities, presenting symptoms, or acuity I expect that the services needed warrant INPATIENT care.: Yes I certify that my determination is in accordance with my understanding of Medicare's requirements for reasonable and necessary INPATIENT services [42 CFR 412.3e].: Yes Medical Necessity: Need Close Monitoring Due to Risk of Patient Decompensation, Need For IV Fluids
[2018-07-11] MEDS: HEPARIN SOD (PORCINE) 5,000 UNIT/ML 1 ML SYRINGE SUBCUT SCH ×2 (13:38→22:53)
[2018-07-11] MEDS: IBUPROFEN 800 MG TABLET PO PRN (18:28)
--- NOTE | 2018-07-12 05:16 | RADIOLOGY REPORT (SQ) ---
CLINICAL DATA: 78-year-old female with acute on chronic kidney disease. TECHNICAL DATA: Grayscale and Doppler ultrasound imaging of the abdomen was performed including imaging of the kidneys and bladder. Comparison: None. FINDINGS: The technologist noted that this examination was technically limited due to patient motion and inability to cooperate with breathing instructions during the examination. The right kidney measures 7.5 cm in length. The renal cortex is grossly normal. There is no evidence of renal mass, calculi or perinephric fluid collection. There is no pelvocaliectasis. The left kidney measures 8.0 cm in length. The renal cortex is grossly normal. There is no evidence of renal mass, calculi or perinephric fluid collection. There is no pelvocaliectasis. There is no free fluid in the abdomen. The bladder is partially distended and smooth in contour. Ureteral jets were not identified. IMPRESSION: 1. Technically limited examination due to patient motion artifact and inability of patient to cooperate during the examination. 2. Small kidneys bilaterally. 3. No additional focal sonographic abnormalities are identified. Bilateral ureteral jets were not visualized.
[2018-07-12 05:40] LABS: HEMATOCRIT 23.2 % (36.0-47.0); HEMOGLOBIN 8.1 g/dL (12.0-15.5); MEAN CORPUSCULAR HGB CONC 35.1 g/dL (32.0-36.0); MEAN CORPUSCULAR VOLUME 88 fl (80-97); PLATELET COUNT 241 10^3/uL (150-450); RED BLOOD COUNT 2.62 10^6/uL (3.72-5.28); RED CELL DISTRIBUTION WIDTH 14.1 % (11.5-14.0); WHITE BLOOD COUNT 6.5 10^3/uL (4.0-10.5)
[2018-07-12 06:04] LABS: ANION GAP 11 (5-19); BLOOD UREA NITROGEN 43 mg/dL (7-20); CALCIUM 9.1 mg/dL (8.4-10.2); CARBON DIOXIDE 20 mmol/L (22-30); CHLORIDE 109 mmol/L (98-107); GLUCOSE 86 mg/dL (75-110); POTASSIUM 3.9 mmol/L (3.6-5.0); SODIUM 139.8 mmol/L (137-145)
[2018-07-12 06:15] LABS: FREE T4 (FREE THYROXINE) 1.68 ng/dL (0.78-2.19)
[2018-07-12 06:29] LABS: THYROID STIMULATING HORMONE 4.51 uIU/mL (0.47-4.68)
[2018-07-12] MEDS: HEPARIN SOD (PORCINE) 5,000 UNIT/ML 1 ML SYRINGE SUBCUT SCH ×3 (06:40→22:41)
[2018-07-12] MEDS: IBUPROFEN 800 MG TABLET PO PRN (12:21)
--- NOTE | 2018-07-12 14:22 | PDOC PROGRESS REPORT ---
Subjective Progress Note for:: 07/12/18 Subjective:: No adverse events overnight. She is breathing better today despite getting fluid. She has not shown any signs of volume overload. She said that she ate a little better this morning than she did last night. She was able to come off oxygen overnight. Reason For Visit: ACUTE ON CHRONIC KIDNEY INJURY, DEHYDRATION, Physical Exam Vital Signs: Temp Pulse Resp BP Pulse Ox 98.8 F 86 16 105/57 L 95 07/12/18 08:00 07/12/18 08:00 07/12/18 08:00 07/12/18 08:00 07/12/18 08:00 Intake & Output 07/11/18 07/12/18 07/13/18 06:59 06:59 06:59 Intake Total 874 Balance 874 Weight 53.4 kg General appearance: PRESENT: no acute distress - She tends to squirm and fidget while in bed but denies any complaints or discomfort, disheveled Respiratory exam: PRESENT: clear to auscultation gertrued, symmetrical, unlabored. ABSENT: accessory muscle use, rales, rhonchi, tachypnea, wheezes Cardiovascular exam: PRESENT: RRR, +S1, +S2, systolic murmur Vascular exam: PRESENT: normal capillary refill GI/Abdominal exam: PRESENT: normal bowel sounds, soft. ABSENT: distended, guarding, rebound, tenderness Extremities exam: ABSENT: clubbing, joint swelling, pedal edema Musculoskeletal exam: PRESENT: normal inspection. ABSENT: deformity Neurological exam: PRESENT: alert, awake, oriented to person, oriented to place Skin exam: PRESENT: dry, warm Results Laboratory Results: 07/12/18 05:18 07/12/18 05:18 07/12/18 07/12/18 07/12/18 05:18 05:18 05:18 WBC 6.5 RBC 2.62 L Hgb 8.1 L Hct 23.2 L MCV 88 MCH 31.0 MCHC 35.1 RDW 14.1 H Plt Count 241 Sodium 139.8 Potassium 3.9 Chloride 109 H Carbon Dioxide 20 L Anion Gap 11 BUN 43 H Creatinine 2.80 H Est GFR ( Amer) 20 L Est GFR (Non-Af Amer) 16 L Glucose 86 Calcium 9.1 Magnesium 2.1 TSH 4.51 Free T4 1.68 07/12/18 05:18 NT-Pro-B Natriuret Pep 98508 H Impressions: Chest X-Ray 07/11/18 07:47 IMPRESSION: Mild pulmonary vascular prominence. No acute findings Renal Ultrasound 07/12/18 00:00 IMPRESSION: 1. Technically limited examination due to patient motion artifact and inability of patient to cooperate during the examination. 2. Small kidneys bilaterally. 3. No additional focal sonographic abnormalities are identified. Bilateral ureteral jets were not visualized. Assessment & Plan - Diagnosis (1) Acute renal failure superimposed on stage 4 chronic kidney disease Qualifiers: Acute renal failure type: unspecified Qualified Code(s): N17.9 - Acute kidney failure, unspecified; N18.4 - Chronic kidney disease, stage 4 (severe); N18.4 - Chronic kidney disease, stage 4 (severe); N18.4 - Chronic kidney disease , stage 4 (severe); N18.4 - Chronic kidney disease, stage 4 (severe) Is this a current diagnosis for this admission?: Yes Plan: Improved with some IV fluids. Her creatinine is not back down to her baseline, but her BNP did go up. She does not appear fluid overloaded at all at this time , but I am going to stop her IV fluids and encourage her to hydrate orally. (2) Dementia Qualifiers: Dementia type: unspecified type Dementia behavioral disturbance: without behavioral disturbance Qualified Code(s): F03.90 - Unspecified dementia without behavioral disturbance Is this a current diagnosis for this admission?: Yes Plan: Stable and at its baseline (3) Hypothyroidism Qualifiers: Hypothyroidism type: acquired Qualified Code(s): E03.9 - Hypothyroidism, unspecified Is this a current diagnosis for this admission?: Yes Plan: Continue Synthroid - Time Time Spent with patient: 25-34 minutes
[2018-07-12] MEDS: ACETAMINOPHEN 325 MG TABLET PO PRN (17:44)
[2018-07-13 05:34] LABS: HEMATOCRIT 25.6 % (36.0-47.0); MEAN CORPUSCULAR HEMOGLOBIN 31.2 pg (27.0-33.4); MEAN CORPUSCULAR HGB CONC 35.3 g/dL (32.0-36.0); MEAN CORPUSCULAR VOLUME 89 fl (80-97); PLATELET COUNT 275 10^3/uL (150-450); WHITE BLOOD COUNT 6.8 10^3/uL (4.0-10.5)
[2018-07-13] MEDS: HEPARIN SOD (PORCINE) 5,000 UNIT/ML 1 ML SYRINGE SUBCUT SCH ×3 (05:40→21:57)
[2018-07-13 05:58] LABS: ANION GAP 12 (5-19); BLOOD UREA NITROGEN 38 mg/dL (7-20); CARBON DIOXIDE 23 mmol/L (22-30); CHLORIDE 106 mmol/L (98-107); GLUCOSE 93 mg/dL (75-110); POTASSIUM 3.8 mmol/L (3.6-5.0); SODIUM 140.5 mmol/L (137-145)
[2018-07-13] MEDS: IBUPROFEN 800 MG TABLET PO PRN ×2 (09:31→19:43)
--- NOTE | 2018-07-13 15:55 | PDOC PROGRESS REPORT ---
Subjective Progress Note for:: 07/13/18 Subjective:: Patient apparently wants to go home. She had been trying to get out of bed and so currently she has a sitter. She denies any chest pain nausea vomiting. Reason For Visit: ACUTE ON CHRONIC KIDNEY INJURY, DEHYDRATION, Physical Exam Vital Signs: Temp Pulse Resp BP Pulse Ox 98.0 F 81 22 H 121/58 L 98 07/13/18 10:40 07/13/18 14:00 07/13/18 10:40 07/13/18 10:40 07/13/18 10:40 Intake & Output 07/12/18 07/13/18 07/14/18 06:59 06:59 06:59 Intake Total 874 784 222 Balance 874 784 222 Weight 53.4 kg 52.4 kg General appearance: PRESENT: no acute distress, thin, other - Elderly and frail Head exam: PRESENT: atraumatic, normocephalic Eye exam: PRESENT: conjunctiva pink, EOMI, PERRLA. ABSENT: scleral icterus Ear exam: PRESENT: normal external ear exam Mouth exam: PRESENT: moist, tongue midline Neck exam: ABSENT: carotid bruit, JVD, lymphadenopathy, thyromegaly Respiratory exam: PRESENT: clear to auscultation gertrude. ABSENT: rales, rhonchi, wheezes Cardiovascular exam: PRESENT: RRR. ABSENT: diastolic murmur, rubs, systolic murmur Pulses: PRESENT: normal dorsalis pedis pul Vascular exam: PRESENT: normal capillary refill GI/Abdominal exam: PRESENT: normal bowel sounds, soft. ABSENT: distended, guarding, mass, organolmegaly, rebound, tenderness Rectal exam: PRESENT: deferred Extremities exam: PRESENT: full ROM. ABSENT: calf tenderness, clubbing, pedal edema Neurological exam: PRESENT: alert, awake, oriented to person, oriented to place , oriented to time. ABSENT: motor sensory deficit Psychiatric exam: PRESENT: appropriate affect, normal mood. ABSENT: homicidal ideation, suicidal ideation Skin exam: PRESENT: dry, intact, warm. ABSENT: cyanosis, rash Results Laboratory Results: 07/13/18 04:58 07/13/18 04:58 07/13/18 07/13/18 04:58 04:58 WBC 6.8 RBC 2.90 L Hgb 9.0 L Hct 25.6 L MCV 89 MCH 31.2 MCHC 35.3 RDW 14.0 Plt Count 275 Sodium 140.5 Potassium 3.8 Chloride 106 Carbon Dioxide 23 Anion Gap 12 BUN 38 H Creatinine 3.01 H Est GFR ( Amer) 18 L Est GFR (Non-Af Amer) 15 L Glucose 93 Calcium 9.0 Magnesium 2.1 07/12/18 07/13/18 05:18 04:58 NT-Pro-B Natriuret Pep 02383 H 9400 H Impressions: Chest X-Ray 07/11/18 07:47 IMPRESSION: Mild pulmonary vascular prominence. No acute findings Renal Ultrasound 07/12/18 00:00 IMPRESSION: 1. Technically limited examination due to patient motion artifact and inability of patient to cooperate during the examination. 2. Small kidneys bilaterally. 3. No additional focal sonographic abnormalities are identified. Bilateral ureteral jets were not visualized. Assessment & Plan - Time Time Spent with patient: 15-24 minutes Medications reviewed and adjusted accordingly: Yes Anticipated discharge: Home Within: within 72 hours - Inpatient Certification Based on my medical assessment, after consideration of the patient's comorbidities, presenting symptoms, or acuity I expect that the services needed warrant INPATIENT care.: Yes Medical Necessity: Significant Comorbidiites Make Outpatient Treatment Too Risky , Need For IV Fluids - Plan Summary Plan Summary: #1 acute kidney injury superimposed on stage IV kidney disease-creatinine is 3.23 on admission and is currently 3.0 so essentially unchanged. Going back to June her creatinine was about 3.15 though it did improve to 2.1 on June 17. Her baseline appears to be around 2.5. P is 9400. Currently all kind of nephrology input this patient has had but she clearly has significant kidney disease with a GFR of about 15. Luckily there is no significant acid-base disorder so will suggest close outpatient follow-up with nephrology if not consulted during this admission 2. Chronic kidney disease stage IV 3. Dementia patient apparently at baseline 4. Hypothyroidism
[2018-07-13] MEDS: DEXTROSE 5%-1/2 NORMAL SALINE 1,000 ML IV PRN (18:19)
[2018-07-13] MEDS: ACETAMINOPHEN 325 MG TABLET PO PRN (23:56)
[2018-07-14] MEDS ORDERED: METOCLOPRAMIDE HCL INJ/PF 10 MG/2 ML SDV IV PRN (01:40)
[2018-07-14] MEDS ORDERED: PANTOPRAZOLE SODIUM 40 MG VIAL IV ONE (01:45)
[2018-07-14] MEDS: HEPARIN SOD (PORCINE) 5,000 UNIT/ML 1 ML SYRINGE SUBCUT SCH ×3 (05:10→21:17)
[2018-07-14] MEDS: IBUPROFEN 800 MG TABLET PO PRN ×2 (05:13→14:11)
[2018-07-14 05:30] LABS: HEMOGLOBIN 9.2 g/dL (12.0-15.5); MEAN CORPUSCULAR VOLUME 88 fl (80-97); PLATELET COUNT 228 10^3/uL (150-450); RED BLOOD COUNT 3.06 10^6/uL (3.72-5.28); RED CELL DISTRIBUTION WIDTH 14.2 % (11.5-14.0); WHITE BLOOD COUNT 6.3 10^3/uL (4.0-10.5)
[2018-07-14 05:50] LABS: ANION GAP 13 (5-19)
[2018-07-14 06:31] LABS: BLOOD UREA NITROGEN 32 mg/dL (7-20); CALCIUM 8.7 mg/dL (8.4-10.2); CARBON DIOXIDE 20 mmol/L (22-30); CHLORIDE 106 mmol/L (98-107); GLUCOSE 115 mg/dL (75-110); POTASSIUM 3.5 mmol/L (3.6-5.0); SODIUM 138.5 mmol/L (137-145)
[2018-07-14] MEDS: DEXTROSE 5%-1/2 NORMAL SALINE 1,000 ML IV PRN ×2 (06:56→23:02)
[2018-07-14] MEDS ORDERED: IPRATROPIUM/ALBUTEROL 0.5-2.5 MG/3 ML AMPUL NEB PRN ×2 (15:12→15:22)
[2018-07-14] MEDS ORDERED: IBUPROFEN 800 MG TABLET PO PRN (15:14)
--- NOTE | 2018-07-14 15:16 | PDOC PROGRESS REPORT ---
Subjective Reason For Visit: ACUTE ON CHRONIC KIDNEY INJURY, DEHYDRATION, Physical Exam Vital Signs: Temp Pulse Resp BP Pulse Ox 97.9 F 88 22 H 134/67 H 92 07/14/18 12:00 07/14/18 12:00 07/14/18 12:00 07/14/18 12:00 07/14/18 12:00 Intake & Output 07/13/18 07/14/18 07/15/18 06:59 06:59 06:59 Intake Total 784 1522 Balance 784 1522 Weight 52.4 kg 53.6 kg Results Laboratory Results: 07/14/18 04:42 07/14/18 04:42 07/14/18 07/14/18 04:42 04:42 WBC 6.3 RBC 3.06 L Hgb 9.2 L Hct 27.0 L MCV 88 MCH 30.0 MCHC 34.0 RDW 14.2 H Plt Count 228 Sodium 138.5 Potassium 3.5 L Chloride 106 Carbon Dioxide 20 L Anion Gap 13 BUN 32 H Creatinine 2.66 H Est GFR ( Amer) 21 L Est GFR (Non-Af Amer) 17 L Glucose 115 H Calcium 8.7 Magnesium 1.9 07/12/18 07/13/18 07/14/18 05:18 04:58 04:42 NT-Pro-B Natriuret Pep [id number] H 9400 H 6260 H Impressions: Chest X-Ray 07/11/18 07:47 IMPRESSION: Mild pulmonary vascular prominence. No acute findings Renal Ultrasound 07/12/18 00:00 IMPRESSION: 1. Technically limited examination due to patient motion artifact and inability of patient to cooperate during the examination. 2. Small kidneys bilaterally. 3. No additional focal sonographic abnormalities are identified. Bilateral ureteral jets were not visualized. Assessment & Plan - Plan Summary Plan Summary: 1. acute kidney injury superimposed on stage IV kidney disease-creatinine is 3.23 on admission and is currently 2.6, close to her baseline. I started her on gentle IV fluids 2. Chronic kidney disease stage IV- out patient nephrology follow up 3. Dementia patient apparently at baseline 4. Hypothyroidism
[2018-07-14] MEDS ORDERED: IBUPROFEN 400 MG TABLET PO PRN (15:53)
[2018-07-14] MEDS: ATORVASTATIN CALCIUM 20 MG TABLET PO SCH (21:17)
[2018-07-14] MEDS: TRAZODONE HCL 50 MG TABLET PO SCH (21:17)
[2018-07-14] MEDS: SALMETEROL XINAFOATE DISKUS 50 MCG/1 DOSE 28 DOSE IH SCH (21:18)
[2018-07-14] MEDS: ACETAMINOPHEN 325 MG TABLET PO PRN (21:24)
[2018-07-14] MEDS ORDERED: SALMETEROL XINAFOATE DISKUS 50 MCG/1 DOSE 28 DOSE IH SCH (22:00)
[2018-07-15] MEDS: LEVOTHYROXINE SODIUM 0.1 MG TABLET PO SCH (05:20)
[2018-07-15] MEDS: LANSOPRAZOLE 15 MG TAB.RAP.DR PO SCH (05:20)
[2018-07-15] MEDS: LEVOTHYROXINE SODIUM 0.025 MG TABLET PO SCH (05:20)
[2018-07-15] MEDS ORDERED: (PENDING PHARMACY ID) (Levothyroxine Sodium [Synthroid] 125 MCG) PO SCH (06:00)
[2018-07-15 08:24] LABS: ANION GAP 12 (5-19); BLOOD UREA NITROGEN 25 mg/dL (7-20); CALCIUM 8.7 mg/dL (8.4-10.2); CARBON DIOXIDE 18 mmol/L (22-30); CHLORIDE 105 mmol/L (98-107); GLUCOSE 102 mg/dL (75-110); POTASSIUM 3.6 mmol/L (3.6-5.0); SODIUM 135.1 mmol/L (137-145)
[2018-07-15] MEDS ORDERED: (PENDING PHARMACY ID) (Cyanocobalamin/Folic Ac/Vit B6 [Folbic Tablet] 1 TAB) PO SCH (10:00)
[2018-07-15] MEDS: DONEPEZIL HCL 5 MG TABLET PO SCH (10:17)
[2018-07-15] MEDS: TAMSULOSIN HCL 0.4 MG CAP.SR.24H PO SCH (10:17)
[2018-07-15] MEDS: DULOXETINE HCL 30 MG CAPSULE.DR PO SCH (10:17)
[2018-07-15] MEDS: CYANOCOBALAMIN/FA/PYRIDOXINE TABLET PO SCH (10:17)
[2018-07-15] MEDS: TIOTROPIUM BROMIDE DPI 5 CAP/KIT (18 MCG/CAP) IH SCH (10:17)
[2018-07-15] MEDS: SALMETEROL XINAFOATE DISKUS 50 MCG/1 DOSE 28 DOSE IH SCH ×2 (10:18→21:49)
[2018-07-15] MEDS: HEPARIN SOD (PORCINE) 5,000 UNIT/ML 1 ML SYRINGE SUBCUT SCH ×2 (10:21→21:45)
[2018-07-15] MEDS ORDERED: DEXTROSE 5%-1/2 NORMAL SALINE 1,000 ML IV PRN (13:00)
--- NOTE | 2018-07-15 13:18 | PDOC PROGRESS REPORT ---
Subjective Progress Note for:: 07/15/18 Subjective:: Patient apparently wants to go home. 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 ABSENT: scleral icterus Ear exam: PRESENT: normal external ear exam Mouth exam: PRESENT: moist, tongue midline Neck exam: ABSENT: carotid bruit, JVD, lymphadenopathy, thyromegaly Respiratory exam: PRESENT: clear to auscultation gertrude. ABSENT: rales, rhonchi, wheezes Cardiovascular exam: PRESENT: RRR. ABSENT: diastolic murmur, rubs, systolic murmur Pulses: PRESENT: normal dorsalis pedis pul Vascular exam: PRESENT: normal capillary refill GI/Abdominal exam: PRESENT: normal bowel sounds, soft. ABSENT: distended, guarding, mass, organolmegaly, rebound, tenderness Rectal exam: PRESENT: deferred Extremities exam: PRESENT: full ROM. ABSENT: calf tenderness, clubbing, pedal edema Neurological exam: PRESENT: alert, awake, oriented to person, oriented to place , oriented to time, oriented to situation, CN II-XII grossly intact. ABSENT: motor sensory deficit Psychiatric exam: PRESENT: appropriate affect, normal mood. ABSENT: homicidal ideation, suicidal ideation Skin exam: PRESENT: dry, intact, warm. ABSENT: cyanosis, rash Results Laboratory Results: 07/14/18 04:42 07/15/18 07:16 07/15/18 07:16 Sodium 135.1 L Potassium 3.6 Chloride 105 Carbon Dioxide 18 L Anion Gap 12 BUN 25 H Creatinine 2.36 H Est GFR ( Amer) 24 L Est GFR (Non-Af Amer) 20 L Glucose 102 Calcium 8.7 07/12/18 07/13/18 07/14/18 05:18 04:58 04:42 NT-Pro-B Natriuret Pep 97050 H 9400 H 6260 H Impressions: Chest X-Ray 07/11/18 07:47 IMPRESSION: Mild pulmonary vascular prominence. No acute findings Renal Ultrasound 07/12/18 00:00 IMPRESSION: 1. Technically limited examination due to patient motion artifact and inability of patient to cooperate during the examination. 2. Small kidneys bilaterally. 3. No additional focal sonographic abnormalities are identified. Bilateral ureteral jets were not visualized. Assessment & Plan - Time Time Spent with patient: 15-24 minutes Medications reviewed and adjusted accordingly: Yes Anticipated discharge: Acute Rehab Within: within 48 hours - Inpatient Certification Based on my medical assessment, after consideration of the patient's comorbidities, presenting symptoms, or acuity I expect that the services needed warrant INPATIENT care.: Yes Medical Necessity: Need For IV Fluids, Risk of Complication if Not Cared For in Hospital - Plan Summary Plan Summary: 1. acute kidney injury superimposed on stage IV kidney disease-creatinine is 3.23 on admission and continues to improve, currently 2.35, close to her baseline. Will continue gentle IV fluids 2. Chronic kidney disease stage IV- out patient nephrology follow up 3. Dementia patient apparently at baseline 4. Hypothyroidism 5. DC plan is for Rehab
[2018-07-15] MEDS: TRAZODONE HCL 50 MG TABLET PO SCH (21:44)
[2018-07-15] MEDS: ATORVASTATIN CALCIUM 20 MG TABLET PO SCH (21:44)
[2018-07-16] MEDS: LEVOTHYROXINE SODIUM 0.1 MG TABLET PO SCH (06:01)
[2018-07-16] MEDS: LANSOPRAZOLE 15 MG TAB.RAP.DR PO SCH (06:01)
[2018-07-16] MEDS: LEVOTHYROXINE SODIUM 0.025 MG TABLET PO SCH (06:01)
--- NOTE | 2018-07-16 10:07 | PDOC TRANSFER SUMMARY ---
General - Admit/Disc Date/PCP Admission Date/Primary Care Provider: 07/11/18 10:24 TREVON DEL CID MD Discharge Date: 07/16/18 - Additional Information Discharge Diet: Other (Comments) - Renal Discharge Activity: Activity As Tolerated Prescriptions: Sodium Bicarbonate [Sodium Bicarbonate 650 mg Tablet] 650 mg PO BID #60 tablet Home Medications: Atorvastatin Calcium [Lipitor 20 mg Tablet] 20 mg PO QHS 07/11/18 Cyanocobalamin/Folic AC/Vit B6 [Folbic Tablet] 1 tab PO DAILY 07/11/18 Docusate Sodium [Colace 100 mg Capsule] 100 mg PO BID 07/11/18 Donepezil HCl [Aricept 5 mg Tablet] 5 mg PO DAILY 07/11/18 Duloxetine HCl [Cymbalta] 60 mg PO DAILY 07/11/18 Ergocalciferol (Vitamin D2) [Drisdol 50,000 unit (1.25MG) Capsule] 50,000 unit PO LOPEZ@1000 07/11/18 Gabapentin [Neurontin 300 mg Capsule] 300 mg PO QHS 07/11/18 Ipratropium/Albuterol Sulfate [Duoneb 3 ml Ampul] 1 vial NEB Q6HP PRN 07/11/18 Levothyroxine Sodium [Synthroid] 125 mcg PO Q6AM 07/11/18 Omeprazole 20 mg PO DAILY 07/11/18 Salmeterol Xinafoate [Serevent Diskus] 1 puff IH Q12 07/11/18 Tamsulosin HCl [Flomax 0.4 mg Cap.sr] 0.4 mg PO DAILY 07/11/18 Tiotropium [place]ford [Spiriva Handihaler 5 Cap/Kit (18 Mcg/Cap)] 1 cap IH DAILY Trazodone HCl [Desyrel 50 mg Tablet] 50 mg PO QHS 07/11/18 Sodium Bicarbonate [Sodium Bicarbonate 650 mg Tablet] 650 mg PO BID #60 tablet 07/16/18 History of Present Illness Admission Date/PCP: 07/11/18 10:24 TREVON DEL CID MD History of Present Illness: PADMINI MISHRA is a 78 year old female was admitted with difficulty breathing and shortness of breath. She was thought to have a decompensated diastolic CHF. Her BNP was found to be elevated close to 10,000 however patient also has chronic kidney disease stage 5. She was cautiously diuresed although she also ended up receiving some IV fluids as she was felt to be somewhat dehydrated after diuresis. Her kidney function actually improved from a c Hospital Course Hospital Course: This patient was admitted with difficulty breathing and shortness of breath. She was thought to have a decompensated diastolic CHF. Her BNP was found to be elevated close to 10,000 however patient also has chronic kidney disease stage 5. She was cautiously diuresed although she also ended up receiving some IV fluids as she was felt to be somewhat dehydrated after diuresis. Her kidney function actually improved from a creatinine of 3 on admission to 2.35. Last echocardiogram on file was from 2017 and this revealed a grossly intact left ventricular ejection fraction with grade 2/4 moderate diastolic dysfunction. Patient has not received any Lasix while in hospital and she was cautiously hydrated with improved her creatinine. 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 Patient is been discharged for acute rehabilitation as she was thought to be physically deconditioned Physical Exam Vital Signs: Temp Pulse Resp BP Pulse Ox 98.3 F 89 16 127/59 H 95 07/16/18 07:44 07/16/18 07:44 07/16/18 07:44 07/16/18 07:44 07/16/18 08:56 Intake & Output 07/15/18 07/16/18 07/17/18 06:59 06:59 06:59 Intake Total 1415 1367 Balance 1415 1367 Weight 53.3 kg 52.3 kg General appearance: PRESENT: no acute distress, well-developed, well-nourished Head exam: PRESENT: atraumatic, normocephalic Eye exam: PRESENT: conjunctiva pink, EOMI, PERRLA. ABSENT: scleral icterus Ear exam: PRESENT: normal external ear exam Mouth exam: PRESENT: moist, tongue midline Neck exam: ABSENT: carotid bruit, JVD, lymphadenopathy, thyromegaly Respiratory exam: PRESENT: clear to auscultation gertrude. ABSENT: rales, rhonchi, wheezes Cardiovascular exam: PRESENT: RRR. ABSENT: diastolic murmur, rubs, systolic murmur Pulses: PRESENT: normal dorsalis pedis pul Vascular exam: PRESENT: normal capillary refill GI/Abdominal exam: PRESENT: normal bowel sounds, soft. ABSENT: distended, guarding, mass, organolmegaly, rebound, tenderness Rectal exam: PRESENT: deferred Extremities exam: PRESENT: full ROM, other - L AV fistula positive bruit L wrist. ABSENT: calf tenderness, clubbing, pedal edema Neurological exam: PRESENT: alert, awake, oriented to person, oriented to place , oriented to time, oriented to situation, CN II-XII grossly intact. ABSENT: motor sensory deficit Psychiatric exam: PRESENT: appropriate affect, normal mood. ABSENT: homicidal ideation, suicidal ideation Skin exam: PRESENT: dry, intact, warm. ABSENT: cyanosis, rash Results Laboratory Results: 07/14/18 04:42 07/15/18 07:16 07/12/18 07/13/18 07/14/18 05:18 04:58 04:42 NT-Pro-B Natriuret Pep 30525 H 9400 H 6260 H Impressions: Chest X-Ray 07/11/18 07:47 IMPRESSION: Mild pulmonary vascular prominence. No acute findings Renal Ultrasound 07/12/18 00:00 IMPRESSION: 1. Technically limited examination due to patient motion artifact and inability of patient to cooperate during the examination. 2. Small kidneys bilaterally. 3. No additional focal sonographic abnormalities are identified. Bilateral ureteral jets were not visualized. Transfer Plan - Disposition Transfer Plan: [facility] - Time Spent with Patient Time spent with patient: Greater than 30 Minutes Qualifiers - * PATIENT BEING DISCHARGED WITH ANY OF THE FOLLOWING DIAGNOSIS: No
[2018-07-16] MEDS: HEPARIN SOD (PORCINE) 5,000 UNIT/ML 1 ML SYRINGE SUBCUT SCH (10:49)
[2018-07-16] MEDS: DULOXETINE HCL 30 MG CAPSULE.DR PO SCH (10:50)
[2018-07-16] MEDS: DONEPEZIL HCL 5 MG TABLET PO SCH (10:50)
[2018-07-16] MEDS: TAMSULOSIN HCL 0.4 MG CAP.SR.24H PO SCH (10:50)
[2018-07-16] MEDS: CYANOCOBALAMIN/FA/PYRIDOXINE TABLET PO SCH (10:50)
[2018-07-16] MEDS: SALMETEROL XINAFOATE DISKUS 50 MCG/1 DOSE 28 DOSE IH SCH (10:51)
[2018-07-16] MEDS: TIOTROPIUM BROMIDE DPI 5 CAP/KIT (18 MCG/CAP) IH SCH (10:52)
[2018-07-16 12:50] VITALS: BP 126/80
[2018-07-21] MEDS ORDERED: ERGOCALCIFEROL (VITAMIN D2) 50000 UNIT (1.25 MG) CAPSULE PO SCH (10:00)
== END 2018-07-16 14:00 | DRG 683 ==
LOC: ER 07:15 → EH 10:24 → 4N 12:09
PROVIDERS: ADMIT Emergency Medicine; ATTEND Emergency Medicine
DX: N17.9 Acute kidney failure, unspecified (principal); I13.0 Hypertensive heart and chronic kidney disease with heart failure and stage 1 through stage 4 chronic kidney disease, or unspecified chronic kidney disease; E87.2 Acidosis; I50.32 Chronic diastolic (congestive) heart failure; N18.4 Chronic kidney disease, stage 4 (severe); E86.0 Dehydration; F03.90 Unspecified dementia, unspecified severity, without behavioral disturbance, psychotic disturbance, mood disturbance, and anxiety; I27.20 Pulmonary hypertension, unspecified; D63.1 Anemia in chronic kidney disease; I25.10 Atherosclerotic heart disease of native coronary artery without angina pectoris; E78.5 Hyperlipidemia, unspecified; E03.9 Hypothyroidism, unspecified; K21.9 Gastro-esophageal reflux disease without esophagitis; F32.9 Major depressive disorder, single episode, unspecified; Z87.891 Personal history of nicotine dependence; Z88.8 Allergy status to other drugs, medicaments and biological substances; Z86.73 Personal history of transient ischemic attack (TIA), and cerebral infarction without residual deficits
CPT/HCPCS: 36415; 71045; 76775; 80048; 80053; 81001; 82550; 82553; 83735; 83880; 84439; 84443; 84484; 85025; 85027; 87493; 93005; 93010; 94640; 99285; G8978-GP; G8979-GP; J1644; J2765; J3490; J7512; J7620; S0164

== ENCOUNTER 2018-08-09 07:55 | Emergency (ER) | payer MEDICARE, OTHER ==
[2018-08-09] MEDS ORDERED: NORMAL SALINE 500 ML IV ONE (08:18)
[2018-08-09 08:59] LABS: ABSOLUTE BASOPHILS # (AUTO) 0.1 10^3/uL (0.0-0.2); ABSOLUTE EOSINOPHILS # (AUTO) 0.5 10^3/uL (0.0-0.6); ABSOLUTE LYMPHOCYTES (AUTO) 0.9 10^3/uL (0.5-4.7); ABSOLUTE MONOCYTES (AUTO) 0.4 10^3/uL (0.1-1.4); BASOPHILS % (AUTO) 1.2 % (0-2); EOSINOPHILS % (AUTO) 8.4 % (0-6); HEMATOCRIT 17.5 % (36.0-47.0); LYMPHOCYTES % (AUTO) 14.9 % (13-45); MEAN CORPUSCULAR HEMOGLOBIN 30.2 pg (27.0-33.4); MEAN CORPUSCULAR HGB CONC 33.2 g/dL (32.0-36.0); MEAN CORPUSCULAR VOLUME 91 fl (80-97); MONOCYTES % (AUTO) 7.6 % (3-13); PLATELET COUNT 185 10^3/uL (150-450); RED BLOOD COUNT 1.92 10^6/uL (3.72-5.28); RED CELL DISTRIBUTION WIDTH 15.1 % (11.5-14.0); SEGMENTED NEUTROPHILS % (AUTO) 67.9 % (42-78); TOTAL CELLS COUNTED % (AUTO) 100 %; WHITE BLOOD COUNT 5.8 10^3/uL (4.0-10.5)
[2018-08-09 09:04] LABS: HEMOGLOBIN 5.8 g/dL (12.0-15.5)
--- NOTE | 2018-08-09 09:09 | RADIOLOGY REPORT (SQ) ---
EXAM DESCRIPTION: CHEST SINGLE VIEW COMPLETED DATE/TIME: 08/09/2018 8:38 am REASON FOR STUDY: dyspnea COMPARISON: 03/03/2017 NUMBER OF VIEWS: One view. TECHNIQUE: Single frontal radiographic image of the chest acquired. LIMITATIONS: Oral technique. FINDINGS: LUNGS AND PLEURA: Chronic interstitial changes. Linear scarring in the left base. No eff usions. MEDIASTINUM AND HEART: Stable heart size and mediastinal structures. BONY STRUCTURES: No acute findings. HARDWARE: None. OTHER: No other significant finding. IMPRESSION: Stable, chronic changes. TECHNICAL DOCUMENTATION: JOB ID: [id number] Reading location - IP/workstation name: [facility]
[2018-08-09 09:23] LABS: ALANINE AMINOTRANSFERASE 16 U/L (9-52); ALBUMIN 3.5 g/dL (3.5-5.0); ALKALINE PHOSPHATASE 48 U/L (38-126); ANION GAP 13 (5-19); ASPARTATE AMINO TRANSFERASE 27 U/L (14-36); BILIRUBIN,DIRECT 0.2 mg/dL (0.0-0.4); BILIRUBIN,TOTAL 0.5 mg/dL (0.2-1.3); BLOOD UREA NITROGEN 87 mg/dL (7-20); CALCIUM 8.7 mg/dL (8.4-10.2); CARBON DIOXIDE 25 mmol/L (22-30); CHLORIDE 103 mmol/L (98-107); GLUCOSE 91 mg/dL (75-110); LIPASE 188.2 U/L (23-300); POTASSIUM 4.5 mmol/L (3.6-5.0); SODIUM 140.7 mmol/L (137-145); TOTAL PROTEIN 6.3 g/dL (6.3-8.2)
[2018-08-09 09:35] LABS: TROPONIN I 0.017 ng/mL
[2018-08-09 09:40] LABS: FREE T4 (FREE THYROXINE) 1.01 ng/dL (0.78-2.19)
[2018-08-09] MEDS ORDERED: FUROSEMIDE 20 MG TABLET PO PRN (10:50)
[2018-08-09] MEDS ORDERED: NORMAL SALINE 250 ML IV PRN ×2 (10:50)
--- NOTE | 2018-08-09 10:53 | ER Document Report ---
ED General - General Chief Complaint: Abnormal Lab Results Stated Complaint: WEAKNESS Time Seen by Provider: 08/09/18 07:58 TRAVEL OUTSIDE OF THE [place] IN LAST 30 DAYS: No - HPI Patient complains to provider of: fatigue Onset: Other - There is a 78-year-old female presents for evaluation of low blood counts, she has been in a rehab facility for the last month after having been discharged from the hospital for heart failure and weakness. She notes that she has noted to help take care of her. She also has end-stage renal disease and recently had a fistula placed but is currently not on dialysis yet as they have been waiting to try and do so. She had labs drawn yesterday because she was complaining of fatigue today she was identified as having hemoglobin of approximately 5 referred to the emergency room. She notes a general feeling of being unwell but is convinced that if she was able to eat something and might be better because she has not eaten that much recently since the food at her facility is bad. She has had transfusions in the past she is uncertain of exactly why she also has had low blood counts in the past she has not certain exactly what they normally are. - Related Data Allergies/Adverse Reactions: No Known Allergies Allergy (Verified 08/09/18 07:59) Past Medical History - General Information source: Patient - Social History Smoking Status: Former Smoker Chew tobacco use (# tins/day): No Frequency of alcohol use: Social Drug Abuse: None Family History: Reviewed & Not Pertinent, Other Patient has suicidal ideation: No Patient has homicidal ideation: No - Past Medical History Cardiac Medical History: Reports: Hx Coronary Artery Disease, Hx Hypercholesterolemia Pulmonary Medical History: Reports: Hx COPD Neurological Medical History: Reports: Hx Cerebrovascular Accident Endocrine Medical History: Reports: Hx Hypothyroidism Renal/ Medical History: Reports: Hx End Stage Renal Disease, Hx Renal Insufficiency. Denies: Hx Peritoneal Dialysis GI Medical History: Reports: Hx Gastroesophageal Reflux Disease Psychiatric Medical History: Reports: Hx Dementia, Hx Depression Past Surgical History: Reports: Hx Abdominal Surgery, Hx Appendectomy, Hx Gynecologic Surgery - oopherectomy, Hx Orthopedic Surgery - bilateral hips, back , Hx Urinary Tract Surgery, Hx Vascular Surgery - fistula - Immunizations Hx Diphtheria, Pertussis, Tetanus Vaccination: Yes Hx Pneumococcal Vaccination: 10/08/16 Review of Systems - Review of Systems -: Yes All other systems reviewed and negative Physical Exam - Vital signs Vitals: Temp Resp BP 98.5 F 18 73/42 L 08/09/18 08:09 08/09/18 08:09 08/09/18 08:09 - General General appearance: Anxious In distress: Mild - HEENT Head: Normocephalic Eyes: Normal Conjunctiva: Normal Cornea: Normal Extraocular movements intact: Yes Eyelashes: Normal Pupils: PERRL - Respiratory Respiratory status: No respiratory distress Chest status: Nontender Breath sounds: Normal Chest palpation: Normal - Cardiovascular Rhythm: Tachycardia Heart sounds: Normal auscultation - Abdominal Inspection: Normal Tenderness: Nontender - Rectal Stool: Heme positive, Black - Back Back: Normal - Extremities General upper extremity: Normal inspection, Nontender, Normal ROM, Normal strength General lower extremity: Normal inspection, Nontender, Normal ROM, Normal strength - Neurological Neuro grossly intact: Yes Cognition: Normal Orientation: AAOx4 Benson Coma Scale Eye Opening: Spontaneous Jayshree Coma Scale Verbal: Oriented Jayshree Coma Scale Motor: Obeys Commands Jayshree Coma Scale Total: 15 Speech: Normal Cranial nerves: Normal Motor strength normal: LUE, RUE, LLE, RLE - Psychological Associated symptoms: Normal affect Course - Re-evaluation Re-evalutation: 08/09/18 17:06 78-year-old female who presents for profound anemia. Examination she is not in obvious distress while at rest however she did present with a new oxygen requirement, her blood pressure initially was markedly low in the 70 systolic range. Because of the concern of her profound anemia in the setting of hypotension initiated fluid bolus while obtaining type and screen for this patient as well as bilateral access. 15 CBC CMP chest x-ray EKG. This patient had a response to fluids and improved her blood pressure to the low 100 range, she had stool which was grossly positive for dark stool. Made determination the patient may be suffering from a GI bleed, incidentally her renal function had appeared to markedly worsen from the previous, her elevated BUN may be a result of her internal bleeding however her creatinine was worse than previously. Has compromised renal function because the patient in the setting of anemia she represents a difficult transfusion candidate, as she is currently hemodynamically stable with the administration of 500 mL of normal saline will plan to defer transfusion as we are unable to perform dialysis at this time. Has spoken to the on-call hospitalist Dr. Christopher carrasquillo at [facility] in [place] who agrees to accept this patient in transfer, because she is being transferred and it will be a timely transfer will plan for the administration of 1 unit of PRBCs while in the emergency department until she is able to be transported appropriately. We will also administer Lasix to this patient to try and help avoid fluid overload with the administration of her PRBCs. Currently she is hemodynamically stable on 2 L nasal cannula. We will defer further intervention until patient is transported, but will plan to continue monitoring in emergency department until she is able. At the time of transport this patient remained hemodynamically stable, she subsequently was transported to [facility] for consideration of potential dialysis as well as endoscopy or colonoscopy. She did not have any reversible anticoagulation identified, she received 1 unit of packed red blood cells as well as a saline. She was monitored. - Vital Signs Vital signs: Temp Pulse Resp BP Pulse Ox 98.5 F 81 20 98/38 L 96 08/09/18 14:18 08/09/18 14:18 08/09/18 14:18 08/09/18 14:18 08/09/18 14:18 - Laboratory Result Diagrams: 08/09/18 08:31 08/09/18 08:31 Laboratory results interpreted by me: 08/09/18 08/09/18 08/09/18 08:31 08:31 08:31 RBC 1.92 L Hgb 5.8 L Hct 17.5 L RDW 15.1 H Eosinophils % 8.4 H BUN 87 H Creatinine 3.07 H Est GFR ( Amer) 18 L Est GFR (Non-Af Amer) 15 L NT-Pro-B Natriuret Pep TSH 17.00 H Crossmatch 08/09/18 08/09/18 08:31 09:30 RBC Hgb Hct RDW Eosinophils % BUN Creatinine Est GFR ( Amer) Est GFR (Non-Af Amer) NT-Pro-B Natriuret Pep 4920 H TSH Crossmatch See Detail Critical Care Note - Critical Care Note Total time excluding time spent on procedures (mins): 35 Discharge - Discharge Clinical Impression: ESRD (end stage renal disease) GI bleed Qualifiers: GI bleed type/associated pathology: unspecified gastrointestinal hemorrhage type Qualified Code(s): K92.2 - Gastrointestinal hemorrhage, unspecified Heart failure Qualifiers: Heart failure type: unspecified Heart failure chronicity: unspecified Qualified Code(s): I50.9 - Heart failure, unspecified Condition: Stable Disposition: [facility]
--- NOTE | 2018-08-09 12:38 | EKG REPORT ---
SEVERITY:- ABNORMAL ECG - SINUS RHYTHM LEFT VENTRICULAR HYPERTROPHY : Confirmed by: Lynn Green MD 09-Aug-2018 12:37:27
[2018-08-09 14:18] VITALS: BP 98/38
== END 2018-08-09 14:24 | disposition short-term general hospital (02) ==
LOC: ER 07:55
DX: N18.6 End stage renal disease (principal); K92.2 Gastrointestinal hemorrhage, unspecified; I50.9 Heart failure, unspecified; R53.83 Other fatigue; Z87.891 Personal history of nicotine dependence; I25.10 Atherosclerotic heart disease of native coronary artery without angina pectoris; J44.9 Chronic obstructive pulmonary disease, unspecified
CPT/HCPCS: 93005; 99291; 96360; 86900; 86901; 36415; 84439; 36430; 86850; 83690; 84443; 85025; 82272; 80053; 84484; 86920; 83880; 71045; 93010; P9016; J7040

== ENCOUNTER 2018-09-17 23:47 | Inpatient (IN) | payer MEDICARE, OTHER ==
--- NOTE | 2018-09-18 00:07 | ER Document Report ---
ED Respiratory Problem - General Chief Complaint: Shortness Of Breath Stated Complaint: DIFFICULTY BREATHING Time Seen by Provider: 09/18/18 00:07 Mode of Arrival: Wheelchair Information source: Patient Notes: Patient is a 78-year-old female with history of COPD, chronic renal failure, and CHF who presents with sudden onset shortness of breath earlier yesterday. Patient reports she has had mild cough without sputum production, no fevers or chills, had sudden onset trouble breathing not improved with home breathing treatments. Patient was noted by EMS to be hypoxic with a oxygen saturation in the "low 80s" per report, patient was given IV Solu-Medrol with DuoNeb nebulizer treatments with some improvement. Currently the patient states that she has chest tightness and feels as though her breathing is getting worse again. Of note, the patient denies using constant home oxygen and states it is only "as needed." TRAVEL OUTSIDE OF THE [place] IN LAST 30 DAYS: No - HPI Patient complains to provider of: COPD, Short of breath Onset: This afternoon Duration: Worse/persistent Quality of pain: No pain Severity: Moderate Pain Level: Denies Context: Hx CHF, Hx COPD, Other Short of Breath: Moderate Cough: Nonproductive Sputum amount: None At home treatment: Bronchodilators EMS treatments: Bronchodilators, Solumedrol Associated symptoms: Congestion, Difficulty breathing, Extertional dyspnea, Wheezing, Other - Chest tightness. denies: Fever Similar symptoms previously: No Recently seen / treated by doctor: No - Related Data Allergies/Adverse Reactions: No Known Allergies Allergy (Verified 08/09/18 07:59) Past Medical History - General Information source: Patient - Social History Smoking Status: Former Smoker Chew tobacco use (# tins/day): No Frequency of alcohol use: None Drug Abuse: None Lives with: Alone Family History: Reviewed & Not Pertinent, Other Patient has suicidal ideation: No Patient has homicidal ideation: No - Past Medical History Cardiac Medical History: Reports: Hx Coronary Artery Disease, Hx Hypercholesterolemia Pulmonary Medical History: Reports: Hx COPD EENT Medical History: Reports: None Neurological Medical History: Reports: Hx Cerebrovascular Accident Endocrine Medical History: Reports: Hx Hypothyroidism Renal/ Medical History: Reports: Hx End Stage Renal Disease, Hx Renal Insufficiency. Denies: Hx Peritoneal Dialysis Malignancy Medical History: Reports: None GI Medical History: Reports: Hx Gastroesophageal Reflux Disease Musculoskeletal Medical History: Reports None Skin Medical History: Reports None Psychiatric Medical History: Reports: Hx Dementia, Hx Depression Traumatic Medical History: Reports: None Infectious Medical History: Reports: None Past Surgical History: Reports: Hx Abdominal Surgery, Hx Appendectomy, Hx Gynecologic Surgery - oopherectomy, Hx Orthopedic Surgery - bilateral hips, back , Hx Urinary Tract Surgery, Hx Vascular Surgery - fistula - Immunizations Immunizations up to date: Yes Hx Diphtheria, Pertussis, Tetanus Vaccination: Yes History of Influenza Vaccine for 07/2017 - 12/2017 Season: Unknown Hx Pneumococcal Vaccination: 10/08/16 Review of Systems - Review of Systems Constitutional: No symptoms reported EENT: No symptoms reported Cardiovascular: See HPI, Dyspnea Respiratory: Cough, Short of breath, Wheezing Gastrointestinal: No symptoms reported Genitourinary: No symptoms reported Female Genitourinary: No symptoms reported Musculoskeletal: No symptoms reported Skin: No symptoms reported Hematologic/Lymphatic: No symptoms reported Neurological/Psychological: No symptoms reported -: Yes All other systems reviewed and negative Physical Exam - Vital signs Vitals: Pulse Ox 99 09/17/18 23:54 Interpretation: Normal - General General appearance: Alert, Other - Appears tired In distress: Mild - HEENT Head: Normocephalic, Atraumatic Eyes: Normal Pupils: PERRL - Respiratory Respiratory status: Respiratory distress, Tachypnea Chest status: Nontender Breath sounds: Decreased air movement, Wheezing Chest palpation: Normal - Cardiovascular Rhythm: Regular Heart sounds: Normal auscultation Murmur: No - Abdominal Inspection: Normal Distension: No distension Bowel sounds: Normal Tenderness: Nontender Organomegaly: No organomegaly - Rectal Notes: Deferred - Genitourinary Notes: Deferred - Back Back: Normal, Nontender - Extremities General upper extremity: Normal inspection, Nontender, Normal color, Normal ROM , Normal temperature General lower extremity: Normal inspection, Nontender, Normal color, Normal ROM , Normal temperature, Normal weight bearing. No: Megan's sign - Neurological Neuro grossly intact: Yes Cognition: Normal Orientation: AAOx4 [place] Coma Scale Eye Opening: Spontaneous [place] Coma Scale Verbal: Oriented Jayshree Coma Scale Motor: Obeys Commands Jayshree Coma Scale Total: 15 Speech: Normal Motor strength normal: LUE, RUE, LLE, RLE Sensory: Normal - Psychological Associated symptoms: Normal affect, Normal mood - Skin Skin Temperature: Warm Skin Moisture: Dry Skin Color: Normal Course - Re-evaluation Re-evalutation: 09/18/18 02:56 Appears consistent with COPD exacerbation. Plan to obtain labs, chest x-ray, cardiac enzymes, give IV magnesium with albuterol breathing treatments, and admit to the hospital. 09/18/18 04:02 Chest x-ray shows likely developing right basilar pneumonia. White blood count is normal. Mild elevation of cardiac enzymes likely secondary to cardiac strain as well as chronic renal failure, no evidence of EKG changes and below the cutoff for acute PR. Patient is admitted to the hospital. - Vital Signs Vital signs: Temp Pulse Resp BP Pulse Ox 23 H 115/62 95 09/18/18 02:01 09/18/18 02:01 09/18/18 02:01 - Laboratory Result Diagrams: 09/18/18 01:36 09/18/18 01:36 Laboratory results interpreted by me: 09/18/18 09/18/18 09/18/18 01:36 01:36 01:36 WBC 10.6 H RBC 2.82 L Hgb 8.5 L Hct 25.6 L RDW 15.5 H Seg Neuts % (Manual) 91 H Lymphocytes % (Manual) 3 L Abs Neuts (Manual) 9.6 H Abs Lymphs (Manual) 0.3 L Carbonic Acid ABG pH ABG pCO2 ABG Total CO2 BUN 69 H Creatinine 3.05 H Est GFR ( Amer) 18 L Est GFR (Non-Af Amer) 15 L Glucose 179 H Calcium 8.2 L NT-Pro-B Natriuret Pep 27593 H 09/18/18 01:56 WBC RBC Hgb Hct RDW Seg Neuts % (Manual) Lymphocytes % (Manual) Abs Neuts (Manual) Abs Lymphs (Manual) Carbonic Acid 1.56 H ABG pH 7.28 L ABG pCO2 51.8 H ABG Total CO2 25.4 H BUN Creatinine Est GFR ( Amer) Est GFR (Non-Af Amer) Glucose Calcium NT-Pro-B Natriuret Pep - Diagnostic Test Radiology reviewed: Reports reviewed - EKG Interpretation by Me EKG shows normal: Sinus rhythm Rate: Normal Rhythm: NSR Voltage: No: Increased voltage, Consistant with LVH, Decreased voltage, Throughout, Limb leads P Waves: No: RADHA, LAE, Absent, AV Dissociation, Other Heart block present: No: 1st Degree, Mobitz 1, Mobitz 2, CHB (3rd degree block) When compared to previous EKG there are: Previous EKG unavailable - Consults Dr. Clark Time consulted: 04:03 - will admit Consulted provider: will come to ER Discharge - Discharge Clinical Impression: Shortness of breath, COPD exacerbation, Elevated troponin Community acquired pneumonia Qualifiers: Laterality: right Lung location: lower lobe of lung Qualified Code(s): J18.1 - Lobar pneumonia, unspecified organism Chronic renal failure Qualifiers: Chronic kidney disease stage: stage 4 (severe) Qualified Code(s): N18.4 - Chronic kidney disease, stage 4 (severe) Condition: Stable Disposition: ADMITTED INPATIENT Admitting Provider: Hospitalist Unit Admitted: IMCU Referrals: MINDA GABRIEL MD [Primary Care Provider] - Follow up as needed
[2018-09-18] MEDS ORDERED: MAGNESIUM SULFATE/D5W 1 GM/100 ML RTUPB IV ONE (01:15)
[2018-09-18] MEDS ORDERED: ALBUTEROL SULFATE 0.083% NEB 2.5 MG/3 ML AMPUL NEB ONE (01:15)
[2018-09-18 01:53] LABS: HEMATOCRIT 25.6 % (36.0-47.0); HEMOGLOBIN 8.5 g/dL (12.0-15.5); MEAN CORPUSCULAR HEMOGLOBIN 30.1 pg (27.0-33.4); MEAN CORPUSCULAR HGB CONC 33.1 g/dL (32.0-36.0); MEAN CORPUSCULAR VOLUME 91 fl (80-97); PLATELET COUNT 163 10^3/uL (150-450); RED BLOOD COUNT 2.82 10^6/uL (3.72-5.28); RED CELL DISTRIBUTION WIDTH 15.5 % (11.5-14.0); WHITE BLOOD COUNT 10.6 10^3/uL (4.0-10.5)
[2018-09-18 02:06] LABS: ARTERIAL BLOOD H2CO3 1.56 mmol/L (1.05-1.35); ARTERIAL BLOOD HCO3 23.8 mmol/L (20-24); ARTERIAL BLOOD O2 SATURATION 94.6 % (94-98); ARTERIAL BLOOD PCO2 51.8 mmHg (35-45); ARTERIAL BLOOD PH 7.28 (7.35-7.45); ARTERIAL BLOOD PO2 81.7 mmHg (80-100); ARTERIAL BLOOD TOTAL CO2 25.4 mmol/L (21-25)
[2018-09-18 02:07] LABS: ARTERIAL BLOOD FIO2 36%
[2018-09-18 02:08] LABS: ABSOLUTE LYMPHOCYTES# (MANUAL) 0.3 10^3/uL (0.5-4.7); ABSOLUTE MONOCYTES # (MANUAL) 0.5 10^3/uL (0.1-1.4); ABSOLUTE NEUTROPHILS# (MANUAL) 9.6 10^3/uL (1.7-8.2); BASOPHILS % (MANUAL) 0 % (0-2); EOSINOPHILS % (MANUAL) 1 % (0-6); LYMPHOCYTES % (MANUAL) 3 % (13-45); MONOCYTES % (MANUAL) 5 % (3-13); SEGMENTED NEUTROPHILS % (MAN) 91 % (42-78); TOTAL CELLS COUNTED 100
[2018-09-18 02:09] LABS: ANISOCYTOSIS SLIGHT; OVALOCYTES SLIGHT; PLATELET COMMENT ADEQUATE; POIKILOCYTOSIS SLIGHT
[2018-09-18 02:10] LABS: ALANINE AMINOTRANSFERASE 35 U/L (9-52); ALBUMIN 3.6 g/dL (3.5-5.0); ALKALINE PHOSPHATASE 54 U/L (38-126); ANION GAP 13 (5-19); ASPARTATE AMINO TRANSFERASE 28 U/L (14-36); BILIRUBIN,DIRECT 0.4 mg/dL (0.0-0.4); BILIRUBIN,TOTAL 0.5 mg/dL (0.2-1.3); BLOOD UREA NITROGEN 69 mg/dL (7-20); CALCIUM 8.2 mg/dL (8.4-10.2); CARBON DIOXIDE 23 mmol/L (22-30); CHLORIDE 105 mmol/L (98-107); CREATINE KINASE 49 U/L (30-135); GLUCOSE 179 mg/dL (75-110); POTASSIUM 4.1 mmol/L (3.6-5.0); SODIUM 141.3 mmol/L (137-145); TOTAL PROTEIN 6.6 g/dL (6.3-8.2)
[2018-09-18 02:21] LABS: CREATINE KINASE MB 1.63 ng/mL (<4.55)
[2018-09-18 02:24] LABS: TROPONIN I 0.082 ng/mL
--- NOTE | 2018-09-18 02:24 | RADIOLOGY REPORT (SQ) ---
EXAM DESCRIPTION: XR CHEST 1 VIEW COMPLETED DATE/TME: 09/18/2018 01:04 CLINICAL HISTORY: 78 years, Female, Shortness of breath COMPARISON: 11-18 chest x-ray NUMBER OF VIEWS: 1 TECHNIQUE: Frontal view the chest LIMITATIONS: None. FINDINGS: Heart size at the upper limits of normal. Osteopenia. Coarse interstitial changes bilaterally suggesting interstitial edema and/or pneumonitis.. Mild atheromatous change thoracic aorta. No pneumothorax. Superimposed airspace opacity over the right lung base, suspicious for pneumonia. Blunting of the costophrenic angles bilaterally consistent with small effusions and/or pleural thickening. IMPRESSION: Coarse interstitial changes bilaterally, suggesting interstitial edema and/or pneumonitis,. Superimposed airspace opacity over the right lung base, concerning for pneumonia. Small bibasilar effusions/pleural thickening also noted. copyright 2010 [employer]- All Rights Reserved
[2018-09-18] MEDS ORDERED: AZITHROMYCIN INJ 500 MG VIAL IV ONE (03:00)
[2018-09-18] MEDS ORDERED: ASPIRIN 325 MG TABLET PO ONE (03:21)
[2018-09-18] MEDS ORDERED: CEFTRIAXONE 1 GM/D5W RTU 1 GM/50 ML RTUPB IV ONE (03:34)
[2018-09-18] MEDS ORDERED: ALBUTEROL SULFATE 0.083% NEB 2.5 MG/3 ML AMPUL NEB PRN (05:54)
[2018-09-18] MEDS ORDERED: ACETAMINOPHEN 325 MG TABLET PO PRN (05:54)
[2018-09-18] MEDS ORDERED: ACETAMINOPHEN 650 MG SUPP.RECT PR PRN (05:54)
[2018-09-18] MEDS ORDERED: MAG HYDROX/AL HYDROX/SIMETH SUSP 30 ML UDCUP PO PRN (05:58)
[2018-09-18] MEDS ORDERED: MAGNESIUM HYDROXIDE SUSP 30 ML UDCUP PO PRN (05:58)
[2018-09-18] MEDS ORDERED: ONDANSETRON 4 MG TAB.RAPDIS PO PRN (05:58)
[2018-09-18] MEDS ORDERED: ONDANSETRON HCL INJ/PF 4 MG/2 ML SDV IV PRN (05:58)
[2018-09-18] MEDS: LEVOTHYROXINE SODIUM 0.05 MG TABLET PO SCH (08:00)
[2018-09-18] MEDS: METHYLPREDNISOLONE INJ 40 MG/1 ML SDV IV SCH ×3 (08:01→18:10)
[2018-09-18] MEDS: HEPARIN SOD (PORCINE) 5,000 UNIT/ML 1 ML SYRINGE SUBCUT SCH ×3 (08:02→21:20)
[2018-09-18] MEDS: LEVALBUTEROL HCL NEB 1.25 MG/3 ML AMPUL NEB SCH ×3 (08:30→23:57)
[2018-09-18] MEDS: IPRATROPIUM BROMIDE 0.02% NEB 0.5 MG/2.5 ML AMPUL NEB SCH ×3 (08:30→23:57)
[2018-09-18] MEDS: BUDESONIDE NEB 0.5 MG/2 ML AMPUL NEB SCH ×2 (08:30→19:33)
[2018-09-18] MEDS: PANTOPRAZOLE SODIUM 40 MG VIAL IV SCH ×2 (09:31→21:20)
[2018-09-18] MEDS: LEVOFLOXACIN 500 MG TABLET PO SCH (09:32)
[2018-09-18] MEDS ORDERED: SODIUM BICARBONATE 650 MG TABLET PO SCH (10:00)
[2018-09-18] MEDS ORDERED: DOCUSATE SODIUM 100 MG CAPSULE PO SCH (10:00)
[2018-09-18] MEDS ORDERED: TAMSULOSIN HCL 0.4 MG CAP.SR.24H PO SCH (10:00)
--- NOTE | 2018-09-18 11:40 | PDOC H&P ---
History of Present Illness Admission Date/PCP: 09/18/18 04:10 MINDA GABRIEL MD Patient complains of: dyspnea History of Present Illness: PADMINI MISHRA is a 78 year old female who presented to the ER with a one day history of worsening dyspnea. She admits developing a sudden onset of dyspnea the day before her admission. The dyspnea worsened from moderate at onset to severe by the time she summoned EMS several hours later. The dyspnea was accompanied by a nonproductive cough and a sensation of chest tightness not allowing a deep breath. She used her home inhalers and nebulizer therapy with initial improvement but her symptoms returned and were unresponsive to her home medications. She admits that she improved somewhat in the ambulance after getting Solu-medrol and a Duoneb. She acknowledges several prior similar episodes with her COPD, but she has not identified any aggravating factors for her dyspnea and has also not identified any other ameliorating factors than those already discussed. In the ER she was found to be hypercapneic and hypoxic and was subsequently admitted for ongoing therapeutic intervention. Past Medical History Cardiac Medical History: Reports: Coronary Artery Disease, Hyperlipidema Pulmonary Medical History: Reports: Chronic Obstructive Pulmonary Disease (COPD) , Respiratory Failure EENT Medical History: Reports: None Neurological Medical History: Denies: Multiple Sclerosis, Seizures Endocrine Medical History: Reports: Hypothyroidism Denies: Diabetes Mellitus Type 1, Diabetes Mellitus Type 2, Hyperthyroidism Renal/ Medical History: Reports: Chronic Kidney Disease, End Stage Renal Disease Malignancy Medical History: Reports: None GI Medical History: Reports: Gastroesophageal Reflux Disease Denies: Cirrhosis, Hepatitis Musculoskeltal Medical History: Denies: Arthritis, Gout Skin Medical History: Denies: Eczema, Psoriasis Psychiatric Medical History: Reports: Dementia, Depression Denies: Alcohol Dependency, Substance Abuse, Tobacco Dependency Traumatic Medical History: Reports: None Hematology: Reports: Anemia Denies: Bleeding Tendencies Infectious Medical History: Reports: None Past Surgical History Past Surgical History: Reports: Appendectomy, Orthopedic Surgery - bilateral hips, back, Vascular Surgery - fistula Social History Information Source: Patient Lives with: Alone Smoking Status: Former Smoker Frequency of Alcohol Use: None Hx Recreational Drug Use: No Drugs: None Hx Prescription Drug Abuse: No - Advance Directive Resuscitation Status: Do Not Resuscitate Surrogate healthcare decision maker:: son Family History Family History: Hyperlipidemia Parental Family History Reviewed: Yes Children Family History Reviewed: No Sibling(s) Family History Reviewed.: Yes Medication/Allergy Home Medications: Acetaminophen [Tylenol 325 mg Tablet] 650 mg PO Q6HP PRN 18 Alprazolam [Xanax 0.25 mg Tablet] 0.25 mg PO BIDP PRN 18 Atorvastatin Calcium [Lipitor 40 mg Tablet] 40 mg PO QAM 18 Cyanocobalamin (Vitamin B-12) [Vitamin B-12 100 mcg Tablet] 400 mcg PO QAM 09/1818 Cyanocobalamin/Folic AC/Vit B6 [Folbic Tablet] 1 tab PO QAM 18 Docusate Sodium [Colace 100 mg Capsule] 100 mg PO BIDP PRN 18 Donepezil HCl [Aricept] 10 mg PO QAM 18 Duloxetine HCl [Cymbalta] 60 mg PO QAM 18 Fluticasone Propionate [Flonase Nasal Almo 50 Mcg/Almo 16 gm] 1 spray NASL QAM 09/18/18 Gabapentin [Neurontin 300 mg Capsule] 300 mg PO QHS 09/18/18 Ipratropium/Albuterol Sulfate [Duoneb 3 ml Ampul] 3 ml NEB RTQ3HP PRN 09/18/18 Levothyroxine Sodium 200 mcg PO Q6AM 09/18/18 Omeprazole 20 mg PO DAILY 09/18/18 Ondansetron HCl [Zofran 4 mg Tablet] 4 mg PO Q6HP PRN 18 Polyvinyl Alcohol [Liquitears 1.4% Ophth Soln 15 ml] 1 drop OU ASDIR PRN Salmeterol Xinafoate [Serevent Diskus 50 Mcg/Dose 28 Dose/Diskus] 1 puff IH BID 09/18/18 Sodium Bicarbonate [Sodium Bicarbonate 650 mg Tablet] 1,950 mg PO QAM 09/18/18 Tamsulosin HCl [Flomax 0.4 mg Cap.sr] 0.4 mg PO QAM 18 Tiotropium [place] [Spiriva Handihaler 5 Cap/Kit (18 Mcg/Cap)] 2 cap IH QAM 09/24 Tramadol HCl [Ultram 50 mg Tablet] 50 mg PO Q8HP PRN 18 Trazodone HCl [Desyrel 50 mg Tablet] 25 mg PO QHS 09/18/18 Allergies/Adverse Reactions: No Known Allergies Allergy (Verified 08/09/18 07:59) Review of Systems Constitutional: ABSENT: chills, fever(s) Eyes: ABSENT: visual disturbances, other - Eye pain Ears: ABSENT: hearing changes, other - Ear Pain Nose, Mouth, and Throat: ABSENT: mouth pain, sore throat Cardiovascular: ABSENT: chest pain, dyspnea on exertion, palpitations Respiratory: ABSENT: cough, dyspnea Gastrointestinal: ABSENT: abdominal pain, constipation, diarrhea, nausea, vomiting Genitourinary: ABSENT: dysuria, hematuria Musculoskeletal: ABSENT: back pain, joint swelling Integumentary: ABSENT: pruritus, rash Neurological: ABSENT: convulsions, focal weakness, syncope Psychiatric: ABSENT: anxiety, depression Endocrine: ABSENT: cold intolerance, heat intolerance Hematologic/Lymphatic: ABSENT: easy bleeding, easy bruising Physical Exam Vital Signs: Temp Pulse Resp BP Pulse Ox 97.8 F 94 24 H 129/62 H 97 09/18/18 09:19 09/18/18 08:30 09/18/18 08:30 09/18/18 10:14 09/18/18 10:14 Intake & Output 09/16/18 09/17/18 09/18/18 23:59 23:59 23:59 Intake Total 50 Balance 50 Weight 58.3 kg General appearance: PRESENT: no acute distress, cooperative Head exam: PRESENT: atraumatic, normocephalic Eye exam: PRESENT: EOMI. ABSENT: scleral icterus Ear exam: PRESENT: normal external ear exam. ABSENT: bleeding Mouth exam: PRESENT: dry mucosa, neck supple Neck exam: ABSENT: JVD, thyromegaly, tracheal deviation Respiratory exam: PRESENT: decreased breath sounds - all shannon, prolonged expiratory phas - mildly prolonged, symmetrical, wheezes - mild throughout. ABSENT: rales, rhonchi Cardiovascular exam: PRESENT: RRR. ABSENT: clicks, gallop, rubs Pulses: PRESENT: normal radial pulses, normal dorsalis pedis pul Vascular exam: PRESENT: normal capillary refill. ABSENT: pallor GI/Abdominal exam: PRESENT: normal bowel sounds, soft Rectal exam: PRESENT: deferred Extremities exam: ABSENT: joint swelling, pedal edema Musculoskeletal exam: ABSENT: deformity, dislocation Neurological exam: PRESENT: alert, oriented to person, oriented to place. ABSENT: oriented to time, oriented to situation Psychiatric exam: PRESENT: appropriate affect, normal mood, other - mild confusion/distraction at times Skin exam: PRESENT: dry, intact, warm. ABSENT: jaundice, rash, urticaria Results Impressions: Chest X-Ray 09/18/18 01:04 IMPRESSION: Coarse interstitial changes bilaterally, suggesting interstitial edema and/or pneumonitis,. Superimposed airspace opacity over the right lung base, concerning for pneumonia. Small bibasilar effusions/pleural thickening also noted. copyright 2010 [employer]- All Rights Reserved Assessment & Plan - Diagnosis (1) Acute respiratory failure with hypoxia and hypercapnia Is this a current diagnosis for this admission?: Yes Plan: Treat with Supplemental O2, an aggressive pulmonary toilet and steroids. Follow CBC's and ABG's. BiPAP as needed. Consider pulmonary consult. (2) COPD exacerbation Is this a current diagnosis for this admission?: Yes Plan: Treat with Supplemental O2, an aggressive pulmonary toilet and steroids. (3) Dementia Qualifiers: Dementia type: unspecified type Dementia behavioral disturbance: without behavioral disturbance Qualified Code(s): F03.90 - Unspecified dementia without behavioral disturbance Is this a current diagnosis for this admission?: Yes Plan: Mild disease. Review therapy in light of evidence based finding. (4) Chronic kidney disease, stage IV (severe) Is this a current diagnosis for this admission?: Yes Plan: Consider when dosing all medications. Follow metabolic profiles. - Time Time Spent: 30 to 50 Minutes Critical Time spent with patient: Less than 15 minutes Medications reviewed and adjusted accordingly: Yes - Inpatient Certification Based on my medical assessment, after consideration of the patient's comorbidities, presenting symptoms, or acuity I expect that the services needed warrant INPATIENT care.: Yes I certify that my determination is in accordance with my understanding of Medicare's requirements for reasonable and necessary INPATIENT services [42 CFR 412.3e].: Yes Medical Necessity: Significant Comorbidiites Make Outpatient Treatment Too Risky , Need Close Monitoring Due to Risk of Patient Decompensation, Need for Nebulizer Therapy and Monitoring of Response, Risk of Complication if Not Cared For in Hospital
[2018-09-18] MEDS ORDERED: FUROSEMIDE INJ/PF 20 MG/2 ML SDV IV ONE (13:04)
[2018-09-18] MEDS ORDERED: (PENDING PHARMACY ID) (Ondansetron Hcl [Zofran 4 Mg Tablet] 4 MG) PO PRN (14:34)
[2018-09-18] MEDS ORDERED: DOCUSATE SODIUM 100 MG CAPSULE PO PRN (14:34)
[2018-09-18] MEDS: ALPRAZOLAM 0.25 MG TABLET PO PRN (15:54)
[2018-09-18] MEDS: SALMETEROL XINAFOATE DISKUS 50 MCG/1 DOSE 28 DOSE IH SCH (19:09)
--- NOTE | 2018-09-18 20:48 | EKG REPORT ---
SEVERITY:- ABNORMAL ECG - SINUS RHYTHM PROBABLE LEFT ATRIAL ABNORMALITY PROBABLE LEFT VENTRICULAR HYPERTROPHY : Confirmed by: Lynn Green MD 18-Sep-2018 20:48:10
[2018-09-18] MEDS: TRAZODONE HCL 50 MG TABLET PO SCH (21:21)
[2018-09-18] MEDS: GABAPENTIN 300 MG CAPSULE PO SCH (21:21)
[2018-09-18] MEDS ORDERED: ATORVASTATIN CALCIUM 20 MG TABLET PO SCH (22:00)
[2018-09-19] MEDS: HEPARIN SOD (PORCINE) 5,000 UNIT/ML 1 ML SYRINGE SUBCUT SCH ×3 (05:10→21:11)
[2018-09-19] MEDS: LEVOTHYROXINE SODIUM 0.05 MG TABLET PO SCH (05:12)
[2018-09-19 05:25] LABS: HEMATOCRIT 23.5 % (36.0-47.0); MEAN CORPUSCULAR HEMOGLOBIN 29.5 pg (27.0-33.4); MEAN CORPUSCULAR HGB CONC 32.9 g/dL (32.0-36.0); MEAN CORPUSCULAR VOLUME 90 fl (80-97); PLATELET COUNT 170 10^3/uL (150-450); RED BLOOD COUNT 2.62 10^6/uL (3.72-5.28); RED CELL DISTRIBUTION WIDTH 15.4 % (11.5-14.0); WHITE BLOOD COUNT 14.3 10^3/uL (4.0-10.5)
[2018-09-19 05:28] LABS: HEMOGLOBIN 7.7 g/dL (12.0-15.5)
[2018-09-19 05:46] LABS: ANION GAP 14 (5-19); BLOOD UREA NITROGEN 76 mg/dL (7-20); CALCIUM 8.6 mg/dL (8.4-10.2); CARBON DIOXIDE 26 mmol/L (22-30); CHLORIDE 102 mmol/L (98-107); CHOLESTEROL 138.43 mg/dL (0-200); GLUCOSE 141 mg/dL (75-110); POTASSIUM 4.8 mmol/L (3.6-5.0); SODIUM 141.8 mmol/L (137-145); TRIGLYCERIDES 52 mg/dL (<150)
[2018-09-19 05:57] LABS: DIRECT LDL 71 mg/dL (<100)
[2018-09-19] MEDS ORDERED: LANSOPRAZOLE 15 MG TAB.RAP.DR PO SCH (06:00)
[2018-09-19] MEDS ORDERED: LEVOTHYROXINE SODIUM 0.1 MG TABLET PO SCH (06:00)
[2018-09-19] MEDS ORDERED: (PENDING PHARMACY ID) (Levothyroxine Sodium [Levothyroxine Sodium] 200 MCG) PO SCH (06:00)
[2018-09-19 06:04] LABS: ABSOLUTE LYMPHOCYTES# (MANUAL) 0.3 10^3/uL (0.5-4.7); ABSOLUTE MONOCYTES # (MANUAL) 0.4 10^3/uL (0.1-1.4); ABSOLUTE NEUTROPHILS# (MANUAL) 13.6 10^3/uL (1.7-8.2); BAND NEUTROPHILS % (MANUAL) 1 % (3-5); BASOPHILS % (MANUAL) 0 % (0-2); EOSINOPHILS % (MANUAL) 0 % (0-6); LYMPHOCYTES % (MANUAL) 2 % (13-45); MONOCYTES % (MANUAL) 3 % (3-13); SEGMENTED NEUTROPHILS % (MAN) 94 % (42-78); TOTAL CELLS COUNTED 100
[2018-09-19 06:05] LABS: ANISOCYTOSIS SLIGHT; OVALOCYTES 1+; PLATELET CLUMPS PRESENT; PLATELET COMMENT ADEQUATE; PLATELET LARGE PRESENT; POIKILOCYTOSIS 1+; SCHISTOCYTES 1+; TEAR DROP CELLS SLIGHT; TOXIC GRANULATION SLIGHT
[2018-09-19] MEDS ORDERED: (PENDING PHARMACY ID) (Donepezil Hcl [Aricept] 10 MG) PO SCH (08:00)
[2018-09-19] MEDS ORDERED: TIOTROPIUM BROMIDE DPI 5 CAP/KIT (18 MCG/CAP) IH SCH (08:00)
[2018-09-19] MEDS: ATORVASTATIN CALCIUM 40 MG TABLET PO SCH (08:12)
[2018-09-19] MEDS: DULOXETINE HCL 30 MG CAPSULE.DR PO SCH (08:12)
[2018-09-19] MEDS: TAMSULOSIN HCL 0.4 MG CAP.SR.24H PO SCH (08:12)
[2018-09-19] MEDS: DONEPEZIL HCL 5 MG TABLET PO SCH (08:12)
[2018-09-19] MEDS: SODIUM BICARBONATE 650 MG TABLET PO SCH (08:12)
[2018-09-19] MEDS: FLUTICASONE NASAL SPRAY 50 MCG/SPRY 120 SPRAY/16 GM NASL SCH (08:13)
[2018-09-19] MEDS: TIOTROPIUM BROMIDE DPI 5 CAP/KIT (18 MCG/CAP) IH SCH (08:13)
[2018-09-19] MEDS: BUDESONIDE NEB 0.5 MG/2 ML AMPUL NEB SCH ×2 (08:40→20:14)
[2018-09-19] MEDS: IPRATROPIUM BROMIDE 0.02% NEB 0.5 MG/2.5 ML AMPUL NEB SCH ×2 (08:41→16:21)
[2018-09-19] MEDS: LEVALBUTEROL HCL NEB 1.25 MG/3 ML AMPUL NEB SCH ×2 (08:41→16:21)
[2018-09-19] MEDS: SALMETEROL XINAFOATE DISKUS 50 MCG/1 DOSE 28 DOSE IH SCH ×2 (09:00→17:26)
[2018-09-19] MEDS: PANTOPRAZOLE SODIUM 40 MG VIAL IV SCH ×2 (09:01→21:10)
[2018-09-19] MEDS: LEVOFLOXACIN 500 MG TABLET PO SCH (09:01)
--- NOTE | 2018-09-19 18:31 | PDOC PROGRESS REPORT ---
Subjective Progress Note for:: 09/19/18 Subjective:: Pt is breathing better today, mild cough, dry. No fever or chills. Appetite good. Has some mild diarrhea (has IBS) and no emesis. She tells me she has no green belt that follows her COPD. Reason For Visit: ACUTE EXACERBATION OF COPD,ACUTE ON CHRONIC Physical Exam Vital Signs: Temp Pulse Resp BP Pulse Ox 98.4 F 84 20 108/51 L 100 09/19/18 15:59 09/19/18 15:59 09/19/18 15:59 09/19/18 15:59 09/19/18 15:59 Intake & Output 09/18/18 09/19/18 09/20/18 06:59 06:59 06:59 Intake Total 50 666 754 Output Total 1 Balance 50 665 754 Weight 53 kg General appearance: PRESENT: no acute distress, cooperative, thin Head exam: PRESENT: atraumatic, normocephalic Eye exam: ABSENT: conjunctival injection, scleral icterus Mouth exam: PRESENT: moist Respiratory exam: PRESENT: decreased breath sounds, unlabored. ABSENT: rales, rhonchi, wheezes Cardiovascular exam: PRESENT: RRR. ABSENT: systolic murmur Pulses: PRESENT: normal radial pulses GI/Abdominal exam: PRESENT: normal bowel sounds, soft. ABSENT: distended, tenderness Neurological exam: PRESENT: alert, awake, oriented to person, oriented to place , oriented to situation, CN II-XII grossly intact Psychiatric exam: PRESENT: appropriate affect. ABSENT: anxious Skin exam: PRESENT: dry, intact, warm Results Laboratory Results: 09/19/18 04:33 09/19/18 04:33 09/19/18 09/19/18 09/19/18 04:33 04:33 04:33 WBC 14.3 H RBC 2.62 L Hgb 7.7 L Hct 23.5 L MCV 90 MCH 29.5 MCHC 32.9 RDW 15.4 H Plt Count 170 Seg Neutrophils % Not Reportable Lymphocytes % Not Reportable Monocytes % Not Reportable Eosinophils % Not Reportable Basophils % Not Reportable Absolute Neutrophils Not Reportable Absolute Lymphocytes Not Reportable Absolute Monocytes Not Reportable Absolute Eosinophils Not Reportable Absolute Basophils Not Reportable Sodium 141.8 Potassium 4.8 Chloride 102 Carbon Dioxide 26 Anion Gap 14 BUN 76 H Creatinine 2.92 H Est GFR ( Amer) 19 L Est GFR (Non-Af Amer) 16 L Glucose 141 H Calcium 8.6 Magnesium 2.7 H Triglycerides 52 Cholesterol 138.43 LDL Cholesterol Direct 71 VLDL Cholesterol 10.0 HDL Cholesterol 58 TSH 0.14 L Impressions: Chest X-Ray 09/18/18 01:04 IMPRESSION: Coarse interstitial changes bilaterally, suggesting interstitial edema and/or pneumonitis,. Superimposed airspace opacity over the right lung base, concerning for pneumonia. Small bibasilar effusions/pleural thickening also noted. copyright 2010 [employer]- All Rights Reserved Assessment & Plan - Diagnosis (1) COPD exacerbation Is this a current diagnosis for this admission?: Yes Plan: Pt is feeling better, closer to her baseline. WIll cont current care with inhaled steroids and inhaled bronchodilators, will cont levaquin as well. (2) Acute respiratory failure with hypoxia and hypercapnia Is this a current diagnosis for this admission?: Yes Plan: Secondary to COPD exacerbation and possible bronchitis. Continue bronchodilators, inhaled steroids, Levaquin. (3) Chronic kidney disease, stage IV (severe) Is this a current diagnosis for this admission?: Yes Plan: Chronic and stable. Continue to monitor given need for medications and to assure appropriate dosing and to monitor for worsening of renal function. (4) Dementia Qualifiers: Dementia type: unspecified type Dementia behavioral disturbance: without behavioral disturbance Qualified Code(s): F03.90 - Unspecified dementia without behavioral disturbance Is this a current diagnosis for this admission?: Yes Plan: Per my assessment and per chart review this is mild. Type unknown. Continue her donepezil. - Time Time Spent with patient: 15-24 minutes Medications reviewed and adjusted accordingly: Yes - Inpatient Certification Based on my medical assessment, after consideration of the patient's comorbidities, presenting symptoms, or acuity I expect that the services needed warrant INPATIENT care.: Yes I certify that my determination is in accordance with my understanding of Medicare's requirements for reasonable and necessary INPATIENT services [42 CFR 412.3e].: Yes Medical Necessity: Need for Nebulizer Therapy and Monitoring of Response, Risk of Complication if Not Cared For in Hospital
--- NOTE | 2018-09-19 20:52 | XCELERA REPORT ---
[address] [address] Transthoracic Echocardiogram Report Name: PADMINI MISHRA Age: 78 yrs Gender: Female : 1940 Patient Status: Inpatient Patient Location: [address] [place] [address] Study Date: 09/19/2018 05:38 PM Height: 62 in Weight: 128 lb BSA: 1.6 m2 Procedure: A two-dimensional transthoracic echocardiogram with color flow and Doppler was performed. Study Quality: Poor. The study was technically difficult with many images being suboptimal in quality. Reason For Study: dyspnea, heart murmur History: dyspnea, heart murmur. Ordering Physician: AKANKSHA HOLLIS Performed By: Riddhi Finnegan Interpretation Summary The left ventricle is normal in size. There is normal left ventricular wall thickness. LV EF is 55% Left ventricular systolic function is low normal. Doppler measurements suggest normal left ventricular diastolic function The left ventricular wall motion is normal. The right ventricle is grossly normal size. The right atrium is normal. The left atrium is borderline dilated. There is no evidence of mitral valve prolapse. There is mild mitral stenosis There is moderate mitral annular calcification. Calcified mitral apparatus causing mitral stenosis. There is a trace to mild amount of mitral regurgitation There is no aortic valvular vegetation. There is no aortic valve stenosis There is no LVOT obstruction. There is aortic sclerosis without aortic stenosis. No aortic regurgitation is present. There is no tricuspid stenosis. Probably mild TR.Mild to moderate pulmonary hypertension.RVSP is 45 to 50 mm of Hg , with RA mean of 5 to 10. The pulmonic valve is not well visualized. The aortic root is not well visualized. There is no pericardial effusion. MMode/2D Measurements & Calculations RVDd: 2.4 cm LVIDd: 3.5 cm FS: 15.7 % Ao root diam: 2.3 cm IVSd: 0.98 cm LVIDs: 3.0 cm EDV(Teich): 51.3 ml Ao root area: 4.0 cm2 LVPWd: 1.1 cm ESV(Teich): 33.9 ml LA dimension: 3.9 cm EF(Teich): 34.0 % Doppler Measurements & Calculations MV E max janie: MV P1/2t max janie: Ao V2 max: LV V1 max P.0 cm/sec 217.2 cm/sec 168.7 cm/sec 12.8 mmHg MV A max janie: MV P1/2t: 76.9 msec Ao max PG: LV V1 max: 127.2 cm/sec MVA(P1/2t): 2.9 cm2 11.4 mmHg 178.9 cm/sec MV E/A: 1.2 MV dec slope: 827.1 cm/sec2 MV dec time: 0.23 sec PA V2 max: PI end-d janie: TR max janie: MV P1/2t-pr_phl: 100.4 cm/sec 108.6 cm/sec 315.8 cm/sec 76.9 msec PA max P.0 mmHg TR max P.9 mmHg Left Ventricle The left ventricle is normal in size. There is normal left ventricular wall thickness. LV EF is 55%. Left ventricular systolic function is low normal. Doppler measurements suggest normal left ventricular diastolic function. The left ventricular wall motion is normal. There is no thrombus. Right Ventricle The right ventricle is grossly normal size. Atria The right atrium is normal. The left atrium is borderline dilated. Mitral Valve There is moderate mitral annular calcification. Calcified mitral apparatus causing mitral stenosis. There is no evidence of mitral valve prolapse. There is mild mitral stenosis. There is a trace to mild amount of mitral regurgitation. Aortic Valve There is no aortic valvular vegetation. There is no aortic valve stenosis. There is no LVOT obstruction. There is aortic sclerosis without aortic stenosis. No aortic regurgitation is present. Tricuspid Valve There is no tricuspid stenosis. Probably mild TR.Mild to moderate pulmonary hypertension.RVSP is 45 to 50 mm of Hg , with RA mean of 5 to 10. Pulmonic Valve The pulmonic valve is not well visualized. Great Vessels The aortic root is not well visualized. Effusions There is no pericardial effusion. : AKANKSHA HOLLIS > Lynn Green
[2018-09-19 20:53] LABS: FREE T3 2.18 pg/mL (2.77-5.27); FREE T4 (FREE THYROXINE) 2.21 ng/dL (0.78-2.19)
[2018-09-19] MEDS: TRAZODONE HCL 50 MG TABLET PO SCH (21:10)
[2018-09-19] MEDS: GABAPENTIN 300 MG CAPSULE PO SCH (21:11)
[2018-09-19] MEDS: ALPRAZOLAM 0.25 MG TABLET PO PRN (23:46)
[2018-09-20] MEDS: LEVALBUTEROL HCL NEB 1.25 MG/3 ML AMPUL NEB SCH ×2 (00:29→08:43)
[2018-09-20] MEDS: IPRATROPIUM BROMIDE 0.02% NEB 0.5 MG/2.5 ML AMPUL NEB SCH ×2 (00:29→08:43)
[2018-09-20] MEDS: LEVOTHYROXINE SODIUM 0.05 MG TABLET PO SCH (05:10)
[2018-09-20] MEDS: HEPARIN SOD (PORCINE) 5,000 UNIT/ML 1 ML SYRINGE SUBCUT SCH ×3 (05:10→21:31)
[2018-09-20 05:12] LABS: ABSOLUTE EOSINOPHILS # (AUTO) 0.2 10^3/uL (0.0-0.6); ABSOLUTE LYMPHOCYTES (AUTO) 0.9 10^3/uL (0.5-4.7); ABSOLUTE MONOCYTES (AUTO) 0.6 10^3/uL (0.1-1.4); ABSOLUTE NEUT (AUTO) 7.1 10^3/uL (1.7-8.2); BASOPHILS % (AUTO) 0.4 % (0-2); EOSINOPHILS % (AUTO) 1.8 % (0-6); HEMATOCRIT 22.8 % (36.0-47.0); LYMPHOCYTES % (AUTO) 10.6 % (13-45); MEAN CORPUSCULAR HEMOGLOBIN 30.2 pg (27.0-33.4); MEAN CORPUSCULAR HGB CONC 33.9 g/dL (32.0-36.0); MEAN CORPUSCULAR VOLUME 89 fl (80-97); MONOCYTES % (AUTO) 6.6 % (3-13); PLATELET COUNT 171 10^3/uL (150-450); RED BLOOD COUNT 2.56 10^6/uL (3.72-5.28); RED CELL DISTRIBUTION WIDTH 15.7 % (11.5-14.0); SEGMENTED NEUTROPHILS % (AUTO) 80.6 % (42-78); TOTAL CELLS COUNTED % (AUTO) 100 %; WHITE BLOOD COUNT 8.8 10^3/uL (4.0-10.5)
[2018-09-20 05:15] LABS: HEMOGLOBIN 7.7 g/dL (12.0-15.5)
[2018-09-20 05:45] LABS: ANION GAP 13 (5-19); BLOOD UREA NITROGEN 77 mg/dL (7-20); CALCIUM 8.3 mg/dL (8.4-10.2); CARBON DIOXIDE 27 mmol/L (22-30); CHLORIDE 104 mmol/L (98-107); GLUCOSE 91 mg/dL (75-110)
[2018-09-20 05:53] LABS: POTASSIUM 3.7 mmol/L (3.6-5.0)
[2018-09-20] MEDS ORDERED: (PENDING PHARMACY ID) (Cyanocobalamin/Folic Ac/Vit B6 [Folbic Tablet] 1 TAB) PO SCH (08:00)
[2018-09-20] MEDS ORDERED: CYANOCOBALAMIN PO SCH (08:00)
[2018-09-20] MEDS: BUDESONIDE NEB 0.5 MG/2 ML AMPUL NEB SCH ×2 (08:43→19:52)
[2018-09-20] MEDS: FLUTICASONE NASAL SPRAY 50 MCG/SPRY 120 SPRAY/16 GM NASL SCH (09:54)
[2018-09-20] MEDS: LEVOFLOXACIN 500 MG TABLET PO SCH (09:54)
[2018-09-20] MEDS: SALMETEROL XINAFOATE DISKUS 50 MCG/1 DOSE 28 DOSE IH SCH ×2 (09:54→17:29)
[2018-09-20] MEDS: TIOTROPIUM BROMIDE DPI 5 CAP/KIT (18 MCG/CAP) IH SCH (09:54)
[2018-09-20] MEDS: TAMSULOSIN HCL 0.4 MG CAP.SR.24H PO SCH (09:54)
[2018-09-20] MEDS: DONEPEZIL HCL 5 MG TABLET PO SCH (09:55)
[2018-09-20] MEDS: CYANOCOBALAMIN/FA/PYRIDOXINE TABLET PO SCH (09:55)
[2018-09-20] MEDS: SODIUM BICARBONATE 650 MG TABLET PO SCH (09:56)
[2018-09-20] MEDS: ATORVASTATIN CALCIUM 40 MG TABLET PO SCH (09:57)
[2018-09-20] MEDS: PANTOPRAZOLE SODIUM 40 MG VIAL IV SCH (09:57)
[2018-09-20] MEDS: DULOXETINE HCL 30 MG CAPSULE.DR PO SCH (09:57)
[2018-09-20] MEDS: ACETAMINOPHEN 325 MG TABLET PO PRN (10:05)
[2018-09-20] MEDS: ALPRAZOLAM 0.25 MG TABLET PO PRN ×2 (10:05→21:31)
[2018-09-20] MEDS: POLYVINYL ALCOHOL 1.4% OPH SOLN 15 ML OU PRN (10:05)
--- NOTE | 2018-09-20 12:40 | PDOC CONSULTATION ---
Consultation Consult Date: 09/20/18 Attending physician:: DU KEITH Consult reason:: dyspnea History of Present Illness Admission Date/PCP: 09/18/18 04:10 MINDA GABRIEL MD History of Present Illness: PADMINI MISHRA is a 78 year old female, to ED after 3 days of increasing shortness of breath cough productive of clear phlegm,denies hemoptsis PPD neg date? 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, grew up in houses with gallstones [place] is one cat no recent travel no angina -like chest pain sleeps on 2 pillows edema Past Medical History Cardiac Medical History: Reports: Coronary Artery Disease, Hyperlipidema Pulmonary Medical History: Reports: Chronic Obstructive Pulmonary Disease (COPD) , Respiratory Failure EENT Medical History: Reports: None Neurological Medical History: Denies: Multiple Sclerosis, Seizures Endocrine Medical History: Reports: Hypothyroidism Denies: Diabetes Mellitus Type 1, Diabetes Mellitus Type 2, Hyperthyroidism Renal/ Medical History: Reports: Chronic Kidney Disease, End Stage Renal Disease Malignancy Medical History: Reports: None GI Medical History: Reports: Gastroesophageal Reflux Disease Denies: Cirrhosis, Hepatitis Musculoskeltal Medical History: Reports: None Denies: Arthritis, Gout Skin Medical History: Reports: None Denies: Eczema, Psoriasis Psychiatric Medical History: Reports: Dementia, Depression Denies: Alcohol Dependency, Substance Abuse, Tobacco Dependency Traumatic Medical History: Reports: None Hematology: Reports: Anemia Denies: Bleeding Tendencies Infectious Medical History: Reports: None Past Surgical History Past Surgical History: Reports: Appendectomy, Orthopedic Surgery - bilateral hips, back, Vascular Surgery - fistula Social History Information Source: Patient, [facility] Records Lives with: Alone Smoking Status: Former Smoker Number of Years Smokin Last Time Smoked: 2007 Frequency of Alcohol Use: None Hx Recreational Drug Use: No Drugs: None Hx Prescription Drug Abuse: No - Advance Directive Resuscitation Status: Do Not Resuscitate Family History Family History: CAD, Hyperlipidemia, Malignancy Parental Family History Reviewed: Yes Children Family History Reviewed: Yes Sibling(s) Family History Reviewed.: Yes Medication/Allergy Home Medications: Acetaminophen [Tylenol 325 mg Tablet] 650 mg PO Q6HP PRN 09/18/18 Alprazolam [Xanax 0.25 mg Tablet] 0.25 mg PO BIDP PRN 18 Atorvastatin Calcium [Lipitor 40 mg Tablet] 40 mg PO QAM 18 Cyanocobalamin (Vitamin B-12) [Vitamin B-12 100 mcg Tablet] 400 mcg PO QAM 09/1818 Cyanocobalamin/Folic AC/Vit B6 [Folbic Tablet] 1 tab PO QAM 09/18/18 Docusate Sodium [Colace 100 mg Capsule] 100 mg PO BIDP PRN 18 Donepezil HCl [Aricept] 10 mg PO QAM 18 Duloxetine HCl [Cymbalta] 60 mg PO QAM 18 Fluticasone Propionate [Flonase Nasal Askov 50 Mcg/Askov 16 gm] 1 spray NASL QAM 09/18/18 Gabapentin [Neurontin 300 mg Capsule] 300 mg PO QHS 09/18/18 Ipratropium/Albuterol Sulfate [Duoneb 3 ml Ampul] 3 ml NEB RTQ3HP PRN 09/18/18 Levothyroxine Sodium 200 mcg PO Q6AM 09/18/18 Omeprazole 20 mg PO DAILY 09/18/18 Ondansetron HCl [Zofran 4 mg Tablet] 4 mg PO Q6HP PRN 09/18/18 Polyvinyl Alcohol [Liquitears 1.4% Ophth Soln 15 ml] 1 drop OU ASDIR PRN Salmeterol Xinafoate [Serevent Diskus 50 Mcg/Dose 28 Dose/Diskus] 1 puff IH BID 09/18/18 Sodium Bicarbonate [Sodium Bicarbonate 650 mg Tablet] 1,950 mg PO QAM 09/18/18 Tamsulosin HCl [Flomax 0.4 mg Cap.sr] 0.4 mg PO QAM 18 Tiotropium Keene [Spiriva Handihaler 5 Cap/Kit (18 Mcg/Cap)] 1 cap IH QAM 09/24 Tramadol HCl [Ultram 50 mg Tablet] 50 mg PO Q8HP PRN 18 Trazodone HCl [Desyrel 50 mg Tablet] 25 mg PO QHS 18 Allergies/Adverse Reactions: No Known Allergies Allergy (Verified 08/09/18 07:59) Review of Systems Constitutional: PRESENT: fatigue, weakness Eyes: PRESENT: visual disturbances Ears: ABSENT: hearing changes Nose, Mouth, and Throat: ABSENT: mouth pain, sore throat Cardiovascular: PRESENT: dyspnea on exertion. ABSENT: edema, orthropnea, palpitations Respiratory: PRESENT: cough, dyspnea, sputum. ABSENT: hemoptysis Gastrointestinal: PRESENT: heartburn. ABSENT: abdominal pain, coffee ground emesis, hematemesis, hematochezia, melena Genitourinary: ABSENT: dysuria, hematuria Musculoskeletal: ABSENT: deformity, joint swelling Integumentary: ABSENT: pruritus, rash Neurological: ABSENT: abnormal gait, abnormal speech, confusion, frequent falls , lack of coordination, memory loss Psychiatric: ABSENT: hallucinations, homidical ideation, suicidal ideation Endocrine: ABSENT: cold intolerance, heat intolerance, polydipsia, polyuria Hematologic/Lymphatic: ABSENT: lymphadenopathy Allergic/Immunologic: ABSENT: seasonal rhinorrhea Physical Exam Vital Signs: Temp Pulse Resp BP Pulse Ox 98.3 F 85 16 119/67 97 09/20/18 07:52 09/20/18 07:52 09/20/18 07:52 09/20/18 07:52 09/20/18 07:52 Intake & Output 09/19/18 09/20/18 09/21/18 06:59 06:59 06:59 Intake Total 666 754 Output Total 1 Balance 665 754 Weight 53 kg General appearance: PRESENT: no acute distress, cooperative, disheveled, thin Head exam: PRESENT: normocephalic Eye exam: PRESENT: conjunctiva pale, EOMI. ABSENT: nystagmus, scleral icterus Mouth exam: PRESENT: dry mucosa, neck supple, tongue midline Neck exam: ABSENT: carotid bruit, JVD, lymphadenopathy, thyromegaly, tracheal deviation, tracheostomy Respiratory exam: PRESENT: decreased breath sounds, prolonged expiratory phas, rales, rhonchi, unlabored. ABSENT: retraction, stridor, tachypnea Cardiovascular exam: PRESENT: RRR, +S1, +S2 Pulses: PRESENT: normal radial pulses GI/Abdominal exam: PRESENT: soft. ABSENT: tenderness Extremities exam: ABSENT: calf tenderness, clubbing, joint swelling, pedal edema , tenderness Musculoskeletal exam: ABSENT: deformity, dislocation Neurological exam: PRESENT: alert, awake Psychiatric exam: PRESENT: appropriate affect Skin exam: PRESENT: dry, warm Results Laboratory Results: 09/20/18 04:33 09/20/18 04:33 09/19/18 09/20/18 09/20/18 04:33 04:33 04:33 WBC 8.8 RBC 2.56 L Hgb 7.7 L Hct 22.8 L MCV 89 MCH 30.2 MCHC 33.9 RDW 15.7 H Plt Count 171 Seg Neutrophils % 80.6 H Lymphocytes % 10.6 L Monocytes % 6.6 Eosinophils % 1.8 Basophils % 0.4 Absolute Neutrophils 7.1 Absolute Lymphocytes 0.9 Absolute Monocytes 0.6 Absolute Eosinophils 0.2 Absolute Basophils 0.0 Sodium 144.0 Potassium 3.7 D Chloride 104 Carbon Dioxide 27 Anion Gap 13 BUN 77 H Creatinine 2.67 H Est GFR ( Amer) 21 L Est GFR (Non-Af Amer) 17 L Glucose 91 Calcium 8.3 L Magnesium 2.7 H Free T4 2.21 H Free T3 pg/mL 2.18 L Impressions: Chest X-Ray 09/18/18 01:04 IMPRESSION: Coarse interstitial changes bilaterally, suggesting interstitial edema and/or pneumonitis,. Superimposed airspace opacity over the right lung base, concerning for pneumonia. Small bibasilar effusions/pleural thickening also noted. copyright 2010 [employer]- All Rights Reserved Assessment & Plan - Diagnosis (1) CKD (chronic kidney disease) stage 4, GFR 15-29 ml/min Is this a current diagnosis for this admission?: Yes Plan: GFR closely avoid nephrotoxic drugs, nephrology consult (2) Acute and chronic respiratory failure with hypercapnia Is this a current diagnosis for this admission?: Yes Plan: Consider holding the ectropion and ipratropium redundant with the albuterol ipratropium 0 holding the Serevent patient is off DuoNeb Generic Name Dose Route Start Last Admin Trade Name Freq PRN Reason Stop Dose Admin Tiotropium Keene 1 cap 09/19/18 08:00 09/20/18 09:54 Spiriva Handihaler 5 Cap/Kit (18 Mcg/Cap) IH 10/19/18 07:59 1 cap QAM TREY Budesonide 0.5 mg 09/18/18 08:00 09/20/18 08:43 Pulmicort Neb 0.5 Mg/2 Ml Ampul NEB 10/18/18 07:59 0.5 mg RTQ12 TREY Albuterol/Ipratropium 3 ml 09/20/18 12:15 Duoneb 3 Ml Ampul NEB 10/20/18 12:14 RTQ3HP PRN SOB/WHEEZING Salmeterol Xinafoate 50 mcg 09/18/18 18:00 09/20/18 09:54 Serevent Diskus 50 Mcg/Dose 28 Dose/Diskus IH 10/18/18 17:59 1 inh BID TREY Ipratropium Keene 0.5 mg 09/18/18 08:00 09/20/18 08:43 Atrovent 0.02% Neb 0.5 Mg/2.5 Ml Ampul NEB 10/18/18 07:59 0.5 mg RTQ8 TREY (3) Dementia Qualifiers: Dementia type: unspecified type Dementia behavioral disturbance: without behavioral disturbance Qualified Code(s): F03.90 - Unspecified dementia without behavioral disturbance Is this a current diagnosis for this admission?: Yes Plan: Lives in assisted living [facility] (4) HTN (hypertension) Qualifiers: Hypertension type: essential hypertension Qualified Code(s): I10 - Essential (primary) hypertension Is this a current diagnosis for this admission?: Yes Plan: Stable at this time
--- NOTE | 2018-09-20 13:45 | PDOC PROGRESS REPORT ---
Subjective Progress Note for:: 09/20/18 Subjective:: Patient is breathing significantly better. She feels that she is almost back to her baseline. She tells me that she comes [facility] a [facility] and she would like to go back home instead of the jail. As she does have some mild dementia I will have to corroborate this story with her shutdown planner and/ or family. Patient is not having fever or chills. She feels that her wheezing is almost completely resolved. No chest pain. No nausea or vomiting. She has chronic diarrhea and IBS. No dysuria. No fevers or chills. Reason For Visit: ACUTE EXACERBATION OF COPD,ACUTE ON CHRONIC Physical Exam Vital Signs: Temp Pulse Resp BP Pulse Ox 98.6 F 92 20 103/53 L 96 09/20/18 12:08 09/20/18 12:08 09/20/18 12:08 09/20/18 12:08 09/20/18 12:08 Intake & Output 09/19/18 09/20/18 09/21/18 06:59 06:59 06:59 Intake Total 666 754 Output Total 1 Balance 665 754 Weight 53 kg General appearance: PRESENT: no acute distress, cooperative, thin Head exam: PRESENT: atraumatic, normocephalic Eye exam: ABSENT: conjunctival injection, scleral icterus Ear exam: PRESENT: normal external ear exam Mouth exam: PRESENT: tongue midline. ABSENT: neck supple Neck exam: ABSENT: lymphadenopathy Respiratory exam: PRESENT: decreased breath sounds, unlabored. ABSENT: rales, rhonchi, wheezes Cardiovascular exam: PRESENT: RRR, systolic murmur Pulses: PRESENT: normal radial pulses GI/Abdominal exam: PRESENT: normal bowel sounds, soft. ABSENT: distended, guarding, tenderness Rectal exam: PRESENT: deferred Extremities exam: ABSENT: pedal edema Musculoskeletal exam: ABSENT: deformity Neurological exam: PRESENT: alert, awake, oriented to person, oriented to place , CN II-XII grossly intact Psychiatric exam: PRESENT: appropriate affect. ABSENT: anxious Skin exam: PRESENT: dry, intact, warm Results Laboratory Results: 09/20/18 04:33 09/20/18 04:33 09/19/18 09/20/18 09/20/18 04:33 04:33 04:33 WBC 8.8 RBC 2.56 L Hgb 7.7 L Hct 22.8 L MCV 89 MCH 30.2 MCHC 33.9 RDW 15.7 H Plt Count 171 Seg Neutrophils % 80.6 H Lymphocytes % 10.6 L Monocytes % 6.6 Eosinophils % 1.8 Basophils % 0.4 Absolute Neutrophils 7.1 Absolute Lymphocytes 0.9 Absolute Monocytes 0.6 Absolute Eosinophils 0.2 Absolute Basophils 0.0 Sodium 144.0 Potassium 3.7 D Chloride 104 Carbon Dioxide 27 Anion Gap 13 BUN 77 H Creatinine 2.67 H Est GFR ( Amer) 21 L Est GFR (Non-Af Amer) 17 L Glucose 91 Calcium 8.3 L Magnesium 2.7 H Free T4 2.21 H Free T3 pg/mL 2.18 L Impressions: Chest X-Ray 09/18/18 01:04 IMPRESSION: Coarse interstitial changes bilaterally, suggesting interstitial edema and/or pneumonitis,. Superimposed airspace opacity over the right lung base, concerning for pneumonia. Small bibasilar effusions/pleural thickening also noted. copyright 2010 [employer] All Rights Reserved Assessment & Plan - Diagnosis (1) COPD exacerbation Is this a current diagnosis for this admission?: Yes Plan: Improving. Continue with current care except we will discontinue bronchodilators that are redundant per Dr. Matthews's recommendations. (2) Acute respiratory failure with hypoxia and hypercapnia Is this a current diagnosis for this admission?: Yes Plan: Improving. We will try to wean her off of oxygen as she does not appear to use this at baseline. We will continue to treat COPD. (3) Chronic kidney disease, stage IV (severe) Is this a current diagnosis for this admission?: Yes Plan: We will renally dose medications, will consider nephrology consult once I can learn more about whether or not she is seeing someone as an outpatient and has a plan for her CKD. (4) Dementia Qualifiers: Dementia type: unspecified type Dementia behavioral disturbance: without behavioral disturbance Qualified Code(s): F03.90 - Unspecified dementia without behavioral disturbance Is this a current diagnosis for this admission?: Yes Plan: Do not know what her baseline is. Dementia seems mild at this point. Continue donepezil. - Time Time Spent with patient: 25-34 minutes Medications reviewed and adjusted accordingly: Yes - Inpatient Certification Based on my medical assessment, after consideration of the patient's comorbidities, presenting symptoms, or acuity I expect that the services needed warrant INPATIENT care.: Yes I certify that my determination is in accordance with my understanding of Medicare's requirements for reasonable and necessary INPATIENT services [42 CFR 412.3e].: Yes Medical Necessity: Risk of Complication if Not Cared For in Hospital
[2018-09-20] MEDS: DICYCLOMINE HCL 10 MG CAPSULE PO SCH (17:28)
[2018-09-20] MEDS: TRAZODONE HCL 50 MG TABLET PO SCH (21:30)
[2018-09-20] MEDS: GABAPENTIN 300 MG CAPSULE PO SCH (21:30)
[2018-09-21 04:54] LABS: ABSOLUTE BASOPHILS # (AUTO) 0.1 10^3/uL (0.0-0.2); ABSOLUTE EOSINOPHILS # (AUTO) 0.5 10^3/uL (0.0-0.6); ABSOLUTE MONOCYTES (AUTO) 0.6 10^3/uL (0.1-1.4); BASOPHILS % (AUTO) 0.8 % (0-2); EOSINOPHILS % (AUTO) 6.5 % (0-6); HEMATOCRIT 23.7 % (36.0-47.0); HEMOGLOBIN 8.1 g/dL (12.0-15.5); LYMPHOCYTES % (AUTO) 14.6 % (13-45); MEAN CORPUSCULAR HEMOGLOBIN 30.6 pg (27.0-33.4); MEAN CORPUSCULAR VOLUME 90 fl (80-97); MONOCYTES % (AUTO) 8.1 % (3-13); PLATELET COUNT 171 10^3/uL (150-450); RED BLOOD COUNT 2.64 10^6/uL (3.72-5.28); RED CELL DISTRIBUTION WIDTH 15.5 % (11.5-14.0); TOTAL CELLS COUNTED % (AUTO) 100 %; WHITE BLOOD COUNT 7.2 10^3/uL (4.0-10.5)
[2018-09-21] MEDS: LEVOTHYROXINE SODIUM 0.05 MG TABLET PO SCH (05:15)
[2018-09-21] MEDS: HEPARIN SOD (PORCINE) 5,000 UNIT/ML 1 ML SYRINGE SUBCUT SCH ×3 (05:15→21:22)
[2018-09-21] MEDS: LANSOPRAZOLE 30 MG TAB.RAP.DR PO SCH (05:15)
[2018-09-21 05:21] LABS: ANION GAP 9 (5-19); BLOOD UREA NITROGEN 69 mg/dL (7-20); CALCIUM 8.3 mg/dL (8.4-10.2); CARBON DIOXIDE 26 mmol/L (22-30); CHLORIDE 105 mmol/L (98-107); GLUCOSE 97 mg/dL (75-110); POTASSIUM 4.1 mmol/L (3.6-5.0); SODIUM 140.3 mmol/L (137-145)
[2018-09-21 06:48] LABS: ARTERIAL BLOOD BASE EXCESS 1.4 mmol/L; ARTERIAL BLOOD FIO2 28%; ARTERIAL BLOOD H2CO3 1.39 mmol/L (1.05-1.35); ARTERIAL BLOOD HCO3 26.7 mmol/L (20-24); ARTERIAL BLOOD O2 SATURATION 96.5 % (94-98); ARTERIAL BLOOD PCO2 46.1 mmHg (35-45); ARTERIAL BLOOD PH 7.38 (7.35-7.45); ARTERIAL BLOOD PO2 88.1 mmHg (80-100); ARTERIAL BLOOD TOTAL CO2 28.1 mmol/L (21-25)
[2018-09-21] MEDS: BUDESONIDE NEB 0.5 MG/2 ML AMPUL NEB SCH (08:11)
[2018-09-21] MEDS: IPRATROPIUM/ALBUTEROL 0.5-2.5 MG/3 ML AMPUL NEB PRN (08:11)
[2018-09-21] MEDS: SODIUM BICARBONATE 650 MG TABLET PO SCH (09:05)
[2018-09-21] MEDS: DULOXETINE HCL 30 MG CAPSULE.DR PO SCH (09:05)
[2018-09-21] MEDS: ATORVASTATIN CALCIUM 40 MG TABLET PO SCH (09:06)
[2018-09-21] MEDS: TAMSULOSIN HCL 0.4 MG CAP.SR.24H PO SCH (09:06)
[2018-09-21] MEDS: DONEPEZIL HCL 5 MG TABLET PO SCH (09:07)
[2018-09-21] MEDS: LEVOFLOXACIN 500 MG TABLET PO SCH (09:07)
[2018-09-21] MEDS: FLUTICASONE NASAL SPRAY 50 MCG/SPRY 120 SPRAY/16 GM NASL SCH (09:07)
[2018-09-21] MEDS: CYANOCOBALAMIN/FA/PYRIDOXINE TABLET PO SCH (09:08)
[2018-09-21] MEDS: DICYCLOMINE HCL 10 MG CAPSULE PO SCH ×2 (09:09→17:06)
[2018-09-21] MEDS: TIOTROPIUM BROMIDE DPI 5 CAP/KIT (18 MCG/CAP) IH SCH (09:09)
[2018-09-21] MEDS: SALMETEROL XINAFOATE DISKUS 50 MCG/1 DOSE 28 DOSE IH SCH ×2 (09:10→17:06)
[2018-09-21] MEDS: PREDNISONE 20 MG TABLET PO SCH (15:40)
--- NOTE | 2018-09-21 15:41 | PDOC PROGRESS REPORT ---
Subjective Progress Note for:: 09/21/18 Subjective:: Patient is having a little bit more wheezing today. Otherwise she is not having chest pain. No fevers or chills. She is starting to expectorate clear sputum. She has improved diarrhea since we started the Bentyl. Appetite is fine. She is still little bit weak. Reason For Visit: ACUTE EXACERBATION OF COPD,ACUTE ON CHRONIC Physical Exam Vital Signs: Temp Pulse Resp BP Pulse Ox 98.7 F 89 16 101/55 L 99 09/21/18 12:12 09/21/18 14:00 09/21/18 12:12 09/21/18 12:12 09/21/18 12:12 Intake & Output 09/20/18 09/21/18 09/22/18 06:59 06:59 06:59 Intake Total 754 1243 Balance 754 1243 General appearance: PRESENT: no acute distress, cooperative, thin Head exam: PRESENT: atraumatic, normocephalic Eye exam: ABSENT: conjunctival injection, scleral icterus Ear exam: PRESENT: normal external ear exam Mouth exam: PRESENT: moist Respiratory exam: PRESENT: decreased breath sounds, unlabored, wheezes. ABSENT : rales, rhonchi Cardiovascular exam: PRESENT: RRR. ABSENT: systolic murmur GI/Abdominal exam: PRESENT: soft. ABSENT: distended, tenderness Gentrourinary exam: ABSENT: indwelling catheter Extremities exam: ABSENT: pedal edema Musculoskeletal exam: PRESENT: normal inspection Neurological exam: PRESENT: alert, awake, oriented to person, oriented to place , oriented to situation, CN II-XII grossly intact Psychiatric exam: PRESENT: appropriate affect. ABSENT: anxious Skin exam: PRESENT: dry, intact, warm Results Laboratory Results: 09/21/18 04:36 09/21/18 04:36 09/21/18 09/21/18 09/21/18 04:36 04:36 06:23 WBC 7.2 RBC 2.64 L Hgb 8.1 L Hct 23.7 L MCV 90 MCH 30.6 MCHC 34.0 RDW 15.5 H Plt Count 171 Seg Neutrophils % 70.0 Lymphocytes % 14.6 Monocytes % 8.1 Eosinophils % 6.5 H Basophils % 0.8 Absolute Neutrophils 5.0 Absolute Lymphocytes 1.0 Absolute Monocytes 0.6 Absolute Eosinophils 0.5 Absolute Basophils 0.1 Carbonic Acid 1.39 H HCO3/H2CO3 Ratio 19:1 ABG pH 7.38 ABG pCO2 46.1 H ABG pO2 88.1 ABG HCO3 26.7 H ABG O2 Saturation 96.5 ABG Base Excess 1.4 FiO2 28% Sodium 140.3 Potassium 4.1 Chloride 105 Carbon Dioxide 26 Anion Gap 9 BUN 69 H Creatinine 2.29 H Est GFR ( Amer) 25 L Est GFR (Non-Af Amer) 21 L Glucose 97 Calcium 8.3 L Magnesium 2.3 Impressions: Chest X-Ray 09/18/18 01:04 IMPRESSION: Coarse interstitial changes bilaterally, suggesting interstitial edema and/or pneumonitis,. Superimposed airspace opacity over the right lung base, concerning for pneumonia. Small bibasilar effusions/pleural thickening also noted. copyright 2011 [employer]- All Rights Reserved Assessment & Plan - Diagnosis (1) COPD exacerbation Is this a current diagnosis for this admission?: Yes Plan: Patient had been showing significant improvement and then she started wheezing today. I stopped her inhaled steroids and placed her on prednisone 20 mg p.o. daily times 5 days. Continue other treatments with bronchodilator and Levaquin for pneumonia. (2) Acute respiratory failure with hypoxia and hypercapnia Is this a current diagnosis for this admission?: Yes Plan: Much improved from this perspective. Continue to treat COPD and r right lung pneumonia. (3) Chronic kidney disease, stage IV (severe) Is this a current diagnosis for this admission?: Yes Plan: No function is stable. Continue to renally dose medications and avoid nephrotoxins, will consult nephrology if indicated. (4) Dementia Qualifiers: Dementia type: unspecified type Dementia behavioral disturbance: without behavioral disturbance Qualified Code(s): F03.90 - Unspecified dementia without behavioral disturbance Is this a current diagnosis for this admission?: Yes Plan: She has short-term memory impairment, continue donepezil. Of note the conversations that I have had with her regarding where she lives, who she lives with and her recent [facility] stay have all been corroborated by her family members. (5) Discharge planning issues Is this a current diagnosis for this admission?: Yes Plan: Patient came to this hospital from [facility] where she was in rehab. She would like to be discharged to her home. Our correctional case records supervisor has spoken with her son-in-law who lives in her home with her stepdaughter. Son-in-law is her healthcare power of criminal attorney and he agrees that she can be discharged to home when she is ready which may be tomorrow, Sunday. She may need equipment which we can discuss with case management prior to discharge. - Time Time Spent with patient: 25-34 minutes Medications reviewed and adjusted accordingly: Yes - Inpatient Certification Based on my medical assessment, after consideration of the patient's comorbidities, presenting symptoms, or acuity I expect that the services needed warrant INPATIENT care.: Yes I certify that my determination is in accordance with my understanding of Medicare's requirements for reasonable and necessary INPATIENT services [42 CFR 412.3e].: Yes Medical Necessity: Significant Comorbidiites Make Outpatient Treatment Too Risky , Risk of Complication if Not Cared For in Hospital
[2018-09-21] MEDS: TRAZODONE HCL 50 MG TABLET PO SCH (21:20)
[2018-09-21] MEDS: GABAPENTIN 300 MG CAPSULE PO SCH (21:21)
[2018-09-21] MEDS: ALPRAZOLAM 0.25 MG TABLET PO PRN (23:10)
[2018-09-22 05:16] LABS: HEMATOCRIT 25.3 % (36.0-47.0); HEMOGLOBIN 8.4 g/dL (12.0-15.5); MEAN CORPUSCULAR HEMOGLOBIN 30.3 pg (27.0-33.4); MEAN CORPUSCULAR HGB CONC 33.2 g/dL (32.0-36.0); MEAN CORPUSCULAR VOLUME 91 fl (80-97); PLATELET COUNT 179 10^3/uL (150-450); RED BLOOD COUNT 2.77 10^6/uL (3.72-5.28); RED CELL DISTRIBUTION WIDTH 15.9 % (11.5-14.0); WHITE BLOOD COUNT 6.9 10^3/uL (4.0-10.5)
[2018-09-22 05:54] LABS: ANION GAP 9 (5-19); BLOOD UREA NITROGEN 64 mg/dL (7-20); CALCIUM 8.4 mg/dL (8.4-10.2); CARBON DIOXIDE 24 mmol/L (22-30); CHLORIDE 106 mmol/L (98-107); GLUCOSE 162 mg/dL (75-110); POTASSIUM 4.6 mmol/L (3.6-5.0); SODIUM 138.6 mmol/L (137-145)
[2018-09-22] MEDS: LEVOTHYROXINE SODIUM 0.05 MG TABLET PO SCH (06:39)
[2018-09-22] MEDS: HEPARIN SOD (PORCINE) 5,000 UNIT/ML 1 ML SYRINGE SUBCUT SCH ×3 (06:39→22:03)
[2018-09-22] MEDS: LANSOPRAZOLE 30 MG TAB.RAP.DR PO SCH (06:40)
[2018-09-22] MEDS: DULOXETINE HCL 30 MG CAPSULE.DR PO SCH (09:36)
[2018-09-22] MEDS: SODIUM BICARBONATE 650 MG TABLET PO SCH (09:36)
[2018-09-22] MEDS: DONEPEZIL HCL 5 MG TABLET PO SCH (09:37)
[2018-09-22] MEDS: ATORVASTATIN CALCIUM 40 MG TABLET PO SCH (09:37)
[2018-09-22] MEDS: LEVOFLOXACIN 500 MG TABLET PO SCH (09:37)
[2018-09-22] MEDS: PREDNISONE 20 MG TABLET PO SCH (09:37)
[2018-09-22] MEDS: TAMSULOSIN HCL 0.4 MG CAP.SR.24H PO SCH (09:37)
[2018-09-22] MEDS: DICYCLOMINE HCL 10 MG CAPSULE PO SCH (09:38)
[2018-09-22] MEDS: POLYVINYL ALCOHOL 1.4% OPH SOLN 15 ML OU PRN (09:38)
[2018-09-22] MEDS: CYANOCOBALAMIN/FA/PYRIDOXINE TABLET PO SCH (09:38)
[2018-09-22] MEDS: FLUTICASONE NASAL SPRAY 50 MCG/SPRY 120 SPRAY/16 GM NASL SCH (09:39)
[2018-09-22] MEDS: SALMETEROL XINAFOATE DISKUS 50 MCG/1 DOSE 28 DOSE IH SCH ×2 (09:40→17:06)
[2018-09-22] MEDS: TIOTROPIUM BROMIDE DPI 5 CAP/KIT (18 MCG/CAP) IH SCH (09:40)
[2018-09-22] MEDS: ACETAMINOPHEN 325 MG TABLET PO PRN ×2 (13:47→22:02)
[2018-09-22] MEDS: ALPRAZOLAM 0.25 MG TABLET PO PRN (13:47)
[2018-09-22] MEDS: IPRATROPIUM/ALBUTEROL 0.5-2.5 MG/3 ML AMPUL NEB PRN (14:00)
--- NOTE | 2018-09-22 14:19 | PDOC PROGRESS REPORT ---
Subjective Progress Note for:: 09/22/18 Subjective:: Doing better but still he very weak and easily short of breath with minimal exertion. Requires O2. Still does not want to return to rehab, would like to go home with family. No chest pain or shortness of breath or palpitations. Denies fever or chills. Tolerating p.o. intakes. Reason For Visit: ACUTE EXACERBATION OF COPD,ACUTE ON CHRONIC Physical Exam Vital Signs: Temp Pulse Resp BP Pulse Ox 97.7 F 78 17 110/71 94 09/22/18 12:03 09/22/18 14:00 09/22/18 14:00 09/22/18 12:03 09/22/18 14:00 Intake & Output 09/21/18 09/22/18 09/23/18 06:59 06:59 06:59 Intake Total 1243 903 Balance 1243 903 Weight 54.1 kg General appearance: PRESENT: no acute distress, cooperative, thin female Head exam: PRESENT: atraumatic, normocephalic Eye exam: ABSENT: conjunctival injection, scleral icterus Ear exam: PRESENT: normal external ear exam Mouth exam: PRESENT: moist Respiratory exam: PRESENT: decreased breath sounds, unlabored, wheezes. ABSENT : rales, rhonchi Cardiovascular exam: PRESENT: RRR. ABSENT: systolic murmur GI/Abdominal exam: PRESENT: soft. ABSENT: distended, tenderness Extremities exam: ABSENT: pedal edema Musculoskeletal exam: PRESENT: normal inspection Neurological exam: PRESENT: alert, awake, oriented to person, oriented to place , oriented to situation, CN II-XII grossly intact Psychiatric exam: PRESENT: appropriate affect. ABSENT: anxious Skin exam: PRESENT: dry, intact, warm Results Laboratory Results: 09/22/18 04:48 09/22/18 04:48 09/22/18 09/22/18 04:48 04:48 WBC 6.9 RBC 2.77 L Hgb 8.4 L Hct 25.3 L MCV 91 MCH 30.3 MCHC 33.2 RDW 15.9 H Plt Count 179 Sodium 138.6 Potassium 4.6 Chloride 106 Carbon Dioxide 24 Anion Gap 9 BUN 64 H Creatinine 2.50 H Est GFR ( Amer) 23 L Est GFR (Non-Af Amer) 19 L Glucose 162 H Calcium 8.4 Impressions: Chest X-Ray 09/18/18 01:04 IMPRESSION: Coarse interstitial changes bilaterally, suggesting interstitial edema and/or pneumonitis,. Superimposed airspace opacity over the right lung base, concerning for pneumonia. Small bibasilar effusions/pleural thickening also noted. copyright 2011 [employer]- All Rights Reserved Assessment & Plan - Diagnosis (1) COPD exacerbation Is this a current diagnosis for this admission?: Yes (2) Community acquired pneumonia Qualifiers: Laterality: right Lung location: lower lobe of lung Qualified Code(s): J18.1 - Lobar pneumonia, unspecified organism Is this a current diagnosis for this admission?: Yes (3) Acute respiratory failure with hypoxia and hypercapnia Is this a current diagnosis for this admission?: Yes (4) Chronic kidney disease, stage IV (severe) Is this a current diagnosis for this admission?: Yes (5) Dementia Qualifiers: Dementia type: unspecified type Dementia behavioral disturbance: without behavioral disturbance Qualified Code(s): F03.90 - Unspecified dementia without behavioral disturbance Is this a current diagnosis for this admission?: Yes (6) Anemia due to chronic kidney disease Is this a current diagnosis for this admission?: Yes - Plan Summary Plan Summary: Respiratory status improving, continue prednisone 20 mg p.o. daily times 5 days course. Continue other treatments with bronchodilator, as well as Levaquin for pneumonia. Renal function is stable as well as dementia. H&H also stable. Continue management and to monitor. Discharge planning, care management working with family to see how much that they can provide.
[2018-09-22] MEDS: TRAMADOL HCL 50 MG TABLET PO PRN (17:10)
[2018-09-22] MEDS: TRAZODONE HCL 50 MG TABLET PO SCH (22:03)
[2018-09-22] MEDS: GABAPENTIN 300 MG CAPSULE PO SCH (22:03)
[2018-09-23] MEDS: TRAMADOL HCL 50 MG TABLET PO PRN ×2 (00:31→10:28)
[2018-09-23] MEDS: ALPRAZOLAM 0.25 MG TABLET PO PRN ×3 (00:31→19:25)
[2018-09-23] MEDS ORDERED: NYSTATIN TOPICAL POWDER 15 GM TP PRN (03:38)
[2018-09-23] MEDS: LEVOTHYROXINE SODIUM 0.05 MG TABLET PO SCH (05:31)
[2018-09-23] MEDS: LANSOPRAZOLE 30 MG TAB.RAP.DR PO SCH (05:32)
[2018-09-23] MEDS: HEPARIN SOD (PORCINE) 5,000 UNIT/ML 1 ML SYRINGE SUBCUT SCH ×3 (05:32→21:24)
[2018-09-23] MEDS ORDERED: ACETAMINOPHEN 650 MG SUPP.RECT PR PRN (07:33)
[2018-09-23] MEDS ORDERED: ONDANSETRON 4 MG TAB.RAPDIS PO PRN (08:00)
[2018-09-23] MEDS: DULOXETINE HCL 30 MG CAPSULE.DR PO SCH (09:01)
[2018-09-23] MEDS: SODIUM BICARBONATE 650 MG TABLET PO SCH (09:01)
[2018-09-23] MEDS: DONEPEZIL HCL 5 MG TABLET PO SCH (09:01)
[2018-09-23] MEDS: ATORVASTATIN CALCIUM 40 MG TABLET PO SCH (09:02)
[2018-09-23] MEDS: CYANOCOBALAMIN/FA/PYRIDOXINE TABLET PO SCH (09:02)
[2018-09-23] MEDS: TAMSULOSIN HCL 0.4 MG CAP.SR.24H PO SCH (09:02)
[2018-09-23] MEDS: FLUTICASONE NASAL SPRAY 50 MCG/SPRY 120 SPRAY/16 GM NASL SCH (09:02)
[2018-09-23] MEDS: ACETAMINOPHEN 325 MG TABLET PO PRN ×2 (09:02→16:16)
[2018-09-23] MEDS: PREDNISONE 20 MG TABLET PO SCH (10:11)
[2018-09-23] MEDS: TIOTROPIUM BROMIDE DPI 5 CAP/KIT (18 MCG/CAP) IH SCH (10:11)
[2018-09-23] MEDS: LEVOFLOXACIN 500 MG TABLET PO SCH (10:11)
[2018-09-23] MEDS: SALMETEROL XINAFOATE DISKUS 50 MCG/1 DOSE 28 DOSE IH SCH ×2 (10:11→18:00)
[2018-09-23] MEDS: POLYVINYL ALCOHOL 1.4% OPH SOLN 15 ML OU PRN (16:19)
--- NOTE | 2018-09-23 18:35 | PDOC PROGRESS REPORT ---
Subjective Progress Note for:: 09/23/18 Subjective:: Doing better but continues to complaint of being weak and easily short of breath with minimal exertion. Requiring O2. Still does not want to return to rehab, would like to go home with family. Care management working on this to see if family able to care for her. No chest pain or shortness of breath or palpitations. Denies fever or chills. Tolerating p.o. intakes. Reason For Visit: ACUTE EXACERBATION OF COPD,ACUTE ON CHRONIC Physical Exam Vital Signs: Temp Pulse Resp BP Pulse Ox 98.3 F 80 24 H 100/59 L 100 09/23/18 15:58 09/23/18 15:58 09/23/18 15:58 09/23/18 15:58 09/23/18 15:58 Intake & Output 09/22/18 09/23/18 09/24/18 06:59 06:59 06:59 Intake Total 903 1133 1050 Balance 903 1133 1050 Weight 54.1 kg 53.2 kg General appearance: PRESENT: no acute distress, cooperative, thin female Head exam: PRESENT: atraumatic, normocephalic Eye exam: ABSENT: conjunctival injection, scleral icterus Ear exam: PRESENT: normal external ear exam Mouth exam: PRESENT: moist Respiratory exam: PRESENT: decreased breath sounds, unlabored, wheezes. ABSENT : rales, rhonchi Cardiovascular exam: PRESENT: RRR. ABSENT: systolic murmur GI/Abdominal exam: PRESENT: soft. ABSENT: distended, tenderness Extremities exam: ABSENT: pedal edema Neurological exam: PRESENT: alert, awake, oriented to person, oriented to place , oriented to situation, CN II-XII grossly intact Psychiatric exam: PRESENT: appropriate affect. ABSENT: anxious Skin exam: PRESENT: dry, intact, warm Results Laboratory Results: 09/22/18 04:48 09/22/18 04:48 Impressions: Chest X-Ray 09/18/18 01:04 IMPRESSION: Coarse interstitial changes bilaterally, suggesting interstitial edema and/or pneumonitis,. Superimposed airspace opacity over the right lung base, concerning for pneumonia. Small bibasilar effusions/pleural thickening also noted. copyright 2010 [employer]- All Rights Reserved Assessment & Plan - Diagnosis (1) COPD exacerbation Is this a current diagnosis for this admission?: Yes (2) Community acquired pneumonia Qualifiers: Laterality: right Lung location: lower lobe of lung Qualified Code(s): J18.1 - Lobar pneumonia, unspecified organism Is this a current diagnosis for this admission?: Yes (3) Acute respiratory failure with hypoxia and hypercapnia Is this a current diagnosis for this admission?: Yes (4) Chronic kidney disease, stage IV (severe) Is this a current diagnosis for this admission?: Yes (5) Dementia Qualifiers: Dementia type: unspecified type Dementia behavioral disturbance: without behavioral disturbance Qualified Code(s): F03.90 - Unspecified dementia without behavioral disturbance Is this a current diagnosis for this admission?: Yes (6) Anemia due to chronic kidney disease Is this a current diagnosis for this admission?: Yes - Plan Summary Plan Summary: Respiratory status improving, continue prednisone 20 mg p.o. daily times 5 days course. Continue other treatments with bronchodilators, as well as Levaquin for pneumonia. Renal function is stable as well as dementia. H&H also stable. Continue management and to monitor. Discharge planning, care management still working with family to see how much that they can provide. Follow-up CBC and Chem-7 in a.m.
[2018-09-23] MEDS: ONDANSETRON HCL INJ/PF 4 MG/2 ML SDV IV PRN (19:28)
[2018-09-23] MEDS: TRAZODONE HCL 50 MG TABLET PO SCH (21:24)
[2018-09-23] MEDS: GABAPENTIN 300 MG CAPSULE PO SCH (21:24)
[2018-09-24] MEDS: HEPARIN SOD (PORCINE) 5,000 UNIT/ML 1 ML SYRINGE SUBCUT SCH ×3 (05:37→22:17)
[2018-09-24] MEDS: LEVOTHYROXINE SODIUM 0.1 MG TABLET PO SCH (05:38)
[2018-09-24] MEDS: LANSOPRAZOLE 30 MG TAB.RAP.DR PO SCH (05:38)
[2018-09-24] MEDS: LEVOTHYROXINE SODIUM 0.025 MG TABLET PO SCH (05:38)
[2018-09-24] MEDS: SODIUM BICARBONATE 650 MG TABLET PO SCH (08:55)
[2018-09-24] MEDS: CYANOCOBALAMIN/FA/PYRIDOXINE TABLET PO SCH (08:56)
[2018-09-24] MEDS: DONEPEZIL HCL 5 MG TABLET PO SCH (08:56)
[2018-09-24] MEDS: TIOTROPIUM BROMIDE DPI 5 CAP/KIT (18 MCG/CAP) IH SCH (08:56)
[2018-09-24] MEDS: TAMSULOSIN HCL 0.4 MG CAP.SR.24H PO SCH (08:56)
[2018-09-24] MEDS: DULOXETINE HCL 30 MG CAPSULE.DR PO SCH (08:56)
[2018-09-24] MEDS: ATORVASTATIN CALCIUM 40 MG TABLET PO SCH (08:56)
[2018-09-24] MEDS: FLUTICASONE NASAL SPRAY 50 MCG/SPRY 120 SPRAY/16 GM NASL SCH (09:02)
[2018-09-24] MEDS: SALMETEROL XINAFOATE DISKUS 50 MCG/1 DOSE 28 DOSE IH SCH ×2 (10:36→17:19)
[2018-09-24] MEDS: PREDNISONE 20 MG TABLET PO SCH (10:36)
[2018-09-24] MEDS: LEVOFLOXACIN 500 MG TABLET PO SCH (10:36)
[2018-09-24] MEDS: TRAMADOL HCL 50 MG TABLET PO PRN (17:19)
--- NOTE | 2018-09-24 18:00 | PDOC PROGRESS REPORT ---
Subjective Progress Note for:: 09/24/18 Subjective:: This is a 78 years old female patient admitted for acute on chronic hypoxemic and hypercarbic respiratory failure secondary to COPD exacerbation. Patient has been on Levaquin bruising treatment and prednisone. This morning I seen patient resting in bed and she reports this her shortness of breath is relatively improved. At her baseline patient ambulates with the help of walker. Currently patient is able to transfer from bed to chair. Reason For Visit: ACUTE EXACERBATION OF COPD,ACUTE ON CHRONIC Physical Exam Vital Signs: Temp Pulse Resp BP Pulse Ox 98.7 F 84 20 105/54 L 100 09/24/18 15:02 09/24/18 15:02 09/24/18 15:02 09/24/18 15:02 09/24/18 15:02 Intake & Output 09/23/18 09/24/18 09/25/18 06:59 06:59 06:59 Intake Total 1133 1050 Balance 1133 1050 Weight 53.2 kg 53.6 kg General appearance: PRESENT: no acute distress, well-developed, well-nourished Head exam: PRESENT: atraumatic, normocephalic Eye exam: PRESENT: conjunctiva pink, EOMI, PERRLA. ABSENT: scleral icterus Ear exam: PRESENT: normal external ear exam Mouth exam: PRESENT: moist, tongue midline Neck exam: ABSENT: carotid bruit, JVD, lymphadenopathy, thyromegaly Respiratory exam: PRESENT: clear to auscultation gertrude. ABSENT: rales, rhonchi, wheezes Cardiovascular exam: PRESENT: RRR. ABSENT: diastolic murmur, rubs, systolic murmur Pulses: PRESENT: normal dorsalis pedis pul Vascular exam: PRESENT: normal capillary refill GI/Abdominal exam: PRESENT: normal bowel sounds, soft. ABSENT: distended, guarding, mass, organolmegaly, rebound, tenderness Rectal exam: PRESENT: deferred Extremities exam: PRESENT: full ROM. ABSENT: calf tenderness, clubbing, pedal edema Neurological exam: PRESENT: alert, awake, oriented to person, oriented to place , oriented to time, oriented to situation, CN II-XII grossly intact. ABSENT: motor sensory deficit Psychiatric exam: PRESENT: appropriate affect, normal mood. ABSENT: homicidal ideation, suicidal ideation Skin exam: PRESENT: dry, intact, warm. ABSENT: cyanosis, rash Results Laboratory Results: 09/22/18 04:48 09/22/18 04:48 Impressions: Chest X-Ray 09/18/18 01:04 IMPRESSION: Coarse interstitial changes bilaterally, suggesting interstitial edema and/or pneumonitis,. Superimposed airspace opacity over the right lung base, concerning for pneumonia. Small bibasilar effusions/pleural thickening also noted. copyright 2010 [employer]- All Rights Reserved Assessment & Plan - Diagnosis (1) A/C hypoxemic and hypercarbic respirator Is this a current diagnosis for this admission?: Yes Plan: Continue scheduled and as needed DuoNeb, Solu-Medrol and Levaquin. (2) COPD exacerbation Is this a current diagnosis for this admission?: Yes Plan: As #1 (3) Community acquired pneumonia Qualifiers: Laterality: right Lung location: lower lobe of lung Qualified Code(s): J18.1 - Lobar pneumonia, unspecified organism Is this a current diagnosis for this admission?: Yes Plan: Continue Levaquin (4) CKD (chronic kidney disease) stage 4, GFR 15-29 ml/min Is this a current diagnosis for this admission?: Yes Plan: Hydrate the patient cautiously monitor for kidney function and avoid nephrotoxic agents. (5) Hypothyroidism (acquired) Is this a current diagnosis for this admission?: Yes Plan: Continue Synthroid (6) Dementia Qualifiers: Dementia type: unspecified type Dementia behavioral disturbance: without behavioral disturbance Qualified Code(s): F03.90 - Unspecified dementia without behavioral disturbance Is this a current diagnosis for this admission?: Yes Plan: Continue donepezil
[2018-09-24] MEDS: ALPRAZOLAM 0.25 MG TABLET PO PRN (19:48)
[2018-09-24] MEDS: ACETAMINOPHEN 325 MG TABLET PO PRN (19:51)
[2018-09-24] MEDS: GABAPENTIN 300 MG CAPSULE PO SCH (22:15)
[2018-09-24] MEDS: ONDANSETRON HCL INJ/PF 4 MG/2 ML SDV IV PRN (22:15)
[2018-09-24] MEDS: TRAZODONE HCL 50 MG TABLET PO SCH (22:24)
[2018-09-25] MEDS: LEVOTHYROXINE SODIUM 0.025 MG TABLET PO SCH (05:30)
[2018-09-25] MEDS: LANSOPRAZOLE 30 MG TAB.RAP.DR PO SCH (05:30)
[2018-09-25] MEDS: HEPARIN SOD (PORCINE) 5,000 UNIT/ML 1 ML SYRINGE SUBCUT SCH ×3 (05:30→21:56)
[2018-09-25] MEDS: TRAMADOL HCL 50 MG TABLET PO PRN (05:30)
[2018-09-25] MEDS: LEVOTHYROXINE SODIUM 0.1 MG TABLET PO SCH (05:30)
[2018-09-25 07:36] LABS: ANION GAP 12 (5-19); BLOOD UREA NITROGEN 83 mg/dL (7-20); CALCIUM 8.3 mg/dL (8.4-10.2); CARBON DIOXIDE 20 mmol/L (22-30); CHLORIDE 105 mmol/L (98-107); GLUCOSE 99 mg/dL (75-110); POTASSIUM 4.1 mmol/L (3.6-5.0); SODIUM 137.3 mmol/L (137-145)
[2018-09-25] MEDS: FLUTICASONE NASAL SPRAY 50 MCG/SPRY 120 SPRAY/16 GM NASL SCH (07:37)
[2018-09-25] MEDS: TIOTROPIUM BROMIDE DPI 5 CAP/KIT (18 MCG/CAP) IH SCH (07:37)
[2018-09-25] MEDS: DULOXETINE HCL 30 MG CAPSULE.DR PO SCH (07:38)
[2018-09-25] MEDS: SODIUM BICARBONATE 650 MG TABLET PO SCH (07:38)
[2018-09-25] MEDS: DONEPEZIL HCL 5 MG TABLET PO SCH (07:38)
[2018-09-25] MEDS: CYANOCOBALAMIN/FA/PYRIDOXINE TABLET PO SCH (07:39)
[2018-09-25] MEDS: ATORVASTATIN CALCIUM 40 MG TABLET PO SCH (07:39)
[2018-09-25] MEDS: TAMSULOSIN HCL 0.4 MG CAP.SR.24H PO SCH (07:39)
[2018-09-25] MEDS: PREDNISONE 10 MG TABLET PO SCH (10:43)
[2018-09-25] MEDS: SALMETEROL XINAFOATE DISKUS 50 MCG/1 DOSE 28 DOSE IH SCH ×2 (10:43→17:19)
[2018-09-25] MEDS: NORMAL SALINE 1000 ML 1,000 ML IV PRN ×2 (10:49→20:05)
[2018-09-25] MEDS: POLYVINYL ALCOHOL 1.4% OPH SOLN 15 ML OU PRN (10:49)
[2018-09-25] MEDS: ACETAMINOPHEN 325 MG TABLET PO PRN (14:42)
--- NOTE | 2018-09-25 14:46 | PDOC PROGRESS REPORT ---
Subjective Progress Note for:: 09/25/18 Subjective:: Patient seen and examined while she is resting in bed. No new complaint. Reportedly patient refused participation with physical therapy. Her blood work shows that her current creatinine is creeping up from 2.5-3.39. Initially it was trending down. I discontinued her Levaquin and bicarbonate which might affect her kidney function. I started her on normal saline at rate of 125 mL/h and I will check her BMP in the morning. Reason For Visit: ACUTE EXACERBATION OF COPD,ACUTE ON CHRONIC Physical Exam Vital Signs: Temp Pulse Resp BP Pulse Ox 98.1 F 80 18 112/49 L 99 09/25/18 12:00 09/25/18 12:00 09/25/18 12:00 09/25/18 12:00 09/25/18 12:00 Intake & Output 09/24/18 09/25/18 09/26/18 06:59 06:59 06:59 Intake Total 1050 1274 Output Total 2 Balance 1050 1272 Weight 53.6 kg General appearance: PRESENT: no acute distress Head exam: PRESENT: atraumatic Eye exam: PRESENT: conjunctiva pink Neck exam: ABSENT: carotid bruit, JVD, lymphadenopathy, thyromegaly Respiratory exam: PRESENT: wheezes Cardiovascular exam: PRESENT: RRR. ABSENT: diastolic murmur, rubs, systolic mu rmur GI/Abdominal exam: PRESENT: normal bowel sounds, soft. ABSENT: distended, guarding, mass, organolmegaly, rebound, tenderness Neurological exam: PRESENT: alert, awake Results Laboratory Results: 09/22/18 04:48 09/25/18 05:57 09/25/18 05:57 Sodium 137.3 Potassium 4.1 Chloride 105 Carbon Dioxide 20 L Anion Gap 12 BUN 83 H Creatinine 3.39 H Est GFR ( Amer) 16 L Est GFR (Non-Af Amer) 13 L Glucose 99 Calcium 8.3 L 09/18/18 09/18/18 01:36 01:36 Creatine Kinase 49 CK-MB (CK-2) 1.63 Troponin I 0.082 NT-Pro-B Natriuret Pep [id number] H Impressions: Chest X-Ray 09/18/18 01:04 IMPRESSION: Coarse interstitial changes bilaterally, suggesting interstitial edema and/or pneumonitis,. Superimposed airspace opacity over the right lung base, concerning for pneumonia. Small bibasilar effusions/pleural thickening also noted. copyright 2010 [employer]- All Rights Reserved Assessment & Plan - Diagnosis (1) A/C hypoxemic and hypercarbic respirator Is this a current diagnosis for this admission?: Yes Plan: Continue scheduled and as needed DuoNeb, Solu-Medrol and Levaquin. (2) COPD exacerbation Is this a current diagnosis for this admission?: Yes Plan: As #1 (3) Community acquired pneumonia Qualifiers: Laterality: right Lung location: lower lobe of lung Qualified Code(s): J18.1 - Lobar pneumonia, unspecified organism Is this a current diagnosis for this admission?: Yes Plan: Patient completed course of Levaquin (4) CKD (chronic kidney disease) stage 4, GFR 15-29 ml/min Is this a current diagnosis for this admission?: Yes Plan: Her kidney function is worsening so I discontinue her Levaquin and sodium bicarbonate started on normal saline at a rate of 125 mm/h and will monitor her kidney function in a.m. (5) Hypothyroidism (acquired) Is this a current diagnosis for this admission?: Yes Plan: Continue Synthroid (6) Dementia Qualifiers: Dementia type: unspecified type Dementia behavioral disturbance: without be havioral disturbance Qualified Code(s): F03.90 - Unspecified dementia without behavioral disturbance Is this a current diagnosis for this admission?: Yes Plan: Continue donepezil
[2018-09-25] MEDS: LEVOFLOXACIN 500 MG TABLET PO SCH (20:40)
[2018-09-25] MEDS: GABAPENTIN 300 MG CAPSULE PO SCH (21:56)
[2018-09-25] MEDS: ALPRAZOLAM 0.25 MG TABLET PO PRN (21:56)
[2018-09-25] MEDS: TRAZODONE HCL 50 MG TABLET PO SCH (21:56)
[2018-09-26] MEDS: TRAMADOL HCL 50 MG TABLET PO PRN ×2 (01:42→20:37)
[2018-09-26] MEDS: HEPARIN SOD (PORCINE) 5,000 UNIT/ML 1 ML SYRINGE SUBCUT SCH ×3 (05:21→23:05)
[2018-09-26] MEDS: LEVOTHYROXINE SODIUM 0.1 MG TABLET PO SCH (05:22)
[2018-09-26] MEDS: LEVOTHYROXINE SODIUM 0.025 MG TABLET PO SCH (05:22)
[2018-09-26 05:56] LABS: ANION GAP 9 (5-19); BLOOD UREA NITROGEN 76 mg/dL (7-20); CALCIUM 8.1 mg/dL (8.4-10.2); CARBON DIOXIDE 23 mmol/L (22-30); CHLORIDE 109 mmol/L (98-107); GLUCOSE 93 mg/dL (75-110); POTASSIUM 4.2 mmol/L (3.6-5.0); SODIUM 140.5 mmol/L (137-145)
[2018-09-26] MEDS: NORMAL SALINE 1000 ML 1,000 ML IV PRN ×2 (06:05→17:51)
[2018-09-26] MEDS: ATORVASTATIN CALCIUM 40 MG TABLET PO SCH (08:42)
[2018-09-26] MEDS: TAMSULOSIN HCL 0.4 MG CAP.SR.24H PO SCH (08:42)
[2018-09-26] MEDS: FLUTICASONE NASAL SPRAY 50 MCG/SPRY 120 SPRAY/16 GM NASL SCH (08:42)
[2018-09-26] MEDS: DULOXETINE HCL 30 MG CAPSULE.DR PO SCH (08:42)
[2018-09-26] MEDS: DONEPEZIL HCL 5 MG TABLET PO SCH (08:42)
[2018-09-26] MEDS: CYANOCOBALAMIN/FA/PYRIDOXINE TABLET PO SCH (08:43)
[2018-09-26] MEDS: TIOTROPIUM BROMIDE DPI 5 CAP/KIT (18 MCG/CAP) IH SCH (08:43)
[2018-09-26] MEDS: SALMETEROL XINAFOATE DISKUS 50 MCG/1 DOSE 28 DOSE IH SCH ×2 (09:08→17:18)
[2018-09-26] MEDS: PREDNISONE 10 MG TABLET PO SCH (09:08)
--- NOTE | 2018-09-26 11:48 | PDOC PROGRESS REPORT ---
Subjective Subjective:: Patient seen resting in bed comfortably. Her creatinine is trended down from 3.39-2.82. She is eating well and tolerates well. Reason For Visit: ACUTE EXACERBATION OF COPD,ACUTE ON CHRONIC Physical Exam Vital Signs: Temp Pulse Resp BP Pulse Ox 98.0 F 80 16 104/52 L 97 09/26/18 07:40 09/26/18 07:40 09/26/18 07:40 09/26/18 07:40 09/26/18 07:40 Intake & Output 09/25/18 09/26/18 09/27/18 06:59 06:59 06:59 Intake Total 1274 3041 Output Total 2 Balance 1272 3041 General appearance: PRESENT: no acute distress Eye exam: PRESENT: conjunctiva pink Neck exam: ABSENT: carotid bruit, JVD, lymphadenopathy, thyromegaly Respiratory exam: PRESENT: clear to auscultation gertrude. ABSENT: rales, rhonchi, wheezes Cardiovascular exam: PRESENT: RRR. ABSENT: diastolic murmur, rubs, systolic murmur GI/Abdominal exam: PRESENT: normal bowel sounds, soft. ABSENT: distended, guarding, mass, organolmegaly, rebound, tenderness Neurological exam: PRESENT: alert, awake Psychiatric exam: PRESENT: normal mood Results Laboratory Results: 09/22/18 04:48 09/26/18 04:51 09/26/18 04:51 Sodium 140.5 Potassium 4.2 Chloride 109 H Carbon Dioxide 23 Anion Gap 9 BUN 76 H Creatinine 2.82 H Est GFR ( Amer) 20 L Est GFR (Non-Af Amer) 16 L Glucose 93 Calcium 8.1 L 09/18/18 09/18/18 01:36 01:36 Creatine Kinase 49 CK-MB (CK-2) 1.63 Troponin I 0.082 NT-Pro-B Natriuret Pep [id number] H Impressions: Chest X-Ray 09/18/18 01:04 IMPRESSION: Coarse interstitial changes bilaterally, suggesting interstitial edema and/or pneumonitis,. Superimposed airspace opacity over the right lung base, concerning for pneumonia. Small bibasilar effusions/pleural thickening also noted. copyright 2010 [employer]- All Rights Reserved Assessment & Plan - Diagnosis (1) A/C hypoxemic and hypercarbic respirator Is this a current diagnosis for this admission?: Yes Plan: Continue scheduled and as needed DuoNeb, Solu-Medrol and Levaquin. (2) COPD exacerbation Is this a current diagnosis for this admission?: Yes Plan: As #1 (3) Community acquired pneumonia Qualifiers: Laterality: right Lung location: lower lobe of lung Qualified Code(s): J18.1 - Lobar pneumonia, unspecified organism Is this a current diagnosis for this admission?: Yes Plan: Patient completed course of Levaquin (4) CKD (chronic kidney disease) stage 4, GFR 15-29 ml/min Is this a current diagnosis for this admission?: Yes Plan: Her kidney function is worsening so I discontinue her Levaquin and sodium bicarbonate started on normal saline at a rate of 125 mm/h and will monitor her kidney function in a.m. (5) Hypothyroidism (acquired) Is this a current diagnosis for this admission?: Yes Plan: Continue Synthroid (6) Dementia Qualifiers: Dementia type: unspecified type Dementia behavioral disturbance: without behavioral disturbance Qualified Code(s): F03.90 - Unspecified dementia without behavioral disturbance Is this a current diagnosis for this admission?: Yes Plan: Continue donepezil
[2018-09-26] MEDS: ALPRAZOLAM 0.25 MG TABLET PO PRN (16:27)
[2018-09-26] MEDS: ACETAMINOPHEN 325 MG TABLET PO PRN (16:27)
[2018-09-26] MEDS: ONDANSETRON HCL INJ/PF 4 MG/2 ML SDV IV PRN (20:33)
[2018-09-26] MEDS: TRAZODONE HCL 50 MG TABLET PO SCH (22:56)
[2018-09-26] MEDS: GABAPENTIN 300 MG CAPSULE PO SCH (22:56)
[2018-09-27 05:12] LABS: ANION GAP 6 (5-19); BLOOD UREA NITROGEN 67 mg/dL (7-20); CALCIUM 8.1 mg/dL (8.4-10.2); CARBON DIOXIDE 22 mmol/L (22-30); CHLORIDE 112 mmol/L (98-107); GLUCOSE 92 mg/dL (75-110); POTASSIUM 4.8 mmol/L (3.6-5.0); SODIUM 139.7 mmol/L (137-145)
[2018-09-27] MEDS: HEPARIN SOD (PORCINE) 5,000 UNIT/ML 1 ML SYRINGE SUBCUT SCH ×3 (05:45→21:20)
[2018-09-27] MEDS: LEVOTHYROXINE SODIUM 0.1 MG TABLET PO SCH (05:46)
[2018-09-27] MEDS: LEVOTHYROXINE SODIUM 0.025 MG TABLET PO SCH (05:46)
[2018-09-27] MEDS: POLYVINYL ALCOHOL 1.4% OPH SOLN 15 ML OU PRN (06:03)
[2018-09-27] MEDS: CYANOCOBALAMIN/FA/PYRIDOXINE TABLET PO SCH (07:36)
[2018-09-27] MEDS: DULOXETINE HCL 30 MG CAPSULE.DR PO SCH (07:36)
[2018-09-27] MEDS: TAMSULOSIN HCL 0.4 MG CAP.SR.24H PO SCH (07:36)
[2018-09-27] MEDS: DONEPEZIL HCL 5 MG TABLET PO SCH (07:37)
[2018-09-27] MEDS: ATORVASTATIN CALCIUM 40 MG TABLET PO SCH (07:37)
[2018-09-27] MEDS: FLUTICASONE NASAL SPRAY 50 MCG/SPRY 120 SPRAY/16 GM NASL SCH (07:37)
[2018-09-27] MEDS: TIOTROPIUM BROMIDE DPI 5 CAP/KIT (18 MCG/CAP) IH SCH (07:38)
[2018-09-27] MEDS: SALMETEROL XINAFOATE DISKUS 50 MCG/1 DOSE 28 DOSE IH SCH ×2 (09:15→17:26)
[2018-09-27] MEDS: PREDNISONE 10 MG TABLET PO SCH (09:15)
[2018-09-27] MEDS: NORMAL SALINE 1000 ML 1,000 ML IV PRN ×2 (09:16→22:54)
--- NOTE | 2018-09-27 11:01 | PDOC PROGRESS REPORT ---
Subjective Progress Note for:: 09/27/18 Subjective:: Patient seen lying in bed. I am about to discharge this patient, but she reports this she had a " rough night". She states she is short of breath and "she could not go home later this". Her creatinine is further trending down. Reason For Visit: ACUTE EXACERBATION OF COPD,ACUTE ON CHRONIC Physical Exam Vital Signs: Temp Pulse Resp BP Pulse Ox 97.8 F 74 12 116/26 L 95 09/27/18 08:05 09/27/18 08:05 09/27/18 08:05 09/27/18 08:05 09/27/18 08:05 Intake & Output 09/26/18 09/27/18 09/28/18 06:59 06:59 06:59 Intake Total 3041 1500 1000 Balance 3041 1500 1000 Weight 58.6 kg General appearance: PRESENT: mild distress Eye exam: PRESENT: conjunctiva pink Mouth exam: PRESENT: moist Neck exam: ABSENT: carotid bruit, JVD, lymphadenopathy, thyromegaly Respiratory exam: PRESENT: wheezes Cardiovascular exam: PRESENT: RRR. ABSENT: diastolic murmur, rubs, systolic murmur GI/Abdominal exam: PRESENT: normal bowel sounds, soft. ABSENT: distended, guarding, mass, organolmegaly, rebound, tenderness Neurological exam: PRESENT: alert, awake Results Laboratory Results: 09/22/18 04:48 09/27/18 04:28 09/27/18 04:28 Sodium 139.7 Potassium 4.8 Chloride 112 H Carbon Dioxide 22 Anion Gap 6 BUN 67 H Creatinine 2.54 H Est GFR ( Amer) 22 L Est GFR (Non-Af Amer) 18 L Glucose 92 Calcium 8.1 L 09/18/18 09/18/18 01:36 01:36 Creatine Kinase 49 CK-MB (CK-2) 1.63 Troponin I 0.082 NT-Pro-B Natriuret Pep [id number] H Impressions: Chest X-Ray 09/18/18 01:04 IMPRESSION: Coarse interstitial changes bilaterally, suggesting interstitial edema and/or pneumonitis,. Superimposed airspace opacity over the right lung base, concerning for pneumonia. Small bibasilar effusions/pleural thickening also noted. copyright 2011 [employer]- All Rights Reserved Assessment & Plan - Diagnosis (1) A/C hypoxemic and hypercarbic respirator Is this a current diagnosis for this admission?: Yes Plan: Continue scheduled and as needed DuoNeb, Solu-Medrol and Levaquin. (2) COPD exacerbation Is this a current diagnosis for this admission?: Yes Plan: As #1 (3) Community acquired pneumonia Qualifiers: Laterality: right Lung location: lower lobe of lung Qualified Code(s): J18.1 - Lobar pneumonia, unspecified organism Is this a current diagnosis for this admission?: Yes Plan: Patient completed course of Levaquin (4) CKD (chronic kidney disease) stage 4, GFR 15-29 ml/min Is this a current diagnosis for this admission?: Yes Plan: Her kidney function is worsening so I discontinue her Levaquin and sodium bicarbonate started on normal saline at a rate of 125 mm/h and will monitor her kidney function in a.m. (5) Hypothyroidism (acquired) Is this a current diagnosis for this admission?: Yes Plan: Continue Synthroid (6) Dementia Qualifiers: Dementia type: unspecified type Dementia behavioral disturbance: without behavioral disturbance Qualified Code(s): F03.90 - Unspecified dementia without behavioral disturbance Is this a current diagnosis for this admission?: Yes Plan: Continue donepezil
[2018-09-27] MEDS: IPRATROPIUM/ALBUTEROL 0.5-2.5 MG/3 ML AMPUL NEB PRN (13:37)
[2018-09-27] MEDS: TRAMADOL HCL 50 MG TABLET PO PRN (14:06)
[2018-09-27] MEDS: ALPRAZOLAM 0.25 MG TABLET PO PRN (14:06)
[2018-09-27 15:19] LABS: ARTERIAL BLOOD BASE EXCESS -8.7 mmol/L; ARTERIAL BLOOD H2CO3 1.49 mmol/L (1.05-1.35); ARTERIAL BLOOD O2 SATURATION 91.3 % (94-98); ARTERIAL BLOOD PCO2 49.5 mmHg (35-45); ARTERIAL BLOOD PO2 73.6 mmHg (80-100); ARTERIAL BLOOD TOTAL CO2 20.5 mmol/L (21-25)
[2018-09-27 15:20] LABS: ARTERIAL BLOOD FIO2 3L
[2018-09-27] MEDS: ACETAMINOPHEN 325 MG TABLET PO PRN (21:21)
[2018-09-27] MEDS: GABAPENTIN 300 MG CAPSULE PO SCH (21:21)
[2018-09-27] MEDS: TRAZODONE HCL 50 MG TABLET PO SCH (21:22)
[2018-09-28] MEDS: HEPARIN SOD (PORCINE) 5,000 UNIT/ML 1 ML SYRINGE SUBCUT SCH ×3 (05:15→21:21)
[2018-09-28] MEDS: LEVOTHYROXINE SODIUM 0.1 MG TABLET PO SCH (05:16)
[2018-09-28] MEDS: LEVOTHYROXINE SODIUM 0.025 MG TABLET PO SCH (05:16)
[2018-09-28] MEDS: DULOXETINE HCL 30 MG CAPSULE.DR PO SCH (08:17)
[2018-09-28] MEDS: ATORVASTATIN CALCIUM 40 MG TABLET PO SCH (08:18)
[2018-09-28] MEDS: CYANOCOBALAMIN/FA/PYRIDOXINE TABLET PO SCH (08:18)
[2018-09-28] MEDS: TAMSULOSIN HCL 0.4 MG CAP.SR.24H PO SCH (08:18)
[2018-09-28] MEDS: DONEPEZIL HCL 5 MG TABLET PO SCH (08:18)
[2018-09-28] MEDS: FLUTICASONE NASAL SPRAY 50 MCG/SPRY 120 SPRAY/16 GM NASL SCH (08:18)
[2018-09-28] MEDS: TIOTROPIUM BROMIDE DPI 5 CAP/KIT (18 MCG/CAP) IH SCH (08:19)
[2018-09-28] MEDS: PREDNISONE 10 MG TABLET PO SCH (09:25)
[2018-09-28] MEDS: SALMETEROL XINAFOATE DISKUS 50 MCG/1 DOSE 28 DOSE IH SCH ×2 (09:25→17:27)
[2018-09-28] MEDS: IPRATROPIUM/ALBUTEROL 0.5-2.5 MG/3 ML AMPUL NEB PRN (10:53)
[2018-09-28] MEDS: ALPRAZOLAM 0.25 MG TABLET PO PRN (12:02)
[2018-09-28] MEDS: TRAMADOL HCL 50 MG TABLET PO PRN (12:02)
[2018-09-28] MEDS ORDERED: LORAZEPAM INJ 2 MG/1 ML VIAL ONE (12:16)
[2018-09-28] MEDS ORDERED: LORAZEPAM INJ 2 MG/1 ML VIAL IV PRN (12:19)
--- NOTE | 2018-09-28 12:40 | RADIOLOGY REPORT (SQ) ---
EXAM DESCRIPTION: CHEST SINGLE VIEW COMPLETED DATE/TIME: 09/28/2018 12:19 pm REASON FOR STUDY: sob COMPARISON: 09/18/2018 EXAM PARAMETERS: NUMBER OF VIEWS: One view. TECHNIQUE: Single frontal radiographic view of the chest acquired. RADIATION DOSE: NA LIMITATIONS: None. FINDINGS: There is again evidence of prominent perihilar interstitial infiltrates bilaterally with f ocal airspace type infiltrates noted at the right lung base and left retrocardiac region. Blunting o f both costophrenic angles. The heart remain unchanged in size. Pulmonary vascular congestion. IMPRESSION: No significant improvement from prior study. Findings consistent with pulmonary edema a nd/or pneumonia. Bilateral pleural effusions. TECHNICAL DOCUMENTATION: JOB ID: [id number] [id number] 2010 [employer]- All Rights Reserved Reading location - IP/workstation name: [email or web address]
--- NOTE | 2018-09-28 14:17 | PDOC PROGRESS REPORT ---
Subjective Progress Note for:: 09/28/18 Subjective:: This morning patient has an episode of acute respiratory distress evidenced by tachypnea, audible wheezing and desaturation in the lower 80s. Patient refused BiPAP and will keep her on 4 L of oxygen via nasal cannula. She is given Xanax and 1 mg of IV Ativan and her respiratory distress relatively subsided and her saturations also improved. Reason For Visit: ACUTE EXACERBATION OF COPD,ACUTE ON CHRONIC Physical Exam Vital Signs: Temp Pulse Resp BP Pulse Ox 97.3 F 119 H 22 H 116/95 H 94 09/28/18 11:54 09/28/18 11:54 09/28/18 12:45 09/28/18 11:54 09/28/18 12:45 Intake & Output 09/27/18 09/28/18 09/29/18 06:59 06:59 06:59 Intake Total 1500 3183 222 Balance 1500 3183 222 Weight 58.6 kg 57.7 kg General appearance: PRESENT: thin, other - Moderate respiratory distress Head exam: PRESENT: atraumatic Eye exam: PRESENT: conjunctiva pink Teeth exam: PRESENT: edentulous Respiratory exam: PRESENT: accessory muscle use, retraction, tachypnea, wheezes Cardiovascular exam: PRESENT: tachycardia GI/Abdominal exam: PRESENT: normal bowel sounds, soft. ABSENT: distended, guarding, mass, organolmegaly, rebound, tenderness Neurological exam: PRESENT: alert, awake, oriented to time, oriented to situation Results Laboratory Results: 09/22/18 04:48 09/27/18 04:28 09/27/18 14:55 Carbonic Acid 1.49 H HCO3/H2CO3 Ratio 12:1 ABG pH 7.20 L* ABG pCO2 49.5 H ABG pO2 73.6 L ABG HCO3 19.0 L ABG O2 Saturation 91.3 L ABG Base Excess -8.7 FiO2 3L 09/18/18 09/18/18 01:36 01:36 Creatine Kinase 49 CK-MB (CK-2) 1.63 Troponin I 0.082 NT-Pro-B Natriuret Pep [id number] H Impressions: Chest X-Ray 09/28/18 00:00 IMPRESSION: No significant improvement from prior study. Findings consistent with pulmonary edema and/or pneumonia. Bilateral pleural effusions. Assessment & Plan - Diagnosis (1) A/C hypoxemic and hypercarbic respirator Is this a current diagnosis for this admission?: Yes Plan: This morning patient's symptoms worsened evidenced by dyspnea tachypnea wheezing and desaturation. Patient responds to sedatives and oxygen but she refused BiPAP. Patient was started on long-acting morphine sulfate. (2) COPD exacerbation Is this a current diagnosis for this admission?: Yes Plan: Continue scheduled and as needed breathing treatment. (3) Community acquired pneumonia Qualifiers: Laterality: right Lung location: lower lobe of lung Qualified Code(s): J18.1 - Lobar pneumonia, unspecified organism Is this a current diagnosis for this admission?: Yes Plan: Patient completed course of Levaquin (4) CKD (chronic kidney disease) stage 4, GFR 15-29 ml/min Is this a current diagnosis for this admission?: Yes Plan: Her kidney function is worsening so I discontinue her Levaquin and sodium bi carbonate started on normal saline at a rate of 125 mm/h and will monitor her kidney function in a.m. (5) Hypothyroidism (acquired) Is this a current diagnosis for this admission?: Yes Plan: Continue Synthroid (6) Dementia Qualifiers: Dementia type: unspecified type Dementia behavioral disturbance: without behavioral disturbance Qualified Code(s): F03.90 - Unspecified dementia without behavioral disturbance Is this a current diagnosis for this admission?: Yes Plan: Continue donepezil
[2018-09-28] MEDS: NORMAL SALINE 1000 ML 1,000 ML IV PRN (14:25)
[2018-09-28] MEDS ORDERED: FUROSEMIDE INJ/PF 40 MG/4 ML SDV IV ONE (14:26)
[2018-09-28 18:16] LABS: ARTERIAL BLOOD BASE EXCESS -7.5 mmol/L; ARTERIAL BLOOD H2CO3 1.38 mmol/L (1.05-1.35); ARTERIAL BLOOD HCO3 19.6 mmol/L (20-24); ARTERIAL BLOOD O2 SATURATION 93.4 % (94-98); ARTERIAL BLOOD PCO2 45.8 mmHg (35-45); ARTERIAL BLOOD PH 7.25 (7.35-7.45); ARTERIAL BLOOD PO2 77.6 mmHg (80-100)
[2018-09-28 18:17] LABS: ARTERIAL BLOOD FIO2 4L
[2018-09-28] MEDS: ALPRAZOLAM 0.5 MG TABLET PO SCH (21:20)
[2018-09-28] MEDS: TRAZODONE HCL 50 MG TABLET PO SCH (21:20)
[2018-09-28] MEDS: MORPHINE SULFATE SR 15 MG TABLET PO SCH (21:20)
[2018-09-28] MEDS: GABAPENTIN 300 MG CAPSULE PO SCH (21:20)
[2018-09-29] MEDS: NORMAL SALINE 1000 ML 1,000 ML IV PRN (04:59)
[2018-09-29] MEDS: LEVOTHYROXINE SODIUM 0.025 MG TABLET PO SCH (05:39)
[2018-09-29] MEDS: LEVOTHYROXINE SODIUM 0.1 MG TABLET PO SCH (05:39)
[2018-09-29] MEDS: HEPARIN SOD (PORCINE) 5,000 UNIT/ML 1 ML SYRINGE SUBCUT SCH ×2 (05:40→14:28)
[2018-09-29] MEDS: DONEPEZIL HCL 5 MG TABLET PO SCH (07:40)
[2018-09-29] MEDS: TAMSULOSIN HCL 0.4 MG CAP.SR.24H PO SCH (07:40)
[2018-09-29] MEDS: ATORVASTATIN CALCIUM 40 MG TABLET PO SCH (07:40)
[2018-09-29] MEDS: DULOXETINE HCL 30 MG CAPSULE.DR PO SCH (07:40)
[2018-09-29] MEDS: CYANOCOBALAMIN/FA/PYRIDOXINE TABLET PO SCH (07:41)
[2018-09-29] MEDS: FLUTICASONE NASAL SPRAY 50 MCG/SPRY 120 SPRAY/16 GM NASL SCH (07:41)
--- NOTE | 2018-09-29 09:29 | PDOC DISCHARGE SUMMARY ---
General - Admit/Disc Date/PCP Admission Date/Primary Care Provider: 09/18/18 04:10 MNIDA GABRIEL MD Discharge Date: 09/29/18 - Discharge Diagnosis (1) A/C hypoxemic and hypercarbic respirator Is this a current diagnosis for this admission?: Yes (2) COPD exacerbation Is this a current diagnosis for this admission?: Yes (3) Community acquired pneumonia Is this a current diagnosis for this admission?: Yes (4) CKD (chronic kidney disease) stage 4, GFR 15-29 ml/min Is this a current diagnosis for this admission?: Yes (5) Hypothyroidism (acquired) Is this a current diagnosis for this admission?: Yes (6) Dementia Is this a current diagnosis for this admission?: Yes - Additional Information Resuscitation Status: Do Not Resuscitate Home Medications: Acetaminophen [Tylenol 325 mg Tablet] 650 mg PO Q6HP PRN 09/18/18 Alprazolam [Xanax 0.25 mg Tablet] 0.25 mg PO BIDP PRN 09/18/18 Atorvastatin Calcium [Lipitor 40 mg Tablet] 40 mg PO QAM 09/18/18 Cyanocobalamin (Vitamin B-12) [Vitamin B-12 100 mcg Tablet] 400 mcg PO QAM 09/18/18 Cyanocobalamin/Folic AC/Vit B6 [Folbic Tablet] 1 tab PO QAM 09/18/18 Docusate Sodium [Colace 100 mg Capsule] 100 mg PO BIDP PRN 09/18/18 Donepezil HCl [Aricept] 10 mg PO QAM 09/18/18 Duloxetine HCl [Cymbalta] 60 mg PO QAM 18 Fluticasone Propionate [Flonase Nasal [place] 50 Mcg/[place] 16 gm] 1 spray NASL QAM 09/18/18 Gabapentin [Neurontin 300 mg Capsule] 300 mg PO QHS 09/18/18 Ipratropium/Albuterol Sulfate [Duoneb 3 ml Ampul] 3 ml NEB RTQ3HP PRN 09/18/18 Levothyroxine Sodium 200 mcg PO Q6AM 09/18/18 Omeprazole 20 mg PO DAILY 09/18/18 Ondansetron HCl [Zofran 4 mg Tablet] 4 mg PO Q6HP PRN 09/18/18 Polyvinyl Alcohol [Liquitears 1.4% Ophth Soln 15 ml] 1 drop OU ASDIR PRN 09/18/18 Salmeterol Xinafoate [Serevent Diskus 50 Mcg/Dose 28 Dose/Diskus] 1 puff IH BID 09/18/18 Sodium Bicarbonate [Sodium Bicarbonate 650 mg Tablet] 1,950 mg PO QAM 09/18/18 Tamsulosin HCl [Flomax 0.4 mg Cap.sr] 0.4 mg PO QAM 09/18/18 Tiotropium [place] [Spiriva Handihaler 5 Cap/Kit (18 Mcg/Cap)] 1 cap IH QAM 09/18/18 Tramadol HCl [Ultram 50 mg Tablet] 50 mg PO Q8HP PRN 09/18/18 Trazodone HCl [Desyrel 50 mg Tablet] 25 mg PO QHS 09/18/18 History of Present Illness History of Present Illness: PADMINI MISHRA is a 78 year old female who presented to the ER with a one day history of worsening dyspnea. She admits developing a sudden onset of dyspnea th e day before her admission. The dyspnea worsened from moderate at onset to severe by the time she summoned EMS several hours later. The dyspnea was accompanied by a nonproductive cough and a sensation of chest tightness not allowing a deep breath. She used her home inhalers and nebulizer therapy with initial improvement but her symptoms returned and were unresponsive to her home medications. She admits that she improved somewhat in the ambulance after getting Solu-medrol and a Duoneb. She acknowledges several prior similar episodes with her COPD, but she has not identified any aggravating factors for her dyspnea and has also not identified any other ameliorating factors than those already discussed. In the ER she was found to be hypercapneic and hypoxic and was subsequently admitted for ongoing therapeutic intervention. Hospital Course Hospital Course: This is a 78 years old female patient admitted for acute on chronic hypoxemic and hypercarbic respiratory failure secondary to COPD exacerbation. Patient has been with IV levaquin,duoneb and prednisone. Patient is uncooperative to wear BiPAP and also she refused to participate with physical therapy. Yesterday patient had an episode of acute respiratory distress evidenced by audible wheezing tachypnea, retractions and desaturation patient given Xanax and Ativan so after she sedated she was put on BiPAP the whole night and this morning her shortness of breath relatively subsided and her ABG also normalized. Currently her shortness of breath is at its baseline. Patient of fered acute short-term rehab placement but she vehemently refused. Her vital signs are within normal limits and patient is stable enough to be discharged. I will refill all medication and I will send her with prednisone 40 mg p.o. daily for 5 days, morphine sulfate extended release 50 mg twice a day and Levaquin 500 mg p.o. daily for 7 days. Physical Exam Vital Signs: Temp Pulse Resp BP Pulse Ox 97.6 F 74 9 L 102/52 L 94 09/29/18 03:15 09/29/18 07:00 09/29/18 04:17 09/29/18 03:15 09/29/18 04:17 Intake & Output 09/28/18 09/29/18 09/30/18 06:59 06:59 06:59 Intake Total 3183 2272 Balance 3183 2272 Weight 57.7 kg 55.4 kg General appearance: PRESENT: mild distress Head exam: PRESENT: atraumatic Eye exam: PRESENT: conjunctiva pink Mouth exam: PRESENT: moist Neck exam: ABSENT: carotid bruit, JVD, lymphadenopathy, thyromegaly Respiratory exam: PRESENT: crackles Cardiovascular exam: PRESENT: RRR. ABSENT: diastolic murmur, rubs, systolic murmur GI/Abdominal exam: PRESENT: normal bowel sounds, soft. ABSENT: distended, guarding, mass, organolmegaly, rebound, tenderness Neurological exam: PRESENT: alert, awake Results Laboratory Results: 09/22/18 04:48 09/27/18 04:28 09/28/18 18:00 Carbonic Acid 1.38 H HCO3/H2CO3 Ratio 14:1 ABG pH 7.25 L ABG pCO2 45.8 H ABG pO2 77.6 L ABG HCO3 19.6 L ABG O2 Saturation 93.4 L ABG Base Excess -7.5 FiO2 4L 09/18/18 09/18/18 01:36 01:36 Creatine Kinase 49 CK-MB (CK-2) 1.63 Troponin I 0.082 NT-Pro-B Natriuret Pep [id number] H Impressions: Chest X-Ray 09/28/18 00:00 IMPRESSION: No significant improvement from prior study. Findings consistent with pulmonary edema and/or pneumonia. Bilateral pleural effusions. Qualifiers - * PATIENT BEING DISCHARGED WITH ANY OF THE FOLLOWING DIAGNOSIS: No
[2018-09-29] MEDS: ALPRAZOLAM 0.5 MG TABLET PO SCH (09:37)
[2018-09-29] MEDS: TIOTROPIUM BROMIDE DPI 5 CAP/KIT (18 MCG/CAP) IH SCH (09:37)
[2018-09-29] MEDS: MORPHINE SULFATE SR 15 MG TABLET PO SCH (09:37)
[2018-09-29] MEDS: PREDNISONE 10 MG TABLET PO SCH (09:38)
[2018-09-29] MEDS: SALMETEROL XINAFOATE DISKUS 50 MCG/1 DOSE 28 DOSE IH SCH (09:38)
[2018-09-29 12:36] VITALS: BP 98/48
--- NOTE | 2018-10-07 11:11 | PDOC PROGRESS REPORT ---
Subjective Progress Note for:: 09/23/18 Subjective:: Confused apprehensive Reason For Visit: ACUTE EXACERBATION OF COPD,ACUTE ON CHRONIC Physical Exam Vital Signs: Temp Pulse Resp BP Pulse Ox 98.4 F 85 12 98/48 L 94 09/29/18 12:02 09/29/18 12:02 09/29/18 12:02 09/29/18 12:02 09/29/18 12:02 General appearance: PRESENT: no acute distress, cooperative, disheveled, thin Head exam: PRESENT: atraumatic, normocephalic Eye exam: PRESENT: conjunctiva pale, EOMI. ABSENT: nystagmus, scleral icterus Mouth exam: PRESENT: dry mucosa, neck supple, tongue midline Neck exam: ABSENT: carotid bruit, JVD, lymphadenopathy, thyromegaly, tracheal deviation, tracheostomy Respiratory exam: PRESENT: decreased breath sounds, prolonged expiratory phas, rales, rhonchi, unlabored. ABSENT: stridor, tachypnea Cardiovascular exam: ABSENT: tachycardia Pulses: PRESENT: normal radial pulses GI/Abdominal exam: PRESENT: soft. ABSENT: tenderness Extremities exam: PRESENT: pedal edema. ABSENT: calf tenderness, clubbing, joint swelling Musculoskeletal exam: ABSENT: deformity, dislocation Neurological exam: PRESENT: awake Psychiatric exam: PRESENT: unusual affect Skin exam: PRESENT: dry, warm Results Laboratory Results: 09/22/18 04:48 09/27/18 04:28 09/18/18 09/18/18 01:36 01:36 Creatine Kinase 49 CK-MB (CK-2) 1.63 Troponin I 0.082 NT-Pro-B Natriuret Pep [id number] H Impressions: Chest X-Ray 09/28/18 00:00 IMPRESSION: No significant improvement from prior study. Findings consistent with pulmonary edema and/or pneumonia. Bilateral pleural effusions. Assessment & Plan - Diagnosis (1) CKD (chronic kidney disease) stage 4, GFR 15-29 ml/min Is this a current diagnosis for this admission?: Yes Plan: GFR closely avoid nephrotoxic drugs, nephrology consult (2) Acute and chronic respiratory failure with hypercapnia Is this a current diagnosis for this admission?: Yes Plan: Consider holding the ectropion and ipratropium redundant with the albuterol ipratropium 0 holding the Serevent patient is off DuoNeb Generic Name Dose Route Start Last Admin Trade Name Freq PRN Reason Stop Dose Admin Tiotropium [place] 1 cap 09/19/18 08:00 09/20/18 09:54 Spiriva Handihaler 5 Cap/Kit (18 Mcg/Cap) IH 10/19/18 07:59 1 cap QAM TREY Budesonide 0.5 mg 09/18/18 08:00 09/20/18 08:43 Pulmicort Neb 0.5 Mg/2 Ml Ampul NEB 10/18/18 07:59 0.5 mg RTQ12 TREY Albuterol/Ipratropium 3 ml 09/20/18 12:15 Duoneb 3 Ml Ampul NEB 10/20/18 12:14 RTQ3HP PRN SOB/WHEEZING Salmeterol Xinafoate 50 mcg 09/18/18 18:00 09/20/18 09:54 Serevent Diskus 50 Mcg/Dose 28 Dose/Diskus IH 10/18/18 17:59 1 inh BID TREY Ipratropium [place] 0.5 mg 09/18/18 08:00 09/20/18 08:43 Atrovent 0.02% Neb 0.5 Mg/2.5 Ml Ampul NEB 10/18/18 07:59 0.5 mg RTQ8 REPLACED BY [facility] (3) Dementia Qualifiers: Dementia type: unspecified type Dementia behavioral disturbance: without behavioral disturbance Qualified Code(s): F03.90 - Unspecified dementia without behavioral disturbance Is this a current diagnosis for this admission?: Yes Plan: Lives in assisted living [facility] (4) HTN (hypertension) Qualifiers: Hypertension type: essential hypertension Qualified Code(s): I10 - Essential (primary) hypertension Is this a current diagnosis for this admission?: Yes Plan: Stable at this time
--- NOTE | 2018-10-07 11:14 | PDOC PROGRESS REPORT ---
Subjective Progress Note for:: 09/24/18 Subjective:: Confused apprehensive Reason For Visit: ACUTE EXACERBATION OF COPD,ACUTE ON CHRONIC Physical Exam Vital Signs: Temp Pulse Resp BP Pulse Ox 98.4 F 85 12 98/48 L 94 09/29/18 12:02 09/29/18 12:02 09/29/18 12:02 09/29/18 12:02 09/29/18 12:02 General appearance: PRESENT: disheveled, thin. ABSENT: cooperative Head exam: PRESENT: atraumatic, normocephalic Eye exam: PRESENT: conjunctiva pale. ABSENT: nystagmus, scleral icterus Mouth exam: PRESENT: dry mucosa, neck supple, tongue midline Neck exam: ABSENT: carotid bruit, JVD, lymphadenopathy, thyromegaly, tracheal deviation, tracheostomy Respiratory exam: PRESENT: decreased breath sounds, prolonged expiratory phas, rhonchi, unlabored. ABSENT: rales, stridor, tachypnea Cardiovascular exam: PRESENT: RRR. ABSENT: tachycardia Pulses: PRESENT: normal radial pulses GI/Abdominal exam: PRESENT: soft. ABSENT: tenderness Extremities exam: PRESENT: pedal edema. ABSENT: calf tenderness, clubbing, joint swelling Musculoskeletal exam: ABSENT: deformity, dislocation Neurological exam: PRESENT: altered, awake Skin exam: PRESENT: dry, warm Results Laboratory Results: 09/22/18 04:48 09/27/18 04:28 09/18/18 09/18/18 01:36 01:36 Creatine Kinase 49 CK-MB (CK-2) 1.63 Troponin I 0.082 NT-Pro-B Natriuret Pep [id number] H Impressions: Chest X-Ray 09/28/18 00:00 IMPRESSION: No significant improvement from prior study. Findings consistent with pulmonary edema and/or pneumonia. Bilateral pleural effusions. Assessment & Plan - Diagnosis (1) CKD (chronic kidney disease) stage 4, GFR 15-29 ml/min Is this a current diagnosis for this admission?: Yes Plan: GFR closely avoid nephrotoxic drugs, nephrology consult (2) Acute and chronic respiratory failure with hypercapnia Is this a current diagnosis for this admission?: Yes Plan: Slightly improved (3) Dementia Qualifiers: Dementia type: unspecified type Dementia behavioral disturbance: without behavioral disturbance Qualified Code(s): F03.90 - Unspecified dementia without behavioral disturbance Is this a current diagnosis for this admission?: Yes Plan: Lives in assisted living [facility] (4) HTN (hypertension) Qualifiers: Hypertension type: essential hypertension Qualified Code(s): I10 - Essential (primary) hypertension Is this a current diagnosis for this admission?: Yes Plan: Stable at this time
--- NOTE | 2018-10-07 11:16 | PDOC PROGRESS REPORT ---
Subjective Progress Note for:: 09/25/18 Subjective:: Confused apprehensive Reason For Visit: ACUTE EXACERBATION OF COPD,ACUTE ON CHRONIC Physical Exam Vital Signs: Temp Pulse Resp BP Pulse Ox 98.4 F 85 12 98/48 L 94 09/29/18 12:02 09/29/18 12:02 09/29/18 12:02 09/29/18 12:02 09/29/18 12:02 General appearance: PRESENT: no acute distress, disheveled. ABSENT: cooperative Head exam: PRESENT: atraumatic, normocephalic Eye exam: PRESENT: conjunctiva pale, EOMI. ABSENT: nystagmus, scleral icterus Mouth exam: PRESENT: dry mucosa, neck supple, tongue midline Neck exam: ABSENT: carotid bruit, JVD, lymphadenopathy, thyromegaly, tracheal deviation, tracheostomy Respiratory exam: PRESENT: decreased breath sounds, rhonchi, symmetrical, unlabored. ABSENT: rales, retraction, stridor, tachypnea Cardiovascular exam: PRESENT: RRR. ABSENT: tachycardia Pulses: PRESENT: normal radial pulses GI/Abdominal exam: PRESENT: soft. ABSENT: tenderness Extremities exam: PRESENT: pedal edema. ABSENT: calf tenderness, clubbing, joint swelling Musculoskeletal exam: ABSENT: deformity, dislocation Neurological exam: PRESENT: altered, awake Skin exam: PRESENT: dry, warm Results Laboratory Results: 09/22/18 04:48 09/27/18 04:28 09/18/18 09/18/18 01:36 01:36 Creatine Kinase 49 CK-MB (CK-2) 1.63 Troponin I 0.082 NT-Pro-B Natriuret Pep [id number] H Impressions: Chest X-Ray 09/28/18 00:00 IMPRESSION: No significant improvement from prior study. Findings consistent with pulmonary edema and/or pneumonia. Bilateral pleural effusions. Assessment & Plan - Diagnosis (1) CKD (chronic kidney disease) stage 4, GFR 15-29 ml/min Is this a current diagnosis for this admission?: Yes Plan: GFR closely avoid nephrotoxic drugs, nephrology consult (2) Acute and chronic respiratory failure with hypercapnia Is this a current diagnosis for this admission?: Yes Plan: Slightly improved (3) Dementia Qualifiers: Dementia type: unspecified type Dementia behavioral disturbance: without be havioral disturbance Qualified Code(s): F03.90 - Unspecified dementia without behavioral disturbance Is this a current diagnosis for this admission?: Yes Plan: Lives in assisted living [facility] (4) HTN (hypertension) Qualifiers: Hypertension type: essential hypertension Qualified Code(s): I10 - Essential (primary) hypertension Is this a current diagnosis for this admission?: Yes Plan: Stable at this time
--- NOTE | 2018-10-07 11:17 | PDOC PROGRESS REPORT ---
Subjective Progress Note for:: 09/26/18 Subjective:: Confused apprehensive Reason For Visit: ACUTE EXACERBATION OF COPD,ACUTE ON CHRONIC Physical Exam Vital Signs: Temp Pulse Resp BP Pulse Ox 98.4 F 85 12 98/48 L 94 09/29/18 12:02 09/29/18 12:02 09/29/18 12:02 09/29/18 12:02 09/29/18 12:02 General appearance: PRESENT: no acute distress, disheveled Head exam: PRESENT: atraumatic, normocephalic Eye exam: PRESENT: conjunctiva pale, EOMI. ABSENT: nystagmus, scleral icterus Mouth exam: PRESENT: dry mucosa, neck supple, tongue midline Neck exam: ABSENT: carotid bruit, JVD, lymphadenopathy, thyromegaly, tracheal deviation, tracheostomy Respiratory exam: PRESENT: decreased breath sounds, prolonged expiratory phas, rhonchi, unlabored. ABSENT: retraction, tachypnea Cardiovascular exam: PRESENT: RRR. ABSENT: tachycardia Pulses: PRESENT: normal radial pulses GI/Abdominal exam: PRESENT: soft. ABSENT: tenderness Extremities exam: PRESENT: pedal edema. ABSENT: calf tenderness, clubbing, joint swelling Musculoskeletal exam: ABSENT: deformity, dislocation Neurological exam: PRESENT: altered, awake Skin exam: PRESENT: dry, warm Results Laboratory Results: 09/22/18 04:48 09/27/18 04:28 09/18/18 09/18/18 01:36 01:36 Creatine Kinase 49 CK-MB (CK-2) 1.63 Troponin I 0.082 NT-Pro-B Natriuret Pep [id number] H Impressions: Chest X-Ray 09/28/18 00:00 IMPRESSION: No significant improvement from prior study. Findings consistent with pulmonary edema and/or pneumonia. Bilateral pleural effusions. Assessment & Plan - Diagnosis (1) CKD (chronic kidney disease) stage 4, GFR 15-29 ml/min Is this a current diagnosis for this admission?: Yes Plan: GFR closely avoid nephrotoxic drugs, nephrology consult (2) Acute and chronic respiratory failure with hypercapnia Is this a current diagnosis for this admission?: Yes Plan: Slightly improved (3) Dementia Qualifiers: Dementia type: unspecified type Dementia behavioral disturbance: without behavioral disturbance Qualified Code(s): F03.90 - Unspecified dementia without behavioral disturbance Is this a current diagnosis for this admission?: Yes Plan: Lives in assisted living [facility] (4) HTN (hypertension) Qualifiers: Hypertension type: essential hypertension Qualified Code(s): I10 - Essential (primary) hypertension Is this a current diagnosis for this admission?: Yes Plan: Stable at this time
--- NOTE | 2018-10-07 11:19 | PDOC PROGRESS REPORT ---
Subjective Progress Note for:: 09/27/18 Subjective:: Confused Reason For Visit: ACUTE EXACERBATION OF COPD,ACUTE ON CHRONIC Physical Exam Vital Signs: Temp Pulse Resp BP Pulse Ox 98.4 F 85 12 98/48 L 94 09/29/18 12:02 09/29/18 12:02 09/29/18 12:02 09/29/18 12:02 09/29/18 12:02 General appearance: PRESENT: no acute distress, disheveled Head exam: PRESENT: atraumatic, normocephalic Eye exam: PRESENT: conjunctiva pale, EOMI. ABSENT: nystagmus, scleral icterus Mouth exam: PRESENT: dry mucosa, neck supple, tongue midline Neck exam: ABSENT: carotid bruit, JVD, lymphadenopathy, thyromegaly, tracheal deviation, tracheostomy Respiratory exam: PRESENT: decreased breath sounds, prolonged expiratory phas, unlabored. ABSENT: retraction, tachypnea Cardiovascular exam: PRESENT: RRR. ABSENT: tachycardia Pulses: PRESENT: normal radial pulses GI/Abdominal exam: PRESENT: soft. ABSENT: tenderness Extremities exam: PRESENT: pedal edema. ABSENT: calf tenderness, clubbing, joint swelling Musculoskeletal exam: ABSENT: deformity, dislocation Neurological exam: PRESENT: altered, awake Skin exam: PRESENT: dry, warm Results Laboratory Results: 09/22/18 04:48 09/27/18 04:28 09/18/18 09/18/18 01:36 01:36 Creatine Kinase 49 CK-MB (CK-2) 1.63 Troponin I 0.082 NT-Pro-B Natriuret Pep [id number] H Impressions: Chest X-Ray 09/28/18 00:00 IMPRESSION: No significant improvement from prior study. Findings consistent with pulmonary edema and/or pneumonia. Bilateral pleural effusions. Assessment & Plan - Diagnosis (1) CKD (chronic kidney disease) stage 4, GFR 15-29 ml/min Is this a current diagnosis for this admission?: Yes Plan: GFR closely avoid nephrotoxic drugs, nephrology consult (2) Acute and chronic respiratory failure with hypercapnia Is this a current diagnosis for this admission?: Yes Plan: Slightly improved (3) Dementia Qualifiers: Dementia type: unspecified type Dementia behavioral disturbance: without behavioral disturbance Qualified Code(s): F03.90 - Unspecified dementia without behavioral disturbance Is this a current diagnosis for this admission?: Yes Plan: Lives in assisted living [facility] (4) HTN (hypertension) Qualifiers: Hypertension type: essential hypertension Qualified Code(s): I10 - Essential (primary) hypertension Is this a current diagnosis for this admission?: Yes Plan: Stable at this time
== END 2018-09-29 16:28 | disposition home health service (06) | DRG 189 ==
LOC: ER 23:47 → EH 09-18 04:10 → 3W 09-18 17:31
PROVIDERS: ADMIT Emergency Medicine; ATTEND Emergency Medicine
DX: J96.01 Acute respiratory failure with hypoxia (principal); J18.9 Pneumonia, unspecified organism; J44.1 Chronic obstructive pulmonary disease with (acute) exacerbation; N18.4 Chronic kidney disease, stage 4 (severe); J44.0 Chronic obstructive pulmonary disease with (acute) lower respiratory infection; J96.02 Acute respiratory failure with hypercapnia; I25.10 Atherosclerotic heart disease of native coronary artery without angina pectoris; E78.5 Hyperlipidemia, unspecified; E03.9 Hypothyroidism, unspecified; K21.9 Gastro-esophageal reflux disease without esophagitis; F03.90 Unspecified dementia, unspecified severity, without behavioral disturbance, psychotic disturbance, mood disturbance, and anxiety; F32.9 Major depressive disorder, single episode, unspecified; Z90.49 Acquired absence of other specified parts of digestive tract; Z87.891 Personal history of nicotine dependence; Z66 Do not resuscitate; Z83.438 Family history of other disorder of lipoprotein metabolism and other lipidemia; Z79.899 Other long term (current) drug therapy; K58.0 Irritable bowel syndrome with diarrhea; I12.9 Hypertensive chronic kidney disease with stage 1 through stage 4 chronic kidney disease, or unspecified chronic kidney disease; D63.1 Anemia in chronic kidney disease; Z53.29 Procedure and treatment not carried out because of patient's decision for other reasons
CPT/HCPCS: 36415; 36600; 71045; 80048; 80053; 80061; 82550; 82553; 82803; 83735; 83880; 84439; 84443; 84481; 84484; 85025; 85027; 87040; 93005; 93010; 93306; 94640; 94660; 96365; 96367; 96375; 96376; 99285; G8978-GP; G8979-GP; J0456; J0696; J1644; J1940; J2060; J2405; J2920; J3475; J3490; J7030; J7512; J7620; S0119; S0164

== ENCOUNTER → 2018-10-22 | Outpatient (CLI) | payer MEDICARE ==
[2018-10-22 14:40] LABS: ABSOLUTE BASOPHILS # (AUTO) 0.1 10^3/uL (0.0-0.2); ABSOLUTE EOSINOPHILS # (AUTO) 0.4 10^3/uL (0.0-0.6); ABSOLUTE LYMPHOCYTES (AUTO) 0.7 10^3/uL (0.5-4.7); ABSOLUTE MONOCYTES (AUTO) 0.4 10^3/uL (0.1-1.4); ABSOLUTE NEUT (AUTO) 3.8 10^3/uL (1.7-8.2); BASOPHILS % (AUTO) 1.2 % (0-2); EOSINOPHILS % (AUTO) 7.6 % (0-6); HEMATOCRIT 29.7 % (36.0-47.0); HEMOGLOBIN 9.7 g/dL (12.0-15.5); LYMPHOCYTES % (AUTO) 13.2 % (13-45); MEAN CORPUSCULAR HEMOGLOBIN 29.7 pg (27.0-33.4); MEAN CORPUSCULAR HGB CONC 32.9 g/dL (32.0-36.0); MEAN CORPUSCULAR VOLUME 90 fl (80-97); MONOCYTES % (AUTO) 6.9 % (3-13); PLATELET COUNT 153 10^3/uL (150-450); RED BLOOD COUNT 3.28 10^6/uL (3.72-5.28); RED CELL DISTRIBUTION WIDTH 16.1 % (11.5-14.0); SEGMENTED NEUTROPHILS % (AUTO) 71.1 % (42-78); TOTAL CELLS COUNTED % (AUTO) 100 %; WHITE BLOOD COUNT 5.4 10^3/uL (4.0-10.5)
[2018-10-22 14:52] LABS: ALBUMIN 3.8 g/dL (3.5-5.0); ANION GAP 5 (5-19); BLOOD UREA NITROGEN 47 mg/dL (7-20); CALCIUM 8.8 mg/dL (8.4-10.2); CARBON DIOXIDE 25 mmol/L (22-30); CHLORIDE 111 mmol/L (98-107); GLUCOSE 94 mg/dL (75-110); IRON(TIBC) 46.3 ug/dL (37-170); PHOSPHORUS 6.4 mg/dL (2.5-4.5); POTASSIUM 4.6 mmol/L (3.6-5.0); SODIUM 140.7 mmol/L (137-145)
== END ==
LOC: LAB 14:01
PROVIDERS: ATTEND Internal Medicine Nephrology
DX: N18.5 Chronic kidney disease, stage 5 (principal); D64.9 Anemia, unspecified
CPT/HCPCS: 36415; 80069; 82728; 83540; 83550; 85025

== ENCOUNTER 2018-10-25 11:28 | Emergency (ER) | payer MEDICARE, OTHER ==
[2018-10-25 12:23] VITALS: BP 127/95
--- NOTE | 2018-10-25 12:30 | ER Document Report ---
ED Medical Screen (RME) - General Chief Complaint: Low Blood Pressure Stated Complaint: BLOOD PRESSURE ISSUES Time Seen by Provider: 10/25/18 12:15 Mode of Arrival: Wheelchair Information source: Patient, Relative Notes: This is a 78-year-old female with a history of end-stage renal disease (not yet on dialysis, right AV shunt), hypertension, chronic pain, dementia. Patient was referred to the emergency room from the clinic for hypotension. Patient is accompanied by her son-in-law who is her caregiver. They did stop for lunch prior to coming to the emergency room (after leaving the clinic). Patient currently states that she feels "100% fine). She denies any chest pain, shortness of breath, weakness. Repeat blood pressure is 127/85. TRAVEL OUTSIDE OF THE [place] IN LAST 30 DAYS: No - HPI Onset: Just prior to arrival Onset/Duration: Gradual Quality of pain: No pain Severity: None Pain Level: Denies Associated Symptoms: denies: Chest pain, Shortness of breath Exacerbated by: Denies Relieved by: Denies Similar symptoms previously: Yes Recently seen / treated by doctor: Yes - Related Data Smoking: Quit greater than 1 year Frequency of alcohol use: None Drug Abuse: None Allergies/Adverse Reactions: No Known Allergies Allergy (Verified 10/25/18 11:32) Past Medical History - General Information source: Patient, Relative - Social History Cigarette use (# per day): No Chew tobacco use (# tins/day): No Frequency of alcohol use: None Drug Abuse: None Lives with: Family Family history: None - Past Medical History Cardiac Medical History: Reports: Hx Coronary Artery Disease, Hx Hypercholesterolemia Pulmonary Medical History: Reports: Hx COPD, Hx Respiratory Failure Neurological Medical History: Reports: Hx Cerebrovascular Accident. Denies: Hx Seizures Endocrine Medical History: Reports: Hx Hypothyroidism. Denies: Hx Diabetes Mellitus Type 1, Hx Diabetes Mellitus Type 2, Hx Hyperthyroidism Renal/ Medical History: Reports: Hx End Stage Renal Disease, Hx Renal Insufficiency. Denies: Hx Peritoneal Dialysis GI Medical History: Reports: Hx Gastroesophageal Reflux Disease. Denies: Hx Cirrhosis, Hx Hepatitis Musculoskeltal Medical History: Denies Hx Arthritis, Denies Hx Gout Skin Medical History: Denies Hx Eczema, Denies Hx Psoriasis Psychiatric Medical History: Reports: Hx Dementia, Hx Depression Infectious Medical History: Denies: Hx Hepatitis Past Surgical History: Reports: Hx Abdominal Surgery, Hx Appendectomy, Hx Gynecologic Surgery - oopherectomy, Hx Orthopedic Surgery - bilateral hips, back, Hx Urinary Tract Surgery, Hx Vascular Surgery - fistula - Immunizations Immunizations up to date: Yes Hx Diphtheria, Pertussis, Tetanus Vaccination: Yes History of Influenza Vaccine for 07/2017 - 12/2017 Season: Unknown Review of Systems - Review of Systems Constitutional: denies: Chills, Fever EENT: No symptoms reported Cardiovascular: denies: Chest pain, Palpitations, Heart racing, Orthopnea Respiratory: denies: Cough, Short of breath, Wheezing Gastrointestinal: denies: Abdominal pain, Nausea, Vomiting Genitourinary: denies: Burning, Dysuria, Flank pain Female Genitourinary: No symptoms reported Musculoskeletal: Muscle stiffness, Other - History of arthritis Skin: No symptoms reported Hematologic/Lymphatic: No symptoms reported Neurological/Psychological: Other - As per the son-in-law: No changes in mental status.. denies: Headaches, Speech impairment, Numbness Physical Exam - Vital signs Vitals: Temp Pulse BP Pulse Ox 97.2 F 94 117/30 L 93 10/25/18 11:35 10/25/18 11:35 10/25/18 11:35 10/25/18 11:35 Notes: Physical exam: GENERAL: She is alert and oriented x3, she is in no acute distress. She is sitting in stretcher. HEAD: Atraumatic, normocephalic. EYES: Pupils equal round and reactive to light, extraocular movements intact, sclera anicteric, conjunctiva are normal. ENT: TMs normal, nares patent, oropharynx clear without exudates. Moist mucous membranes. NECK: Normal range of motion, supple without obvious mass or JVD. LUNGS: Breath sounds clear to auscultation bilaterally and equal. No wheezes rales or rhonchi. HEART: Regular rate and rhythm without murmurs, rubs or gallops. ABDOMEN: Soft, normoactive bowel sounds. No tenderness to palpation. No guarding, no rebound. No masses appreciated. EXTREMITIES: Normal range of motion, no pitting or edema. No clubbing or cyanosis. NEUROLOGICAL: Cranial nerves II through XII grossly intact. Normal speech, moving all extremities. PSYCH: Normal mood, normal affect. SKIN: Warm, Dry, normal turgor, no rashes or lesions noted. Course - Vital Signs Vital signs: Temp Pulse Resp BP Pulse Ox 97.2 F 94 127/95 H 93 10/25/18 11:35 10/25/18 11:35 10/25/18 12:22 10/25/18 11:35 - EKG Interpretation by Me Rate: Normal Rhythm: NSR Doctor's Discharge - Discharge Clinical Impression: Hypotension resolved Condition: Stable Disposition: HOME, SELF-CARE Additional Instructions: Note: Your blood pressure on repeat was 127/95 As we discussed, continue current medicines and follow-up with your doctor as planned. Return to the emergency room for any chest pain, shortness of breath, worsening weakness or any concerns or getting worse. Referrals: PO MELARA MD [Primary Care Provider] - Follow up as needed
--- NOTE | 2018-10-25 20:24 | EKG REPORT ---
SEVERITY:- NORMAL ECG - SINUS RHYTHM : Confirmed by: Onel Lennon 25-Oct-2018 20:24:21
== END 2018-10-25 12:34 | disposition home or self-care (01) ==
LOC: ER 11:28
DX: I95.9 Hypotension, unspecified (principal); R29.898 Other symptoms and signs involving the musculoskeletal system; I12.0 Hypertensive chronic kidney disease with stage 5 chronic kidney disease or end stage renal disease; N18.6 End stage renal disease; J44.9 Chronic obstructive pulmonary disease, unspecified; I25.10 Atherosclerotic heart disease of native coronary artery without angina pectoris
CPT/HCPCS: 93005; 93010; 99284

== ENCOUNTER 2018-12-20 19:16 | Emergency (ER) | payer MEDICARE, OTHER ==
[2018-12-20 20:02] VITALS: BP 154/88
--- NOTE | 2018-12-20 21:47 | ER Document Report ---
ED Medical Screen (RME) - General Chief Complaint: Chest Pain Stated Complaint: CHEST PAIN Time Seen by Provider: 12/20/18 21:46 Primary Care Provider: SEGUNDO VÁZQUEZ AGNP [Primary Care Provider] - Follow up as needed Mode of Arrival: Wheelchair Information source: Patient, Relative Notes: PT PRESENTS WITH CHEST BACK AND HIP PAIN, HX OF DEMENTIA, COPD, HIP PAIN AND SCOLIOSIS. PT HAD ARGUMENT WITH SON IN LAW. DAUGHTER STATES CHRONIC PAIN. I have greeted and performed a rapid initial assessment of this patient. A comprehensive ED assessment and evaluation of the patient, analysis of test results and completion of the medical decision making process will be conducted by additional ED providers. TRAVEL OUTSIDE OF THE [place] IN LAST 30 DAYS: No - Related Data Allergies/Adverse Reactions: No Known Allergies Allergy (Verified 10/25/18 11:32) Past Medical History - Social History Family history: None - Past Medical History Cardiac Medical History: Reports: Hx Coronary Artery Disease, Hx Hypercholesterolemia Pulmonary Medical History: Reports: Hx COPD, Hx Respiratory Failure Neurological Medical History: Reports: Hx Cerebrovascular Accident. Denies: Hx Seizures Endocrine Medical History: Reports: Hx Hypothyroidism. Denies: Hx Diabetes Mellitus Type 1, Hx Diabetes Mellitus Type 2, Hx Hyperthyroidism Renal/ Medical History: Reports: Hx End Stage Renal Disease, Hx Renal Insufficiency. Denies: Hx Peritoneal Dialysis GI Medical History: Reports: Hx Gastroesophageal Reflux Disease. Denies: Hx Cirrhosis, Hx Hepatitis Musculoskeltal Medical History: Denies Hx Arthritis, Denies Hx Gout Skin Medical History: Denies Hx Eczema, Denies Hx Psoriasis Psychiatric Medical History: Reports: Hx Dementia, Hx Depression Infectious Medical History: Denies: Hx Hepatitis Past Surgical History: Reports: Hx Abdominal Surgery, Hx Appendectomy, Hx Gynecologic Surgery - oopherectomy, Hx Orthopedic Surgery - bilateral hips, back, Hx Urinary Tract Surgery, Hx Vascular Surgery - fistula - Immunizations Immunizations up to date: Yes Hx Diphtheria, Pertussis, Tetanus Vaccination: Yes History of Influenza Vaccine for 07/2017 - 12/2017 Season: Unknown Physical Exam - Vital signs Vitals: Temp Pulse Resp BP Pulse Ox 98.5 F 82 21 H 154/88 H 99 12/20/18 20:00 12/20/18 20:00 12/20/18 20:00 12/20/18 20:00 12/20/18 20:00 Course - Vital Signs Vital signs: Temp Pulse Resp BP Pulse Ox 98.5 F 82 21 H 154/88 H 99 12/20/18 20:00 12/20/18 20:00 12/20/18 20:00 12/20/18 20:00 12/20/18 20:00 Doctor's Discharge - Discharge Disposition: ELOPED Referrals: SEGUNDO VÁZQUEZ AGNP [Primary Care Provider] - Follow up as needed
--- NOTE | 2018-12-20 22:40 | EKG REPORT ---
SEVERITY:- ABNORMAL ECG - SINUS RHYTHM OLD ANTEROSEPTAL INFARCT BORDERLINE PROLONGED QT INTERVAL : Confirmed by: Mingo Enrique MD 20-Dec-2018 22:39:58
== END 2018-12-20 23:32 | disposition left against medical advice (07) ==
LOC: ER 19:16
DX: Z53.21 Procedure and treatment not carried out due to patient leaving prior to being seen by health care provider (principal); R07.9 Chest pain, unspecified; M54.9 Dorsalgia, unspecified; M25.559 Pain in unspecified hip; I25.10 Atherosclerotic heart disease of native coronary artery without angina pectoris; J44.9 Chronic obstructive pulmonary disease, unspecified
CPT/HCPCS: 93005; 93010; 99284

== ENCOUNTER 2019-01-04 16:59 | Inpatient (IN) | payer MEDICARE, OTHER ==
--- NOTE | 2019-01-04 17:21 | ER Document Report ---
ED Medical Screen (RME) - General Chief Complaint: Abdominal Pain Stated Complaint: ABDOMINAL PAIN Time Seen by Provider: 01/04/19 17:19 Primary Care Provider: SEGUNDO VÁZQUEZ AGNP [Primary Care Provider] - Follow up as needed Notes: 78-year-old female patient comes emergency room complaining of left-sided chest pain. She was seen here 5 days ago for chest pain. She had a completely normal EKG at that time. Today her EKG shows inferior lateral ST depression which is markedly changed from 5 days ago. The patient states it feels like it is a gas in her abdomen. Her room air pulse ox is 90%, she is a COPD here. I have called the charge nurse to secure a bed in the main emergency department soon as possible for the patient, put in orders for cardiac workup and monitoring, and supplemental oxygen. I have greeted and performed a rapid initial assessment of this patient. A comprehensive ED assessment and evaluation of the patient, analysis of test results and completion of the medical decision making process will be conducted by additional ED providers. TRAVEL OUTSIDE OF THE [place] IN LAST 30 DAYS: No - Related Data Allergies/Adverse Reactions: No Known Allergies Allergy (Verified 01/04/19 16:59) Past Medical History - Social History Family history: None - Past Medical History Cardiac Medical History: Reports: Hx Coronary Artery Disease, Hx Hypercholesterolemia Pulmonary Medical History: Reports: Hx COPD, Hx Respiratory Failure Neurological Medical History: Reports: Hx Cerebrovascular Accident. Denies: Hx Seizures Endocrine Medical History: Reports: Hx Hypothyroidism. Denies: Hx Diabetes Mellitus Type 1, Hx Diabetes Mellitus Type 2, Hx Hyperthyroidism Renal/ Medical History: Reports: Hx End Stage Renal Disease, Hx Renal Insufficiency. Denies: Hx Peritoneal Dialysis GI Medical History: Reports: Hx Gastroesophageal Reflux Disease. Denies: Hx Cirrhosis, Hx Hepatitis Musculoskeltal Medical History: Denies Hx Arthritis, Denies Hx Gout Skin Medical History: Denies Hx Eczema, Denies Hx Psoriasis Psychiatric Medical History: Reports: Hx Dementia, Hx Depression Infectious Medical History: Denies: Hx Hepatitis Past Surgical History: Reports: Hx Abdominal Surgery, Hx Appendectomy, Hx Gynecologic Surgery - oopherectomy, Hx Orthopedic Surgery - bilateral hips, back, Hx Urinary Tract Surgery, Hx Vascular Surgery - fistula - Immunizations Immunizations up to date: Yes Hx Diphtheria, Pertussis, Tetanus Vaccination: Yes History of Influenza Vaccine for 07/2017 - 12/2017 Season: Unknown Physical Exam - Vital signs Vitals: Temp Pulse Resp BP Pulse Ox 98.0 F 107 H 16 126/68 H 90 L 01/04/19 17:14 01/04/19 17:14 01/04/19 17:14 01/04/19 17:14 01/04/19 17:14 Course - Vital Signs Vital signs: Temp Pulse Resp BP Pulse Ox 98.0 F 107 H 16 126/68 H 90 L 01/04/19 17:14 01/04/19 17:14 01/04/19 17:14 01/04/19 17:14 01/04/19 17:14 Doctor's Discharge - Discharge Referrals: SEGUNDO VÁZQUEZ AGNP [Primary Care Provider] - Follow up as needed
[2019-01-04 17:54] LABS: ABSOLUTE BASOPHILS # (AUTO) 0.1 10^3/uL (0.0-0.2); ABSOLUTE EOSINOPHILS # (AUTO) 0.3 10^3/uL (0.0-0.6); ABSOLUTE LYMPHOCYTES (AUTO) 0.8 10^3/uL (0.5-4.7); ABSOLUTE MONOCYTES (AUTO) 0.8 10^3/uL (0.1-1.4); ABSOLUTE NEUT (AUTO) 9.1 10^3/uL (1.7-8.2); BASOPHILS % (AUTO) 1.2 % (0-2); EOSINOPHILS % (AUTO) 2.5 % (0-6); HEMATOCRIT 32.1 % (36.0-47.0); HEMOGLOBIN 10.8 g/dL (12.0-15.5); LYMPHOCYTES % (AUTO) 6.9 % (13-45); MEAN CORPUSCULAR HEMOGLOBIN 29.5 pg (27.0-33.4); MEAN CORPUSCULAR HGB CONC 33.6 g/dL (32.0-36.0); MEAN CORPUSCULAR VOLUME 88 fl (80-97); MONOCYTES % (AUTO) 6.9 % (3-13); PLATELET COUNT 210 10^3/uL (150-450); RED BLOOD COUNT 3.66 10^6/uL (3.72-5.28); RED CELL DISTRIBUTION WIDTH 15.6 % (11.5-14.0); SEGMENTED NEUTROPHILS % (AUTO) 82.5 % (42-78); TOTAL CELLS COUNTED % (AUTO) 100 %; WHITE BLOOD COUNT 11.1 10^3/uL (4.0-10.5)
--- NOTE | 2019-01-04 18:09 | RADIOLOGY REPORT (SQ) ---
EXAM DESCRIPTION: CHEST SINGLE VIEW COMPLETED DATE/TIME: 01/04/2019 6:00 pm REASON FOR STUDY: Chest pain COMPARISON: 09/28/2018 TECHNIQUE: Single frontal radiographic view of the chest acquired. NUMBER OF VIEWS: One view. LIMITATIONS: Mild LPO positioning. FINDINGS: LUNGS AND PLEURA: No pneumothorax. Right basilar 7 cm area of increased opacity - consoli dation. No significant pleural effusion. MEDIASTINUM AND HILAR STRUCTURES: Stable. HEART AND VASCULAR STRUCTURES: Stable. BONES: No acute findings. HARDWARE: None in the chest. OTHER: No other significant finding. IMPRESSION: Right basilar 7 cm area of increased opacity - consolidation. No significant pleural ef fusion. TECHNICAL DOCUMENTATION: JOB ID: [id number] [id number] 2010 [employer]- All Rights Reserved Reading location - IP/workstation name: [email or web address]
[2019-01-04] MEDS ORDERED: ASPIRIN 81 MG TABLET, CHEWABLE PO ONE (18:20)
[2019-01-04] MEDS ORDERED: NITROGLYCERIN 0.4 MG/TAB 25 TAB/BOTTLE SL PRN (18:21)
[2019-01-04] MEDS ORDERED: CEFTRIAXONE INJ 1000 MG VIAL IV ONE (18:44)
[2019-01-04] MEDS ORDERED: AZITHROMYCIN 250 MG TABLET PO ONE (18:45)
--- NOTE | 2019-01-04 18:47 | ER Document Report ---
ED General - General Chief Complaint: Abdominal Pain Stated Complaint: ABDOMINAL PAIN Time Seen by Provider: 01/04/19 17:19 Primary Care Provider: SEGUNDO VÁZQUEZ AGNP [Primary Care Provider] - Follow up as needed Notes: Patient is a 78-year-old female with past medical history of dementia, COPD with oxygen dependence, chronic malnourishment, chronic kidney disease, presents with 1 week of cough, sputum production, epigastric abdominal discomfort and left- sided chest discomfort. States that her symptoms started gradually, are mild to moderate intensity, have been worsening since onset. Nothing seems to improve or worsen her symptoms. Denies a history of similar symptoms in the past. Has not seen her primary physician regarding today's concerns. The pain over her chest and upper abdomen is described as cramping, aching and burning. She has had increased sputum production at home with her cough and states that that is similar to when she has had pneumonia in the past. She has not had any hematemesis. Denies vomiting or diarrhea. TRAVEL OUTSIDE OF THE [place] IN LAST 30 DAYS: No - Related Data Allergies/Adverse Reactions: No Known Allergies Allergy (Verified 01/04/19 16:59) Past Medical History - General Information source: Patient, Relative - Social History Smoking Status: Former Smoker Chew tobacco use (# tins/day): No Frequency of alcohol use: None Drug Abuse: None Lives with: Family Family History: CAD, Hyperlipidemia, Malignancy Patient has suicidal ideation: No Patient has homicidal ideation: No - Past Medical History Cardiac Medical History: Reports: Hx Coronary Artery Disease, Hx Hyperchole sterolemia Pulmonary Medical History: Reports: Hx COPD, Hx Respiratory Failure Neurological Medical History: Reports: Hx Cerebrovascular Accident. Denies: Hx Seizures Endocrine Medical History: Reports: Hx Hypothyroidism. Denies: Hx Diabetes Mellitus Type 1, Hx Diabetes Mellitus Type 2, Hx Hyperthyroidism Renal/ Medical History: Reports: Hx End Stage Renal Disease, Hx Renal Insufficiency. Denies: Hx Peritoneal Dialysis GI Medical History: Reports: Hx Gastroesophageal Reflux Disease. Denies: Hx Cirrhosis, Hx Hepatitis Musculoskeletal Medical History: Denies Hx Arthritis, Denies Hx Gout Skin Medical History: Denies Hx Eczema, Denies Hx Psoriasis Psychiatric Medical History: Reports: Hx Dementia, Hx Depression Infectious Medical History: Denies: Hx Hepatitis Past Surgical History: Reports: Hx Abdominal Surgery, Hx Appendectomy, Hx Gyne cologic Surgery - oopherectomy, Hx Orthopedic Surgery - bilateral hips, back, Hx Urinary Tract Surgery, Hx Vascular Surgery - fistula - Immunizations Immunizations up to date: Yes Hx Diphtheria, Pertussis, Tetanus Vaccination: Yes Hx Pneumococcal Vaccination: 10/08/16 Review of Systems - Review of Systems Notes: Constitutional: Negative for fever. HENT: Negative for sore throat. Eyes: Negative for visual changes. Cardiovascular: Positive for chest pain. Respiratory: Positive for cough and shortness of breath Gastrointestinal: Positive for epigastric abdominal discomfort Genitourinary: Negative for dysuria. Musculoskeletal: Negative for back pain. Skin: Negative for rash. Neurological: Negative for headaches, weakness or numbness. 10 point ROS negative except as marked above and in HPI. Physical Exam - Vital signs Vitals: Temp Pulse Resp BP Pulse Ox 98.0 F 107 H 16 126/68 H 90 L 01/04/19 17:14 01/04/19 17:14 01/04/19 17:14 01/04/19 17:14 01/04/19 17:14 Interpretation: Tachycardic, Hypoxic Notes: PHYSICAL EXAMINATION: GENERAL: Frail, cachectic in no acute distress HEAD: Atraumatic, normocephalic. EYES: Pupils equal round and reactive to light, extraocular movements intact, sclera anicteric, conjunctiva are normal. ENT: nares patent, oropharynx clear without exudates. Dry mucous membranes. NECK: Normal range of motion, supple without lymphadenopathy LUNGS: Rattling breath sounds bilaterally, diminished breath sounds at the right base. HEART: Regular rate and rhythm without murmurs ABDOMEN: Soft, nontender, normoactive bowel sounds. No guarding, no rebound. No masses appreciated. EXTREMITIES: Normal range of motion, no pitting or edema. No cyanosis. NEUROLOGICAL: No focal neurological deficits. Moves all extremities spontaneously and on command. PSYCH: Alert, oriented to person, place SKIN: Warm, Dry, normal turgor, no rashes or lesions noted. Course - Re-evaluation Re-evalutation: 01/04/19 18:43 Patient presents with complaints of chest discomfort, upper abdominal discomfort, cough with sputum production and increased shortness of breath. The patient is demented, changes her complaints multiple times during my assessment as well as during her initial assessment in triage. At the time of my assessment she denies any abdominal pain does complain of some cramping, aching pain over her left chest as well as cough and is visibly producing sputum on exam. Her initial EKG shows new probably ischemic changes that are certainly concerning for possible cardiac etiology of her chest discomfort. Aspirin nitroglycerin have been administered and a troponin assay test is pending. Her chest x-ray also shows a new right lower lobe pneumonia which is consistent with her clinical picture and could also be the etiology of demand mediated ischemic changes. The patient has been started on ceftriaxone and azithromycin. Patient will likely require hospitalization given her oxygen dependence at baseline, chronic kidney disease. 01/04/19 21:05 Troponin is minimally elevated at 0.041 actually lower than patient's elevation in September. She remains chest pain-free at this point. I discussed this case with Dr. Strong who has accepted patient for inpatient admission. - Vital Signs Vital signs: Temp Pulse Resp BP Pulse Ox 98.0 F 107 H 17 122/95 H 94 01/04/19 17:14 01/04/19 17:14 01/04/19 20:00 01/04/19 19:59 01/04/19 20:00 - Laboratory Result Diagrams: 01/04/19 17:39 01/04/19 19:25 Laboratory results interpreted by me: 01/04/19 01/04/19 17:39 19:25 WBC 11.1 H RBC 3.66 L Hgb 10.8 L Hct 32.1 L RDW 15.6 H Seg Neutrophils % 82.5 H Lymphocytes % 6.9 L Absolute Neutrophils 9.1 H Sodium 136.8 L BUN 33 H Creatinine 3.10 H Est GFR ( Amer) 18 L Est GFR (Non-Af Amer) 15 L Creatine Kinase 205 H - Diagnostic Test Radiology reviewed: Image reviewed, Reports reviewed Radiology results interpreted by me: 01/04/19 18:43 Chest x-ray: Right lower lobe pneumonia - EKG Interpretation by Me Additional EKG results interpreted by me: 01/04/19 18:42 Sinus rhythm, rate 97, diffuse ST depressions in the lateral leads V4 through 6. Mild depression in V3. There is also some scant depression in the inferior leads II and III. This is new from an EKG 5 days ago. QTC is 473. Discharge - Discharge Clinical Impression: Right lower lobe pneumonia Qualifiers: Pneumonia type: due to unspecified organism Qualified Code(s): J18.1 - Lobar pneumonia, unspecified organism Chest pain Qualifiers: Chest pain type: unspecified Qualified Code(s): R07.9 - Chest pain, unspecified COPD (chronic obstructive pulmonary disease) Qualifiers: COPD type: unspecified COPD Qualified Code(s): J44.9 - Chronic obstructive pulmonary disease, unspecified Dementia Qualifiers: Dementia type: unspecified type Dementia behavioral disturbance: without behavioral disturbance Qualified Code(s): F03.90 - Unspecified dementia without behavioral disturbance Condition: Fair Disposition: ADMITTED INPATIENT Admitting Provider: Hospitalist Unit Admitted: Telemetry Referrals: SEGUNDO VÁZQUEZ AGNP [Primary Care Provider] - Follow up as needed
--- NOTE | 2019-01-04 19:17 | EKG REPORT ---
SEVERITY:- ABNORMAL ECG - SINUS RHYTHM REPOL ABNRM SUGGESTS ISCHEMIA, DIFFUSE LEADS : Confirmed by: Lynn Green MD 04-Jan-2019 19:16:50
[2019-01-04 19:53] LABS: ALANINE AMINOTRANSFERASE 18 U/L (9-52); ALBUMIN 4.1 g/dL (3.5-5.0); ALKALINE PHOSPHATASE 51 U/L (38-126); ANION GAP 11 (5-19); ASPARTATE AMINO TRANSFERASE 30 U/L (14-36); BILIRUBIN,DIRECT 0.4 mg/dL (0.0-0.4); BILIRUBIN,TOTAL 0.7 mg/dL (0.2-1.3); BLOOD UREA NITROGEN 33 mg/dL (7-20); CALCIUM 9.1 mg/dL (8.4-10.2); CARBON DIOXIDE 24 mmol/L (22-30); CHLORIDE 102 mmol/L (98-107); CREATINE KINASE 205 U/L (30-135); GLUCOSE 93 mg/dL (75-110); LIPASE 70.5 U/L (23-300); POTASSIUM 3.7 mmol/L (3.6-5.0); SODIUM 136.8 mmol/L (137-145)
[2019-01-04 20:04] LABS: CREATINE KINASE MB 2.2 ng/mL (<4.55)
[2019-01-04 20:11] LABS: TROPONIN I 0.041 ng/mL
[2019-01-04] MEDS ORDERED: ALPRAZOLAM 0.25 MG TABLET PO PRN (21:09)
[2019-01-04] MEDS ORDERED: ACETAMINOPHEN 325 MG TABLET PO PRN (21:09)
[2019-01-04] MEDS ORDERED: DOCUSATE SODIUM 100 MG CAPSULE PO PRN (21:09)
[2019-01-04] MEDS ORDERED: IPRATROPIUM/ALBUTEROL 0.5-2.5 MG/3 ML AMPUL NEB PRN (21:14)
[2019-01-04] MEDS ORDERED: GUAIFENESIN SYRP 200 MG/10 ML UDC PO PRN (21:14)
[2019-01-04] MEDS ORDERED: CHLORPHENIRAMINE MALEATE 4 MG TABLET PO SCH (21:15)
[2019-01-04] MEDS ORDERED: GABAPENTIN 300 MG CAPSULE PO SCH (22:00)
[2019-01-04] MEDS ORDERED: TRAZODONE HCL 50 MG TABLET PO SCH (22:00)
[2019-01-04] MEDS: FLUTICASONE NASAL SPRAY 50 MCG/SPRY 120 SPRAY/16 GM NASL SCH (23:51)
[2019-01-05] MEDS: HEPARIN SOD (PORCINE) 5,000 UNIT/ML 1 ML SYRINGE SUBCUT SCH ×2 (00:13→06:01)
[2019-01-05 02:01] LABS: ABSOLUTE RETICS # 0.061 10^6/uL (0.028-0.122); RETICULOCYTE COUNT (AUTO) 1.64 % (0.66-2.85)
[2019-01-05 02:42] LABS: IRON(TIBC) 32.8 ug/dL (37-170)
[2019-01-05] MEDS: IPRATROPIUM/ALBUTEROL 0.5-2.5 MG/3 ML AMPUL NEB SCH ×4 (02:52→20:21)
[2019-01-05 03:52] LABS: FOLATE > 20.00 ng/mL (>2.76)
[2019-01-05 05:32] LABS: ABSOLUTE BASOPHILS # (AUTO) 0.1 10^3/uL (0.0-0.2); ABSOLUTE EOSINOPHILS # (AUTO) 0.3 10^3/uL (0.0-0.6); ABSOLUTE LYMPHOCYTES (AUTO) 0.7 10^3/uL (0.5-4.7); ABSOLUTE MONOCYTES (AUTO) 0.6 10^3/uL (0.1-1.4); ABSOLUTE NEUT (AUTO) 9.3 10^3/uL (1.7-8.2); BASOPHILS % (AUTO) 0.5 % (0-2); EOSINOPHILS % (AUTO) 2.7 % (0-6); HEMOGLOBIN 9.9 g/dL (12.0-15.5); LYMPHOCYTES % (AUTO) 6.1 % (13-45); MEAN CORPUSCULAR HEMOGLOBIN 29.9 pg (27.0-33.4); MEAN CORPUSCULAR HGB CONC 34.1 g/dL (32.0-36.0); MEAN CORPUSCULAR VOLUME 88 fl (80-97); MONOCYTES % (AUTO) 5.2 % (3-13); PLATELET COUNT 193 10^3/uL (150-450); RED BLOOD COUNT 3.31 10^6/uL (3.72-5.28); SEGMENTED NEUTROPHILS % (AUTO) 85.5 % (42-78); TOTAL CELLS COUNTED % (AUTO) 100 %; WHITE BLOOD COUNT 10.8 10^3/uL (4.0-10.5)
[2019-01-05] MEDS ORDERED: IRON SUCROSE COMPLEX INJ/PF 100 MG/5 ML SDV IV ONE (05:48)
[2019-01-05 05:50] LABS: ANION GAP 7 (5-19); BLOOD UREA NITROGEN 41 mg/dL (7-20); CALCIUM 8.8 mg/dL (8.4-10.2); CARBON DIOXIDE 25 mmol/L (22-30); CHLORIDE 104 mmol/L (98-107); GLUCOSE 108 mg/dL (75-110); SODIUM 136.2 mmol/L (137-145)
--- NOTE | 2019-01-05 05:56 | PDOC H&P ---
History of Present Illness Admission Date/PCP: 01/04/19 21:33 GEORGE NAVARRO Patient complains of: Shortness of breath and productive cough History of Present Illness: PADMINI MISHRA is a 78 year old female with a past medical history of chronic indwelling Moura, uterine prolapse, recurrent pyelonephritis, CKD 4, bipolar with tardive dyskinesia, COPD and dementia. She presents with 24 hours of productive cough of yellow sputum denying rhinorrhea sore throat or GERD but admits to aspirating while eating a few days ago. In the emergency room she is found to have tachypnea, fever, rhonchi and an infiltrate in the right base. She started on empiric antibiotics and referred to the hospitalist for admission. She denies recent change in medication regiment. She is accompanied by her son-in-law with whom she lives. Past Medical History Cardiac Medical History: Reports: Coronary Artery Disease, Hyperlipidema Pulmonary Medical History: Reports: Chronic Obstructive Pulmonary Disease (COPD), Respiratory Failure Neurological Medical History: Denies: Seizures Endocrine Medical History: Reports: Hypothyroidism Denies: Diabetes Mellitus Type 1, Diabetes Mellitus Type 2, Hyperthyroidism Renal/ Medical History: Reports: End Stage Renal Disease GI Medical History: Reports: Gastroesophageal Reflux Disease Denies: Cirrhosis, Hepatitis Musculoskeltal Medical History: Denies: Arthritis, Gout Skin Medical History: Denies: Eczema, Psoriasis Psychiatric Medical History: Reports: Dementia, Depression Hematology: Reports: Anemia Denies: Bleeding Tendencies Past Surgical History Past Surgical History: Reports: Appendectomy, Orthopedic Surgery - bilateral hips, back, Vascular Surgery - fistula Social History Information Source: Patient Lives with: Family Smoking Status: Former Smoker Frequency of Alcohol Use: None Hx Recreational Drug Use: No Drugs: None Hx Prescription Drug Abuse: No - Advance Directive Resuscitation Status: Full Code Family History Family History: CAD, Hyperlipidemia, Malignancy Parental Family History Reviewed: Yes Children Family History Reviewed: Yes Sibling(s) Family History Reviewed.: Yes Medication/Allergy Home Medications: Acetaminophen [Tylenol 325 mg Tablet] 650 mg PO Q6HP PRN 09/18/18 Cyanocobalamin/Folic AC/Vit B6 [Folbic Tablet] 1 tab PO QAM 09/18/18 Levothyroxine Sodium 200 mcg PO Q6AM 09/18/18 Omeprazole 20 mg PO DAILY 09/18/18 Ondansetron HCl [Zofran 4 mg Tablet] 4 mg PO Q6HP PRN 09/18/18 Polyvinyl Alcohol [Liquitears 1.4% Ophth Soln 15 ml] 1 drop OU ASDIR PRN 09/18/18 Sodium Bicarbonate [Sodium Bicarbonate 650 mg Tablet] 1,950 mg PO QAM 09/18/18 Alprazolam [Xanax 0.25 mg Tablet] 0.25 mg PO BIDP PRN #30 tablet 09/29/18 Atorvastatin Calcium [Lipitor 40 mg Tablet] 40 mg PO QAM 30 Days #30 tablet 09/29/18 Cyanocobalamin (Vitamin B-12) [Vitamin B-12 100 mcg Tablet] 400 mcg PO QAM 30 Days #120 tablet 09/29/18 Docusate Sodium [Colace 100 mg Capsule] 100 mg PO BIDP PRN 30 Days #60 capsule 09/29/18 Donepezil HCl [Aricept] 10 mg PO QAM #30 tablet 09/29/18 Duloxetine HCl [Cymbalta] 60 mg PO QAM #30 capsule.dr 09/29/18 Fluticasone Propionate [Flonase Nasal Semmes 50 Mcg/Semmes 16 gm] 1 spray NASL QAM #1 spray.pump 09/29/18 Gabapentin [Neurontin 300 mg Capsule] 300 mg PO QHS #30 capsule 09/29/18 Ipratropium/Albuterol Sulfate [Duoneb 3 ml Ampul] 3 ml NEB RTQ3HP PRN 30 Days #30 vial.neb 09/29/18 Levofloxacin [Levaquin 500 mg Tablet] 500 mg PO DAILY #7 tablet 09/29/18 Levothyroxine Sodium [Synthroid 0.025 mg Tablet] 0.025 mg PO Q6AM #30 tablet 09/29/18 Morphine Sulfate [Ms Contin] 15 mg PO BID #60 tablet.er 09/29/18 Prednisone [Deltasone 10 mg Tablet] 20 mg PO DAILY 5 Days #10 tablet 09/29/18 Salmeterol Xinafoate [Serevent Diskus 50 Mcg/Dose 28 Dose/Diskus] 1 puff IH BID #1 disk 09/29/18 Tamsulosin HCl [Flomax 0.4 mg Cap.sr] 0.4 mg PO QAM #30 cap.sr.24h 09/29/18 Tiotropium Gooding [Spiriva Handihaler 5 Cap/Kit (18 Mcg/Cap)] 1 cap IH QAM #1 kit 09/29/18 Tramadol HCl [Ultram 50 mg Tablet] 50 mg PO Q12HP PRN #30 tablet 09/29/18 Trazodone HCl [Desyrel 50 mg Tablet] 25 mg PO QHS #30 tablet 09/29/18 Allergies/Adverse Reactions: No Known Allergies Allergy (Verified 01/04/19 16:59) Review of Systems Constitutional: PRESENT: as per HPI, chills, fatigue, fever(s), weakness - Nonambulatory. ABSENT: weight gain, weight loss Eyes: ABSENT: visual disturbances Ears: ABSENT: hearing changes Cardiovascular: ABSENT: chest pain, dyspnea on exertion, edema, orthropnea, palpitations Respiratory: PRESENT: as per HPI, cough, dyspnea, sputum. ABSENT: hemoptysis Gastrointestinal: ABSENT: abdominal pain, constipation, diarrhea, hematemesis, hematochezia, nausea, vomiting Genitourinary: ABSENT: dysuria, hematuria Musculoskeletal: ABSENT: joint swelling Integumentary: ABSENT: rash, wounds Neurological: ABSENT: abnormal gait, abnormal speech, confusion, dizziness, focal weakness, syncope Psychiatric: ABSENT: anxiety, depression, homidical ideation, suicidal ideation Endocrine: ABSENT: cold intolerance, heat intolerance, polydipsia, polyuria Hematologic/Lymphatic: ABSENT: easy bleeding, easy bruising Physical Exam Vital Signs: Temp Pulse Resp BP Pulse Ox 98.9 F 99 18 111/66 99 01/05/19 01:08 01/05/19 02:56 01/05/19 02:56 01/05/19 00:25 01/05/19 02:56 Intake & Output 01/03/19 01/04/19 01/05/19 11:59 11:59 11:59 Weight 49.895 kg General appearance: PRESENT: cooperative, mild distress, thin. ABSENT: disheveled, hard of hearing, severe distress Head exam: PRESENT: atraumatic, normocephalic Eye exam: PRESENT: conjunctiva pink, EOMI, PERRLA. ABSENT: scleral icterus Ear exam: PRESENT: normal external ear exam Mouth exam: PRESENT: moist, tongue midline Neck exam: ABSENT: carotid bruit, JVD, lymphadenopathy, thyromegaly Respiratory exam: PRESENT: accessory muscle use, prolonged expiratory phas, rales, rhonchi, symmetrical, tachypnea Cardiovascular exam: PRESENT: RRR. ABSENT: diastolic murmur, rubs, systolic murmur Pulses: PRESENT: normal dorsalis pedis pul Vascular exam: PRESENT: normal capillary refill GI/Abdominal exam: PRESENT: normal bowel sounds, soft. ABSENT: distended, guarding, mass, organolmegaly, rebound, tenderness Rectal exam: PRESENT: deferred Extremities exam: PRESENT: full ROM. ABSENT: calf tenderness, clubbing, pedal edema Neurological exam: PRESENT: alert, awake, oriented to person, oriented to place, oriented to time, oriented to situation, CN II-XII grossly intact. ABSENT: motor sensory deficit Psychiatric exam: PRESENT: appropriate affect, normal mood. ABSENT: homicidal ideation, suicidal ideation Skin exam: PRESENT: dry, intact, warm. ABSENT: cyanosis, rash Results Laboratory Results: 01/05/19 05:10 01/04/19 01/04/19 01/04/19 17:39 17:39 17:39 WBC 11.1 H RBC 3.66 L Hgb 10.8 L Hct 32.1 L MCV 88 MCH 29.5 MCHC 33.6 RDW 15.6 H Plt Count 210 Seg Neutrophils % 82.5 H Lymphocytes % 6.9 L Monocytes % 6.9 Eosinophils % 2.5 Basophils % 1.2 Absolute Neutrophils 9.1 H Absolute Lymphocytes 0.8 Absolute Monocytes 0.8 Absolute Eosinophils 0.3 Absolute Basophils 0.1 Retic Count (auto) 1.64 Absolute Retic 0.061 Sodium Cancelled Potassium Cancelled Chloride Cancelled Carbon Dioxide Cancelled Anion Gap Cancelled BUN Cancelled Creatinine Cancelled Est GFR ( Amer) Cancelled Est GFR (Non-Af Amer) Cancelled Glucose Cancelled Calcium Cancelled Iron TIBC % Saturation Ferritin Total Bilirubin Cancelled AST Cancelled ALT Cancelled Alkaline Phosphatase Cancelled Total Protein Cancelled Albumin Cancelled Lipase Vitamin B12 Folate 01/04/19 01/04/19 01/04/19 19:25 19:25 19:25 WBC RBC Hgb Hct MCV MCH MCHC RDW Plt Count Seg Neutrophils % Lymphocytes % Monocytes % Eosinophils % Basophils % Absolute Neutrophils Absolute Lymphocytes Absolute Monocytes Absolute Eosinophils Absolute Basophils Retic Count (auto) Absolute Retic Sodium 136.8 L Potassium 3.7 Chloride 102 Carbon Dioxide 24 Anion Gap 11 BUN 33 H Creatinine 3.10 H Est GFR ( Amer) 18 L Est GFR (Non-Af Amer) 15 L Glucose 93 Calcium 9.1 Iron Cancelled 32.8 L TIBC Cancelled 245 L % Saturation Cancelled 13 Ferritin 225.00 Total Bilirubin 0.7 AST 30 ALT 18 Alkaline Phosphatase 51 Total Protein 7.0 Albumin 4.1 Lipase 70.5 Vitamin B12 > 1000.0 H Folate > 20.00 01/05/19 05:10 WBC 10.8 H RBC 3.31 L Hgb 9.9 L Hct 29.0 L MCV 88 MCH 29.9 MCHC 34.1 RDW 16.0 H Plt Count 193 Seg Neutrophils % 85.5 H Lymphocytes % 6.1 L Monocytes % 5.2 Eosinophils % 2.7 Basophils % 0.5 Absolute Neutrophils 9.3 H Absolute Lymphocytes 0.7 Absolute Monocytes 0.6 Absolute Eosinophils 0.3 Absolute Basophils 0.1 Retic Count (auto) Absolute Retic Sodium Potassium Chloride Carbon Dioxide Anion Gap BUN Creatinine Est GFR ( Amer) Est GFR (Non-Af Amer) Glucose Calcium Iron TIBC % Saturation Ferritin Total Bilirubin AST ALT Alkaline Phosphatase Total Protein Albumin Lipase Vitamin B12 Folate 01/04/19 01/04/19 01/04/19 17:39 17:39 19:25 Creatine Kinase Cancelled 205 H CK-MB (CK-2) Cancelled Troponin I Cancelled 01/04/19 19:25 Creatine Kinase CK-MB (CK-2) 2.20 Troponin I 0.041 Impressions: Chest X-Ray 01/04/19 17:16 IMPRESSION: Right basilar 7 cm area of increased opacity - consolidation. No significant pleural effusion. Assessment and Plan - Diagnosis (1) Right lower lobe pneumonia Qualifiers: Pneumonia type: due to unspecified organism Qualified Code(s): J18.1 - Lobar pneumonia, unspecified organism Is this a current diagnosis for this admission?: Yes Plan: Telemetry admission with pneumonia care set though gives history worrisome for aspiration. Follow-up modified barium cookie swallow, CBC and blood culture (2) COPD (chronic obstructive pulmonary disease) Qualifiers: COPD type: unspecified COPD Qualified Code(s): J44.9 - Chronic obstructive pulmonary disease, unspecified Is this a current diagnosis for this admission?: Yes Plan: Supplemental oxygen, albuterol, Atrovent, flutter valve and incentive spirometry (3) Acute renal failure superimposed on stage 4 chronic kidney disease Qualifiers: Is this a current diagnosis for this admission?: Yes Plan: Avoid nephrotoxic meds and doses, optimize volume (4) Anemia due to chronic kidney disease Is this a current diagnosis for this admission?: Yes Plan: Follow-up anemia labs suspect iron deficiency. - Time Time Spent with patient: 25-34 minutes - Inpatient Certification Medical Necessity: Need Close Monitoring Due to Risk of Patient Decompensation
[2019-01-05] MEDS ORDERED: LEVOTHYROXINE SODIUM 0.1 MG TABLET PO SCH (06:00)
[2019-01-05] MEDS ORDERED: PANTOPRAZOLE SODIUM 20 MG TABLET.DR PO SCH (06:00)
[2019-01-05] MEDS ORDERED: DONEPEZIL HCL 5 MG TABLET PO SCH (08:00)
[2019-01-05] MEDS ORDERED: ATORVASTATIN CALCIUM 40 MG TABLET PO SCH (08:00)
[2019-01-05] MEDS ORDERED: FLUTICASONE NASAL SPRAY 50 MCG/SPRY 120 SPRAY/16 GM NASL SCH (08:00)
[2019-01-05] MEDS: DULOXETINE HCL 30 MG CAPSULE.DR PO SCH (08:36)
[2019-01-05] MEDS: CEFTRIAXONE 1 GM/D5W RTU 1 GM/50 ML RTUPB IV SCH (10:18)
--- NOTE | 2019-01-05 11:38 | PDOC PROGRESS REPORT ---
Subjective Progress Note for:: 01/05/19 Subjective:: This is a 78 year old female with a past medical history of chronic indwelling Moura, uterine prolapse, recurrent pyelonephritis, CKD 4, bipolar with tardive dyskinesia, COPD on home O2 and dementia who presented with productive cough, SOB and fever. She was found to have a right lower lobe pneumonia. This morning, per RN, patient had dark red bloody, loose BM. Denies abdominal pain. She says her SOB has improved this morning. Denies chest pain. She has dementia and is oriented to person and place only. Reason For Visit: PNEUMONIA Physical Exam Vital Signs: Temp Pulse Resp BP Pulse Ox 99.5 F 97 18 118/48 L 99 01/05/19 07:53 01/05/19 08:43 01/05/19 08:43 01/05/19 07:53 01/05/19 08:43 Intake & Output 01/04/19 01/05/19 01/06/19 06:59 06:59 06:59 Weight 117 lb 4.575 oz General appearance: PRESENT: no acute distress, well-developed, well-nourished Head exam: PRESENT: atraumatic, normocephalic Eye exam: PRESENT: conjunctiva pink, EOMI, PERRLA. ABSENT: scleral icterus Ear exam: PRESENT: normal external ear exam Mouth exam: PRESENT: moist, tongue midline Neck exam: ABSENT: carotid bruit, JVD, lymphadenopathy, thyromegaly Respiratory exam: PRESENT: rales - right base, rhonchi. ABSENT: wheezes Cardiovascular exam: PRESENT: RRR, systolic murmur. ABSENT: diastolic murmur, rubs Pulses: PRESENT: normal dorsalis pedis pul GI/Abdominal exam: PRESENT: normal bowel sounds, soft. ABSENT: distended, guarding, mass, organolmegaly, rebound, tenderness Rectal exam: PRESENT: deferred Neurological exam: PRESENT: alert, awake, oriented to person, oriented to place, CN II-XII grossly intact. ABSENT: oriented to time, motor sensory deficit Results Laboratory Results: 01/05/19 05:10 01/05/19 05:10 01/04/19 01/04/19 01/04/19 17:39 17:39 17:39 WBC 11.1 H RBC 3.66 L Hgb 10.8 L Hct 32.1 L MCV 88 MCH 29.5 MCHC 33.6 RDW 15.6 H Plt Count 210 Seg Neutrophils % 82.5 H Lymphocytes % 6.9 L Monocytes % 6.9 Eosinophils % 2.5 Basophils % 1.2 Absolute Neutrophils 9.1 H Absolute Lymphocytes 0.8 Absolute Monocytes 0.8 Absolute Eosinophils 0.3 Absolute Basophils 0.1 Retic Count (auto) 1.64 Absolute Retic 0.061 Sodium Cancelled Potassium Cancelled Chloride Cancelled Carbon Dioxide Cancelled Anion Gap Cancelled BUN Cancelled Creatinine Cancelled Est GFR ( Amer) Cancelled Est GFR (Non-Af Amer) Cancelled Glucose Cancelled Calcium Cancelled Iron TIBC % Saturation Ferritin Total Bilirubin Cancelled AST Cancelled ALT Cancelled Alkaline Phosphatase Cancelled Total Protein Cancelled Albumin Cancelled Lipase Vitamin B12 Folate Stool Occult Blood 01/04/19 01/04/19 01/04/19 19:25 19:25 19:25 WBC RBC Hgb Hct MCV MCH MCHC RDW Plt Count Seg Neutrophils % Lymphocytes % Monocytes % Eosinophils % Basophils % Absolute Neutrophils Absolute Lymphocytes Absolute Monocytes Absolute Eosinophils Absolute Basophils Retic Count (auto) Absolute Retic Sodium 136.8 L Potassium 3.7 Chloride 102 Carbon Dioxide 24 Anion Gap 11 BUN 33 H Creatinine 3.10 H Est GFR ( Amer) 18 L Est GFR (Non-Af Amer) 15 L Glucose 93 Calcium 9.1 Iron Cancelled 32.8 L TIBC Cancelled 245 L % Saturation Cancelled 13 Ferritin 225.00 Total Bilirubin 0.7 AST 30 ALT 18 Alkaline Phosphatase 51 Total Protein 7.0 Albumin 4.1 Lipase 70.5 Vitamin B12 > 1000.0 H Folate > 20.00 Stool Occult Blood 01/05/19 01/05/19 01/05/19 05:10 05:10 09:10 WBC 10.8 H RBC 3.31 L Hgb 9.9 L Hct 29.0 L MCV 88 MCH 29.9 MCHC 34.1 RDW 16.0 H Plt Count 193 Seg Neutrophils % 85.5 H Lymphocytes % 6.1 L Monocytes % 5.2 Eosinophils % 2.7 Basophils % 0.5 Absolute Neutrophils 9.3 H Absolute Lymphocytes 0.7 Absolute Monocytes 0.6 Absolute Eosinophils 0.3 Absolute Basophils 0.1 Retic Count (auto) Absolute Retic Sodium 136.2 L Potassium 4.0 Chloride 104 Carbon Dioxide 25 Anion Gap 7 BUN 41 H Creatinine 2.95 H Est GFR ( Amer) 19 L Est GFR (Non-Af Amer) 15 L Glucose 108 Calcium 8.8 Iron TIBC % Saturation Ferritin Total Bilirubin AST ALT Alkaline Phosphatase Total Protein Albumin Lipase Vitamin B12 Folate Stool Occult Blood POSITIVE 01/04/19 01/04/19 01/04/19 17:39 17:39 19:25 Creatine Kinase Cancelled 205 H CK-MB (CK-2) Cancelled Troponin I Cancelled 01/04/19 19:25 Creatine Kinase CK-MB (CK-2) 2.20 Troponin I 0.041 Impressions: Chest X-Ray 01/04/19 17:16 IMPRESSION: Right basilar 7 cm area of increased opacity - consolidation. No significant pleural effusion. Assessment and Plan - Diagnosis (1) Right lower lobe pneumonia Qualifiers: Pneumonia type: due to unspecified organism Qualified Code(s): J18.1 - Loba r pneumonia, unspecified organism Is this a current diagnosis for this admission?: Yes Plan: Continue Rocephin and azithromycin. Breathing treatments prn. Will order a sputum culture. (2) COPD (chronic obstructive pulmonary disease) Qualifiers: COPD type: unspecified COPD Qualified Code(s): J44.9 - Chronic obstructive pulmonary disease, unspecified Is this a current diagnosis for this admission?: Yes Plan: Not in exacerbation. Breathing treatments prn. (3) Chronic kidney disease, stage IV (severe) Is this a current diagnosis for this admission?: Yes Plan: Creatinine at baseline. Avoid nephrotoxic agents. (4) Rectal bleed Is this a current diagnosis for this admission?: Yes Plan: Will continue to monitor H&H and recurrence of bleeding. Hold heparin SQ, SCDs for now. Will consult surgery. Will order a CT abdomen/pelvis as well. - Time Time Spent with patient: 25-34 minutes
[2019-01-05] MEDS ORDERED: CHLORPHENIRAMINE MALEATE 4 MG TABLET PO SCH (12:00)
[2019-01-05] MEDS: FLUTICASONE NASAL SPRAY 50 MCG/SPRY 120 SPRAY/16 GM NASL SCH ×2 (12:06→22:01)
[2019-01-05] MEDS: NORMAL SALINE 1000 ML 1,000 ML IV PRN ×2 (15:09→19:30)
[2019-01-05] MEDS ORDERED: DEXTROSE 5%-WATER 250 ML with NOREPINEPHRINE BITARTRATE 4 MG IV PRN ×2 (15:26)
[2019-01-05] MEDS ORDERED: NORMAL SALINE 250 ML IV PRN ×5 (15:27→20:13)
[2019-01-05] MEDS ORDERED: NOREPINEPHRINE BITARTRATE INJ/PF 4 MG/4 ML SDV IV ONE (15:31)
--- NOTE | 2019-01-05 15:31 | RADIOLOGY REPORT (SQ) ---
EXAM DESCRIPTION: CT ABD/PELVIS NO ORAL OR IV COMPLETED DATE/TIME: 01/05/2019 2:51 pm REASON FOR STUDY: abd pain, bloody stools COMPARISON: CT abdomen pelvis 11/04/2016 TECHNIQUE: CT scan of the abdomen and pelvis performed without intravenous or oral contrast. Images reviewed with lung, soft tissue, and bone windows. Reconstructed coronal and sagittal MPR images revi ewed. All images stored on PACS. All CT scanners at this facility use dose modulation, iterative reconstruction, and/or weight based d osing when appropriate to reduce radiation dose to as low as reasonably achievable (ALARA). [facility]: Dose Right [facility]: CareDose [facility]: Dose Right [facility]: Teradose 4D [facility]: ROI land investment RADIATION DOSE: CT Rad equipment meets quality standard of care and radiation dose reduction techniq ues were employed. CTDIvol: 9.5 mGy. DLP: 452 mGy-cm.mGy. LIMITATIONS: No oral or IV contrast FINDINGS: LOWER CHEST: No basilar infiltrates. Patient has a large retrocardiac hernia, containing the stomach fundus and body. Heavily calcified mitral annulus. NON-CONTRASTED LIVER, SPLEEN, ADRENALS: Evaluation limited by lack of IV contrast. No identified sign ificant masses. PANCREAS: No masses. No peripancreatic inflammatory changes. Patient has a large retrocardiac hernia containing the pancreatic tail and stomach. This is similar compared to 2017 GALLBLADDER: No identified stones by CT criteria. No inflammatory changes to suggest cholecystitis. RIGHT KIDNEY AND URETER: No suspicious masses. Assessment limited by lack of IV contrast. No signif icant calcifications. No hydronephrosis or hydroureter. LEFT KIDNEY AND URETER: No suspicious masses. Assessment limited by lack of IV contrast. No signifi cant calcifications. Since 2006, patient has developed mild left hydronephrosis and moderate left h ydroureter down to the bladder. It is difficult to discern whether there is a distal stone or bladde r nodule causing ureteral outflow obstruction because of streak artifact through the pelvis from bila teral hip hardware. AORTA AND RETROPERITONEUM: No aneurysm. No retroperitoneal masses or adenopathy. BOWEL AND PERITONEAL CAVITY: No oral contrast. Large hiatal hernia containing the pancreatic tail, G E junction, stomach fundus and body. No CT evidence of free intraperitoneal air or free fluid. No g ross bowel obstruction. Few sigmoid colon diverticuli without CT signs of acute diverticulitis APPENDIX: Not identified. PELVIS, BLADDER, AND ABDOMINAL WALL:Streak artifact from bilateral hip hardware. Normal size female pelvic organs. Urinary bladder incompletely visualized BONES: Compressions at L2 and L3 vertebral bodies with 50% loss of height unchanged from prior studie s OTHER: No other significant finding. IMPRESSION: Since 2017, patient has developed mild left hydronephrosis and moderate left hydroureter . Unable to evaluate the distal ureter/ ureterovesical junction due to streak artifact from hardware in the pelvis. Distal ureteral stone or stricture could not be excluded. No free intraperitoneal air or fluid or CT signs of bowel obstruction. COMMENT: Quality ID # [id number]: Final reports with documentation of one or more dose reduction techniques (e.g., Automated exposure control, adjustment of the mA and/or kV according to patient size, use of iterative reconstruction technique) TECHNICAL DOCUMENTATION: JOB ID: [id number] [employer]- All Rights Reserved Reading location - IP/workstation name: [email or web address]
[2019-01-05] MEDS ORDERED: NORMAL SALINE 1000 ML 1,000 ML IV ONE (15:45)
[2019-01-05 16:07] LABS: ABSOLUTE BASOPHILS # (AUTO) 0.1 10^3/uL (0.0-0.2); ABSOLUTE EOSINOPHILS # (AUTO) 0.1 10^3/uL (0.0-0.6); ABSOLUTE LYMPHOCYTES (AUTO) 1.3 10^3/uL (0.5-4.7); ABSOLUTE MONOCYTES (AUTO) 0.4 10^3/uL (0.1-1.4); ABSOLUTE NEUT (AUTO) 9.4 10^3/uL (1.7-8.2); BASOPHILS % (AUTO) 1.1 % (0-2); HEMATOCRIT 23.2 % (36.0-47.0); LYMPHOCYTES % (AUTO) 11.5 % (13-45); MEAN CORPUSCULAR HEMOGLOBIN 29.8 pg (27.0-33.4); MEAN CORPUSCULAR HGB CONC 33.9 g/dL (32.0-36.0); MEAN CORPUSCULAR VOLUME 88 fl (80-97); MONOCYTES % (AUTO) 3.8 % (3-13); PLATELET COUNT 225 10^3/uL (150-450); RED BLOOD COUNT 2.64 10^6/uL (3.72-5.28); RED CELL DISTRIBUTION WIDTH 15.9 % (11.5-14.0); SEGMENTED NEUTROPHILS % (AUTO) 82.6 % (42-78); TOTAL CELLS COUNTED % (AUTO) 100 %; WHITE BLOOD COUNT 11.4 10^3/uL (4.0-10.5)
[2019-01-05 16:09] LABS: HEMOGLOBIN 7.9 g/dL (12.0-15.5)
[2019-01-05 16:45] LABS: INTERNATIONAL RATION (INR) 1.19; PROTHROMBIN TIME 15.7 SEC (11.4-15.4)
--- NOTE | 2019-01-05 18:59 | RADIOLOGY REPORT (SQ) ---
EXAM DESCRIPTION: CHEST SINGLE VIEW COMPLETED DATE/TIME: 01/05/2019 6:48 pm REASON FOR STUDY: CENTRAL LINE PLACEMENT AND NG PLACEMENT COMPARISON: 01/04/2019. EXAM PARAMETERS: NUMBER OF VIEWS: One view. TECHNIQUE: Single frontal radiographic view of the chest acquired. RADIATION DOSE: NA LIMITATIONS: None. FINDINGS: LUNGS AND PLEURA: No opacities, masses or pneumothorax. No pleural effusion. MEDIASTINUM AND HILAR STRUCTURES: No masses. Contour normal. HEART AND VASCULAR STRUCTURES: Heart normal in size. Normal vasculature. BONES: No acute findings. HARDWARE: Central line with the tip at the level of the superior vena cava. Nasogastric tube with th e tip located within the stomach in the large hiatal hernia. OTHER: Large density in the lower right chest corresponding to a large hiatal hernia on CT. IMPRESSION: 1. CENTRAL LINE IN SATISFACTORY POSITION WITH NO PNEUMOTHORAX. 2. NASOGASTRIC TUBE IS LOCATED IN THE STOMACH WHICH IS IN A LARGE HIATAL HERNIA. 3. NO ACUTE RADIOGRAPHIC FINDING IN THE CHEST. TECHNICAL DOCUMENTATION: JOB ID: [id number] [employer]- All Rights Reserved Reading location - IP/workstation name: [email or web address]
[2019-01-05] MEDS ORDERED: PHARMACY COMMUNICATION ORDER MC NR (19:45)
[2019-01-05] MEDS ORDERED: MORPHINE SULFATE 10 MG/ML INJ ONE (19:46)
[2019-01-05] MEDS ORDERED: ACETAMINOPHEN 325 MG TABLET NG PRN (20:00)
[2019-01-05] MEDS ORDERED: ALPRAZOLAM 0.25 MG TABLET NG PRN (20:00)
[2019-01-05] MEDS ORDERED: GUAIFENESIN SYRP 200 MG/10 ML UDC NG PRN (20:00)
[2019-01-05 20:37] LABS: CREATINE KINASE MB 3.05 ng/mL (<4.55); TROPONIN I 0.073 ng/mL
--- NOTE | 2019-01-05 20:58 | Progress Note ---
Provider Note Provider Note: Long discussion regarding pt's condition and treatment plan held with pt's daughter in-law (her emergency contact). I explained that Ms. Varela has continued lower GI bleeding despite PRBC replacement and FFP. She is very high risk for surgery due to her advanced age, Chronic renal failure, and other medical comorbidities. A localization study (CT angio) would almost assuredly cause renal failure. In light of these possiblities, the family has requested no surgery at this time, and continuation of maximal medical therapy. I have discussed the possibility of her condition worsening with this course of action, and they believe that this is still the best approach at the current time.
[2019-01-05] MEDS ORDERED: MORPHINE SULFATE 10 MG/ML INJ IV ONE (21:00)
[2019-01-05] MEDS: TRAZODONE HCL 50 MG TABLET NG SCH (22:00)
[2019-01-05] MEDS: GABAPENTIN 300 MG CAPSULE NG SCH (22:01)
--- NOTE | 2019-01-05 22:49 | Operative Report ---
Nonrecallable Operative Report DATE OF SURGERY: 01/05/19 PREOPERATIVE DIAGNOSIS: #1 GI bleeding. #2 phlebosclerosis POSTOPERATIVE DIAGNOSIS: Same as above OPERATION: 1. ultrasound guided central venous puncture. 2. left IJ central line placement. SURGEON: JOHN CHONG ANESTHESIA: Local TISSUE REMOVED OR ALTERED: None COMPLICATIONS: None apparent ESTIMATED BLOOD LOSS: Minimal PROCEDURE: Drains/implants: Left internal jugular vein central line at 14 cm. Procedure in detail: After informed consent was obtained, the patient was brought to the intensive care unit laid in the Trendelenburg position. The area of the left neck and chest were prepped and draped in a normal sterile fashion. The ultrasound was used to identify the left internal jugular vein. It was compressible with normal flow. Under direct ultrasonic guidance, the internal jugular vein was accessed using the supplied needle. The needle returned dark, venous, nonpulsatile blood. The wire was inserted into the vein very easily. The wire was confirmed to be within the lumen of the vein, using ultrasonography. Once this was confirmed, the catheter was slid over the wire using a modified Seldinger technique. The catheter was aspirated and flushed x3. The catheter was then sutured to the skin. A dressing was placed, and the procedure was concluded. All sponge, instrument, and needle counts were correct x2. Condition: Critical.
[2019-01-05] MEDS ORDERED: AZITHROMYCIN INJ 500 MG VIAL IV ONE (22:54)
--- NOTE | 2019-01-05 22:59 | PDOC CONSULTATION ---
Consultation Consult Date: 01/05/19 Consult reason:: GI bleeding History of Present Illness Admission Date/PCP: 01/04/19 21:33 GEORGE NAVARRO Patient complains of: Confusion, GI bleeding, hypotension. History of Present Illness: PADMINI MISHRA is a 78 year old female seen in consultation at the request of the hospitalist. The patient was admitted with confusion and pneumonia, however she has developed today dark red bleeding per rectum with clots. Patient is currently confused and does not provide a reliable review of systems. She does report left shoulder pain and cramping left-sided abdominal pain. She has had multiple loose, bloody bowel movements in the last several hours. Patient also had a precipitous drop in her hemoglobin, requiring blood transfusion. Patient denies chest pain, shortness of breath, fevers, chills, blurry vision. She does report fatigue and malaise. Past Medical History Cardiac Medical History: Reports: Coronary Artery Disease, Hyperlipidema Pulmonary Medical History: Reports: Chronic Obstructive Pulmonary Disease (COPD), Respiratory Failure Neurological Medical History: Denies: Seizures Endocrine Medical History: Reports: Hypothyroidism Denies: Diabetes Mellitus Type 1, Diabetes Mellitus Type 2, Hyperthyroidism Renal/ Medical History: Reports: End Stage Renal Disease GI Medical History: Reports: Gastroesophageal Reflux Disease Denies: Cirrhosis, Hepatitis Musculoskeltal Medical History: Denies: Arthritis, Gout Skin Medical History: Denies: Eczema, Psoriasis Psychiatric Medical History: Reports: Dementia, Depression Hematology: Reports: Anemia Denies: Bleeding Tendencies Past Surgical History Past Surgical History: Reports: Appendectomy, Orthopedic Surgery - bilateral hips, back, Vascular Surgery - fistula Social History Lives with: Family Smoking Status: Former Smoker Frequency of Alcohol Use: None Hx Recreational Drug Use: No Drugs: None Hx Prescription Drug Abuse: No - Advance Directive Resuscitation Status: Full Code Family History Family History: CAD, Hyperlipidemia, Malignancy Parental Family History Reviewed: Yes Children Family History Reviewed: Yes Sibling(s) Family History Reviewed.: Yes Medication/Allergy Home Medications: Alprazolam [Xanax 0.25 mg Tablet] 0.25 mg PO Q12HP PRN 01/05/19 Atorvastatin Calcium [Lipitor 40 mg Tablet] 40 mg PO QHS 01/05/19 Cyanocobalamin/Folic AC/Vit B6 [Folbic Tablet] 1 tab PO DAILY 01/05/19 Docusate Sodium [Colace 100 mg Capsule] 100 mg PO BID 01/05/19 Donepezil HCl [Aricept] 10 mg PO DAILY 01/05/19 Duloxetine HCl [Cymbalta] 60 mg PO DAILY 01/05/19 Fluticasone Propionate [Flonase Nasal [place] 50 Mcg/[place] 16 gm] 1 spray NASL DAILY 01/05/19 Gabapentin [Neurontin 300 mg Capsule] 300 mg PO QHS 01/05/19 Ipratropium/Albuterol Sulfate [Duoneb 3 ml Ampul] 3 ml NEB Q3HP PRN 01/05/19 Levothyroxine Sodium [Synthroid 0.025 mg Tablet] 0.025 mg PO Q6AM 01/05/19 Salmeterol Xinafoate [Serevent Diskus 50 Mcg/Dose 28 Dose/Diskus] 1 puff IH Q12 01/05/19 Tamsulosin HCl [Flomax 0.4 mg Cap.sr] 0.4 mg PO QPM 01/05/19 Tiotropium [place] [Spiriva [place] 5 Cap/Kit (18 Mcg/Cap)] 1 puff IH DAILY 0 01/05/19 Tramadol HCl [Ultram 50 mg Tablet] 50 mg PO Q6HP PRN 01/05/19 Trazodone HCl [Desyrel 50 mg Tablet] 50 mg PO QHS 01/05/19 Allergies/Adverse Reactions: No Known Allergies Allergy (Verified 01/04/19 16:59) Review of Systems Constitutional: PRESENT: fatigue. ABSENT: anorexia, fever(s), headache(s) Eyes: ABSENT: visual disturbances Ears: ABSENT: hearing changes Nose, Mouth, and Throat: ABSENT: sore throat Cardiovascular: ABSENT: chest pain, dyspnea on exertion Respiratory: ABSENT: cough Gastrointestinal: PRESENT: abdominal pain, bloating, hematochezia Genitourinary: ABSENT: dysuria Musculoskeletal: ABSENT: back pain Integumentary: ABSENT: pruritus, rash Neurological: ABSENT: confusion, convulsions, dizziness Psychiatric: ABSENT: anxiety, depression Endocrine: ABSENT: cold intolerance, heat intolerance Hematologic/Lymphatic: ABSENT: easy bleeding, easy bruising Physical Exam Vital Signs: Temp Pulse Resp BP Pulse Ox 98.6 F 81 12 105/72 100 01/05/19 20:38 01/05/19 20:28 01/05/19 20:38 01/05/19 20:38 01/05/19 20:38 Intake & Output 01/04/19 01/05/19 01/06/19 06:59 06:59 06:59 Intake Total 593 Output Total 155 Balance 438 Weight 53.2 kg General appearance: PRESENT: no acute distress, cooperative Head exam: PRESENT: atraumatic, normocephalic Eye exam: PRESENT: EOMI, PERRLA. ABSENT: scleral icterus Mouth exam: PRESENT: moist, neck supple Neck exam: ABSENT: meningismus, tenderness, thyromegaly, tracheal deviation Respiratory exam: PRESENT: clear to auscultation gertrude, unlabored. ABSENT: chest wall tenderness, tachypnea, wheezes Cardiovascular exam: PRESENT: tachycardia - Mild Vascular exam: PRESENT: pallor GI/Abdominal exam: PRESENT: soft. ABSENT: distended, firm, guarding, tenderness Rectal exam: PRESENT: other - Bloody bowel movement with clots present Extremities exam: ABSENT: clubbing Musculoskeletal exam: ABSENT: deformity Neurological exam: PRESENT: alert, awake, oriented to person. ABSENT: oriented to place, oriented to time, oriented to situation Psychiatric exam: PRESENT: anxious. ABSENT: agitated, depressed Focused psych exam: ABSENT: delusional Skin exam: ABSENT: cyanosis, erythema, jaundice Results Laboratory Results: 01/05/19 15:45 01/05/19 05:10 01/04/19 01/04/19 01/04/19 17:39 19:25 19:25 WBC RBC Hgb Hct MCV MCH MCHC RDW Plt Count Seg Neutrophils % Lymphocytes % Monocytes % Eosinophils % Basophils % Absolute Neutrophils Absolute Lymphocytes Absolute Monocytes Absolute Eosinophils Absolute Basophils Retic Count (auto) 1.64 Absolute Retic 0.061 Sodium Potassium Chloride Carbon Dioxide Anion Gap BUN Creatinine Est GFR ( Amer) Est GFR (Non-Af Amer) Glucose Calcium Iron Cancelled 32.8 L TIBC Cancelled 245 L % Saturation Cancelled 13 Ferritin 225.00 Vitamin B12 > 1000.0 H Folate > 20.00 Stool Occult Blood Blood Type Antibody Screen 01/05/19 01/05/19 01/05/19 05:10 05:10 09:10 WBC 10.8 H RBC 3.31 L Hgb 9.9 L Hct 29.0 L MCV 88 MCH 29.9 MCHC 34.1 RDW 16.0 H Plt Count 193 Seg Neutrophils % 85.5 H Lymphocytes % 6.1 L Monocytes % 5.2 Eosinophils % 2.7 Basophils % 0.5 Absolute Neutrophils 9.3 H Absolute Lymphocytes 0.7 Absolute Monocytes 0.6 Absolute Eosinophils 0.3 Absolute Basophils 0.1 Retic Count (auto) Absolute Retic Sodium 136.2 L Potassium 4.0 Chloride 104 Carbon Dioxide 25 Anion Gap 7 BUN 41 H Creatinine 2.95 H Est GFR ( Amer) 19 L Est GFR (Non-Af Amer) 15 L Glucose 108 Calcium 8.8 Iron TIBC % Saturation Ferritin Vitamin B12 Folate Stool Occult Blood POSITIVE Blood Type Antibody Screen 01/05/19 01/05/19 15:45 15:45 WBC 11.4 H RBC 2.64 L Hgb 7.9 L Hct 23.2 L MCV 88 MCH 29.8 MCHC 33.9 RDW 15.9 H Plt Count 225 Seg Neutrophils % 82.6 H Lymphocytes % 11.5 L Monocytes % 3.8 Eosinophils % 1.0 Basophils % 1.1 Absolute Neutrophils 9.4 H Absolute Lymphocytes 1.3 Absolute Monocytes 0.4 Absolute Eosinophils 0.1 Absolute Basophils 0.1 Retic Count (auto) Absolute Retic Sodium Potassium Chloride Carbon Dioxide Anion Gap BUN Creatinine Est GFR ( Amer) Est GFR (Non-Af Amer) Glucose Calcium Iron TIBC % Saturation Ferritin Vitamin B12 Folate Stool Occult Blood Blood Type A POSITIVE Antibody Screen NEGATIVE 01/04/19 01/04/19 01/04/19 17:39 17:39 19:25 Creatine Kinase Cancelled 205 H CK-MB (CK-2) Cancelled Troponin I Cancelled 01/04/19 01/05/19 01/05/19 19:25 20:00 20:00 Creatine Kinase 220 H CK-MB (CK-2) 2.20 3.05 Troponin I 0.041 0.073 Impressions: Chest X-Ray 01/05/19 00:00 IMPRESSION: 1. CENTRAL LINE IN SATISFACTORY POSITION WITH NO PNEUMOTHORAX. 2. NASOGASTRIC TUBE IS LOCATED IN THE STOMACH WHICH IS IN A LARGE HIATAL HERNIA. 3. NO ACUTE RADIOGRAPHIC FINDING IN THE CHEST. Abdomen/Pelvis CT 01/05/19 10:33 IMPRESSION: Since 2017, patient has developed mild left hydronephrosis and moderate left hydroureter. Unable to evaluate the distal ureter/ ureterovesical junction due to streak artifact from hardware in the pelvis. Distal ureteral stone or stricture could not be excluded. No free intraperitoneal air or fluid or CT signs of bowel obstruction. Assessment & Plan - Diagnosis (1) Rectal bleed Is this a current diagnosis for this admission?: Yes (2) CKD (chronic kidney disease) stage 4, GFR 15-29 ml/min Is this a current diagnosis for this admission?: Yes - Plan Summary Plan Summary: This is a 78-year-old female with GI bleeding. I have placed an NG tube and lavaged and aspirated. I do not see any evidence of active upper GI bleeding, however with the patient's large hiatal hernia it is difficult to say for certain. I have examined the patient's bowel movement. There is red blood with large clots present. It is not melanotic. I do suspect the patient is experiencing a lower GI bleed. The treatment plan has been discussed with both Dr. Strong and the family. Family is very reluctant to agree to surgery in this patient due to her multiple comorbidities and frailty. The family does not desire a localization study (CT angiogram) at this time due to the risk of renal failure. Continue with fluid resuscitation, PRBC transfusion, and FFP. If instability or continued transfusion requirements persist, she may require total abdominal colectomy. This is all been discussed with the patient's surrogate.
[2019-01-06 00:28] LABS: APPEARANCE,URINE SLIGHTLY-CLOUDY; BILIRUBIN,URINE NEGATIVE (NEGATIVE); COLOR,URINE YELLOW; GLUCOSE, URINE NEGATIVE (NEGATIVE); KETONES,URINE NEGATIVE (NEGATIVE); LEUKOCYTE ESTERASE,URINE NEGATIVE (NEGATIVE); NITRITE,URINE NEGATIVE (NEGATIVE); PROTEIN,URINE 30 mg/dL (NEGATIVE); URINE SPECIFIC GRAVITY 1.013; UROBILINOGEN,URINE NEGATIVE mg/dL (<2.0)
[2019-01-06] MEDS: IPRATROPIUM/ALBUTEROL 0.5-2.5 MG/3 ML AMPUL NEB SCH ×4 (02:43→20:48)
[2019-01-06] MEDS: AZITHROMYCIN 500 MG in DEXTROSE 5%-WATER 250 ML IV SCH ×2 (02:46→17:00)
[2019-01-06] MEDS: NORMAL SALINE 1000 ML 1,000 ML IV PRN ×2 (03:02→16:35)
[2019-01-06] MEDS: CHLORPHENIRAMINE MALEATE 4 MG TABLET NG SCH ×3 (03:12→12:51)
[2019-01-06 03:34] LABS: CREATINE KINASE MB 2.84 ng/mL (<4.55); TROPONIN I 0.058 ng/mL
[2019-01-06] MEDS ORDERED: CHLORPHENIRAMINE MALEATE 4 MG TABLET ONE (04:09)
[2019-01-06] MEDS: LEVOTHYROXINE SODIUM 0.1 MG TABLET NG SCH (05:53)
[2019-01-06] MEDS: PANTOPRAZOLE SODIUM 40 MG PACKET.DR NG SCH (06:04)
[2019-01-06 06:24] LABS: INTERNATIONAL RATION (INR) 1.07; PROTHROMBIN TIME 14.5 SEC (11.4-15.4)
[2019-01-06 06:25] LABS: PARTIAL THROMBOPLASTIN TIME 37.7 SEC (23.5-35.8)
--- NOTE | 2019-01-06 06:26 | RADIOLOGY REPORT (SQ) ---
EXAM DESCRIPTION: XR CHEST 1 VIEW COMPLETED DATE/TME: 01/06/2019 06:00 CLINICAL HISTORY: 78 years Female, pneumonia COMPARISON: One day prior, CR and CT. NUMBER OF VIEWS/TECHNIQUE: 1/AP FINDINGS: Large hiatal hernia extends to the right lower hemithorax consistent with CT from one day ago. Mild leftward cardiac shift.Atherosclerotic vascular disease. Enteric tube courses through the hiatal hernia at the right lower chest with tip likely adequate partially obscured distal to the mid abdomen.Adequate appearing left jugular central line. Normal cardiac silhouette size. No pneumothorax. Stable bony thorax. IMPRESSION: No significant change.
[2019-01-06 06:28] LABS: ANION GAP 6 (5-19)
[2019-01-06 06:29] LABS: ABSOLUTE BASOPHILS # (AUTO) 0.1 10^3/uL (0.0-0.2); ABSOLUTE EOSINOPHILS # (AUTO) 0.3 10^3/uL (0.0-0.6); ABSOLUTE MONOCYTES (AUTO) 0.5 10^3/uL (0.1-1.4); ABSOLUTE NEUT (AUTO) 6.4 10^3/uL (1.7-8.2); BASOPHILS % (AUTO) 0.8 % (0-2); EOSINOPHILS % (AUTO) 3.7 % (0-6); LYMPHOCYTES % (AUTO) 11.6 % (13-45); MEAN CORPUSCULAR HGB CONC 34.7 g/dL (32.0-36.0); MEAN CORPUSCULAR VOLUME 86 fl (80-97); MONOCYTES % (AUTO) 6.1 % (3-13); PLATELET COUNT 111 10^3/uL (150-450); RED BLOOD COUNT 3.82 10^6/uL (3.72-5.28); RED CELL DISTRIBUTION WIDTH 14.5 % (11.5-14.0); SEGMENTED NEUTROPHILS % (AUTO) 77.8 % (42-78); TOTAL CELLS COUNTED % (AUTO) 100 %; WHITE BLOOD COUNT 8.2 10^3/uL (4.0-10.5)
[2019-01-06 06:32] LABS: HEMOGLOBIN 11.4 g/dL (12.0-15.5)
[2019-01-06 06:35] LABS: BLOOD UREA NITROGEN 56 mg/dL (7-20); CALCIUM 7.2 mg/dL (8.4-10.2); CARBON DIOXIDE 22 mmol/L (22-30); CHLORIDE 110 mmol/L (98-107); CREATINE KINASE 183 U/L (30-135); GLUCOSE 94 mg/dL (75-110); POTASSIUM 4.2 mmol/L (3.6-5.0); SODIUM 138.3 mmol/L (137-145)
[2019-01-06] MEDS: DULOXETINE HCL 30 MG CAPSULE.DR PO SCH (07:44)
[2019-01-06] MEDS: ATORVASTATIN CALCIUM 40 MG TABLET NG SCH (08:25)
[2019-01-06] MEDS: DONEPEZIL HCL 5 MG TABLET NG SCH (08:26)
--- NOTE | 2019-01-06 09:09 | PDOC PROGRESS REPORT ---
Subjective Progress Note for:: 01/06/19 Reason For Visit: PNEUMONIA Patient received narcotics early this morning. In the ICU, more verbal communication. Currently hemodynamically stable; no pressors. Now receiving first unit of FFP Physical Exam Vital Signs: Temp Pulse Resp BP Pulse Ox 98.2 F 70 14 100/64 100 01/06/19 08:31 01/06/19 08:21 01/06/19 08:31 01/06/19 08:31 01/06/19 08:31 Intake & Output 01/05/19 01/06/19 01/07/19 06:59 06:59 06:59 Intake Total 4605 0 Output Total 790 40 Balance 3815 -40 Weight 53.2 kg 55.9 kg General appearance: PRESENT: other - Sedated, minimally responsive; eyes open to stimulation GI/Abdominal exam: PRESENT: other - Abdomen soft nontender no peritoneal signs no rigidity. Results Laboratory Results: 01/06/19 06:07 01/06/19 06:07 01/05/19 01/05/19 01/05/19 09:10 15:45 15:45 WBC 11.4 H RBC 2.64 L Hgb 7.9 L Hct 23.2 L MCV 88 MCH 29.8 MCHC 33.9 RDW 15.9 H Plt Count 225 Seg Neutrophils % 82.6 H Lymphocytes % 11.5 L Monocytes % 3.8 Eosinophils % 1.0 Basophils % 1.1 Absolute Neutrophils 9.4 H Absolute Lymphocytes 1.3 Absolute Monocytes 0.4 Absolute Eosinophils 0.1 Absolute Basophils 0.1 Sodium Potassium Chloride Carbon Dioxide Anion Gap BUN Creatinine Est GFR ( Amer) Est GFR (Non-Af Amer) Glucose Calcium Urine Color Urine Appearance Urine pH Ur Specific [place] Urine Protein Urine Glucose (UA) Urine Ketones Urine Blood Urine Nitrite Ur Leukocyte Esterase Urine WBC (Auto) Urine RBC (Auto) Stool Occult Blood POSITIVE Blood Type A POSITIVE Antibody Screen NEGATIVE 01/06/19 01/06/19 01/06/19 00:10 06:07 06:07 WBC 8.2 RBC 3.82 Hgb 11.4 L D Hct 33.0 L MCV 86 MCH 30.0 MCHC 34.7 RDW 14.5 H Plt Count 111 L Seg Neutrophils % 77.8 Lymphocytes % 11.6 L Monocytes % 6.1 Eosinophils % 3.7 Basophils % 0.8 Absolute Neutrophils 6.4 Absolute Lymphocytes 1.0 Absolute Monocytes 0.5 Absolute Eosinophils 0.3 Absolute Basophils 0.1 Sodium 138.3 Potassium 4.2 Chloride 110 H Carbon Dioxide 22 Anion Gap 6 BUN 56 H Creatinine 2.90 H Est GFR ( Amer) 19 L Est GFR (Non-Af Amer) 16 L Glucose 94 Calcium 7.2 L Urine Color YELLOW Urine Appearance SLIGHTLY-CLOUDY Urine pH 5.0 Ur Specific [place] 1.013 Urine Protein 30 H Urine Glucose (UA) NEGATIVE Urine Ketones NEGATIVE Urine Blood SMALL H Urine Nitrite NEGATIVE Ur Leukocyte Esterase NEGATIVE Urine WBC (Auto) 6 Urine RBC (Auto) 3 Stool Occult Blood Blood Type Antibody Screen 01/04/19 01/04/19 01/04/19 17:39 17:39 19:25 Creatine Kinase Cancelled 205 H CK-MB (CK-2) Cancelled Troponin I Cancelled 01/04/19 01/05/19 01/05/19 19:25 20:00 20:00 Creatine Kinase 220 H CK-MB (CK-2) 2.20 3.05 Troponin I 0.041 0.073 01/06/19 01/06/19 01/06/19 02:45 02:45 06:07 Creatine Kinase 194 H 183 H CK-MB (CK-2) 2.84 Troponin I 0.058 Impressions: Abdomen/Pelvis CT 01/05/19 10:33 IMPRESSION: Since 2016, patient has developed mild left hydronephrosis and moderate left hydroureter. Unable to evaluate the distal ureter/ ureterovesical junction due to streak artifact from hardware in the pelvis. Distal ureteral stone or stricture could not be excluded. No free intraperitoneal air or fluid or CT signs of bowel obstruction. Chest X-Ray 01/06/19 06:00 IMPRESSION: No significant change. Assessment & Plan - Diagnosis (1) Acute lower GI bleeding Is this a current diagnosis for this admission?: Yes Plan: Impression: Acute lower GI bleed, with hemodynamic instability, now stabilizing. Patient received 4 units of packed cells now receiving FFP. Recommendations: 1. Continue medical management 2. Apparently patient's next of kin, daughter, who serves as healthcare power of dynamics ax technical architect, has requested nonsurgical intervention. Patient is a full code at this time. We do not plan any diagnostic or therapeutic inventions at this time. Please reconsult surgery if deemed appropriate.
[2019-01-06] MEDS: CEFTRIAXONE 1 GM/D5W RTU 1 GM/50 ML RTUPB IV SCH (09:18)
[2019-01-06] MEDS: FLUTICASONE NASAL SPRAY 50 MCG/SPRY 120 SPRAY/16 GM NASL SCH ×2 (09:18→21:45)
[2019-01-06 09:35] LABS: CREATINE KINASE MB 2.85 ng/mL (<4.55)
[2019-01-06] MEDS ORDERED: NORMAL SALINE INJ/PF 0.9% 10 ML SDV IV PRN (09:35)
[2019-01-06 09:39] LABS: TROPONIN I 0.043 ng/mL
--- NOTE | 2019-01-06 11:14 | PDOC PROGRESS REPORT ---
Subjective Progress Note for:: 01/06/19 Subjective:: This is 76 years old female patient with multiple comorbidities including stage IV CKD, hypothyroidism, COPD, dementia, chronic indwelling Moura catheter, history of recurrent UTI and pyelonephritis, bipolar disorder and tardive dyskinesia presents with shortness of breath cough productive of yellowish sputum of 1 day duration. Her chest x-ray showed right lower lobe infiltrate and patient has been managed as a case of pneumonia with Zithromax and ceftriaxone. Yesterday morning patient developed dark blood per rectum. And her hemoglobin dropped precipitously from 10.8-7.9. Patient transferred to ICU and she is transfused 4 units of PRBC. Surgery consulted and evaluated the patient. The daughter who is healthcare POA refused any surgical intervention and request only medical management. Currently her hemoglobin is 11 and patient is relatively hemodynamically stable. Reason For Visit: PNEUMONIA Physical Exam Vital Signs: Temp Pulse Resp BP Pulse Ox 98.2 F 76 10 L 108/59 L 100 01/06/19 10:21 01/06/19 10:21 01/06/19 10:21 01/06/19 10:21 01/06/19 10:21 Intake & Output 01/05/19 01/06/19 01/07/19 06:59 06:59 06:59 Intake Total 4605 50 Output Total 790 190 Balance 3815 -140 Weight 53.2 kg 55.9 kg General appearance: PRESENT: no acute distress Head exam: PRESENT: atraumatic Eye exam: PRESENT: conjunctiva pink Neck exam: ABSENT: carotid bruit, JVD, lymphadenopathy, thyromegaly Respiratory exam: PRESENT: decreased breath sounds Cardiovascular exam: PRESENT: RRR. ABSENT: diastolic murmur, rubs, systolic murmur Neurological exam: PRESENT: alert, awake, oriented to time, oriented to situation Results Laboratory Results: 01/06/19 06:07 01/06/19 06:07 01/05/19 01/05/19 01/06/19 15:45 15:45 00:10 WBC 11.4 H RBC 2.64 L Hgb 7.9 L Hct 23.2 L MCV 88 MCH 29.8 MCHC 33.9 RDW 15.9 H Plt Count 225 Seg Neutrophils % 82.6 H Lymphocytes % 11.5 L Monocytes % 3.8 Eosinophils % 1.0 Basophils % 1.1 Absolute Neutrophils 9.4 H Absolute Lymphocytes 1.3 Absolute Monocytes 0.4 Absolute Eosinophils 0.1 Absolute Basophils 0.1 Sodium Potassium Chloride Carbon Dioxide Anion Gap BUN Creatinine Est GFR ( Amer) Est GFR (Non-Af Amer) Glucose Calcium Urine Color YELLOW Urine Appearance SLIGHTLY-CLOUDY Urine pH 5.0 Ur Specific [place] 1.013 Urine Protein 30 H Urine Glucose (UA) NEGATIVE Urine Ketones NEGATIVE Urine Blood SMALL H Urine Nitrite NEGATIVE Ur Leukocyte Esterase NEGATIVE Urine WBC (Auto) 6 Urine RBC (Auto) 3 Blood Type A POSITIVE Antibody Screen NEGATIVE 01/06/19 01/06/19 06:07 06:07 WBC 8.2 RBC 3.82 Hgb 11.4 L D Hct 33.0 L MCV 86 MCH 30.0 MCHC 34.7 RDW 14.5 H Plt Count 111 L Seg Neutrophils % 77.8 Lymphocytes % 11.6 L Monocytes % 6.1 Eosinophils % 3.7 Basophils % 0.8 Absolute Neutrophils 6.4 Absolute Lymphocytes 1.0 Absolute Monocytes 0.5 Absolute Eosinophils 0.3 Absolute Basophils 0.1 Sodium 138.3 Potassium 4.2 Chloride 110 H Carbon Dioxide 22 Anion Gap 6 BUN 56 H Creatinine 2.90 H Est GFR ( Amer) 19 L Est GFR (Non-Af Amer) 16 L Glucose 94 Calcium 7.2 L Urine Color Urine Appearance Urine pH Ur Specific [place] Urine Protein Urine Glucose (UA) Urine Ketones Urine Blood Urine Nitrite Ur Leukocyte Esterase Urine WBC (Auto) Urine RBC (Auto) Blood Type Antibody Screen 01/04/19 01/04/19 01/04/19 17:39 17:39 19:25 Creatine Kinase Cancelled 205 H CK-MB (CK-2) Cancelled Troponin I Cancelled 01/04/19 01/05/19 01/05/19 19:25 20:00 20:00 Creatine Kinase 220 H CK-MB (CK-2) 2.20 3.05 Troponin I 0.041 0.073 01/06/19 01/06/19 01/06/19 02:45 02:45 06:07 Creatine Kinase 194 H 183 H CK-MB (CK-2) 2.84 Troponin I 0.058 01/06/19 08:52 Creatine Kinase CK-MB (CK-2) 2.85 Troponin I 0.043 Impressions: Abdomen/Pelvis CT 01/05/19 10:33 IMPRESSION: Since 2017, patient has developed mild left hydronephrosis and moderate left hydroureter. Unable to evaluate the distal ureter/ ureterovesical junction due to streak artifact from hardware in the pelvis. Distal ureteral stone or stricture could not be excluded. No free intraperitoneal air or fluid or CT signs of bowel obstruction. Chest X-Ray 01/06/19 06:00 IMPRESSION: No significant change. Assessment and Plan - Diagnosis (1) Acute blood loss anemia Is this a current diagnosis for this admission?: Yes Plan: Due to lower GI bleeding. Patient hemoglobin precipitously drop from 10.9-7.9. Patient got 4 units of packed RBC. Surgical team evaluated the patient. Patient's daughter who is a healthcare POA requested medical management only. We will continue to monitor her H&H. (2) Right lower lobe pneumonia Is this a current diagnosis for this admission?: Yes Plan: I will continue her ceftriaxone and Zithromax. (3) Hypothyroidism (acquired) Is this a current diagnosis for this admission?: Yes Plan: Continue her Synthroid. (4) COPD (chronic obstructive pulmonary disease) Qualifiers: Emphysema type: unspecified Is this a current diagnosis for this admission?: Yes Plan: Continue as needed bronchodilator. (5) Chronic kidney disease, stage IV (severe) Is this a current diagnosis for this admission?: Yes Plan: We will avoid nephrotoxic agents. Cautiously hydrate her. Patient needs follow-up with her primary strip cleaner. (6) Dementia Is this a current diagnosis for this admission?: Yes Plan: Stable without behavioral disorder. (7) Chronic indwelling Moura catheter Is this a current diagnosis for this admission?: Yes Plan: Urine culture.
[2019-01-06 17:18] LABS: HEMATOCRIT 28.1 % (36.0-47.0); HEMOGLOBIN 9.7 g/dL (12.0-15.5); MEAN CORPUSCULAR HEMOGLOBIN 29.7 pg (27.0-33.4); MEAN CORPUSCULAR HGB CONC 34.7 g/dL (32.0-36.0); MEAN CORPUSCULAR VOLUME 86 fl (80-97); PLATELET COUNT 104 10^3/uL (150-450); RED BLOOD COUNT 3.29 10^6/uL (3.72-5.28); RED CELL DISTRIBUTION WIDTH 14.5 % (11.5-14.0); WHITE BLOOD COUNT 6.1 10^3/uL (4.0-10.5)
[2019-01-06 17:22] LABS: INTERNATIONAL RATION (INR) 1.03; PARTIAL THROMBOPLASTIN TIME 34.1 SEC (23.5-35.8)
[2019-01-06] MEDS: GABAPENTIN 300 MG CAPSULE NG SCH (21:43)
[2019-01-06] MEDS: TRAZODONE HCL 50 MG TABLET NG SCH (21:44)
[2019-01-07] MEDS: IPRATROPIUM/ALBUTEROL 0.5-2.5 MG/3 ML AMPUL NEB SCH ×4 (02:35→19:53)
[2019-01-07 06:08] LABS: HEMATOCRIT 30.4 % (36.0-47.0); HEMOGLOBIN 10.4 g/dL (12.0-15.5); MEAN CORPUSCULAR HEMOGLOBIN 29.9 pg (27.0-33.4); MEAN CORPUSCULAR HGB CONC 34.4 g/dL (32.0-36.0); MEAN CORPUSCULAR VOLUME 87 fl (80-97); PLATELET COUNT 114 10^3/uL (150-450); RED CELL DISTRIBUTION WIDTH 15.2 % (11.5-14.0); WHITE BLOOD COUNT 9.3 10^3/uL (4.0-10.5)
[2019-01-07 06:33] LABS: ANION GAP 5 (5-19); BLOOD UREA NITROGEN 44 mg/dL (7-20); CALCIUM 7.7 mg/dL (8.4-10.2); CARBON DIOXIDE 24 mmol/L (22-30); CHLORIDE 114 mmol/L (98-107); GLUCOSE 91 mg/dL (75-110); POTASSIUM 3.7 mmol/L (3.6-5.0); SODIUM 142.8 mmol/L (137-145)
[2019-01-07] MEDS: PANTOPRAZOLE SODIUM 40 MG PACKET.DR NG SCH (06:36)
[2019-01-07] MEDS: LEVOTHYROXINE SODIUM 0.1 MG TABLET NG SCH (06:37)
[2019-01-07] MEDS: NORMAL SALINE 1000 ML 1,000 ML IV PRN (07:02)
[2019-01-07] MEDS ORDERED: ALPRAZOLAM 0.25 MG TABLET PO PRN (07:46)
[2019-01-07] MEDS ORDERED: IPRATROPIUM/ALBUTEROL 0.5-2.5 MG/3 ML AMPUL NEB PRN (07:46)
[2019-01-07] MEDS: DONEPEZIL HCL 5 MG TABLET NG SCH (07:48)
[2019-01-07] MEDS: DULOXETINE HCL 30 MG CAPSULE.DR PO SCH (07:48)
[2019-01-07] MEDS: ATORVASTATIN CALCIUM 40 MG TABLET NG SCH (07:49)
--- NOTE | 2019-01-07 08:27 | PDOC PROGRESS REPORT ---
Subjective Progress Note for:: 01/07/19 Subjective:: 76 years old female patient with multiple comorbidities including stage IV CKD, hypothyroidism, COPD, dementia, chronic indwelling Moura catheter, history of recurrent UTI and pyelonephritis, bipolar disorder and tardive dyskinesia presents with shortness of breath cough productive of yellowish sputum of 1 day duration. Her chest x-ray showed right lower lobe infiltrate and patient has been managed as a case of pneumonia with Zithromax and ceftriaxone. Yesterday morning patient developed dark blood per rectum. And her hemoglobin dropped precipitously from 10.8-7.9. Patient transferred to ICU and she is transfused 4 units of PRBC. Surgery consulted and evaluated the patient. The daughter who is healthcare POA refused any surgical intervention and request only medical management. Currently her hemoglobin is 11 and patient is relatively hemodynamically stable. 01/07/[id number]-ufie-old white female with history of stage IV kidney disease, AV fistula, hypothyroidism, COPD, dementia, history of recurrent UTI secondary to indwelling Moura's catheter, pyelonephritis, bipolar disorder admitted for COPD exacerbation production of yellowish sputum for 1 day duration. Presently on ceftriaxone and Zithromax. Chest x-ray shows right lower lobe infiltrate. Patient's hemoglobin dropped from 10.8-7.9 under transfer to ICU given 4 units of PRBC. Hemoglobin is stable now around 10.4. Patient is alert and oriented she has NG tube wants to eat plan is to remove the NG tube start on clear liquids today. Surgical consult was requested but POA refused any surgical intervention. Patient requesting for DNR/DNI status. Hemodynamically stable. Blood pressure today is 114/67 with heart rate of 82 temperature is 99.3. Reason For Visit: PNEUMONIA Physical Exam Vital Signs: Temp Pulse Resp BP Pulse Ox 99.3 F 86 20 114/67 91 L 01/07/19 08:00 01/07/19 08:00 01/07/19 08:00 01/07/19 08:00 01/07/19 08:00 Intake & Output 01/06/19 01/07/19 01/08/19 06:59 06:59 06:59 Intake Total 4605 3278 Output Total 790 2110 185 Balance 3815 1168 -185 Weight 55.9 kg 57 kg General appearance: PRESENT: no acute distress, thin Head exam: PRESENT: atraumatic Eye exam: PRESENT: PERRLA Mouth exam: PRESENT: moist, tongue midline Neck exam: ABSENT: carotid bruit, JVD, lymphadenopathy, thyromegaly Respiratory exam: PRESENT: decreased breath sounds Cardiovascular exam: PRESENT: tachycardia GI/Abdominal exam: PRESENT: normal bowel sounds, soft, other - G-tube in place.. ABSENT: distended, guarding, mass, organolmegaly, rebound, tenderness Gentrourinary exam: PRESENT: indwelling catheter Neurological exam: PRESENT: alert, awake, oriented to person, oriented to place, oriented to time, oriented to situation, CN II-XII grossly intact. ABSENT: motor sensory deficit Psychiatric exam: PRESENT: appropriate affect, normal mood. ABSENT: homicidal ideation, suicidal ideation Results Laboratory Results: 01/07/19 05:55 01/07/19 05:55 01/05/19 01/06/19 01/07/19 15:45 17:00 05:55 WBC 6.1 RBC 3.29 L Hgb 9.7 L Hct 28.1 L MCV 86 MCH 29.7 MCHC 34.7 RDW 14.5 H Plt Count 104 L Sodium 142.8 Potassium 3.7 Chloride 114 H Carbon Dioxide 24 Anion Gap 5 BUN 44 H Creatinine 2.39 H Est GFR ( Amer) 24 L Est GFR (Non-Af Amer) 20 L Glucose 91 Calcium 7.7 L Blood Type A POSITIVE Antibody Screen NEGATIVE 01/07/19 05:55 WBC 9.3 RBC 3.50 L Hgb 10.4 L Hct 30.4 L MCV 87 MCH 29.9 MCHC 34.4 RDW 15.2 H Plt Count 114 L Sodium Potassium Chloride Carbon Dioxide Anion Gap BUN Creatinine Est GFR ( Amer) Est GFR (Non-Af Amer) Glucose Calcium Blood Type Antibody Screen 01/04/19 01/04/19 01/04/19 17:39 17:39 19:25 Creatine Kinase Cancelled 205 H CK-MB (CK-2) Cancelled Troponin I Cancelled 01/04/19 01/05/19 01/05/19 19:25 20:00 20:00 Creatine Kinase 220 H CK-MB (CK-2) 2.20 3.05 Troponin I 0.041 0.073 01/06/19 01/06/19 01/06/19 02:45 02:45 06:07 Creatine Kinase 194 H 183 H CK-MB (CK-2) 2.84 Troponin I 0.058 01/06/19 08:52 Creatine Kinase CK-MB (CK-2) 2.85 Troponin I 0.043 Impressions: Abdomen/Pelvis CT 01/05/19 10:33 IMPRESSION: Since 2017, patient has developed mild left hydronephrosis and moderate left hydroureter. Unable to evaluate the distal ureter/ ureterovesical junction due to streak artifact from hardware in the pelvis. Distal ureteral stone or stricture could not be excluded. No free intraperitoneal air or fluid or CT signs of bowel obstruction. Chest X-Ray 01/06/19 06:00 IMPRESSION: No significant change. Assessment and Plan - Diagnosis (1) Acute blood loss anemia Is this a current diagnosis for this admission?: Yes Plan: Due to lower GI bleeding. Patient hemoglobin precipitously drop from 10.9-7.9. Patient got 4 units of packed RBC. Surgical team evaluated the patient. Patient's daughter who is a healthcare POA requested medical management only. We will continue to monitor her H&H. 01/07/2019-patient was transferred to ICU for acute blood loss anemia. Hemoglobin is stable around 10.4 after giving 4 units of PRBC. Surgical consult was requested but POA request only medical management. Plan is to recheck hemoglobin tomorrow to transfer the patient to IMCU today. Acute blood loss anemia most likely secondary to lower GI bleed. (2) COPD (chronic obstructive pulmonary disease) Qualifiers: COPD type: unspecified COPD Qualified Code(s): J44.9 - Chronic obstructive pulmonary disease, unspecified Is this a current diagnosis for this admission?: Yes Plan: Not in exacerbation. Breathing treatments prn. 01/07/2019-patient has history of COPD. Pulse ox is 91% on 3 L. Presently on DuoNeb nebulizations scheduled and as needed, some salmeterol inhalation twice a day, Spiriva inhalation once a day. She is also on IV antibiotics ceftriaxone and azithromycin. Plan is to continue the present management repeat the chest x-ray today. (3) Chronic kidney disease, stage IV (severe) Is this a current diagnosis for this admission?: Yes Plan: We will avoid nephrotoxic agents. Cautiously hydrate her. Patient needs follow-up with her primary supervisor seaming. 01/07/2019-patient has a stage IV kidney disease. Creatinine on admission is 3.1 improved to 2.39. Acute on chronic kidney disease most likely secondary to prerenal causes resolved with IV fluids and blood transfusion. And has AV fistula. No signs of any uremic symptoms. (4) Chronic indwelling Moura catheter Is this a current diagnosis for this admission?: Yes Plan: Urine culture. 01/07/2019-patient has chronic indwelling Moura's catheter secondary to bladder retention. She has history of recurrent UTI. Present urine culture is pending. Question for urine analysis and urine culture. Presently on ceftriaxone and azithromycin. (5) Dementia Qualifiers: Dementia type: unspecified type Dementia behavioral disturbance: without behavioral disturbance Qualified Code(s): F03.90 - Unspecified dementia without behavioral disturbance Is this a current diagnosis for this admission?: No Plan: 01/07/2019-patient has history of dementia. With behavioral problems during the initial hospital stay. Now her mentation is at baseline she is not agitated not confused. plan to continue benazepril 10 mg daily (6) Right lower lobe pneumonia Is this a current diagnosis for this admission?: Yes Plan: I will continue her ceftriaxone and Zithromax. 01/07/2019-patient admitted with right lower lobe pneumonia. Most likely community-acquired pneumonia. Most likely gram-positive organisms. Presently on ceftriaxone and Zithromax. Sputum cultures are pending. T-max is 99.3. Plan is to continue the present management. - Time Time Spent with patient: 25-34 minutes Medications reviewed and adjusted accordingly: Yes
--- NOTE | 2019-01-07 08:53 | RADIOLOGY REPORT (SQ) ---
EXAM DESCRIPTION: CHEST SINGLE VIEW COMPLETED DATE/TIME: 01/07/2019 8:42 am REASON FOR STUDY: pneumonia COMPARISON: 01/06/2019 EXAM PARAMETERS: NUMBER OF VIEWS: One view. TECHNIQUE: Single frontal radiographic view of the chest acquired. RADIATION DOSE: NA LIMITATIONS: None. FINDINGS: LUNGS AND PLEURA: Bilateral patchy airspace and interstitial disease in the mid and lower lung zones, may represent pneumonia or edema. Isael B-lines are also suggested in the lower lungs, suggest edema. Slight blunting of the costophrenic angle suggests small pleural effusions. No evid ence of pneumothorax. MEDIASTINUM AND HILAR STRUCTURES: Retrocardiac hernia is again identified extending toward the right . HEART AND VASCULAR STRUCTURES: Dense heavily calcified mitral annulus. Prominence of the pulmonary vasculature suggest vascular congestion. BONES: The osseous structures are stable in appearance. HARDWARE: Interval removal of nasogastric tube. Left jugular central line is again identified. OTHER: No other significant finding. IMPRESSION: 1. Since the previous examination dated 01/06/2019, bilateral patchy mixed airspace and i nterstitial disease in the mid and lower lung zones, may represent infiltrates and or edema. Very sm all bilateral pleural effusions. 2. Mild prominence of the pulmonary vasculature, suggest vascular congestion. 3. Interval removal of nasogastric tube. TECHNICAL DOCUMENTATION: JOB ID: [id number] [employer]- All Rights Reserved Reading location - IP/workstation name: [email or web address]
[2019-01-07 09:19] LABS: APPEARANCE,URINE CLEAR; BILIRUBIN,URINE NEGATIVE (NEGATIVE); COLOR,URINE STRAW; GLUCOSE, URINE NEGATIVE (NEGATIVE); KETONES,URINE NEGATIVE (NEGATIVE); LEUKOCYTE ESTERASE,URINE NEGATIVE (NEGATIVE); NITRITE,URINE NEGATIVE (NEGATIVE); PROTEIN,URINE 30 mg/dL (NEGATIVE); URIC ACID CRYSTALS,URINE FEW /HPF; URINE SPECIFIC GRAVITY 1.011; UROBILINOGEN,URINE NEGATIVE mg/dL (<2.0)
[2019-01-07] MEDS ORDERED: DOCUSATE SODIUM 100 MG CAPSULE PO SCH (10:00)
[2019-01-07] MEDS ORDERED: FLUTICASONE NASAL SPRAY 50 MCG/SPRY 120 SPRAY/16 GM NASL SCH (10:00)
[2019-01-07] MEDS ORDERED: (PENDING PHARMACY ID) (Donepezil Hcl [Aricept] 10 MG) PO SCH (10:00)
[2019-01-07] MEDS ORDERED: (PENDING PHARMACY ID) (Cyanocobalamin/Folic Ac/Vit B6 [Folbic Tablet] 1 TAB) PO SCH (10:00)
[2019-01-07] MEDS ORDERED: ACETAMINOPHEN 325 MG TABLET PO PRN (11:30)
[2019-01-07] MEDS ORDERED: GUAIFENESIN SYRP 200 MG/10 ML UDC PO PRN (11:30)
[2019-01-07] MEDS: CEFTRIAXONE 1 GM/D5W RTU 1 GM/50 ML RTUPB IV SCH (11:36)
[2019-01-07] MEDS: CYANOCOBALAMIN/FA/PYRIDOXINE TABLET PO SCH (11:37)
[2019-01-07] MEDS: FLUTICASONE NASAL SPRAY 50 MCG/SPRY 120 SPRAY/16 GM NASL SCH ×2 (11:37→21:11)
[2019-01-07] MEDS: SALMETEROL XINAFOATE DISKUS 50 MCG/1 DOSE 28 DOSE IH SCH ×2 (11:37→21:12)
[2019-01-07] MEDS: TIOTROPIUM BROMIDE DPI 5 CAP/KIT (18 MCG/CAP) IH SCH (11:37)
[2019-01-07] MEDS: HEPARIN SOD (PORCINE) 5,000 UNIT/ML 1 ML SYRINGE SUBCUT SCH ×2 (13:48→21:12)
[2019-01-07 13:56] LABS: MEAN CORPUSCULAR HEMOGLOBIN 29.6 pg (27.0-33.4); MEAN CORPUSCULAR HGB CONC 34.4 g/dL (32.0-36.0); MEAN CORPUSCULAR VOLUME 86 fl (80-97); PLATELET COUNT 109 10^3/uL (150-450); RED BLOOD COUNT 3.37 10^6/uL (3.72-5.28); RED CELL DISTRIBUTION WIDTH 14.7 % (11.5-14.0); WHITE BLOOD COUNT 9.1 10^3/uL (4.0-10.5)
[2019-01-07] MEDS: ALPRAZOLAM 0.25 MG TABLET PO PRN ×2 (14:06→22:16)
[2019-01-07] MEDS: AZITHROMYCIN 250 MG TABLET PO SCH (17:59)
[2019-01-07] MEDS ORDERED: TAMSULOSIN HCL 0.4 MG CAP.SR.24H PO SCH (18:00)
[2019-01-07] MEDS: TRAZODONE HCL 50 MG TABLET PO SCH (21:11)
[2019-01-07] MEDS: GABAPENTIN 300 MG CAPSULE PO SCH (21:12)
[2019-01-07] MEDS ORDERED: GABAPENTIN 300 MG CAPSULE PO SCH (22:00)
[2019-01-07] MEDS ORDERED: TRAZODONE HCL 50 MG TABLET PO SCH (22:00)
[2019-01-07] MEDS ORDERED: ATORVASTATIN CALCIUM 40 MG TABLET PO SCH (22:00)
[2019-01-07] MEDS ORDERED: DIAZEPAM INJ 10 MG/2 ML DISP.SYRIN IV ONE (23:15)
[2019-01-08] MEDS ORDERED: DILTIAZEM HCL/D5W 125 MG/125 ML RTUINJ IV ONE (00:13)
[2019-01-08] MEDS ORDERED: DILTIAZEM HCL/D5W 125 MG/125 ML RTUINJ IV PRN (00:32)
[2019-01-08] MEDS ORDERED: NORMAL SALINE 500 ML IV ONE (00:45)
[2019-01-08] MEDS: TRAMADOL HCL 50 MG TABLET PO PRN (01:26)
[2019-01-08] MEDS ORDERED: MORPHINE SULFATE 10 MG/ML INJ ONE (01:43)
[2019-01-08] MEDS ORDERED: FUROSEMIDE INJ/PF 40 MG/4 ML SDV ONE (01:45)
[2019-01-08] MEDS ORDERED: POTASSI CL 20 MEQ/50 ML RIDER 20 MEQ/50 ML RTUPB IV ONE (01:45)
[2019-01-08] MEDS ORDERED: FUROSEMIDE INJ/PF 40 MG/4 ML SDV IV ONE (02:00)
[2019-01-08] MEDS: POTASSIUM CHLORIDE 20 MEQ/50 ML RTU IV SCH ×2 (02:00→04:43)
[2019-01-08] MEDS: IPRATROPIUM/ALBUTEROL 0.5-2.5 MG/3 ML AMPUL NEB SCH ×4 (02:21→20:15)
[2019-01-08] MEDS ORDERED: NOREPINEPHRINE BITARTRATE INJ/PF 4 MG/4 ML SDV IV ONE (02:27)
[2019-01-08] MEDS: DEXTROSE 5%-WATER 250 ML with NOREPINEPHRINE BITARTRATE 4 MG IV PRN ×6 (02:30→13:46)
[2019-01-08] MEDS ORDERED: NORMAL SALINE 1000 ML 1,000 ML IV ONE (02:30)
[2019-01-08] MEDS ORDERED: MORPHINE SULFATE 10 MG/ML INJ IV ONE (03:00)
[2019-01-08 03:37] LABS: HEMATOCRIT 27.4 % (36.0-47.0); HEMOGLOBIN 9.1 g/dL (12.0-15.5); MEAN CORPUSCULAR HEMOGLOBIN 29.4 pg (27.0-33.4); MEAN CORPUSCULAR HGB CONC 33.3 g/dL (32.0-36.0); MEAN CORPUSCULAR VOLUME 88 fl (80-97); PLATELET COUNT 115 10^3/uL (150-450); RED CELL DISTRIBUTION WIDTH 14.8 % (11.5-14.0); WHITE BLOOD COUNT 13.7 10^3/uL (4.0-10.5)
[2019-01-08 03:51] LABS: ALANINE AMINOTRANSFERASE 26 U/L (9-52); ALBUMIN 2.6 g/dL (3.5-5.0); ALKALINE PHOSPHATASE 43 U/L (38-126); ASPARTATE AMINO TRANSFERASE 21 U/L (14-36); BILIRUBIN,DIRECT 0.3 mg/dL (0.0-0.4); BILIRUBIN,TOTAL 0.5 mg/dL (0.2-1.3); BLOOD UREA NITROGEN 36 mg/dL (7-20); CREATINE KINASE 211 U/L (30-135); GLUCOSE 132 mg/dL (75-110)
[2019-01-08 03:52] LABS: ABSOLUTE LYMPHOCYTES# (MANUAL) 0.5 10^3/uL (0.5-4.7); ABSOLUTE MONOCYTES # (MANUAL) 0.7 10^3/uL (0.1-1.4); ABSOLUTE NEUTROPHILS# (MANUAL) 12.3 10^3/uL (1.7-8.2); BASOPHILS % (MANUAL) 0 % (0-2); EOSINOPHILS % (MANUAL) 1 % (0-6); LYMPHOCYTES % (MANUAL) 4 % (13-45); MONOCYTES % (MANUAL) 5 % (3-13); SEGMENTED NEUTROPHILS % (MAN) 90 % (42-78); TOTAL CELLS COUNTED 100
[2019-01-08 03:53] LABS: ANISOCYTOSIS SLIGHT; HYPOCHROMASIA 1+; PLATELET COMMENT ADEQUATE
[2019-01-08 04:02] LABS: CREATINE KINASE MB 5.76 ng/mL (<4.55); TROPONIN I 0.053 ng/mL
[2019-01-08 04:05] LABS: ANION GAP 7 (5-19); CARBON DIOXIDE 19 mmol/L (22-30); CHLORIDE 115 mmol/L (98-107); POTASSIUM 3.7 mmol/L (3.6-5.0); SODIUM 140.5 mmol/L (137-145)
[2019-01-08 04:09] LABS: CALCIUM 6.8 mg/dL (8.4-10.2)
[2019-01-08] MEDS: HEPARIN SOD (PORCINE) 5,000 UNIT/ML 1 ML SYRINGE SUBCUT SCH ×3 (05:22→21:54)
[2019-01-08] MEDS: PANTOPRAZOLE SODIUM 40 MG TABLET.DR PO SCH (05:24)
[2019-01-08] MEDS: LEVOTHYROXINE SODIUM 0.025 MG TABLET PO SCH (05:25)
[2019-01-08 05:37] LABS: ARTERIAL BLOOD BASE EXCESS -8.8 mmol/L; ARTERIAL BLOOD O2 SATURATION 95.6 % (94-98); ARTERIAL BLOOD PCO2 49.7 mmHg (35-45); ARTERIAL BLOOD TOTAL CO2 20.5 mmol/L (21-25)
[2019-01-08 05:38] LABS: ARTERIAL BLOOD FIO2 90%
[2019-01-08] MEDS ORDERED: VANCOMYCIN HCL 1,250 MG in DEXTROSE 5%-WATER 250 ML IV ONE (06:11)
[2019-01-08] MEDS ORDERED: VANCOMYCIN HCL 0 MG in DEXTROSE 5%-WATER 250 ML IV NR (06:15)
[2019-01-08] MEDS ORDERED: VANCOMYCIN HCL INJ 1000 MG VIAL IV PRN (06:20)
[2019-01-08] MEDS ORDERED: CALCIUM GLUCONATE 1,000 MG in DEXTROSE 5%-WATER 50 ML IV ONE (06:45)
[2019-01-08] MEDS ORDERED: DEXTROSE 5%-WATER 250 ML with VASOPRESSIN 100 UNIT IV PRN ×2 (07:59)
[2019-01-08] MEDS ORDERED: CALCIUM GLUCONATE 1000 MG/10 ML INJ IV ONE ×2 (08:15→09:30)
--- NOTE | 2019-01-08 08:27 | RADIOLOGY REPORT (SQ) ---
EXAM DESCRIPTION: CHEST SINGLE VIEW COMPLETED DATE/TIME: 01/08/2019 8:14 am REASON FOR STUDY: shortness of breath COMPARISON: 01/07/2019 EXAM PARAMETERS: NUMBER OF VIEWS: One view. TECHNIQUE: Single frontal radiographic view of the chest acquired. RADIATION DOSE: NA LIMITATIONS: None. FINDINGS: LUNGS AND PLEURA: There are worsening basilar predominant bilateral interstitial and alveo lar opacities with likely small effusions. No pneumothorax MEDIASTINUM AND HILAR STRUCTURES: No discrete mass. HEART AND VASCULAR STRUCTURES: Enlarged. Central vascular vessels are obscured by airspace disease. Aortic atherosclerosis. BONES: Unchanged appearance of the left proximal humerus with evidence of prior osteotomy. Osteopeni a. No new findings. HARDWARE: Left approach central venous catheter tip overlies SVC, unchanged. OTHER: Likely hiatal hernia. IMPRESSION: Worsening basilar predominant interstitial and alveolar opacities, likely edema. Small bilateral effusions. TECHNICAL DOCUMENTATION: JOB ID: [id number] [employer]- All Rights Reserved Reading location - IP/workstation name: [email or web address]
--- NOTE | 2019-01-08 08:37 | PDOC PROGRESS REPORT ---
Subjective Progress Note for:: 01/08/19 Subjective:: 78 years old female patient with multiple comorbidities including stage IV CKD, hypothyroidism, COPD, dementia, chronic indwelling Moura catheter, history of recurrent UTI and pyelonephritis, bipolar disorder and tardive dyskinesia presents with shortness of breath cough productive of yellowish sputum of 1 day duration. Her chest x-ray showed right lower lobe infiltrate and patient has been managed as a case of pneumonia with Zithromax and ceftriaxone. Yesterday morning patient developed dark blood per rectum. And her hemoglobin dropped precipitously from 10.8-7.9. Patient transferred to ICU and she is transfused 4 units of PRBC. Surgery consulted and evaluated the patient. The daughter who is healthcare POA refused any surgical intervention and request only medical management. Currently her hemoglobin is 11 and patient is relatively hemodynamically stable. 01/07/[id number]-wjlr-old white female with history of stage IV kidney disease, AV fistula, hypothyroidism, COPD, dementia, history of recurrent UTI secondary to indwelling Moura's catheter, pyelonephritis, bipolar disorder admitted for COPD exacerbation production of yellowish sputum for 1 day duration. Presently on ceftriaxone and Zithromax. Chest x-ray shows right lower lobe infiltrate. Patient's hemoglobin dropped from 10.8-7.9 under transfer to ICU given 4 units of PRBC. Hemoglobin is stable now around 10.4. Patient is alert and oriented she has NG tube wants to eat plan is to remove the NG tube start on clear liquids today. Surgical consult was requested but POA refused any surgical intervention. Patient requesting for DNR/DNI status. Hemodynamically stable. Blood pressure today is 114/67 with heart rate of 82 temperature is 99.3. 01/08/[id number]-ucok-old female with multiple comorbidities admitted for shortness of breath and found to have a right lower lobe infiltrate treated with the Zithromax and ceftriaxone she also dropped hemoglobin received 4 units of PRBC. Hemoglobin is around 9.1 today. Patient became hypotensive last night. Started on norepinephrine. Started on vancomycin and azithromycin last night. Patient is still hypotensive this morning. Started on vasopressin this morning. Chest x-ray suggestive of pulmonary edema. But the blood pressures are too low to give any IV Lasix. Patient is on BiPAP at this moment we try to wean her off. Patient is alert and awake responding appropriately. ABG this morning shows pH of 7.2 PCO2 49.7. O2 of 95 bicarb is 19 ,plan is to repeat the back ABG today. Blood cultures urine cultures are requested. Lactic acid level is requested and BNP is requested today. Spoke to the daughter Ana chery this morning she told me that her mother has a DNR/DNI papers at home going to bring it to the hospital today. Reason For Visit: PNEUMONIA Physical Exam Vital Signs: Temp Pulse Resp BP Pulse Ox 98.1 F 80 8 L 89/45 L 99 01/08/19 08:00 01/08/19 08:00 01/08/19 08:00 01/08/19 08:00 01/08/19 08:00 Intake & Output 01/07/19 01/08/19 01/09/19 06:59 06:59 06:59 Intake Total 3278 1644 Output Total 2110 1395 100 Balance 1168 249 -100 Weight 57 kg 58 kg General appearance: PRESENT: mild distress, thin, other Head exam: PRESENT: atraumatic Eye exam: PRESENT: PERRLA Mouth exam: PRESENT: moist, tongue midline Teeth exam: PRESENT: poor dentation Neck exam: PRESENT: JVD. ABSENT: carotid bruit, lymphadenopathy, thyromegaly Respiratory exam: PRESENT: crackles, decreased breath sounds, rhonchi Cardiovascular exam: PRESENT: tachycardia GI/Abdominal exam: PRESENT: normal bowel sounds, soft. ABSENT: distended, guarding, mass, organolmegaly, rebound, tenderness Extremities exam: PRESENT: full ROM. ABSENT: calf tenderness, clubbing, pedal edema Neurological exam: PRESENT: alert, awake, CN II-XII grossly intact Psychiatric exam: PRESENT: appropriate affect, normal mood. ABSENT: homicidal ideation, suicidal ideation Results Laboratory Results: 01/08/19 03:25 01/08/19 03:25 01/07/19 01/07/19 01/08/19 08:54 13:48 03:25 WBC 9.1 RBC 3.37 L Hgb 10.0 L Hct 29.0 L MCV 86 MCH 29.6 MCHC 34.4 RDW 14.7 H Plt Count 109 L Seg Neutrophils % Lymphocytes % Monocytes % Eosinophils % Basophils % Absolute Neutrophils Absolute Lymphocytes Absolute Monocytes Absolute Eosinophils Absolute Basophils Carbonic Acid HCO3/H2CO3 Ratio ABG pH ABG pCO2 ABG pO2 ABG HCO3 ABG O2 Saturation ABG Base Excess FiO2 Sodium 140.5 Potassium 3.7 Chloride 115 H Carbon Dioxide 19 L Anion Gap 7 BUN 36 H Creatinine 2.18 H Est GFR ( Amer) 26 L Est GFR (Non-Af Amer) 22 L Glucose 132 H Calcium 6.8 L* Magnesium 1.5 L Total Bilirubin 0.5 AST 21 ALT 26 Alkaline Phosphatase 43 Total Protein 5.0 L Albumin 2.6 L Urine Color STRAW Urine Appearance CLEAR Urine pH 6.0 Ur Specific Belcher 1.011 Urine Protein 30 H Urine Glucose (UA) NEGATIVE Urine Ketones NEGATIVE Urine Blood LARGE H Urine Nitrite NEGATIVE Ur Leukocyte Esterase NEGATIVE Urine WBC (Auto) 7 Urine RBC (Auto) >182 01/08/19 01/08/19 03:25 05:28 WBC 13.7 H RBC 3.10 L Hgb 9.1 L Hct 27.4 L MCV 88 MCH 29.4 MCHC 33.3 RDW 14.8 H Plt Count 115 L Seg Neutrophils % Not Reportable Lymphocytes % Not Reportable Monocytes % Not Reportable Eosinophils % Not Reportable Basophils % Not Reportable Absolute Neutrophils Not Reportable Absolute Lymphocytes Not Reportable Absolute Monocytes Not Reportable Absolute Eosinophils Not Reportable Absolute Basophils Not Reportable Carbonic Acid 1.50 H HCO3/H2CO3 Ratio 12:1 ABG pH 7.20 L* ABG pCO2 49.7 H ABG pO2 95.0 ABG HCO3 19.0 L ABG O2 Saturation 95.6 ABG Base Excess -8.8 FiO2 90% Sodium Potassium Chloride Carbon Dioxide Anion Gap BUN Creatinine Est GFR ( Amer) Est GFR (Non-Af Amer) Glucose Calcium Magnesium Total Bilirubin AST ALT Alkaline Phosphatase Total Protein Albumin Urine Color Urine Appearance Urine pH Ur Specific Belcher Urine Protein Urine Glucose (UA) Urine Ketones Urine Blood Urine Nitrite Ur Leukocyte Esterase Urine WBC (Auto) Urine RBC (Auto) 01/04/19 01/04/19 01/04/19 17:39 17:39 19:25 Creatine Kinase Cancelled 205 H CK-MB (CK-2) Cancelled Troponin I Cancelled 01/04/19 01/05/19 01/05/19 19:25 20:00 20:00 Creatine Kinase 220 H CK-MB (CK-2) 2.20 3.05 Troponin I 0.041 0.073 01/06/19 01/06/19 01/06/19 02:45 02:45 06:07 Creatine Kinase 194 H 183 H CK-MB (CK-2) 2.84 Troponin I 0.058 01/06/19 01/08/19 01/08/19 08:52 03:25 03:25 Creatine Kinase 211 H CK-MB (CK-2) 2.85 5.76 H Troponin I 0.043 0.053 Impressions: Abdomen/Pelvis CT 01/05/19 10:33 IMPRESSION: Since 2016, patient has developed mild left hydronephrosis and mode rate left hydroureter. Unable to evaluate the distal ureter/ ureterovesical junction due to streak artifact from hardware in the pelvis. Distal ureteral stone or stricture could not be excluded. No free intraperitoneal air or fluid or CT signs of bowel obstruction. Assessment and Plan - Diagnosis (1) Acute blood loss anemia Is this a current diagnosis for this admission?: Yes Plan: Due to lower GI bleeding. Patient hemoglobin precipitously drop from 10.9-7.9. Patient got 4 units of packed RBC. Surgical team evaluated the patient. Patient's daughter who is a healthcare POA requested medical management only. We will continue to monitor her H&H. 01/07/2019-patient was transferred to ICU for acute blood loss anemia. Hemoglobin is stable around 10.4 after giving 4 units of PRBC. Surgical consult was requested but POA request only medical management. Plan is to recheck hemogl obin tomorrow to transfer the patient to IMCU today. Acute blood loss anemia most likely secondary to lower GI bleed. 01/08/2019-patient is hemoglobin today is 9.1 it dropped from 10.4 yesterday. Nanda martinez received 4 unit of blood transfusion during the hospital stay. Because of the hypotension patient received fluid bolus it may be due to hemodilution causing the drop in hemoglobin today plan is to recheck the hemoglobin tomorrow. If necessary we going to transfuse again. I spoke to the pts daughter this morning she thinks her mom is a not a surgical candidate. (2) COPD (chronic obstructive pulmonary disease) Qualifiers: COPD type: unspecified COPD Qualified Code(s): J44.9 - Chronic obstructive pulmonary disease, unspecified Is this a current diagnosis for this admission?: Yes Plan: Not in exacerbation. Breathing treatments prn. 01/07/2019-patient has history of COPD. Pulse ox is 91% on 3 L. Presently on DuoNeb nebulizations scheduled and as needed, some salmeterol inhalation twice a day, Spiriva inhalation once a day. She is also on IV antibiotics ceftriaxone and azithromycin. Plan is to continue the present management repeat the chest x-ray today. 01/08/2019-patient has history of COPD presently she is on BiPAP this morning. We are going to do the ABG now on BiPAP. She is also receiving DuoNeb nebulizations, Solu-Medrol inhalation twice a day, Spiriva inhalation daily. Last night she became hypotensive and was started on vancomycin and a zithromycin. She is already on ceftriaxone. Blood cultures urine cultures are requested. On examination chest bilateral entry was decreased crackles and wheezing present. (3) Chronic kidney disease, stage IV (severe) Is this a current diagnosis for this admission?: Yes Plan: We will avoid nephrotoxic agents. Cautiously hydrate her. Patient needs follow-up with her primary wafer batter mixer. 01/07/2019-patient has a stage IV kidney disease. Creatinine on admission is 3.1 improved to 2.39. Acute on chronic kidney disease most likely secondary to prerenal causes resolved with IV fluids and blood transfusion. And has AV fistula. No signs of any uremic symptoms. 01/08/2019-patient has a stage IV kidney disease. Patient creatinine is 2.18 today improved from 2.39 from yesterday. Patient has AV fistula but it was never used. Acute on chronic renal failure may be most likely secondary to prerenal causes. (4) Chronic indwelling Moura catheter Is this a current diagnosis for this admission?: Yes Plan: Urine culture. 01/07/2019-patient has chronic indwelling Moura's catheter secondary to bladder retention. She has history of recurrent UTI. Present urine culture is pending. requested for urine analysis and urine culture. Presently on ceftriaxone and azithromycin. 01/08/2019-patient has history of indwelling Moura's catheter due to bladder retention, she has recurrent UTI. Urine culture is pending. Patient is presently on ceftriaxone, azithromycin and vancomycin. (5) Dementia Qualifiers: Dementia type: unspecified type Dementia behavioral disturbance: without behavioral disturbance Qualified Code(s): F03.90 - Unspecified dementia without behavioral disturbance Is this a current diagnosis for this admission?: No Plan: 01/07/2019-patient has history of dementia. With behavioral problems during the initial hospital stay. Now her mentation is at baseline she is not agitated not confused. plan to continue donepezil 10 mg p.o. daily 01/08/2019-patient has history of dementia with behavioral problems patient mental status at her baseline today. Plan is to continue donepezil 10 mg p.o. daily. (6) Right lower lobe pneumonia Is this a current diagnosis for this admission?: Yes Plan: I will continue her ceftriaxone and Zithromax. 01/07/2019-patient admitted with right lower lobe pneumonia. Most likely community-acquired pneumonia. Most likely gram-positive organisms. Presently on ceftriaxone and Zithromax. Sputum cultures are pending. T-max is 99.3. Plan is to continue the present management. 01/08/2019-patient is admitted with left lower lobe pneumonia chest x-ray done this morning looks worse with fluid overload and right-sided pneumonia most likely she has community-acquired pneumonia most likely gram-positive organisms. Presently on ceftriaxone, Zithromax and vancomycin. T-max is 97.9. Sputum culture showing rare gram-positive cocci in pairs and is to continue the present antibiotic therapy. (7) Acute respiratory failure with hypoxia and hypercapnia Is this a current diagnosis for this admission?: Yes Plan: 01/08/2019-patient went into respiratory distress and became hypotensive last night patient was placed on BiPAP. BG this morning shows pH of 7.2/PCO2 49.5/PO2 of 95 bicarb is 19. Plan is to repeat the ABG on BiPAP today. Chest x-ray shows pulmonary edema and possible right lower lobe infiltrate persisting. (8) DNR (do not resuscitate) Is this a current diagnosis for this admission?: Yes Plan: 01/08/2019 as per patient's daughter, the patient status is DNR/DNI. - Time Time Spent with patient: 25-34 minutes Medications reviewed and adjusted accordingly: Yes Anticipated discharge: SNF
[2019-01-08 09:08] LABS: ARTERIAL BLOOD BASE EXCESS -8.2 mmol/L; ARTERIAL BLOOD H2CO3 1.35 mmol/L (1.05-1.35); ARTERIAL BLOOD HCO3 18.8 mmol/L (20-24); ARTERIAL BLOOD O2 SATURATION 98.7 % (94-98); ARTERIAL BLOOD PH 7.24 (7.35-7.45); ARTERIAL BLOOD PO2 155.7 mmHg (80-100); ARTERIAL BLOOD TOTAL CO2 20.2 mmol/L (21-25)
[2019-01-08 09:11] LABS: ARTERIAL BLOOD FIO2 90%
[2019-01-08] MEDS: MAGNESIUM SULFATE/D5W 1 GM/100 ML RTUPB IV SCH ×2 (09:28→11:08)
[2019-01-08] MEDS: SALMETEROL XINAFOATE DISKUS 50 MCG/1 DOSE 28 DOSE IH SCH ×2 (09:30→21:53)
[2019-01-08] MEDS: CEFTRIAXONE 1 GM/D5W RTU 1 GM/50 ML RTUPB IV SCH (09:30)
[2019-01-08] MEDS: FLUTICASONE NASAL SPRAY 50 MCG/SPRY 120 SPRAY/16 GM NASL SCH ×2 (09:31→21:53)
[2019-01-08] MEDS: ALBUMIN HUMAN 12.5 GM/50 ML RTUINJ IV SCH ×4 (09:31→12:23)
[2019-01-08] MEDS: DULOXETINE HCL 30 MG CAPSULE.DR PO SCH (09:32)
[2019-01-08] MEDS: DONEPEZIL HCL 5 MG TABLET PO SCH (09:33)
[2019-01-08] MEDS: ATORVASTATIN CALCIUM 40 MG TABLET PO SCH (09:33)
[2019-01-08] MEDS: CYANOCOBALAMIN/FA/PYRIDOXINE TABLET PO SCH (09:34)
[2019-01-08] MEDS: TIOTROPIUM BROMIDE DPI 5 CAP/KIT (18 MCG/CAP) IH SCH (09:34)
[2019-01-08 11:53] LABS: CREATINE KINASE MB 5.74 ng/mL (<4.55); TROPONIN I 0.083 ng/mL
[2019-01-08] MEDS ORDERED: VANCOMYCIN HCL 1,000 MG in DEXTROSE 5%-WATER 250 ML IV ONE (12:00)
[2019-01-08] MEDS: AZITHROMYCIN 250 MG TABLET PO SCH (17:47)
[2019-01-08] MEDS: TRAZODONE HCL 50 MG TABLET PO SCH (21:53)
[2019-01-08] MEDS: GABAPENTIN 300 MG CAPSULE PO SCH (21:54)
[2019-01-08] MEDS: NORMAL SALINE 1000 ML 1,000 ML IV PRN (21:55)
[2019-01-09] MEDS: TRAMADOL HCL 50 MG TABLET PO PRN
[2019-01-09] MEDS: ALPRAZOLAM 0.25 MG TABLET PO PRN (00:01)
[2019-01-09] MEDS: IPRATROPIUM/ALBUTEROL 0.5-2.5 MG/3 ML AMPUL NEB SCH ×2 (01:55→08:18)
[2019-01-09] MEDS: LEVOTHYROXINE SODIUM 0.025 MG TABLET PO SCH (05:13)
[2019-01-09] MEDS: HEPARIN SOD (PORCINE) 5,000 UNIT/ML 1 ML SYRINGE SUBCUT SCH ×2 (05:14→13:09)
[2019-01-09] MEDS: PANTOPRAZOLE SODIUM 40 MG TABLET.DR PO SCH (05:14)
[2019-01-09 05:42] LABS: ABSOLUTE BASOPHILS # (AUTO) 0.1 10^3/uL (0.0-0.2); ABSOLUTE EOSINOPHILS # (AUTO) 0.7 10^3/uL (0.0-0.6); ABSOLUTE LYMPHOCYTES (AUTO) 0.7 10^3/uL (0.5-4.7); ABSOLUTE MONOCYTES (AUTO) 0.8 10^3/uL (0.1-1.4); BASOPHILS % (AUTO) 0.9 % (0-2); EOSINOPHILS % (AUTO) 10.1 % (0-6); HEMATOCRIT 24.2 % (36.0-47.0); HEMOGLOBIN 8.3 g/dL (12.0-15.5); LYMPHOCYTES % (AUTO) 9.5 % (13-45); MEAN CORPUSCULAR HEMOGLOBIN 30.3 pg (27.0-33.4); MEAN CORPUSCULAR HGB CONC 34.4 g/dL (32.0-36.0); MEAN CORPUSCULAR VOLUME 88 fl (80-97); MONOCYTES % (AUTO) 10.9 % (3-13); PLATELET COUNT 114 10^3/uL (150-450); RED BLOOD COUNT 2.75 10^6/uL (3.72-5.28); RED CELL DISTRIBUTION WIDTH 14.7 % (11.5-14.0); SEGMENTED NEUTROPHILS % (AUTO) 68.6 % (42-78); TOTAL CELLS COUNTED % (AUTO) 100 %; WHITE BLOOD COUNT 7.3 10^3/uL (4.0-10.5)
[2019-01-09 05:45] LABS: ARTERIAL BLOOD BASE EXCESS -5.6 mmol/L; ARTERIAL BLOOD H2CO3 1.45 mmol/L (1.05-1.35); ARTERIAL BLOOD HCO3 21.3 mmol/L (20-24); ARTERIAL BLOOD O2 SATURATION 97.8 % (94-98); ARTERIAL BLOOD PCO2 48.2 mmHg (35-45); ARTERIAL BLOOD PH 7.26 (7.35-7.45); ARTERIAL BLOOD PO2 120.7 mmHg (80-100); ARTERIAL BLOOD TOTAL CO2 22.8 mmol/L (21-25)
[2019-01-09 05:47] LABS: ARTERIAL BLOOD FIO2 15L
[2019-01-09 06:01] LABS: ALANINE AMINOTRANSFERASE 20 U/L (9-52); ALBUMIN 3.2 g/dL (3.5-5.0); ALKALINE PHOSPHATASE 39 U/L (38-126); ANION GAP 9 (5-19); ASPARTATE AMINO TRANSFERASE 18 U/L (14-36); BILIRUBIN,DIRECT 0.3 mg/dL (0.0-0.4); BILIRUBIN,TOTAL 0.4 mg/dL (0.2-1.3); BLOOD UREA NITROGEN 34 mg/dL (7-20); CALCIUM 7.4 mg/dL (8.4-10.2); CARBON DIOXIDE 22 mmol/L (22-30); CHLORIDE 108 mmol/L (98-107); GLUCOSE 104 mg/dL (75-110); POTASSIUM 3.6 mmol/L (3.6-5.0); SODIUM 138.6 mmol/L (137-145); TOTAL PROTEIN 5.6 g/dL (6.3-8.2)
[2019-01-09] MEDS: NORMAL SALINE 1000 ML 1,000 ML IV PRN (06:53)
[2019-01-09] MEDS ORDERED: NORMAL SALINE 250 ML IV PRN ×2 (08:04)
--- NOTE | 2019-01-09 09:17 | PDOC PROGRESS REPORT ---
Subjective Progress Note for:: 01/09/19 Subjective:: 78 years old female patient with multiple comorbidities including stage IV CKD, hypothyroidism, COPD, dementia, chronic indwelling Moura catheter, history of recurrent UTI and pyelonephritis, bipolar disorder and tardive dyskinesia presents with shortness of breath cough productive of yellowish sputum of 1 day duration. Her chest x-ray showed right lower lobe infiltrate and patient has been managed as a case of pneumonia with Zithromax and ceftriaxone. Yesterday morning patient developed dark blood per rectum. And her hemoglobin dropped precipitously from 10.8-7.9. Patient transferred to ICU and she is transfused 4 units of PRBC. Surgery consulted and evaluated the patient. The daughter who is healthcare POA refused any surgical intervention and request only medical management. Currently her hemoglobin is 11 and patient is relatively hemodynamically stable. 01/07/[id number]-pohf-old white female with history of stage IV kidney disease, AV fistula, hypothyroidism, COPD, dementia, history of recurrent UTI secondary to indwelling Moura's catheter, pyelonephritis, bipolar disorder admitted for COPD exacerbation production of yellowish sputum for 1 day duration. Presently on ceftriaxone and Zithromax. Chest x-ray shows right lower lobe infiltrate. Patient's hemoglobin dropped from 10.8-7.9 under transfer to ICU given 4 units of PRBC. Hemoglobin is stable now around 10.4. Patient is alert and oriented she has NG tube wants to eat plan is to remove the NG tube start on clear liquids today. Surgical consult was requested but POA refused any surgical intervention. Patient requesting for DNR/DNI status. Hemodynamically stable. Blood pressure today is 114/67 with heart rate of 82 temperature is 99.3. 01/08/[id number]-dfzz-old female with multiple comorbidities admitted for shortness of breath and found to have a right lower lobe infiltrate treated with the Zithromax and ceftriaxone she also dropped hemoglobin received 4 units of PRBC. Hemoglobin is around 9.1 today. Patient became hypotensive last night. Started on norepinephrine. Started on vancomycin and azithromycin last night. Patient is still hypotensive this morning. Started on vasopressin this morning. Chest x-ray suggestive of pulmonary edema. But the blood pressures are too low to give any IV Lasix. Patient is on BiPAP at this moment we try to wean her off. Patient is alert and awake responding appropriately. ABG this morning shows pH of 7.2 PCO2 49.7. O2 of 95 bicarb is 19 ,plan is to repeat the back ABG today. Blood cultures urine cultures are requested. Lactic acid level is requested and BNP is requested today. Spoke to the daughter Ana chery this morning she told me that her mother has a DNR/DNI papers at home going to bring it to the hospital today. 01/09/[id number]-jqdv-old female admitted for shortness of breath and has a right lower lobe infiltrate treated with antibiotic therapy she was transferred to ICU for a significant drop in hemoglobin status post 4 units of blood transfusion today hemoglobin dropped to 8.7 again plan to give 1 unit of PRBC last night blood pressure dropped and patient was started on Levophed again. Chest x-ray shows pulmonary congestion and BNP was elevated patient is on BiPAP right now latest blood pressure is 108/60 temperature 97.6 pulse ox 100% on BiPAP patient wants to eat does not want to be on a BiPAP we afraid if she may aspirate but she able to swallow the medications okay her BNP is 24,400 today. Chest x-ray done yesterday shows worsening of edema and opacities. Going to have family meeting this afternoon for possible discussion about comfort care measures only. She is DNR/DNI overall prognosis poor. Reason For Visit: PNEUMONIA Physical Exam Vital Signs: Temp Pulse Resp BP Pulse Ox 97.9 F 87 14 97/54 L 97 01/09/19 08:00 01/09/19 08:19 01/09/19 08:19 01/09/19 08:00 01/09/19 08:19 Intake & Output 01/08/19 01/09/19 01/10/19 06:59 06:59 06:59 Intake Total 1644 2031 Output Total 1395 1760 125 Balance 249 271 -125 Weight 58 kg 59.3 kg General appearance: PRESENT: mild distress, thin, other - On BiPAP Head exam: PRESENT: atraumatic Eye exam: PRESENT: PERRLA Mouth exam: PRESENT: moist, tongue midline Neck exam: ABSENT: carotid bruit, JVD, lymphadenopathy, thyromegaly Respiratory exam: PRESENT: crackles, decreased breath sounds, rhonchi, wheezes Cardiovascular exam: PRESENT: systolic murmur, tachycardia GI/Abdominal exam: PRESENT: normal bowel sounds, soft. ABSENT: distended, guarding, mass, organolmegaly, rebound, tenderness Extremities exam: PRESENT: full ROM. ABSENT: calf tenderness, clubbing, pedal edema Neurological exam: PRESENT: alert, awake, oriented to person, oriented to place, oriented to time, oriented to situation, CN II-XII grossly intact. ABSENT: motor sensory deficit Psychiatric exam: PRESENT: anxious Results Laboratory Results: 01/09/19 05:30 01/09/19 05:30 01/08/19 01/08/19 01/09/19 08:45 09:00 05:30 WBC RBC Hgb Hct MCV MCH MCHC RDW Plt Count Seg Neutrophils % Lymphocytes % Monocytes % Eosinophils % Basophils % Absolute Neutrophils Absolute Lymphocytes Absolute Monocytes Absolute Eosinophils Absolute Basophils Carbonic Acid 1.35 HCO3/H2CO3 Ratio 13:1 ABG pH 7.24 L ABG pCO2 45.0 ABG pO2 155.7 H ABG HCO3 18.8 L ABG O2 Saturation 98.7 H ABG Base Excess -8.2 FiO2 90% Sodium 138.6 Potassium 3.6 Chloride 108 H Carbon Dioxide 22 Anion Gap 9 BUN 34 H Creatinine 2.49 H Est GFR ( Amer) 23 L Est GFR (Non-Af Amer) 19 L Glucose 104 Lactic Acid 1.2 Calcium 7.4 L Magnesium 2.2 Total Bilirubin 0.4 AST 18 ALT 20 Alkaline Phosphatase 39 Total Protein 5.6 L Albumin 3.2 L 01/09/19 01/09/19 05:30 05:30 WBC 7.3 RBC 2.75 L Hgb 8.3 L Hct 24.2 L MCV 88 MCH 30.3 MCHC 34.4 RDW 14.7 H Plt Count 114 L Seg Neutrophils % 68.6 Lymphocytes % 9.5 L Monocytes % 10.9 Eosinophils % 10.1 H Basophils % 0.9 Absolute Neutrophils 5.0 Absolute Lymphocytes 0.7 Absolute Monocytes 0.8 Absolute Eosinophils 0.7 H Absolute Basophils 0.1 Carbonic Acid 1.45 H HCO3/H2CO3 Ratio 14:1 ABG pH 7.26 L ABG pCO2 48.2 H ABG pO2 120.7 H ABG HCO3 21.3 ABG O2 Saturation 97.8 ABG Base Excess -5.6 FiO2 15L Sodium Potassium Chloride Carbon Dioxide Anion Gap BUN Creatinine Est GFR ( Amer) Est GFR (Non-Af Amer) Glucose Lactic Acid Calcium Magnesium Total Bilirubin AST ALT Alkaline Phosphatase Total Protein Albumin 01/06/19 02:30 Sputum Gram Stain - Final 01/06/19 02:30 Sputum Sputum Culture - Final NORMAL DIANNE 01/04/19 01/04/19 01/04/19 17:39 17:39 19:25 Creatine Kinase Cancelled 205 H CK-MB (CK-2) Cancelled Troponin I Cancelled NT-Pro-B Natriuret Pep 01/04/19 01/05/19 01/05/19 19:25 20:00 20:00 Creatine Kinase 220 H CK-MB (CK-2) 2.20 3.05 Troponin I 0.041 0.073 NT-Pro-B Natriuret Pep 01/06/19 01/06/19 01/06/19 02:45 02:45 06:07 Creatine Kinase 194 H 183 H CK-MB (CK-2) 2.84 Troponin I 0.058 NT-Pro-B Natriuret Pep 01/06/19 01/08/19 01/08/19 08:52 03:25 03:25 Creatine Kinase 211 H CK-MB (CK-2) 2.85 5.76 H Troponin I 0.043 0.053 NT-Pro-B Natriuret Pep 01/08/19 01/08/19 01/08/19 08:45 08:45 08:45 Creatine Kinase 205 H CK-MB (CK-2) 5.74 H Troponin I 0.083 NT-Pro-B Natriuret Pep [id number] H Impressions: Abdomen/Pelvis CT 01/05/19 10:33 IMPRESSION: Since 2016, patient has developed mild left hydronephrosis and moderate left hydroureter. Unable to evaluate the distal ureter/ ureterovesical junction due to streak artifact from hardware in the pelvis. Distal ureteral stone or stricture could not be excluded. No free intraperitoneal air or fluid or CT signs of bowel obstruction. Chest X-Ray 01/08/19 00:00 IMPRESSION: Worsening basilar predominant interstitial and alveolar opacities, likely edema. Small bilateral effusions. Assessment and Plan - Diagnosis (1) Acute blood loss anemia Is this a current diagnosis for this admission?: Yes Plan: Due to lower GI bleeding. Patient hemoglobin precipitously drop from 10.9-7.9. Patient got 4 units of packed RBC. Surgical team evaluated the patient. Patient's daughter who is a healthcare POA requested medical management only. We will continue to monitor her H&H. 01/07/2019-patient was transferred to ICU for acute blood loss anemia. Hemoglobin is stable around 10.4 after giving 4 units of PRBC. Surgical consult was requested but POA request only medical management. Plan is to recheck hemogl obin tomorrow to transfer the patient to IMCU today. Acute blood loss anemia most likely secondary to lower GI bleed. 01/08/2019-patient is hemoglobin today is 9.1 it dropped from 10.4 yesterday. Nanda martinez received 4 unit of blood transfusion during the hospital stay. Because of the hypotension patient received fluid bolus it may be due to hemodilution causing the drop in hemoglobin today plan is to recheck the hemoglobin tomorrow. If necessary we going to transfuse again. I spoke to the pts daughter this morning she thinks her mom is a not a surgical candidate. 01/09/2019-hemoglobin dropped to 8.7 today to transfuse 1 unit of PRBC today most likely patient has lower GI bleed probably secondary to diverticular disease. plan to check post transfusion CBC and also CBC in the morning. (2) COPD (chronic obstructive pulmonary disease) Qualifiers: COPD type: unspecified COPD Qualified Code(s): J44.9 - Chronic obstructive pulmonary disease, unspecified Is this a current diagnosis for this admission?: Yes Plan: Not in exacerbation. Breathing treatments prn. 01/07/2019-patient has history of COPD. Pulse ox is 91% on 3 L. Presently on DuoNeb nebulizations scheduled and as needed, some salmeterol inhalation twice a day, Spiriva inhalation once a day. She is also on IV antibiotics ceftriaxone and azithromycin. Plan is to continue the present management repeat the chest x-ray today. 01/08/2019-patient has history of COPD presently she is on BiPAP this morning. We are going to do the ABG now on BiPAP. She is also receiving DuoNeb nebulizations, Solu-Medrol inhalation twice a day, Spiriva inhalation daily. Last night she became hypotensive and was started on vancomycin and azithromycin. She is already on ceftriaxone. Blood cultures urine cultures are requested. On examination chest bilateral entry was decreased crackles and wheezing present. 01/09/2019-patient has history of COPD on BiPAP oxygen saturation is 100% on 30% oxygen she is also on IV Solu-Medrol, DuoNeb nebulizations, Spiriva inhalation daily. Presently on azithromycin and p.o. oxygen. Patient is afebrile. WBC count is 7.3 today. And is to continue the present management. ABG this morning on 15 L shows pH of 7.26/PCO2 48 PO2 120 pulse ox is 97.8%. (3) Chronic kidney disease, stage IV (severe) Is this a current diagnosis for this admission?: Yes Plan: We will avoid nephrotoxic agents. Cautiously hydrate her. 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 01/07/2019-patient has a stage IV kidney disease. Creatinine on admission is 3.1 improved to 2.39. Acute on chronic kidney disease most likely secondary to prerenal causes resolved with IV fluids and blood transfusion. And has AV f istula. No signs of any uremic symptoms. 01/08/2019-patient has a stage IV kidney disease. Patient creatinine is 2.18 today improved from 2.39 from yesterday. Patient has AV fistula but it was never used. Acute on chronic renal failure may be most likely secondary to prerenal causes. 01/09/2019-patient's creatinine jumped from 2.19-2.49. Patient has stage IV kidney disease. Creatinine is fluctuating between 2.1-2.5. Patient is n.p.o. except for medications because of the risk of aspiration. (4) Chronic indwelling Moura catheter Is this a current diagnosis for this admission?: Yes Plan: Urine culture. 01/07/2019-patient has chronic indwelling Moura's catheter secondary to bladder retention. She has history of recurrent UTI. Present urine culture is pending. requested for urine analysis and urine culture. Presently on ceftriaxone and azithromycin. 01/08/2019-patient has history of indwelling Moura's catheter due to bladder retention, she has recurrent UTI. Urine culture is pending. Patient is presently on ceftriaxone, azithromycin 01/09/2019-patient has indwelling Moura's catheter and she has recurrent UTI presently on ceftriaxone and azithromycin. latest urine cultures and blood cultures are negative. (5) Dementia Qualifiers: Dementia type: unspecified type Dementia behavioral disturbance: without behavioral disturbance Qualified Code(s): F03.90 - Unspecified dementia without behavioral disturbance Is this a current diagnosis for this admission?: No Plan: 01/07/2019-patient has history of dementia. With behavioral problems during the initial hospital stay. Now her mentation is at baseline she is not agitated not confused. plan to continue donepezil 10 mg p.o. daily 01/08/2019-patient has history of dementia with behavioral problems patient mental status at her baseline today. Plan is to continue donepezil 10 mg p.o. daily. 01/09/2019-patient has advanced dementia patient is not in distress not agitated this morning. presently on benazepril 10 mg daily plan is to continue the present management. (6) Right lower lobe pneumonia Is this a current diagnosis for this admission?: Yes Plan: I will continue her ceftriaxone and Zithromax. 01/07/2019-patient admitted with right lower lobe pneumonia. Most likely community-acquired pneumonia. Most likely gram-positive organisms. Presently on ceftriaxone and Zithromax. Sputum cultures are pending. T-max is 99.3. Plan is to continue the present management. 01/08/2019-patient is admitted with left lower lobe pneumonia chest x-ray done this morning looks worse with fluid overload and right-sided pneumonia most likely she has community-acquired pneumonia most likely gram-positive organisms. Presently on ceftriaxone, Zithromax and vancomycin. T-max is 97.9. Sputum culture showing rare gram-positive cocci in pairs and is to continue the present antibiotic therapy. 01/09/2019-the chest x-ray shows worsening basilar opacities/infiltrates. Patient is on Zithromax and Rocephin. Afebrile. T-max is 97.8. Plan is to continue the present management. Sputum culture shows normal respiratory dianne. (7) Acute respiratory failure with hypoxia and hypercapnia Is this a current diagnosis for this admission?: Yes Plan: 01/08/2019-patient went into respiratory distress and became hypotensive last night patient was placed on BiPAP. BG this morning shows pH of 7.2/PCO2 49.5/PO2 of 95 bicarb is 19. Plan is to repeat the ABG on BiPAP today. Chest x-ray shows pulmonary edema and possible right lower lobe infiltrate persisting. 01/09/2019-patient is on BiPAP she has acute on chronic respiratory failure with hypoxia and hypercapnia. Chest x-ray suggestive of pulmonary edema possible infiltrates but the sputum cultures blood cultures urine cultures are negative patient is afebrile. (8) DNR (do not resuscitate) Is this a current diagnosis for this admission?: Yes Plan: 01/08/2019 as per patient's daughter, the patient status is DNR/DNI. 01/2019-patient CODE STATUS is DNR/DNI family members are going to be here at lunchtime to discuss comfort care measures. In the meantime we will continue the present management. (9) Hypotension Is this a current diagnosis for this admission?: Yes Plan: 01/09/2019-patient was hypotensive again last night started on Levophed blood pressure this morning is 108/66 and chest x-ray shows pulmonary edema BNP is 24,400. Sepsis unlikely because the cultures are negative. Hypotension may be secondary to third spacing and flash pulmonary edema. Started on Midodrin 5 mg p.o. 3 times daily. Overall prognosis poor condition is critical.
[2019-01-09] MEDS ORDERED: MIDODRINE HCL 5 MG TABLET PO SCH (10:00)
[2019-01-09] MEDS: ATORVASTATIN CALCIUM 40 MG TABLET PO SCH (10:34)
[2019-01-09] MEDS: DONEPEZIL HCL 5 MG TABLET PO SCH (10:34)
[2019-01-09] MEDS: DULOXETINE HCL 30 MG CAPSULE.DR PO SCH (10:35)
[2019-01-09] MEDS: CEFTRIAXONE 1 GM/D5W RTU 1 GM/50 ML RTUPB IV SCH (10:35)
[2019-01-09] MEDS: CYANOCOBALAMIN/FA/PYRIDOXINE TABLET PO SCH (10:35)
[2019-01-09] MEDS: SALMETEROL XINAFOATE DISKUS 50 MCG/1 DOSE 28 DOSE IH SCH (10:37)
[2019-01-09] MEDS: FLUTICASONE NASAL SPRAY 50 MCG/SPRY 120 SPRAY/16 GM NASL SCH (10:37)
[2019-01-09] MEDS: TIOTROPIUM BROMIDE DPI 5 CAP/KIT (18 MCG/CAP) IH SCH (10:37)
[2019-01-09] MEDS ORDERED: VANCOMYCIN HCL 500 MG in DEXTROSE 5%-WATER 100 ML IV SCH (12:00)
[2019-01-09] MEDS ORDERED: BEER PO PRN (13:17)
[2019-01-09] MEDS: LORAZEPAM INJ 2 MG/1 ML VIAL IV PRN (17:43)
[2019-01-09] MEDS: MORPHINE SULFATE 10 MG/ML INJ IV PRN (20:14)
[2019-01-10] MEDS: LORAZEPAM INJ 2 MG/1 ML VIAL IV PRN ×2 (01:54→14:50)
[2019-01-10] MEDS: MORPHINE SULFATE 10 MG/ML INJ IV PRN ×3 (05:51→17:25)
[2019-01-10 18:58] VITALS: BP 96/71
--- NOTE | 2019-01-11 08:14 | PDOC DISCHARGE SUMMARY ---
General - Admit/Disc Date/PCP Admission Date/Primary Care Provider: 01/04/19 21:33 SEGUNDO VÁZQUEZ, [facility] Discharge Date: 01/10/19 - Discharge Diagnosis (1) Acute respiratory failure with hypoxia and hypercapnia Is this a current diagnosis for this admission?: Yes Summary: The patient presented with shortness of breath and was found to have pneumonia. She has underlying chronic obstructive pulmonary disease. The pneumonia was in the right lower lobe and treated with antibiotic therapy. She remains on supplemental oxygen. (2) Right lower lobe pneumonia Is this a current diagnosis for this admission?: Yes Summary: Pneumonia treated with antibiotic therapy. Was most likely pneumococcal based on community acquired with underlying chronic obstructive pulmonary disease. Gram stain did show gram-positive cocci in pairs. Antibiotic therapy was initiated but subsequently withdrawn as patient is now comfort measures only (3) Acute blood loss anemia Is this a current diagnosis for this admission?: Yes Summary: The patient exhibited a drop in hemoglobin. She received multiple units of packed red blood cells. Family did not want any endoscopic investigation. They were considering and in fact have move forward with comfort measures only. (4) Gastrointestinal bleeding Is this a current diagnosis for this admission?: Yes Summary: Patient was passing blood clots and bright red blood per rectum. Due to the patient's comorbidities and frailty no surgery or endoscopic intervention was pursued. She was transfused with a good hemoglobin response. The patient has gone on to comfort measures only. (5) Acute renal failure superimposed on stage 4 chronic kidney disease Is this a current diagnosis for this admission?: Yes Summary: Gentle hydration was instituted. Serum creatinine remains between 2.0 and 2.5. The patient is now comfort measures only and will discharge home with hospice. (6) COPD (chronic obstructive pulmonary disease) Is this a current diagnosis for this admission?: Yes Summary: Inhaler regimen and steroids as well as supplemental oxygen initiated. Patient has transition to comfort measures only. (7) Chronic indwelling Moura catheter Is this a current diagnosis for this admission?: Yes Summary: This will remain in place as patient is going on home hospice with comfort measures only. (8) Dementia Is this a current diagnosis for this admission?: Yes Summary: The patient is stable. There are no behavioral issues with her underlying dementia. No medications at this time as she is comfort measures only and will be discharged to home hospice. - Additional Information Resuscitation Status: Do Not Resuscitate Discharge Diet: As Tolerated Discharge Activity: Activity As Tolerated Prescriptions: Oxycodone HCl [Oxy-Ir 5 mg Tablet] 5 mg PO Q4HP PRN 5 Days #10 tablet PRN Reason: For Pain Home Medications: Alprazolam [Xanax 0.25 mg Tablet] 0.25 mg PO Q12HP PRN 01/05/19 Ipratropium/Albuterol Sulfate [Duoneb 3 ml Ampul] 3 ml NEB Q3HP PRN 01/05/19 Docusate Sodium [Colace 100 mg Capsule] 100 mg PO BID PRN #0 01/10/19 Oxycodone HCl [Oxy-Ir 5 mg Tablet] 5 mg PO Q4HP PRN 5 Days #10 tablet 01/10/19 History of Present Illness Patient complains of: Increased shortness of breath History of Present Illness: PADMINI MISHRA is a 78 year old female with a complex medical history. She has chronic indwelling Moura catheter for uterine prolapse, recurrent pyelonephritis, chronic kidney disease stage IV, bipolar disorder with tardive dyskinesia, chronic obstructive pulmonary disease and dementia. Over the 24 hours prior to admission she had a productive cough with yellow sputum. She did report possible aspiration while eating several days ago. She was tachypneic, febrile, diagnostic imaging revealed a right lower lobe infiltrate and she required supplemental oxygen. She was referred to the hospitalist service for admission. Hospital Course Hospital Course: The patient was started on antibiotic therapy. She was found to be passing blood clots. The family requested no surgical or endoscopic intervention. She did receive multiple packed red blood cell transfusions. She was treated for her pneumonia. She received gentle hydration for her chronic kidney disease. The patient's condition was poor and there was no marked improvement with aggressive therapy. The family has decided to move to comfort measures only. The patient will actually be discharged to home hospice. Physical Exam Vital Signs: Temp Pulse Resp BP Pulse Ox 97.2 F 94 17 101/57 L 91 L 01/09/19 14:00 01/09/19 12:00 01/09/19 13:00 01/09/19 12:54 01/09/19 12:54 Intake & Output 01/09/19 01/10/19 01/11/19 06:59 06:59 06:59 Intake Total 2602 2293 Output Total 2140 505 Balance 271 748 Weight 59.3 kg 59.4 kg General appearance: PRESENT: no acute distress, cooperative - The patient is pleasantly demented., well-developed Head exam: PRESENT: normocephalic Teeth exam: PRESENT: edentulous Respiratory exam: PRESENT: clear to auscultation gertrude - Anteriorly, symmetrical. ABSENT: chest wall tenderness, rales, rhonchi, tachypnea, wheezes Cardiovascular exam: PRESENT: RRR, +S1, +S2 GI/Abdominal exam: PRESENT: normal bowel sounds, soft. ABSENT: distended, tenderness Rectal exam: PRESENT: deferred Neurological exam: PRESENT: alert, awake, oriented to person, oriented to place Psychiatric exam: PRESENT: appropriate affect. ABSENT: agitated, anxious Results Laboratory Results: 01/09/19 05:30 01/09/19 05:30 01/04/19 01/04/19 01/04/19 17:39 17:39 19:25 Creatine Kinase Cancelled 205 H CK-MB (CK-2) Cancelled Troponin I Cancelled NT-Pro-B Natriuret Pep 01/04/19 01/05/19 01/05/19 19:25 20:00 20:00 Creatine Kinase 220 H CK-MB (CK-2) 2.20 3.05 Troponin I 0.041 0.073 NT-Pro-B Natriuret Pep 01/06/19 01/06/19 01/06/19 02:45 02:45 06:07 Creatine Kinase 194 H 183 H CK-MB (CK-2) 2.84 Troponin I 0.058 NT-Pro-B Natriuret Pep 01/06/19 01/08/19 01/08/19 08:52 03:25 03:25 Creatine Kinase 211 H CK-MB (CK-2) 2.85 5.76 H Troponin I 0.043 0.053 NT-Pro-B Natriuret Pep 01/08/19 01/08/19 01/08/19 08:45 08:45 08:45 Creatine Kinase 205 H CK-MB (CK-2) 5.74 H Troponin I 0.083 NT-Pro-B Natriuret Pep [id number] H Impressions: Abdomen/Pelvis CT 01/05/19 10:33 IMPRESSION: Since 2016, patient has developed mild left hydronephrosis and moderate left hydroureter. Unable to evaluate the distal ureter/ ureterovesical junction due to streak artifact from hardware in the pelvis. Distal ureteral stone or stricture could not be excluded. No free intraperitoneal air or fluid or CT signs of bowel obstruction. Chest X-Ray 01/08/19 00:00 IMPRESSION: Worsening basilar predominant interstitial and alveolar opacities, likely edema. Small bilateral effusions. Qualifiers - * PATIENT BEING DISCHARGED WITH ANY OF THE FOLLOWING DIAGNOSIS: No Plan Discharge Plan: The patient will be discharged on home hospice. A prescription for a small supply of her narcotic analgesia was provided. The Moura catheter will be left in place but the central line was removed. The family does have medical equipment at home to care for the patient. Time Spent: Greater than 30 Minutes
== END 2019-01-10 19:30 | disposition hospice, home (50) | DRG 193 ==
LOC: ER 16:59 → EH 21:33 → 3S 01-05 02:25 → ICU 01-05 15:36 → 4N 01-09 15:00
PROVIDERS: ADMIT Internal Medicine; ATTEND Internal Medicine
PROC: 30233N1 Transfusion of Nonautologous Red Blood Cells into Peripheral Vein, Percutaneous Approach (ICD-10-PCS; 2019-01-05)
PROC: 02HV33Z Insertion of Infusion Device into Superior Vena Cava, Percutaneous Approach (ICD-10-PCS; 2019-01-05)
PROC: 3E0F3GC Introduction of Other Therapeutic Substance into Respiratory Tract, Percutaneous Approach (ICD-10-PCS; 2019-01-05)
PROC: 30233K1 Transfusion of Nonautologous Frozen Plasma into Peripheral Vein, Percutaneous Approach (ICD-10-PCS; 2019-01-06)
PROC: 5A09357 Assistance with Respiratory Ventilation, Less than 24 Consecutive Hours, Continuous Positive Airway Pressure (ICD-10-PCS; principal; 2019-01-08)
DX: J13 Pneumonia due to Streptococcus pneumoniae (principal); J96.02 Acute respiratory failure with hypercapnia; J96.01 Acute respiratory failure with hypoxia; J44.0 Chronic obstructive pulmonary disease with (acute) lower respiratory infection; D62 Acute posthemorrhagic anemia; K92.2 Gastrointestinal hemorrhage, unspecified; N18.4 Chronic kidney disease, stage 4 (severe); N17.9 Acute kidney failure, unspecified; N12 Tubulo-interstitial nephritis, not specified as acute or chronic; Z51.5 Encounter for palliative care; I95.9 Hypotension, unspecified; J44.9 Chronic obstructive pulmonary disease, unspecified; F03.90 Unspecified dementia, unspecified severity, without behavioral disturbance, psychotic disturbance, mood disturbance, and anxiety; D63.1 Anemia in chronic kidney disease; Z66 Do not resuscitate; N81.4 Uterovaginal prolapse, unspecified; F31.9 Bipolar disorder, unspecified; G24.01 Drug induced subacute dyskinesia; I25.10 Atherosclerotic heart disease of native coronary artery without angina pectoris; E78.5 Hyperlipidemia, unspecified; E03.9 Hypothyroidism, unspecified; K21.9 Gastro-esophageal reflux disease without esophagitis; H91.90 Unspecified hearing loss, unspecified ear; R00.0 Tachycardia, unspecified; M25.512 Pain in left shoulder; K44.9 Diaphragmatic hernia without obstruction or gangrene; Z87.891 Personal history of nicotine dependence; Z82.49 Family history of ischemic heart disease and other diseases of the circulatory system; Z83.438 Family history of other disorder of lipoprotein metabolism and other lipidemia; Z87.440 Personal history of urinary (tract) infections; Z87.01 Personal history of pneumonia (recurrent)
CPT/HCPCS: 36415; 36430; 71045; 74176; 80048; 80053; 81001; 82272; 82533; 82550; 82553; 82607; 82728; 82746; 82803; 82962; 83540; 83550; 83605; 83690; 83735; 83880; 84484; 85025; 85027; 85045; 85610; 85730; 86850; 86900; 86901; 86920; 87040; 87070; 87086; 87205; 87493; 93005; 93010; 94640; 94660; 94667; 94668; 94799; 96365; 96366; 99285; C1751; J0456; J0610; J0696; J1642; J1644; J1756; J1940; J2060; J2270; J3360; J3475; J3480; J3490; J7030; J7040; J7060; J7620; P9016; P9017; P9047